=== PATIENT | male | born 1945 | race Caucasian/White ===

== ENCOUNTER 2020-05-13 08:11 | Emergency (ER) | payer MEDICARE, OTHER, SELFPAY ==
--- NOTE | ~2020-05-13 | CT_ITS ---
EXAMINATION: CT brain wo con DATE: 05/13/2020 09:00 INDICATION: Headache. Dizziness. TECHNIQUE: Computed tomography (CT) of the head was performed without intravenous contrast. The mA wa s adjusted according to patient size. Iterative reconstruction technique was employed. The dose-lengt h product was 605.33 mGy-cm. COMPARISON: CT sinuses 07/17/2018 FINDINGS: There is diffuse brain volume loss. There is no intracranial hemorrhage, acute infarction, or abnormal intracranial mass lesion. The ventricles are normal in size. There is mucosal thickening in the paranasal sinuses with thickening and sclerosis of the sinus meredith, consistent with chronic si nusitis. There are small bilateral mastoid effusions. IMPRESSION: 1. Normal aging brain. 2. Chronic sinusitis. Reviewed, dictated and finalized at location [facility].
[2020-05-13 08:15] VITALS: BP 132/89; PULSE 115; RESP 18; TEMP 37.3; O2SAT 98
--- NOTE | 2020-05-13 08:31 | ECG_ITS ---
Measurements Intervals [place] Rate: 107 P: 22 AR: 148 QRS: 12 QRSD: 98 T: 35 QT: 321 QTc: 429 Interpretive Statements SINUS TACHYCARDIA EARLY PRECORDIAL R/S TRANSITION MINIMAL Q WAVES- INFERIOR LEADS BASELINE ARTIFACT- AVF ABNORMAL ECG Electronically Signed On 05-13-2020 8:39:32 CDT by Jatinder Geiger D.O.
[2020-05-13 08:32] LABS: Glucose Point of Care 163 (65-105)
[2020-05-13 08:43] LABS: Basophils Percent Auto 0.3 % (0.2-1.2); Hemoglobin 15.4 g/dL (14.0-18.0); Immature Granulocyte Absolute 0.13 K/mm3 (0.00-0.031); Immature Granulocyte Percent A 1.1 % (0-0.5); Lymphocytes Absolute Auto 0.76 K/mm3 (0.9-3.2); Lymphocytes Percent Auto 6.6 % (18.3-44.2); Mean Corpuscular HGB Conc 33.5 g/dl (32-36); Mean Corpuscular Hemoglobin 29.4 pg (26-34); Mean Platelet Volume 9.1 fl (7.4-10.4); Monocytes Absolute Auto 1.1 K/mm3 (0.1-0.6); Monocytes Percent Auto 9.9 % (2.6-8.5); Neutrophils Absolute Auto 9.4 K/mm3 (1.3-6.7); Neutrophils Percent Auto 82.1 % (45.5-73.1); Platelet Count Result 230 k/mm3 (150-375); Red Blood Count 5.23 M/mm3 (4.6-6.20); Red Cell Distribution Width 13.9 % (11.5-14.5); White Blood Count 11.5 K/mm3 (4.5-10.0)
[2020-05-13 08:52] LABS: Alanine Aminotransferase 33 U/L (4-50); Albumin Level 4.5 g/dL (3.5-5.1); Alkaline Phosphatase 80 U/L (38-126); Aspartate Amino Transferase 36 U/L (17-59); Bilirubin,Total 0.4 mg/dL (0.2-1.3); Blood Urea Nitrogen 17 mg/dL (9-20); Carbon Dioxide 27 mmol/L (22-30); Chloride 96 mmol/L (98-107); Estimated CRCL calculation 49 ml/min; Estimated Glomerular Filt Rate > 60; Glucose 159 mg/dL (75-110); Potassium 3.7 mmol/L (3.4-5.0); Sodium 137 mmol/L (137-145)
--- NOTE | 2020-05-13 08:56 | ED.GENADULT ---
HPI - General Adult General Chief complaint: Headache Stated complaint: Headache Time Seen by Provider: 05/13/20 08:17 History of Present Illness HPI narrative: Patient is a 74-year-old male who presents ER with headache and dizziness. Headache began 3 days ago is been insidious in onset. Frontal and occipital, improves with Tylenol and ibuprofen but only transiently. No thunderclap nature to it. Patient has developed some dizziness that is not rotational but does worsen with head movements. No sinus congestion but he has had tinnitus in his ears for 3 days. Has history of peripheral vertigo and dizziness seems similar to what he is experienced in the past. Reports mild elevation in his temperature but no overt fever. No sinus congestion/sore throat/productive cough. Has history of head neck cancer that required chemotherapy surgical excision. Related Data Home Medications Medication Instructions Recorded Confirmed atorvastatin 05/13/20 bupropion HCl PO 05/13/20 buspirone mg 05/13/20 gabapentin 05/13/20 glipizide mg 05/13/20 05/13/20 hydrochlorothiazide 05/13/20 Allergies Allergy/AdvReac Type Severity Reaction Status Date / Time erythromycin base AdvReac Mild Nausea and Unverified 05/13/20 08:26 Vomiting Review of Systems Review of Systems: All systems reviewed & are unremarkable except as noted in HPI and below Constitutional: Constitutional: Denies chills, Denies fever(s) (elevated temp) and Denies weakness ENT: Reports dizziness, Denies nasal congestion and Denies sore throat Comments: Tinnitus Respiratory: Respiratory: Denies cough, Denies dyspnea and Denies wheezing Neurologic: Denies syncope, Reports headache(s), Denies focal weakness and Denies numbness [facility] Past Medical History Medical History (Updated 05/13/20 @ 10:42 by Canelo Allen MD) Anxiety Depression GERD (gastroesophageal reflux disease) Head and neck cancer Peripheral neuropathy Port-A-Cath in place Surgical History Surgical History (Updated 05/13/20 @ 09:03 by Canelo Allen MD) H/O neck surgery History of tonsillectomy Social History Social History (Updated 05/13/20 @ 09:03 by Canelo Allen MD) Smoking end date: 11/04/06 Gender identity (if verbalized by the patient): Male Exam Narrative: Exam Narrative: GENERAL: Well-appearing, well-nourished, and in no acute distress. HEAD: Normocephalic, atraumatic. EYES: PERRL and EOMI. ENT: Mucous membranes moist. NECK: NO midline or paraspinal tenderness, painless ROM. CHEST: Clear to auscultation. No respiratory distress. HEART: Tachycardic and regular. Normal peripheral pulses. EXTREMITIES: Normal range of motion. No edema. NEURO: CN II-XII intact. Clear speech. Alert and oriented x3. PSYCH: Normal mood and affect. Course Course Emergency Course: Patient informed of results. Feels much better with meclizine. Recommend follow-up with Dr. paul seen for his chronic sinus issues. Vital Signs Vital signs: Vital Signs Temperature 99.2 F 05/13/20 08:15 Pulse Rate 115 H 05/13/20 08:15 Respiratory Rate 18 05/13/20 08:15 Blood Pressure 132/89 05/13/20 08:15 Pulse Oximetry 98 05/13/20 08:15 Temperature 99.2 F 05/13/20 08:15 Pulse Rate 115 H 05/13/20 08:15 Respiratory Rate 18 05/13/20 08:15 Blood Pressure 132/89 05/13/20 08:15 Pulse Oximetry 98 05/13/20 08:15 Medical Decision Making Vital Signs Vital Signs: Vital Signs Temperature 99.2 F 05/13/20 08:15 Pulse Rate 115 H 05/13/20 08:15 Respiratory Rate 18 05/13/20 08:15 Blood Pressure 132/89 05/13/20 08:15 Pulse Oximetry 98 05/13/20 08:15 Temperature 99.2 F 05/13/20 08:15 Pulse Rate 115 H 05/13/20 08:15 Respiratory Rate 18 05/13/20 08:15 Blood Pressure 132/89 05/13/20 08:15 Pulse Oximetry 98 05/13/20 08:15 Lab Data Result diagrams: 05/13/20 08:32 05/13/20 08:32 Labs: Lab Results
[2020-05-13] MEDS: MECLIZINE HCL 25 MG TABLET PO (09:21)
[2020-05-13 10:53] VITALS: BP 118/86; PULSE 103; RESP 18; O2SAT 99
== END 2020-05-13 10:55 | disposition home or self-care (01) ==
PROVIDERS: Emergency Provider Emergency Medicine; PCP Family Medicine Adolescent Medicine
DX: G44.209 Tension-type headache, unspecified, not intractable (principal); J32.9 Chronic sinusitis, unspecified; R42 Dizziness and giddiness; F41.9 Anxiety disorder, unspecified; F32.9 Major depressive disorder, single episode, unspecified; K21.9 Gastro-esophageal reflux disease without esophagitis; G62.9 Polyneuropathy, unspecified
CPT/HCPCS: 36415; 70450; 80053; 82948; 85025; 93005; 99284; A9270

== ENCOUNTER 2020-05-22 22:11 | Emergency (ER) | payer MEDICARE, OTHER, SELFPAY ==
[2020-05-22] VITALS (7 sets, daily range): BP systolic 88–118; BP diastolic 72–88; PULSE 73–100; RESP 15; TEMP 36.4; O2SAT 100
--- NOTE | ~2020-05-22 | XR_ITS ---
EXAMINATION: XR chest 1V portable DATE: 05/22/2020 22:46 INDICATION: Syncope. TECHNIQUE: A single frontal view of the chest was obtained. COMPARISON: Chest 2 views 07/08/2018, chest CT 08/29/2017 FINDINGS: A calcified right lung nodule and calcified right hilar lymph nodes are consistent with old granulomatous disease. No pleural effusion or pneumothorax. The heart size is normal. IMPRESSION: 1. No acute cardiopulmonary disease. Reviewed, dictated and finalized at location [facility].
--- NOTE | 2020-05-22 22:44 | ED.SYNCOPE ---
HPI - Syncope General Chief Complaint: Syncope Stated Complaint: fainting spells Time Seen by Provider: 05/22/20 22:15 History of Present Illness HPI narrative: Patient presents with his for a syncopal episode in the morning and a presyncopal episode this evening. He has a history of throat cancer with chemo and radiation. His port is been removed. He has hypertension and diabetes. In the morning he had a syncopal episode without injury witnessed by his . His loss of consciousness was for a few seconds. This evening he was walking through the room and felt like he might pass out so he sat in the chair. He is not eating well, but he said he has been drinking plenty of water. That his urine is clear. He has not been sick this week. He takes hypertensive and diabetic medicine but they do not seem to know the name or the dose was. The med list in our computer does not coordinate with the bottles in the bag. He gets a lot of his medical care at the [place]. He was here recently for dizziness and had a CT of his brain. It showed chronic sinusitis. He has had surgery for that in the past. MD complaint: loss of consciousness, felt faint and collapsed Onset (ago): hour(s) -: second(s) Description of event: other (None) Prodromal symptoms: lightheaded Witnessed: Yes - by Bystander Context: other (Walking) Injuries sustained associated with event: none Current symptoms: none Treatments prior to arrival: none Related Data Home Medications Medication Instructions Recorded Confirmed atorvastatin 05/13/20 bupropion HCl PO 05/13/20 buspirone mg 05/13/20 gabapentin 05/13/20 glipizide mg 05/13/20 05/13/20 hydrochlorothiazide 05/13/20 cyclobenzaprine mg PO TID PRN 05/22/20 omeprazole PO DAILY 05/22/20 Allergies Allergy/AdvReac Type Severity Reaction Status Date / Time erythromycin base AdvReac Mild Nausea and Verified 05/22/20 22:42 Vomiting Review of Systems Review of Systems: Narrative: CONSTITUTIONAL: Denies fever, chills, or sweats. EYES: Denies visual changes, redness, or discharge. ENT: Denies rhinorrhea, congestion, sore throat, or otalgia. CARDIOVASCULAR: Denies chest pain, palpitations, or edema. RESPIRATORY: Denies cough or dyspnea. GASTROINTESTINAL: Denies abdominal pain, nausea, vomiting, or diarrhea. GENITOURINARY: Denies dysuria or hematuria. SKIN: Denies rash or itching. MUSCULOSKELETAL: Denies back pain, joint pain, or myalgia. NEUROLOGIC: Denies headache, numbness, or weakness. . PMFSH Past Medical History Medical History (Updated 05/22/20 @ 23:59 by Lizabeth Devi MD) Anxiety Depression GERD (gastroesophageal reflux disease) Head and neck cancer Peripheral neuropathy Port-A-Cath in place Syncope and collapse Surgical History Surgical History H/O neck surgery History of tonsillectomy Social History Social History Smoking end date: 11/04/06 Gender identity (if verbalized by the patient): Male Exam Narrative: Exam Narrative: GENERAL: Well-appearing, well-nourished, and in no acute distress. Orthostatic by vital signs. HEAD: Normocephalic, atraumatic. EYES: PERRLA and EOMI. ENT: Nares clear, no rhinorrhea or epistaxis. Mucous membranes moist. NECK: Supple. CHEST: Clear to auscultation. No respiratory distress. HEART: Regular rate and rhythm. No murmur heard. Normal peripheral pulses. ABDOMEN: Soft, nontender, nondistended, normal active bowel sounds. EXTREMITIES: Normal range of motion. No edema. SKIN: Warm, dry, no rash. NEURO: No focal deficits. Alert and oriented x3. PSYCH: Normal mood and affect. Course Reevaluation(s) Reevaluation #1: 20 3:57 PM went in to share the results of the testing with the patient and his . The hemoglobin A1c is 7.7, same as it was at the [facility]. the urine has +3 glucose. The patient says he does not really keep very good track o
[2020-05-22] MEDS: SODIUM CHLORIDE 0.9% IV 1,000 ML 999 ML IV CONT (22:45)
[2020-05-22 22:51] LABS: Basophils Absolute Auto 0.1 K/mm3 (0.0-0.1); Basophils Percent Auto 0.6 % (0.2-1.2); Eosinophils Absolute Auto 0.5 K/mm3 (0-0.3); Eosinophils Percent Auto 3.3 % (0-4.4); Hematocrit 44.8 % (42.0-52.0); Immature Granulocyte Absolute 0.11 K/mm3 (0.00-0.031); Immature Granulocyte Percent A 0.8 % (0-0.5); Lymphocytes Absolute Auto 2.59 K/mm3 (0.9-3.2); Lymphocytes Percent Auto 18.6 % (18.3-44.2); Mean Corpuscular HGB Conc 33.5 g/dl (32-36); Mean Corpuscular Hemoglobin 29.2 pg (26-34); Mean Corpuscular Volume 87.3 fl (80-100); Mean Platelet Volume 8.6 fl (7.4-10.4); Monocytes Absolute Auto 2.1 K/mm3 (0.1-0.6); Monocytes Percent Auto 14.9 % (2.6-8.5); Neutrophils Absolute Auto 8.6 K/mm3 (1.3-6.7); Neutrophils Percent Auto 61.8 % (45.5-73.1); Platelet Count Result 416 k/mm3 (150-375); Red Blood Count 5.13 M/mm3 (4.6-6.20); Red Cell Distribution Width 13.9 % (11.5-14.5); White Blood Count 13.9 K/mm3 (4.5-10.0)
[2020-05-22 23:04] LABS: Alanine Aminotransferase 44 U/L (4-50); Albumin Level 4.4 g/dL (3.5-5.1); Alkaline Phosphatase 85 U/L (38-126); Aspartate Amino Transferase 33 U/L (17-59); Bilirubin,Total 0.3 mg/dL (0.2-1.3); Blood Urea Nitrogen 20 mg/dL (9-20); Calcium 9.4 mg/dL (8.4-10.2); Carbon Dioxide 28 mmol/L (22-30); Chloride 98 mmol/L (98-107); Estimated CRCL calculation 53 ml/min; Estimated Glomerular Filt Rate > 60; Glucose 167 mg/dL (75-110); Hemoglobin A1C 7.7 % (<5.7); Potassium 3.7 mmol/L (3.4-5.0); Sodium 136 mmol/L (137-145)
--- NOTE | 2020-05-22 23:05 | ECG_ITS ---
Measurements Intervals [place] Rate: 91 P: 45 [place]: 175 QRS: 13 QRSD: 98 T: 65 QT: 346 QTc: 427 Interpretive Statements SINUS RHYTHM EARLY PRECORDIAL R/S TRANSITION NONSPECIFIC T-WAVE ABNORMALITY- HIGH LATERAL LEADS BORDERLINE ECG Electronically Signed On 05-23-2020 7:34:39 CDT by Jatinder Geiger D.O.
[2020-05-22 23:16] LABS: NT Pro B Type Natriuretic Pept 19 PG/ML (5-100); Troponin I < 0.012 ng/mL (0.000-0.034)
[2020-05-22 23:46] LABS: Add Urine Microscopic? YES; Appearance Urine Clear (Clear); Bilirubin Urine Negative (Negative); Blood Urine Negative (Negative); Color Urine Straw (Yellow); Glucose Urine UA 3+ mg/dL (Negative); Ketones Urine Negative (Negative); Leukocyte Esterase Ur Negative LEU/UL (Negative); Mucus Urine Rare /lpf; Nitrate Urine Negative (Negative); Protein Urine Negative (Negative); RBC Urine 0-2 /hpf (0-2); Specific Grav Ur 1.008 (1.001-1.035); Squamous Epithelial Cell Urine Rare /hpf (Few); Urobilinogen Urine Negative mg/dL (<2.0); WBC Urine 0-3 /hpf
[2020-05-23 00:07] VITALS: BP 104/78; PULSE 66; RESP 16; TEMP 36.4; O2SAT 98
== END 2020-05-23 00:08 | disposition home or self-care (01) ==
PROVIDERS: Emergency Provider Emergency Medicine; PCP Family Medicine Adolescent Medicine
DX: R55 Syncope and collapse (principal); E86.0 Dehydration; E11.65 Type 2 diabetes mellitus with hyperglycemia; F41.9 Anxiety disorder, unspecified; F32.9 Major depressive disorder, single episode, unspecified; K21.9 Gastro-esophageal reflux disease without esophagitis; E11.42 Type 2 diabetes mellitus with diabetic polyneuropathy; R94.31 Abnormal electrocardiogram [ECG] [EKG]; Z79.84 Long term (current) use of oral hypoglycemic drugs; Z85.818 Personal history of malignant neoplasm of other sites of lip, oral cavity, and pharynx
CPT/HCPCS: 36415; 71045; 80053; 81001; 83036; 83880; 84484; 85025; 93005; 96360; 99284; J7030

== ENCOUNTER 2022-06-04 06:06 | Emergency (ER) | payer MEDICARE, OTHER, SELFPAY ==
[2022-06-04 06:09] VITALS: BP 118/70; PULSE 66; RESP 17; TEMP 37.3; O2SAT 98
[2022-06-04 07:14] LABS: SARS-CoV-2 RNA PCR Negative
--- NOTE | 2022-06-04 07:30 | ED.GENADULT ---
HPI - General Adult General Chief complaint: Unspecified Stated complaint: wants covid test, positive today Time Seen by Provider: 06/04/22 07:06 History of Present Illness HPI narrative: here wiht who tested positive for covid today he has no symptoms just wants a test Related Data Home Medications Medication Instructions Recorded Confirmed atorvastatin 40 mg tablet PO DAILY 05/13/20 bupropion HCl 100 mg tablet PO DAILY 05/13/20 buspirone 10 mg tablet mg PO DAILY 05/13/20 gabapentin 300 mg capsule 600 mg PO TID 05/13/20 glipizide 5 mg tablet mg PO DAILY 05/13/20 05/13/20 hydrochlorothiazide 25 mg tablet PO DAILY 05/13/20 cyclobenzaprine 10 mg tablet mg PO TID PRN Muscle Spasticity 05/22/20 omeprazole 40 mg capsule,delayed PO DAILY 05/22/20 release Allergies Allergy/AdvReac Type Severity Reaction Status Date / Time erythromycin base AdvReac Mild Nausea and Verified 06/04/22 06:14 Vomiting Review of Systems Constitutional: Comments: CONSTITUTIONAL: Denies fever, chills, or sweats. EYES: Denies visual changes, redness, or discharge. ENT: Denies rhinorrhea, congestion, sore throat, or otalgia. CARDIOVASCULAR: Denies chest pain, palpitations, or edema. RESPIRATORY: Denies cough or dyspnea. GASTROINTESTINAL: Denies abdominal pain, nausea, vomiting, or diarrhea. GENITOURINARY: Denies dysuria or hematuria. SKIN: Denies rash or itching. MUSCULOSKELETAL: Denies back pain, joint pain, or myalgia. NEUROLOGIC: Denies headache, numbness, or weakness. PSYCHIATRIC: Denies anxiety or depression. [facility] Past Medical History Medical History (Updated 06/04/22 @ 07:34 by Tita Rivera MD) Anxiety Depression GERD (gastroesophageal reflux disease) Head and neck cancer Peripheral neuropathy Port-A-Cath in place Syncope and collapse Surgical History Surgical History H/O neck surgery History of tonsillectomy Social History Social History Smoking end date: 11/04/06 Gender identity (if verbalized by the patient): Male Exam Const: Other: APPEARANCE: Well appearing, no pain in distress, well-nourished. Head normocephalic atraumtaic. EYES: PERRLA/EOMI, conjunctivae very clear. NOSE: Normal no drainage EARS:TMS clear Harmony Torres, with good light reflex. THROAT: Pharynx clear, no exudate. NECK: Supple. No adenopathy, no masses. RESPIRATORY: Airway patent, repsirations nonlabored. Clear to auscultation bilaterally, no rales, rhonchi, wheezing. CARDIOVASCULAR: Regular rate and rhythm without murmurs rubs or gallops. ABDOMINAL: Soft, nontender, nondistended, no hepatosplenomegally MUSCULOSKELETAl: Moves all extremities. Strenght/ROM intact, No edema, No calf tenderness. NEURO: Alert. Cranial nerves II through XII intact. Good gait. Good coordination SKIN:: Warm, dry. Normal Color PSYCHIATRIC: Normal affect/mood, normal interaction with parents. Course Vital Signs Vital signs: Vital Signs Temperature 37.3 C 06/04/22 06:09 Pulse Rate 66 06/04/22 06:09 Respiratory Rate 17 06/04/22 06:09 Blood Pressure 118/70 06/04/22 06:09 Pulse Oximetry 98 06/04/22 06:09 Oxygen Delivery Room Air 06/04/22 06:09 Temperature 37.3 C 06/04/22 06:09 Pulse Rate 66 06/04/22 06:09 Respiratory Rate 17 06/04/22 06:09 Blood Pressure 118/70 06/04/22 06:09 Pulse Oximetry 98 06/04/22 06:09 Oxygen Delivery Room Air 06/04/22 06:15 Medical Decision Making Vital Signs Vital Signs: Vital Signs Temperature 37.3 C 06/04/22 06:09 Pulse Rate 66 06/04/22 06:09 Respiratory Rate 17 06/04/22 06:09 Blood Pressure 118/70 06/04/22 06:09 Pulse Oximetry 98 06/04/22 06:09 Oxygen Delivery Room Air 06/04/22 06:09 Temperature 37.3 C 06/04/22 06:09 Pulse Rate 66 06/04/22 06:09 Respiratory Rate 17 06/04/22 06:09 Blood Pressure 118/70 06/04/22 06:09 Puls
== END 2022-06-04 07:55 | disposition home or self-care (01) ==
PROVIDERS: Emergency Medicine; Emergency Provider Emergency Medicine; PCP Family Medicine Adolescent Medicine
DX: Z20.822 Contact with and (suspected) exposure to COVID-19 (principal); K21.9 Gastro-esophageal reflux disease without esophagitis; F41.9 Anxiety disorder, unspecified; F32.A Depression, unspecified; G62.9 Polyneuropathy, unspecified; Z79.84 Long term (current) use of oral hypoglycemic drugs
CPT/HCPCS: 99283; C9803; U0003; U0005

== ENCOUNTER 2022-07-06 12:34 | Emergency (ER) | payer MEDICARE, OTHER, SELFPAY ==
--- NOTE | ~2022-07-06 | XR_ITS ---
XR abdomen obstructive series DATE: 07/06/2022 13:29 INDICATION: Constipation TECHNIQUE: Supine and upright AP views COMPARISON: 08/29/2017 CT chest abdomen pelvis 08/28/2017 KUB FINDINGS: The lung bases are clear. Heart size is normal. No intraperitoneal free air is detected. The psoas shadows are intact. No visceromegaly is noted. There is no evidence of bowel obstruction. Occasional small bowel air-fluid levels are noted which ma y represent mild adynamic ileus or enteritis. Prostate calcifications. Dextroscoliosis of the lumbar spine. IMPRESSION: No evidence of bowel obstruction or intraperitoneal free air; possible enteritis or mild adynamic ileus No evidence of any significant amount of fecal material within the colon Prostate calcifications Reviewed, dictated and finalized at [facility]. Reviewed, dictated and finalized at location [facility]. IMPRESSION: No evidence of bowel obstruction or intraperitoneal free air; possi ble enteritis or mild adynamic ileus No evidence of any significant amount of fecal material within the colon Prostate calcifications
[2022-07-06 12:38] VITALS: BP 155/78; PULSE 61; RESP 16; TEMP 36.5; O2SAT 100
--- NOTE | 2022-07-06 12:55 | PC.NURSE ---
Pt reports he used 2 doses of Miralax yesterday and today. States he tried to digitally disimpact himself and pulled out stool the consistency of arthur.
--- NOTE | 2022-07-06 13:43 | ED.ABDPAIN ---
HPI - Abdominal Pain General Chief Complaint: Abdominal Pain <MARGARITO Ashley Last Filed: 07/06/22 18:36> Stated Complaint: constipation <MARGARITO Ashley Last Filed: 07/06/22 18:36> Time Seen by Provider: 07/06/22 13:09 <MARGARITO Ashley Last Filed: 07/06/22 18:36> History of Present Illness HPI narrative: 76-year-old male here for evaluation of constipation. Patient states his last normal bowel movement was about 4 days ago. He is regular and goes every day. Yesterday he took 2 doses of MiraLAX without success, today he took another 2 doses of MiraLAX. He reached into his rectum to disimpact himself and pulled out a quarter size piece of stool, followed by a very small amount of stool that he describes as soft serve . He has a history of fecal impactions and has had enemas in the past. He states that he came in for evaluation because he developed some abdominal discomfort. Also notes urinary retention. <MARGARITO Ashley Last Filed: 07/06/22 18:36> Related Data Home Medications: Home Medications Medication Instructions Recorded Confirmed atorvastatin 40 mg tablet PO DAILY 05/13/20 07/12/22 gabapentin 300 mg capsule 600 mg PO TID 05/13/20 07/12/22 glipizide 5 mg tablet mg PO DAILY 05/13/20 07/12/22 omeprazole 40 mg capsule,delayed PO DAILY 05/22/20 07/12/22 release <MARGARITO Ashley Last Filed: 07/06/22 18:36> Allergies/Adverse Reactions: Allergies Allergy/AdvReac Type Severity Reaction Status Date / Time erythromycin base AdvReac Mild Nausea and Verified 07/12/22 15:04 Vomiting <MARGARITO Ashley Last Filed: 07/06/22 18:36> Review of Systems Review of Systems: Gen: Denies fevers or chills Eyes: Denies eye pain or visual change ENT: Denies congestion Respiratory: Denies shortness of breath or cough CV: Denies chest pain or palpitations GI: Reports constipation. Denies abdominal pain nausea, emesis or diarrhea : denies burning, urgency, frequency or hematuria Musculoskeletal: Denies back pain or muscle pain Neuro: Denies numbness, tingling, weakness or focal weakness Skin: Denies rash Except as documented, all other systems reviewed and negative <Guillermina Sevilla PA-C - Last Filed: 07/06/22 18:36> [facility] Past Medical History Medical History: Medical History Anxiety Depression GERD (gastroesophageal reflux disease) Head and neck cancer Peripheral neuropathy Port-A-Cath in place Syncope and collapse <MARGARITO Ashley Last Filed: 07/06/22 18:36> Surgical History Surgical History: Surgical History H/O neck surgery (~2006) squamous cell cancer of tonsil History of tonsillectomy <MARGARITO Ashley Last Filed: 07/06/22 18:36> Social History Social History: Social History Smoking status: Never smoker Smoking end date: 11/04/06 Gender identity (if verbalized by the patient): Male <MARGARITO Ashley Last Filed: 07/06/22 18:36> Exam Narrative: APPEARANCE: Lying in right lateral recumbent position EYES: EOMI HEENT: Normocephalic, atraumatic, OMM RESPIRATORY: No respiratory distress Clear to auscultation bilaterally with no rhonchi wheezing or rales. CARDIOVASCULAR: Regular rate and rhythm without murmurs rubs or gallops. ABDOMINAL: Soft, nontender, nondistended, no rebound or guarding MUSCULOSKELETAL: Moves all extremities. No clubbing, cyanosis or edema. NEURO: Awake and alert. Following commands, speech normal, no focal deficits SKIN: Warm, dry. No rashes lesions or abrasions PSYCHIATRIC: Normal affect/mood <MARGARITO Ashley Last Filed: 07/06/22 18:36> Course KEY HOLDER/PA Physician Supervision For this patient encounter, I reviewed the
--- NOTE | 2022-07-06 14:30 | PC.NURSE ---
Up to bathroom. Had large brown stool. Pt states his pain is almost gone.
== END 2022-07-06 14:40 | disposition home or self-care (01) ==
PROVIDERS: Emergency Provider Emergency Medicine; PCP Family Medicine Adolescent Medicine
DX: K59.00 Constipation, unspecified (principal); K21.9 Gastro-esophageal reflux disease without esophagitis; G62.9 Polyneuropathy, unspecified
CPT/HCPCS: 74019; 99283

== ENCOUNTER 2022-07-27 10:12 | Outpatient (CLI) | payer MEDICARE, OTHER, SELFPAY ==
--- NOTE | 2022-07-27 11:00 | ECG_ITS ---
Measurements Intervals [place] Rate: 79 P: -4 [place]: 201 QRS: 1 QRSD: 93 T: 17 QT: 384 QTc: 442 Interpretive Statements SINUS RHYTHM EARLY PRECORDIAL R/S TRANSITION CONSIDER INFERIOR INFARCT, AGE INDETERMINATE BASELINE ARTIFACT- I, II, III, AVR, AVL, AVF ABNORMAL ECG COMPARED TO ECG 05/22/2020 22:16:13 NO SIGNIFICANT CHANGES Electronically Signed On 07-27-2022 11:40:35 CDT by Jatinder Geiger D.O.
[2022-07-27 11:11] LABS: Anion Gap 12 mmol/L (8-16); Blood Urea Nitrogen 17 mg/dL (9-20); Calcium 8.9 mg/dL (8.4-10.2); Carbon Dioxide 29 mmol/L (22-30); Chloride 102 mmol/L (98-107); Estimated Glomerular Filt Rate > 60; Glucose 113 mg/dL (65-110); Potassium 4.3 mmol/L (3.4-5.0); Sodium 143 mmol/L (137-145)
== END 2022-07-27 10:13 | disposition home or self-care (01) ==
LOC: ANHSURGERY 10:28
PROVIDERS: Anesthesiology; PCP Family Medicine Adolescent Medicine; Visit Provider Urology
DX: E11.9 Type 2 diabetes mellitus without complications (principal); E78.2 Mixed hyperlipidemia; Z01.818 Encounter for other preprocedural examination; R94.31 Abnormal electrocardiogram [ECG] [EKG]
CPT/HCPCS: 36415; 80048; 93005

== ENCOUNTER 2022-07-31 00:58 | Day surgery (SDC) | payer MEDICARE, OTHER, SELFPAY ==
[2022-07-27 09:26] VITALS: BMI 23.1
--- NOTE | 2022-07-27 09:54 | PC.NURSE ---
Report to the Outpatient Waiting Room, entrance under the green pavilion located off [facility], at time __10:45AM on date __07/31/22 . OR Time: _12:45AM . Time changes happen often and if your time is changed the preop area will call you the afternoon before. - You and your visitor will be asked to self-screen and do not enter if you have any COVID symptoms. - Only one visitor and NO children visitors are allowed at this time. - The patient visitor is requested to leave or wait in car when not with patient due to restrictions. - A mask is required within the hospital. Patients may have clear liquids (water, carbonated beverages, clear teas, apple juice) until 3 hours prior to surgery with a maximum of 20 ounces. - No food from midnight until time of surgery Take the following medications with a SIP of water the morning of surgery: ___GABAPENTIN NEEDED, DIVALPROEX Medications to discontinue per physician ____NONE Date to take last dose Please no make-up, nail lao, hairspray, perfume, deodorant, or body powder the day of surgery. No jewelry (including any body piercings) or valuables the day of surgery, leave them at home. Please take a shower or bath the night before, or the morning of, surgery with an antibacterial soap. Wear comfortable, loose fitting clothing. Children are encouraged to wear pajamas. - Jewelry must be removed prior to entering the operating room. Rings and piercings that are not removed may be cut off. - The hospital will not accept responsibility for valuables. - Please leave all valuables, including medications, at home the day of surgery. If you are going home after surgery, a licensed tour bus driver must drive you home. - NO public transportation without another adult. - We recommend that an adult stay with you for 24 hours following discharge. - We also recommend that you do not drive, make important decision, drink alcoholic beverages, or take any drugs that were not prescribed by your health care provider for at least 24 hours after your discharge time. Follow any additional instructions given to you from your surgeon. If you or anyone in your household have experienced Covid symptoms in the past week, please notify your surgeon or the nurse liaison at the phone number below for possible testing. Telephone instructions given to __PATIENT and asked if any additional questions and then verbalized understanding. Patient advised to call surgeon office or pre surgery nurse liaison [phone] if any additional questions.
[2022-07-31] VITALS (7 sets, daily range): BP systolic 113–143; BP diastolic 73–88; PULSE 61–70; RESP 8–18; TEMP 36.1–36.7; O2SAT 100
--- NOTE | ~2022-07-31 | XR_ITS ---
EXAMINATION: XR urethrocystogram INDICATION: Urethral dilatation and retrograde urethrogram TECHNIQUE: Two intraoperative fluoroscopic images are submitted for review. Total fluoroscopic time w as 10.7 seconds. COMPARISON: 08/30/2017 FINDINGS: Fluoroscopic images demonstrate a urologic instrument a wire projecting over the pelvis. Pl ease refer to procedure note for full details. IMPRESSION: 1. Please refer to procedure note for full details. Reviewed, dictated and finalized at location A.
--- NOTE | 2022-07-31 10:46 | WPDANESEPPF ---
Anes - Initial Pre Proc Eval Procedure: Operation Date: 07/31/22 12:45 Proposed Procedures p Cystoscopy, Retrograde Urethrogram, Dilation of Urethral Stricture - Bello Sheets MD Date/Time: 07/31/22 10:46 Surgeon: Bello Sheets MD Pre Op Diagnosis: Urethral Stricture, BPH Patient Data Age: 77 Gender: M Height: 1.63 m Weight: 61 kg Allergies Allergy/AdvReac Type Severity Reaction Status Date / Time erythromycin base AdvReac Mild Nausea and Verified 07/31/22 10:43 Vomiting Home Medications Medication Instructions Recorded Confirmed Type atorvastatin 40 mg tablet 40 mg PO DAILY 05/13/20 07/27/22 History fluticasone propionate 50 2 spray intranasal DAILY #11.1 mL 05/13/20 07/27/22 Rx mcg/actuation nasal spray,suspension (Flonase Allergy Relief) gabapentin 300 mg capsule 300 mg PO TID 05/13/20 07/27/22 History glipizide 5 mg tablet 5 mg PO DAILY 05/13/20 07/27/22 History omeprazole 40 mg capsule,delayed 40 mg PO DAILY PRN Indigestion 05/22/20 07/27/22 History release cyclobenzaprine 10 mg tablet 10 mg PO TID PRN Muscle Spasticity 07/12/22 07/27/22 Rx #90 tabs diclofenac sodium 75 mg 75 mg PO BID #60 tabs 07/12/22 07/27/22 Rx tablet,delayed release divalproex 500 mg tablet,extended 1,000 mg PO QAM 07/27/22 07/27/22 History release 24 hr ibuprofen 200 mg capsule 400 mg PO Q6H PRN Pain 07/27/22 07/27/22 History tamsulosin 0.4 mg capsule 0.4 mg PO DAILY PRN Urinary 07/27/22 07/27/22 History Retention Patient hx anesthesia problems: none Family hx anesthesia problems: none Results Review: All pre-operative results and documents have been reviewed as part of the pre-operative evaluation. [facility] Past Medical History Medical History (Updated 07/31/22 @ 10:48 by Andrei Lambert MD) Anxiety Depression Gastro-esophageal reflux disease without esophagitis GERD (gastroesophageal reflux disease) Head and neck cancer Mixed hyperlipidemia Peripheral neuropathy Port-A-Cath in place Seizure Syncope and collapse Type 2 diabetes mellitus without complications Surgical History Surgical History H/O neck surgery (~2006) squamous cell cancer of tonsil History of tonsillectomy Social History Social History Smoking status: Never smoker Tobacco type: cigars and smokeless tobacco Smokeless tobacco user: chewing tobacco Smoking end date: 11/04/06 Alcohol intake: current Drinks per week: 2 Substance use: never Living arrangements: with family Additional living arrangements comments: Gender identity (if verbalized by the patient): Male Spiritual care concerns: No Anes - Eval Final PreProcedure Day of Procedure 07/31/22 10:46 Patient weight: normal Heart: regular rate and rhythm Lungs: clear to auscultation and normal air movement Airway: Mallampati scale class II Neurological: alert and oriented Last oral intake: >/= 8 hours ASA classification: III Emergent: no Anesthetic plan: proceed Anesthesia type and monitoring: general LMA Results Review: All pre-operative results and documents have been reviewed as part of the pre-operative evaluation. Informed Consent: The patient's anesthetic plan and its attendant risks and benefits were discussed with the patient/family/POA. Questions were solicited and answers provided to the satisfaction of the patient/family/POA.
[2022-07-31] MEDS: LACTATED RINGERS 1,000 ML 30 ML IV CONT (11:13)
[2022-07-31 11:16] LABS: Glucose Point of Care 104 mg/dl (65-105)
[2022-07-31 11:16] LABS: Glucose Point of Care 73 mg/dl (65-105)
[2022-07-31 12:00] LABS: Valproic Acid 48.5 ug/mL (50-120)
--- NOTE | 2022-07-31 12:01 | WPDHPUPDATE1 ---
History and Physical Update Update Date/Time: 07/31/22 12:01 History and Physical has been reviewed, including an updated exam of the patient. There are NO changes in the patient's condition. Risks, benefits, and alternatives have been discussed and questions answered. Patient agrees to proceed with procedure. Proceed with cysto, retrograde urethrogram, urethral dilation
[2022-07-31] MEDS: ceFAZolin 2 GM/D5W 50 ML 2 GM/50 ML BAG IVPB (12:07)
[2022-07-31] MEDS: LIDOCAINE HCL 2% GEL UROJET 10 ML PKG MUCOUS MEM (12:20)
--- NOTE | 2022-07-31 12:33 | P.OP_ITS ---
Procedure Note - Detailed Date of Procedure 07/31/22 Pre-op Diagnosis Urethral Stricture, BPH Post-op Diagnosis Same Procedure Performed Retrograde urethrogram, dilation withAmplantz dilators, cystoscopy, complex Gonzalez catheter placement Surgeon Bello Sheets MD Anesthesia General Findings Tight bulbar urethral stricture Description of Procedure Patient is taken the operative suite correctly identified. Once anesthesia was obtained was placed in dorsal lithotomy position and prepped and draped usual sterile fashion. A 22 Icelandic scope inserted into the meatus. Patient has a tight urethral stricture. Possibly around 8-10 Icelandic. A retrograde u rethrogram was then performed using a red rubber catheter. In order to get the wire through the stricture used a flexible ureteral scope to get up to the stricture itself and advanced a wire into the bladder under fluoroscopic imaging. We then used Amplantz dilators and sequentially dilated from 14 Icelandic to 24 Icelandic. Cystoscopy was then performed using the 22 Icelandic scope. There were no other tumors or strictures noted. 2% viscous lidocaine was inserted into the urethra. Eighteen Icelandic [place] tip catheter was then passed over the wire into the bladder. The bladder was inflated with 10 cc of sterile water. Patient is taken recovery stable condition. Will plan on removing the Gonzalez catheter on Saturday. Estimated Blood Loss 0 Drains Yes Packing No Pathology None sent Complications No immediate complications Condition Stable Disposition PACU
[2022-07-31 12:52] LABS: Glucose Point of Care 96 mg/dl (65-105)
--- NOTE | 2022-07-31 15:03 | SUR.PHASEII ---
1430 pt is going home with joshi cath in, switched lg drainage bag to leg bag, sent 2L bag home with him to switch out. pt tolerating catheter well
== END 2022-07-31 14:45 | disposition home or self-care (01) ==
PROVIDERS: Anesthesiology; PCP Family Medicine Adolescent Medicine; Visit Provider Urology
PROC: (CPT 52352; principal; 2022-07-31 12:45)
DX: N35.919 Unspecified urethral stricture, male, unspecified site (principal); E11.42 Type 2 diabetes mellitus with diabetic polyneuropathy; E78.2 Mixed hyperlipidemia; K21.9 Gastro-esophageal reflux disease without esophagitis; F41.9 Anxiety disorder, unspecified; F32.A Depression, unspecified; Z79.84 Long term (current) use of oral hypoglycemic drugs; Z87.891 Personal history of nicotine dependence
CPT/HCPCS: 52281; 36415; 51610; 74450; 80048; 80164; 82948; 93005; C1726; C1758; C1769; J0690; J2405; J2704; J3010; J7120; Q9966

== ENCOUNTER 2023-03-13 06:52 | Outpatient (CLI) | payer MEDICARE, OTHER, SELFPAY ==
--- NOTE | ~2023-03-13 | CT_ITS ---
CT of the Abdomen and Pelvis: Indication: Flank pain, microscopic hematuria Technique: 2.5 mm axial scans were obtained through the abdomen and pelvis prior to and following in travenous administration of 130 cc of Omnipaque 350. Dose reduction technique was used on this scan b y utilizing automated exposure control and iterative reconstruction technique. The dose-length produc t (DLP) was 678.87 mGy-cm. COMPARISON: 08/29/2017 Findings: Scans through the lung bases are unremarkable. The pancreas, gallbladder, and adrenal glands are within normal limits. Calcified splenic and hepatic granulomas are noted. Stable nonenhancing bilateral renal cysts are present. Stable probable focal p arenchymal calcification in the left kidney. No evidence of aortic aneurysm. No lymphadenopathy. No bowel obstruction or bowel wall thickening. There is no evidence to suggest acute appendicitis. Images through the pelvis were performed. Probable mild diffuse urinary bladder wall thickening. Pros deutsch gland is enlarged. No ascites. Impression: Mild diffuse urinary bladder wall thickening. Correlate for cystitis. Bilateral renal cysts and stable focal left renal parenchymal calcification. Enlarged prostate gland. Reviewed, dictated and finalized at location M. Impression: Mild diffuse urinary bladder wall thickening. Correlate for cystitis. Bilateral renal cysts and stable focal left renal parenchymal calcification. Enlarged prostate gland.
--- NOTE | ~2023-03-13 | XR_ITS ---
Supine and upright views of the abdomen Clinical history: Microscopic hematuria Findings: Bowel gas pattern is nonspecific. No evidence for obstruction or free air. No definite shanthi l stone seen. Central inferior pelvic calcifications are compatible with prostate gland calcification s. Osseous structures are intact. Impression: No significant abnormality is seen. Reviewed, dictated and finalized at [facility]. Impression: No significant abnormality is seen.
[2023-03-13 07:30] LABS: Estimated Glomerular Filt Rate > 60
== END 2023-03-13 06:53 | disposition home or self-care (01) ==
PROVIDERS: PCP Family Medicine Adolescent Medicine; Visit Provider Urology
DX: R31.29 Other microscopic hematuria (principal); N28.1 Cyst of kidney, acquired; N40.0 Benign prostatic hyperplasia without lower urinary tract symptoms
CPT/HCPCS: 74018; 74178; Q9967

== ENCOUNTER 2024-04-07 05:29 | Inpatient (IN) | payer MEDICARE, OTHER, SELFPAY ==
[2024-04-07] VITALS (25 sets, daily range): BP systolic 94–135; BP diastolic 58–77; PULSE 89–136; RESP 14–32; TEMP 36.4–38.6; O2SAT 93–100; BMI 24.4
--- NOTE | ~2024-04-07 | CT_ITS ---
CT of the Abdomen and Pelvis: Indication: Sepsis Technique: 2.5 mm axial scans were obtained through the abdomen and pelvis following intravenous adm inistration of 100 cc of Omnipaque 350. Dose reduction technique was used on this scan by utilizing a utomated exposure control and iterative reconstruction technique. The dose-length product (DLP) was 3 10.30 mGy-cm. COMPARISON: 03/13/2023 Findings: Scans through the lung bases are unremarkable. The liver, spleen, pancreas, gallbladder, adrenals and kidneys are within normal limits, aside from p robable bilateral renal cysts. There are atherosclerotic calcifications of the aorta. No lymphadenop athy. No bowel obstruction or bowel wall thickening. There is no evidence to suggest acute appendicitis. Images through the pelvis were performed. There is diffuse urinary bladder wall thickening. Prostate gland is significantly enlarged. No ascites. Impression: Urinary bladder wall thickening compatible cystitis. Correlate clinically and with urinalysis. Probable bilateral renal cysts. Evaluation somewhat suboptimal due to mild motion artifact. Reviewed, dictated and finalized at location M. Impression: Urinary bladder wall thickening compatible cystitis. Correlate clinically and w ith urinalysis. Probable bilateral renal cysts. Evaluation somewhat suboptimal due to mild calderon on artifact.
--- NOTE | ~2024-04-07 | XR_ITS ---
Clinical Indication: Fever AP and lateral views of the chest: Comparison: 05/22/2020 Findings: The lungs are clear, without evidence of focal consolidation or pleural effusion. Cardiome diastinal silhouette is within normal limits. Bones and soft tissues are unremarkable. Impression: Clear lungs. Reviewed, dictated and finalized at location . Impression: Clear lungs.
--- NOTE | 2024-04-07 05:36 | ECG_ITS ---
[facility] [address] Test Date: 2024-04-07 Pat Name: Femi Rosario Department: Room: Gender: M Hospitality Host: : [id number] Requested By: Elba Salinas Order Number: [id number] Reading MD: Abraham Villalta M.D. Measurements Intervals [place] Rate: 102 P: 9 AK: 159 QRS: 20 QRSD: 93 T: 37 QT: 320 QTc: 417 Interpretive Statements SINUS TACHYCARDIA ABNORMAL RHYTHM ECG No previous ECG available for comparison Electronically Signed On 04-07-2024 14:19:27 CDT by Abraham Villalta M.D.
[2024-04-07 05:47] LABS: Hematocrit 43.8 % (42.0-52.0); Hemoglobin 14.2 g/dL (14.0-18.0); Mean Corpuscular HGB Conc 32.4 g/dl (32-36); Mean Corpuscular Hemoglobin 30.3 pg (26-34); Mean Corpuscular Volume 93.4 fl (80-100); Mean Platelet Volume 8.4 fl (7.4-10.4); Platelet Count Result 277 k/mm3 (150-375); Red Blood Count 4.69 M/mm3 (4.6-6.20); Red Cell Distribution Width 13.4 % (11.5-14.5); White Blood Count 19.1 K/mm3 (4.5-10.0)
--- NOTE | 2024-04-07 05:50 | ED.GENADULT ---
HPI - General Adult General Chief complaint: Weakness <Elba Deshpande MD - Last Filed: 04/08/24 03:46> Stated complaint: weakness/fever <Elba Deshpande MD - Last Filed: 04/08/24 03:46> Time Seen by Provider: 04/07/24 05:31 <Elba Deshpande MD - Last Filed: 04/08/24 03:46> History of Present Illness HPI narrative: Patient is a 78-year-old male who presents to the emergency department this morning with multiple complaints. Patient states that approximately 2 weeks ago he started to develop fever but that subsided on its own patient has been fine for the past 10 days. Today patient woke up with another fever and rigors, patient also states that he feels achy all over. Patient admits that he has been having urinary tract infection symptoms with dysuria and increased urinary frequency. He denies any history of recurrent urinary tract infections. He denies any shortness of breath or any upper respiratory symptoms. <Elba Deshpande MD - Last Filed: 04/08/24 03:46> Related Data Home medications: Home Medications Medication Instructions Recorded Confirmed ibuprofen 200 mg capsule 400 mg PO Q6H PRN Pain 07/27/22 04/07/24 atorvastatin 40 mg tablet 40 mg PO HS 04/07/24 04/07/24 calcium polycarbophil 625 mg 625 mg PO DAILY 04/07/24 04/07/24 tablet (Fiber-Lax) cyclobenzaprine 5 mg tablet 5 mg PO HS 04/07/24 04/07/24 gabapentin 300 mg capsule 300 mg PO HS 04/07/24 04/07/24 lidocaine 5 % topical patch 1 patch topical DAILY 04/07/24 04/07/24 mirtazapine 7.5 mg tablet 15 mg PO HS 04/07/24 04/07/24 omeprazole 20 mg capsule,delayed 20 mg PO DAILY 04/07/24 04/07/24 release polyethylene glycol 3350 17 17 g PO DAILY 04/07/24 04/07/24 gram/dose oral powder valproic acid (as sodium salt) 250 250 mg PO DAILY 04/07/24 04/07/24 mg/5 mL oral solution valproic acid (as sodium salt) 250 500 mg PO HS 04/07/24 04/07/24 mg/5 mL oral solution <Elba Deshpande MD - Last Filed: 04/08/24 03:46> Allergies/adverse reactions: Allergies Allergy/AdvReac Type Severity Reaction Status Date / Time erythromycin base AdvReac Mild Nausea and Verified 04/07/24 09:38 Vomiting <Elba Deshpande MD - Last Filed: 04/08/24 03:46> Review of Systems Review of Systems: All systems are reviewed and are negative unless stated otherwise in the HPI. <Elba Deshpande MD - Last Filed: 04/08/24 03:46> PMFSH Past Medical History Medical History: Medical History Anxiety Depression Gastro-esophageal reflux disease without esophagitis GERD (gastroesophageal reflux disease) Head and neck cancer Mixed hyperlipidemia Peripheral neuropathy Port-A-Cath in place Seizure Syncope and collapse Type 2 diabetes mellitus without complications <Elba Deshpande MD - Last Filed: 04/08/24 03:46> Surgical History Surgical History: Surgical History H/O neck surgery (~2006) squamous cell cancer of tonsil History of tonsillectomy <Elba Deshpande MD - Last Filed: 04/08/24 03:46> Family History Family History: Family History (Updated 04/07/24 @ 09:30 by Nu Ferguson RN) Father Heart failure Mother Diabetes mellitus <Elba Deshpande MD - Last Filed: 04/08/24 03:46> Social History Social History: Social History Smoking status: Former smoker Tobacco type: cigars Smokeless tobacco user: chewing tobacco Smoking end date: 11/04/06 Additional smoking assessment comments: 2-3 cigars a day Alcohol intake: never Drinks per week: 2 Substance use: never Do You Feel Safe in your Home?: Yes Lack of Transportation: No Lack of Food: Never True Current Housing: I Have Housing Concerned About Future Housing: Decline to Answer Difficulty Paying Gas/Electric Bills: Decline to Answer D
[2024-04-07 05:57] LABS: Lactic Acid Reflex 3.3 mmol/L (0.7-2.0)
[2024-04-07 05:58] LABS: Alanine Aminotransferase 18 U/L (6-50); Albumin Level 4.6 g/dL (3.5-5.1); Alkaline Phosphatase 67 U/L (38-126); Anion Gap 9 mmol/L (4-12); Aspartate Amino Transferase 22 U/L (17-59); Bilirubin,Total 0.6 mg/dL (0.2-1.3); Blood Urea Nitrogen 19 mg/dL (9-20); Calcium 9.2 mg/dL (8.4-10.2); Carbon Dioxide 26 mmol/L (22-30); Chloride 103 mmol/L (98-107); Estimated CRCL calculation 46 ml/min; Estimated Glomerular Filt Rate > 60; Glucose 166 mg/dL (65-110); Potassium 4.7 mmol/L (3.4-5.0); Prothrombin Time 13.9 Seconds (11.1-14.7); Sodium 138 mmol/L (137-145)
[2024-04-07 05:59] LABS: Partial Thromboplastin Time 26.7 Seconds (22.3-36.8)
[2024-04-07 06:02] LABS: Band Neutrophils Percent 3 % (0-6); Monocytes Absolute Manual 0.76 K/mm3 (0.1-0.90); Monocytes Percent Manual 4 % (3-9); Neutrophils Absolute Manual 18.33 K/mm3 (1.3-6.7); Neutrophils Percent Manual 93 % (46-73); Platelet Estimate Adequate (Adequate); Schistocytes None Seen; Total Cells Counted 100
[2024-04-07 06:03] LABS: Anisocytosis 1+; Large Platelets Present
[2024-04-07] MEDS: SODIUM CHLORIDE 0.9% IV 1,000 ML 999 ML IV CONT ×2 (06:03→07:14)
--- NOTE | 2024-04-07 06:07 | PC.NURSE ---
0607: This Rn attempted to give pt his tyelnol tablets PO. Pt states he cant swallow and asked for it in liquid form. Dr. Deshpande notified.
[2024-04-07] MEDS: IBUPROFEN SUSPENSION 200 MG/10 ML UDC 400 MG PO (06:10)
[2024-04-07] MEDS: ONDANSETRON INJ 4 MG/2 ML VIAL IV PUSH (06:20)
[2024-04-07] MEDS: MORPHINE SULFATE (*CRX) 2 MG/ML INJ IV PUSH (06:20)
[2024-04-07 06:23] LABS: Influenza A QL RT-PCR Negative (Negative); Influenza B QL RT-PCR Negative (Negative); RSV RNA, RT-PCR Negative (Negative); SARS-CoV-2 RNA PCR Negative (Negative)
[2024-04-07] MEDS: levoFLOXacin 750 MG/D5W 150 ML 750 MG/150 ML BAG 100 MG IVPB (06:53)
[2024-04-07 07:17] LABS: Appearance Urine Cloudy (Clear); Bacteria Urine 4+ /hpf; Bilirubin Urine Negative (Negative); Blood Urine 1+ (Negative); Color Urine Yellow (Yellow); Glucose Urine UA Trace mg/dL (Negative); Ketones Urine Trace mg/dL (Negative); Leukocyte Esterase Ur 3+ LEU/UL (Negative); Nitrate Urine Positive (Negative); Non Pathogenic Casts 0-2; Protein Urine Negative (Negative); RBC Urine 0-2 /hpf (0-2); Squamous Epithelial Cell Urine None Seen /hpf (Few); Urobilinogen Urine 0.2 mg/dL (<2.0); WBC Urine >100 /hpf (0-3); pH Urine 5.5 (5.0-9.0)
[2024-04-07 07:54] LABS: Specific Grav Ur 1.038 (1.001-1.035)
[2024-04-07 07:55] LABS: Add Urine Microscopic? YES
[2024-04-07 08:45] LABS: Reflex Lactic Acid Yes or No Add Lactic
[2024-04-07] MEDS: SODIUM CHLORIDE 0.9% IV 1,000 ML 125 ML IV CONT ×2 (08:55→17:23)
--- NOTE | 2024-04-07 09:10 | PC.NURSE ---
This patient, Femi Rosario, was admitted to [facility] Surg Room 329-01. Patient/family oriented to hospital policies and general routines including ID bracelet, bed and alarms, visiting hours, pain management, procedures, bathroom and other care routines, personal items, smoking policy, room service/diet, and visiting hours. Information on how to activate the Rapid Response Team has been discussed. Patient/Family are encouraged to report perceived risks to care and to ask questions if they do not understand what they are told or what they should do.
[2024-04-07 09:18] LABS: Lactic Acid 3.4 mmol/L (0.7-2.0)
--- NOTE | 2024-04-07 15:11 | PM.IMHP ---
H&P: HPI History of Present Illness Date/Time: 04/07/24 15:11 Chief Complaint: Weakness fever Narrative: Patient is a 78-year-old male who presents to the emergency department this morning with multiple complaints. Patient states that approximately 2 weeks ago he started to develop fever but that subsided on its own patient has been fine for the past 10 days. Today patient woke up with another fever and rigors, patient also states that he feels achy all over. Patient admits that he has been having urinary tract infection symptoms with dysuria and increased urinary frequency. He denies any history of recurrent urinary tract infections. He denies any shortness of breath or any upper respiratory symptoms. The ED vitals stable however was febrile. Laboratory evaluation showed leukocytosis of 19.1 lactic acidosis 3.3. UA was positive influenza RSV COVID was negative chest x-ray showed clear lungs. CT abdomen pelvis showed urinary bladder wall thickening compatible cystitis correlate clinically and with urinalysis. Probable bilateral renal cyst. He received IV fluid resuscitation in the ER and is admitted for further treatment. Has received IV Levaquin in the ER. Review of Systems Review of Systems: - CONSTITUTIONAL: Denies weight loss, reports fever and chills. - HEENT: Denies changes in vision and hearing - RESPIRATORY: Denies SOB and cough. - CV: Denies palpitations and CP. - GI: Denies abdominal pain, nausea, vomiting and diarrhea. - : Reports dysuria and urinary frequency. - MSK: Denies myalgia and joint pain. - SKIN: Denies rash and pruritus. - NEUROLOGICAL: Denies headache and syncope. - PSYCHIATRIC: Denies recent changes in mood. Denies anxiety and depression. [facility] Past Medical History Medical History Anxiety Depression Gastro-esophageal reflux disease without esophagitis GERD (gastroesophageal reflux disease) Head and neck cancer Mixed hyperlipidemia Peripheral neuropathy Port-A-Cath in place Seizure Syncope and collapse Type 2 diabetes mellitus without complications Surgical History Surgical History H/O neck surgery (~2006) squamous cell cancer of tonsil History of tonsillectomy Family History Family History (Updated 04/07/24 @ 09:30 by Nu Ferguson RN) Father Heart failure Mother Diabetes mellitus Social History Social History Smoking status: Former smoker Tobacco type: cigars Smokeless tobacco user: chewing tobacco Smoking end date: 11/04/06 Additional smoking assessment comments: 2-3 cigars a day Alcohol intake: never Drinks per week: 2 Substance use: never Do You Feel Safe in your Home?: Yes Lack of Transportation: No Lack of Food: Never True Current Housing: I Have Housing Concerned About Future Housing: Decline to Answer Difficulty Paying Gas/Electric Bills: Decline to Answer Difficulty Paying for Meds: Decline to Answer Currently Unemployed: Decline to Answer Education: Associate Degree Difficulty w/ Childcare or Family Care: Decline to Answer Living arrangements: with family Additional living arrangements comments: Occupation/Education: retired Gender identity (if verbalized by the patient): Male Sexual Orientation (if Verbalized by the Patient): Straight or Heterosexual Spiritual care concerns: No Meds Home Medications and Allergies Home Medications Medication Instructions Recorded Confirmed Type fluticasone propionate 50 2 spray intranasal DAILY #11.1 mL 05/13/20 04/07/24 Rx mcg/actuation nasal spray,suspension (Flonase Allergy Relief) ibuprofen 200 mg capsule 400 mg PO Q6H PRN Pain 07/27/22 04/07/24 History atorvastatin 40 mg tablet 40 mg PO HS 04/07/24 04/07/24 History calcium polycarbophil 625 mg 625 mg PO DAILY 06
[2024-04-07 15:47] LABS: Lactic Acid Reflex 2.2 mmol/L (0.7-2.0)
[2024-04-07] MEDS: ACETAMINOPHEN 325 MG TABLET 650 MG PO (18:10)
[2024-04-07] MEDS: ATORVASTATIN 40 MG TABLET PO (20:36)
[2024-04-07] MEDS: MIRTAZAPINE 15 MG TABLET PO (20:36)
[2024-04-07] MEDS: CYCLOBENZAPRINE HCL 5 MG TABLET PO (20:36)
[2024-04-07] MEDS: IBUPROFEN 400 MG TABLET PO (20:36)
[2024-04-07] MEDS: GABAPENTIN 300 MG CAPSULE PO (20:36)
[2024-04-07] MEDS: VALPROIC ACID LIQ 250 MG/5 ML ORAL SOLUTION UDC 500 MG PO (20:37)
[2024-04-08] VITALS (7 sets, daily range): BP systolic 106–147; BP diastolic 61–68; PULSE 74–88; RESP 12–18; TEMP 36.2–38.1; O2SAT 92–100
[2024-04-08] MEDS: SODIUM CHLORIDE 0.9% IV 1,000 ML 125 ML IV CONT ×3 (02:45→20:22)
[2024-04-08 06:08] LABS: Basophils Absolute Auto 0.1 K/mm3 (0.0-0.1); Basophils Percent Auto 0.4 % (0.2-1.2); Eosinophils Percent Auto 0.2 % (0-4.4); Hematocrit 36.9 % (42.0-52.0); Hemoglobin 11.8 g/dL (14.0-18.0); Immature Granulocyte Absolute 0.07 K/mm3 (0.00-0.031); Immature Granulocyte Percent A 0.5 % (0-0.5); Lymphocytes Absolute Auto 0.56 K/mm3 (0.9-3.2); Lymphocytes Percent Auto 4.3 % (18.3-44.2); Mean Corpuscular Hemoglobin 30.4 pg (26-34); Mean Corpuscular Volume 95.1 fl (80-100); Mean Platelet Volume 8.8 fl (7.4-10.4); Monocytes Absolute Auto 1.6 K/mm3 (0.1-0.6); Monocytes Percent Auto 11.9 % (2.6-8.5); Neutrophils Absolute Auto 10.9 K/mm3 (1.3-6.7); Neutrophils Percent Auto 82.7 % (45.5-73.1); Platelet Count Result 191 k/mm3 (150-375); Red Blood Count 3.88 M/mm3 (4.6-6.20); Red Cell Distribution Width 13.8 % (11.5-14.5); White Blood Count 13.2 K/mm3 (4.5-10.0)
[2024-04-08 06:13] LABS: Anion Gap 4 mmol/L (4-12); Blood Urea Nitrogen 17 mg/dL (9-20); Calcium 8.5 mg/dL (8.4-10.2); Carbon Dioxide 28 mmol/L (22-30); Chloride 105 mmol/L (98-107); Estimated CRCL calculation 49 ml/min; Estimated Glomerular Filt Rate > 60; Glucose 120 mg/dL (65-110); Potassium 3.9 mmol/L (3.4-5.0); Sodium 137 mmol/L (137-145)
[2024-04-08] MEDS: polyethylene glycoL 3350 17 GM POWD.PACK PO (08:36)
[2024-04-08] MEDS: PANTOPRAZOLE 40 MG TABLET PO (08:36)
[2024-04-08] MEDS: ACETAMINOPHEN 325 MG TABLET 650 MG PO ×2 (08:36→20:13)
[2024-04-08] MEDS: calcium polycarbophiL 625 MG TABLET PO (08:37)
[2024-04-08] MEDS: LIDOCAINE 5% PATCH 1 PATCH TOPICAL (08:37)
[2024-04-08] MEDS: FLUTICASONE PROPIONATE 0.05% NA SPR 16 GM BTL (*BKC) 2 SPRAY NASAL (08:37)
--- NOTE | 2024-04-08 10:07 | PM.IMPN ---
Progress Note: A&P Assessment and Plan (1) Sepsis: Qualifiers: Sepsis acute organ dysfunction status: without acute organ dysfunction Sepsis type: sepsis due to unspecified organism Qualified Code(s): A41.9 - Sepsis, unspecified organism Code(s): A41.9 - Sepsis, unspecified organism Status: Acute Assessment and Plan: - leukocytosis of 19.1 lactic acidosis 3.3. - UA was positive - influenza RSV COVID was negative chest x-ray showed clear lungs - CT abdomen pelvis showed urinary bladder wall thickening compatible cystitis correlate clinically and with urinalysis. Probable bilateral renal cyst. He received IV fluid resuscitation in the ER and is admitted for further treatment. - started on IV Levaquin in the ER- continue IV Levaquin -Cultures pending blood culture and urine culture (2) Acute UTI: Code(s): N39.0 - Urinary tract infection, site not specified Status: Acute Assessment and Plan: see above (3) Seizure: Code(s): R56.9 - Unspecified convulsions Status: Acute Assessment and Plan: on valp acid- continue (4) Type 2 diabetes mellitus without complications: Code(s): E11.9 - Type 2 diabetes mellitus without complications Status: Acute (5) Mixed hyperlipidemia: Code(s): E78.2 - Mixed hyperlipidemia Status: Acute Assessment and Plan: - continue home statin Plan DVT prophylaxis Lovenox Code status full code Time Spent With Patient Time with patient: 25 - 35 minutes Subjective Date/time seen: 04/08/24 10:07 Interval history: 78-year-old male with H H/O neck surgery (~2006), squamous cell cancer of tonsil, s/p tonsillectomy, anxiety, depression, GERD, HLD, peripheral neuropathy, seizure, t2dm, admitted from ED for uti, fever. NOtes retrieved from h/p: Patient states that approximately 2 weeks ago he started to develop fever but that subsided on its own patient has been fine for the past 10 days. Today patient woke up with another fever and rigors, patient also states that he feels achy all over. Patient admits that he has been having urinary tract infection symptoms with dysuria and increased urinary frequency. He denies any history of recurrent urinary tract infections. He denies any shortness of breath or any upper respiratory symptoms. The ED vitals stable however was febrile. Laboratory evaluation showed leukocytosis of 19.1 lactic acidosis 3.3. UA was positive influenza RSV COVID was negative chest x-ray showed clear lungs. CT abdomen pelvis showed urinary bladder wall thickening compatible cystitis correlate clinically and with urinalysis. Probable bilateral renal cyst. He received IV fluid resuscitation in the ER and is admitted for further treatment. Has received IV Levaquin in the ER 04/08 - pt is seen and examined today. He is doing well- reports no problems- no fever, chills, feeling well. Voiding ok. No n/v/d. Review of Systems Review of Systems: - CONSTITUTIONAL: Denies weight loss, reports fever and chills. - HEENT: Denies changes in vision and hearing - RESPIRATORY: Denies SOB and cough. - CV: Denies palpitations and CP. - GI: Denies abdominal pain, nausea, vomiting and diarrhea. - : Reports dysuria and urinary frequency. - MSK: Denies myalgia and joint pain. - SKIN: Denies rash and pruritus. - NEUROLOGICAL: Denies headache and syncope. - PSYCHIATRIC: Denies recent changes in mood. Denies anxiety and depression. Exam Narrative: General: Alert, awake, febrile, not in acute distress HEENT: PERRL, no rhinorrhea Cardiovascular: Regular rate and rhythm, no murmurs, rubs or gallops, no peripheral edema. Respiratory: Clear to auscultation bilaterally, no tachypnea, no wheezing, no rhonchi, no rubs, no respiratory distress. Abdomen: Soft, nontender, nondistended, no rebound, no guarding, no peritoneal signs. Musculoskeletal: No joint swelling or deformity, normal muscl
[2024-04-08] MEDS: GABAPENTIN 300 MG CAPSULE PO (20:12)
[2024-04-08] MEDS: ATORVASTATIN 40 MG TABLET PO (20:12)
[2024-04-08] MEDS: MIRTAZAPINE 15 MG TABLET PO (20:12)
[2024-04-08] MEDS: CYCLOBENZAPRINE HCL 5 MG TABLET PO (20:12)
[2024-04-08] MEDS: VALPROIC ACID LIQ 250 MG/5 ML ORAL SOLUTION UDC 500 MG PO (20:19)
[2024-04-09] MEDS: SODIUM CHLORIDE 0.9% IV 1,000 ML 125 ML IV CONT ×3 (04:47→20:30)
[2024-04-09 05:29] VITALS: BP 100/55; PULSE 70; RESP 12; TEMP 36.5; O2SAT 97
--- NOTE | 2024-04-09 08:30 | PM.IMPN ---
Progress Note: A&P Assessment and Plan (1) Sepsis: Qualifiers: Sepsis acute organ dysfunction status: without acute organ dysfunction Sepsis type: sepsis due to unspecified organism Qualified Code(s): A41.9 - Sepsis, unspecified organism Code(s): A41.9 - Sepsis, unspecified organism Status: Acute Assessment and Plan: - leukocytosis improving - UA was positive-waiting to sensitivities - influenza RSV COVID was negative chest x-ray showed clear lungs - CT abdomen pelvis showed urinary bladder wall thickening compatible cystitis correlate clinically and with urinalysis. Probable bilateral renal cyst. He received IV fluid resuscitation in the ER and is admitted for further treatment. - started on IV Levaquin in the ER- 04/07/24- continue IV Levaquin (end date- 04/13 is 7 days course) -Cultures pending blood culture and urine culture (2) Acute UTI: Code(s): N39.0 - Urinary tract infection, site not specified Status: Acute Assessment and Plan: see above (3) Seizure: Code(s): R56.9 - Unspecified convulsions Status: Acute Assessment and Plan: on valp acid- continue (4) Type 2 diabetes mellitus without complications: Code(s): E11.9 - Type 2 diabetes mellitus without complications Status: Acute (5) Mixed hyperlipidemia: Code(s): E78.2 - Mixed hyperlipidemia Status: Acute Assessment and Plan: - continue home statin Plan DVT prophylaxis Lovenox Code status full code Time Spent With Patient Time with patient: 25 - 35 minutes Subjective Date/time seen: 04/09/24 08:30 Interval history: 78-year-old male with [facility] H/O neck surgery (~2006), squamous cell cancer of tonsil, s/p tonsillectomy, anxiety, depression, GERD, HLD, peripheral neuropathy, seizure, t2dm, admitted from ED for uti, fever. NOtes retrieved from h/p: Patient states that approximately 2 weeks ago he started to develop fever but that subsided on its own patient has been fine for the past 10 days. Today patient woke up with another fever and rigors, patient also states that he feels achy all over. Patient admits that he has been having urinary tract infection symptoms with dysuria and increased urinary frequency. He denies any history of recurrent urinary tract infections. He denies any shortness of breath or any upper respiratory symptoms. The ED vitals stable however was febrile. Laboratory evaluation showed leukocytosis of 19.1 lactic acidosis 3.3. UA was positive influenza RSV COVID was negative chest x-ray showed clear lungs. CT abdomen pelvis showed urinary bladder wall thickening compatible cystitis correlate clinically and with urinalysis. Probable bilateral renal cyst. He received IV fluid resuscitation in the ER and is admitted for further treatment. Has received IV Levaquin in the ER 04/08 - pt is seen and examined today. He is doing well- reports no problems- no fever, chills, feeling well. Voiding ok. No n/v/d. 04/09- waiting for sensitivities but based on his clinical respond- he is on correct antibiotic- will continue levaquin. If stable overnight- will switch to oral and anticipate discharge home. Review of Systems Review of Systems: - CONSTITUTIONAL: Denies weight loss, reports fever and chills. - HEENT: Denies changes in vision and hearing - RESPIRATORY: Denies SOB and cough. - CV: Denies palpitations and CP. - GI: Denies abdominal pain, nausea, vomiting and diarrhea. - : Reports dysuria and urinary frequency. - MSK: Denies myalgia and joint pain. - SKIN: Denies rash and pruritus. - NEUROLOGICAL: Denies headache and syncope. - PSYCHIATRIC: Denies recent changes in mood. Denies anxiety and depression. Exam Narrative: General: Alert, awake, febrile, not in acute distress HEENT: PERRL, no rhinorrhea Cardiovascular: Regular rate and rhythm, no murmurs, rubs or gallops, no peripheral edema. Respiratory: Clear to auscult
[2024-04-09] MEDS: VALPROIC ACID LIQ 250 MG/5 ML ORAL SOLUTION UDC PO (09:30)
[2024-04-09] MEDS: PANTOPRAZOLE 40 MG TABLET PO (09:30)
[2024-04-09] MEDS: levoFLOXacin 750 MG/D5W 150 ML 750 MG/150 ML BAG 100 MG IVPB (09:30)
[2024-04-09] MEDS: calcium polycarbophiL 625 MG TABLET PO (09:31)
[2024-04-09] MEDS: FLUTICASONE PROPIONATE 0.05% NA SPR 16 GM BTL (*BKC) 2 SPRAY NASAL (09:31)
[2024-04-09] MEDS: LIDOCAINE 5% PATCH 1 PATCH TOPICAL (09:32)
[2024-04-09 14:00] VITALS: BP 99/64; PULSE 84; RESP 16; TEMP 36.8; O2SAT 97
--- NOTE | 2024-04-09 19:10 | PC.NURSE ---
On 04/09/24, the LATHE TENDER,Lynsey Parikh, provided care and completed [facility] documentation on this patient. I have reviewed the LATHE TENDER's documentation and agree with the findings.
[2024-04-09] MEDS: ATORVASTATIN 40 MG TABLET PO (20:29)
[2024-04-09] MEDS: GABAPENTIN 300 MG CAPSULE PO (20:29)
[2024-04-09] MEDS: CYCLOBENZAPRINE HCL 5 MG TABLET PO (20:29)
[2024-04-09] MEDS: VALPROIC ACID LIQ 250 MG/5 ML ORAL SOLUTION UDC 500 MG PO (20:29)
[2024-04-09] MEDS: MIRTAZAPINE 15 MG TABLET PO (20:32)
[2024-04-09 20:49] VITALS: BP 128/89; PULSE 79; RESP 16; TEMP 36.6; O2SAT 99
[2024-04-10 04:50] VITALS: BP 107/75; PULSE 69; RESP 16; TEMP 36.4; O2SAT 100
[2024-04-10] MEDS: SODIUM CHLORIDE 0.9% IV 1,000 ML 125 ML IV CONT ×2 (04:52→12:59)
[2024-04-10] MEDS: LIDOCAINE 5% PATCH 1 PATCH TOPICAL (08:56)
[2024-04-10] MEDS: PANTOPRAZOLE 40 MG TABLET PO (08:56)
[2024-04-10] MEDS: calcium polycarbophiL 625 MG TABLET PO (08:56)
[2024-04-10] MEDS: VALPROIC ACID LIQ 250 MG/5 ML ORAL SOLUTION UDC PO (08:56)
[2024-04-10] MEDS: FLUTICASONE PROPIONATE 0.05% NA SPR 16 GM BTL (*BKC) 2 SPRAY NASAL (09:00)
--- NOTE | 2024-04-10 10:01 | PM.IMPN ---
Progress Note: A&P Assessment and Plan (1) Sepsis: Qualifiers: Sepsis acute organ dysfunction status: without acute organ dysfunction Sepsis type: sepsis due to unspecified organism Qualified Code(s): A41.9 - Sepsis, unspecified organism Code(s): A41.9 - Sepsis, unspecified organism Status: Acute Assessment and Plan: - leukocytosis improving - UA was positive-waiting to sensitivities - influenza RSV COVID was negative chest x-ray showed clear lungs - CT abdomen pelvis showed urinary bladder wall thickening compatible cystitis correlate clinically and with urinalysis. Probable bilateral renal cyst. He received IV fluid resuscitation in the ER and is admitted for further treatment- will stop IV fluids - started on IV Levaquin in the ER- 04/07/24- continue Levaquin -will switch to oral today (end date- 04/13 is 7 days course) (2) Acute UTI: Code(s): N39.0 - Urinary tract infection, site not specified Status: Acute Assessment and Plan: see above (3) Seizure: Code(s): R56.9 - Unspecified convulsions Status: Acute Assessment and Plan: on valp acid- continue (4) Type 2 diabetes mellitus without complications: Code(s): E11.9 - Type 2 diabetes mellitus without complications Status: Acute (5) Mixed hyperlipidemia: Code(s): E78.2 - Mixed hyperlipidemia Status: Acute Assessment and Plan: - continue home statin Plan DVT prophylaxis Lovenox Code status full code Time Spent With Patient Time with patient: 25 - 35 minutes Subjective Date/time seen: 04/10/24 10:01 Interval history: 78-year-old male with [facility] H/O neck surgery (~2006), squamous cell cancer of tonsil, s/p tonsillectomy, anxiety, depression, GERD, HLD, peripheral neuropathy, seizure, t2dm, admitted from ED for uti, fever. NOtes retrieved from h/p: Patient states that approximately 2 weeks ago he started to develop fever but that subsided on its own patient has been fine for the past 10 days. Today patient woke up with another fever and rigors, patient also states that he feels achy all over. Patient admits that he has been having urinary tract infection symptoms with dysuria and increased urinary frequency. He denies any history of recurrent urinary tract infections. He denies any shortness of breath or any upper respiratory symptoms. The ED vitals stable however was febrile. Laboratory evaluation showed leukocytosis of 19.1 lactic acidosis 3.3. UA was positive influenza RSV COVID was negative chest x-ray showed clear lungs. CT abdomen pelvis showed urinary bladder wall thickening compatible cystitis correlate clinically and with urinalysis. Probable bilateral renal cyst. He received IV fluid resuscitation in the ER and is admitted for further treatment. Has received IV Levaquin in the ER 04/08 - pt is seen and examined today. He is doing well- reports no problems- no fever, chills, feeling well. Voiding ok. No n/v/d. 04/09- waiting for sensitivities but based on his clinical respond- he is on correct antibiotic- will continue levaquin. If stable overnight- will switch to oral and anticipate discharge home. 04/10- urine culture is back- pt is on correct antibiotics- continue IV Levaquin -will transition to oral (end date- 04/13 is 7 days course) Clinically improving- WBC better, lactic improved. Will switch levaquin to po, start flomax- as he was on it before -monitor overnight and home tomorrow. Pt will need to f/u with urology- as he used to f/u with urology while ago until he stopped going and ran out of flomax Review of Systems Review of Systems: - CONSTITUTIONAL: Denies weight loss, reports fever and chills. - HEENT: Denies changes in vision and hearing - RESPIRATORY: Denies SOB and cough. - CV: Denies palpitations and CP. - GI: Denies abdominal pain, nausea, vomiting and diarrhea. - : Reports dysuria and urinary frequency. - MSK: Denies myalgia and korey
[2024-04-10 14:00] VITALS: BP 117/71; PULSE 77; RESP 15; TEMP 36.6; O2SAT 99
[2024-04-10] MEDS: TAMSULOSIN HCL 0.4 MG CAPSULE PO (14:46)
[2024-04-10 20:00] VITALS: O2SAT 97
[2024-04-10 20:26] VITALS: BP 122/80; PULSE 84; RESP 16; TEMP 36.4; O2SAT 97
[2024-04-10] MEDS: GABAPENTIN 300 MG CAPSULE PO (21:18)
[2024-04-10] MEDS: ATORVASTATIN 40 MG TABLET PO (21:18)
[2024-04-10] MEDS: CYCLOBENZAPRINE HCL 5 MG TABLET PO (21:18)
[2024-04-10] MEDS: MIRTAZAPINE 15 MG TABLET PO (21:18)
[2024-04-10] MEDS: VALPROIC ACID LIQ 250 MG/5 ML ORAL SOLUTION UDC 500 MG PO (21:21)
[2024-04-11 04:49] VITALS: BP 98/61; PULSE 72; RESP 16; TEMP 36.9; O2SAT 96
[2024-04-11] MEDS: polyethylene glycoL 3350 17 GM POWD.PACK PO (10:27)
[2024-04-11] MEDS: VALPROIC ACID LIQ 250 MG/5 ML ORAL SOLUTION UDC PO (10:28)
[2024-04-11] MEDS: levoFLOXacin 750 MG TABLET PO (10:28)
[2024-04-11] MEDS: PANTOPRAZOLE 40 MG TABLET PO (10:28)
[2024-04-11] MEDS: calcium polycarbophiL 625 MG TABLET PO (10:28)
[2024-04-11] MEDS: TAMSULOSIN HCL 0.4 MG CAPSULE PO (10:28)
[2024-04-11] MEDS: LIDOCAINE 5% PATCH 1 PATCH TOPICAL (10:29)
[2024-04-11] MEDS: FLUTICASONE PROPIONATE 0.05% NA SPR 16 GM BTL (*BKC) 2 SPRAY NASAL (10:33)
--- NOTE | 2024-04-11 13:12 | PM.DS ---
DS: Admitting Diagnosis Discharge Date 04/11 Admitting Diagnosis uti DS: Discharge Diagnosis Discharge Diagnosis (1) Sepsis: Qualifiers: Sepsis acute organ dysfunction status: without acute organ dysfunction Sepsis type: sepsis due to unspecified organism Qualified Code(s): A41.9 - Sepsis, unspecified organism Code(s): A41.9 - Sepsis, unspecified organism Status: Acute Assessment and Plan: - leukocytosis improving - UA was positive-waiting to sensitivities - influenza RSV COVID was negative chest x-ray showed clear lungs - CT abdomen pelvis showed urinary bladder wall thickening compatible cystitis correlate clinically and with urinalysis. Probable bilateral renal cyst. He received IV fluid resuscitation in the ER and is admitted for further treatment- will stop IV fluids - started on IV Levaquin in the ER- 04/07/24- continue Levaquin -will switch to oral today (end date- 04/13 is 7 days course) (2) Acute UTI: Code(s): N39.0 - Urinary tract infection, site not specified Status: Acute Assessment and Plan: see above (3) Seizure: Code(s): R56.9 - Unspecified convulsions Status: Acute Assessment and Plan: on valp acid- continue (4) Type 2 diabetes mellitus without complications: Code(s): E11.9 - Type 2 diabetes mellitus without complications Status: Acute (5) Mixed hyperlipidemia: Code(s): E78.2 - Mixed hyperlipidemia Status: Acute Assessment and Plan: - continue home statin Plan Final dx: sepsis, UTI DVT prophylaxis Lovenox Code status full code DS: Summary Hospital Course Hospital Course: 78-year-old male with [facility] H/O neck surgery (~2006), squamous cell cancer of tonsil, s/p tonsillectomy, anxiety, depression, GERD, HLD, peripheral neuropathy, seizure, t2dm, admitted from ED for uti, fever. NOtes retrieved from h/p: Patient states that approximately 2 weeks ago he started to develop fever but that subsided on its own patient has been fine for the past 10 days. Today patient woke up with another fever and rigors, patient also states that he feels achy all over. Patient admits that he has been having urinary tract infection symptoms with dysuria and increased urinary frequency. He denies any history of recurrent urinary tract infections. He denies any shortness of breath or any upper respiratory symptoms. The ED vitals stable however was febrile. Laboratory evaluation showed leukocytosis of 19.1 lactic acidosis 3.3. UA was positive influenza RSV COVID was negative chest x-ray showed clear lungs. CT abdomen pelvis showed urinary bladder wall thickening compatible cystitis correlate clinically and with urinalysis. Probable bilateral renal cyst. He received IV fluid resuscitation in the ER and is admitted for further treatment. Has received IV Levaquin in the ER 04/08 - pt is seen and examined today. He is doing well- reports no problems- no fever, chills, feeling well. Voiding ok. No n/v/d. 04/09- waiting for sensitivities but based on his clinical respond- he is on correct antibiotic- will continue levaquin. If stable overnight- will switch to oral and anticipate discharge home. Status at Discharge Functional status at discharge: independent ambulation Overall status at discharge: patient is back to baseline Time Spent with Patient Time attestation: Total time spent providing and/or coordinating discharge services: Time spent: Less than 30 minutes Exam Narrative: General: Alert, awake, febrile, not in acute distress HEENT: PERRL, no rhinorrhea Cardiovascular: Regular rate and rhythm, no murmurs, rubs or gallops, no peripheral edema. Respiratory: Clear to auscultation bilaterally, no tachypnea, no wheezing, no rhonchi, no rubs, no respiratory distress. Abdomen: Soft, nontender, nondistended, no rebound, no guarding, no peritoneal signs. Musculoskeletal: No joint swelling or deformity, normal muscle tone. Skin: No rashes
[2024-04-11 14:00] VITALS: BP 105/61; PULSE 98; RESP 14; TEMP 36.7; O2SAT 99
== END 2024-04-11 14:25 | disposition home or self-care (01) | DRG 872 ==
LOC: ANHED 08:16 → ANH3MEDSUR 08:43
PROVIDERS: Emergency Medicine; Internal Medicine; Admitting Provider Hospitalist; Emergency Provider Family Medicine; PCP Family Medicine Adolescent Medicine; Visit Provider Nurse Practitioner
DX: A41.9 Sepsis, unspecified organism (principal); N39.0 Urinary tract infection, site not specified; K21.9 Gastro-esophageal reflux disease without esophagitis; E78.2 Mixed hyperlipidemia; E11.42 Type 2 diabetes mellitus with diabetic polyneuropathy; N28.1 Cyst of kidney, acquired; G40.909 Epilepsy, unspecified, not intractable, without status epilepticus; Z20.822 Contact with and (suspected) exposure to COVID-19; Z85.89 Personal history of malignant neoplasm of other organs and systems
CPT/HCPCS: 36415; 71046; 74177; 80048; 80053; 81001; 83605; 85025; 85610; 85730; 87040; 87077; 87086; 87088; 87186; 87637; 93005; 96361; 96365; 96375; 99285; A9270; J1956; J2270; J2405; J7030; Q9967

== ENCOUNTER 2024-11-23 12:42 | Outpatient (CLI) | payer MEDICARE, OTHER, SELFPAY ==
[2024-11-23 14:00] LABS: Valproic Acid 36.1 ug/mL (50-120)
[2024-11-23 14:06] LABS: Anion Gap 10 mmol/L (4-12); Blood Urea Nitrogen 16 mg/dL (9-20); Carbon Dioxide 27 mmol/L (22-30); Chloride 102 mmol/L (98-107); Estimated Glomerular Filt Rate > 60; Glucose 147 mg/dL (65-110); Potassium 4.2 mmol/L (3.4-5.0); Sodium 139 mmol/L (137-145)
--- OUTSIDE RECORDS SUMMARY | 2024-11-26 13:17 | XMS_ITS ---
Author Name [facility] [place] [facility] [place] Address [address] [place] [address] Care Team Providers Care Service Captain Name Role Phone QUYEN MIJARES Primary Care Provider Unavailabl e Insurance Providers: All historical and current Section Date Range: From patient's date of to the date document was created. This section includes the names of all active insurance providers for the patient. Insurance Provider Type of Coverage Plan Name Start of Policy Coverage End of Policy Coverage Group Number Member ID Insurance Provider's Telephone Number Policy Bundy's Name Patient's Relationship to Policy Bundy [employer] POINT OF SERVICE [facility] Nov 04, 2023 [id number] VIKKI PEREZ SPOUSE [employer] POINT OF SERVICE [facility] Nov 04, 2018 [id number] VIKKI PEREZ SPOUSE [employer] ([id number]) RX PRESCRIPT ION RX PLAN Nov 04, 2017 [id number] [phone] ANAOCTAVIANO DOSHI SPOUSE [employer] ([id number])RX PRESCRIPT ION [facility]BP Nov 04, 2018 [id number] [phone] ANA JACIOCTAVIANO SPOUSE [employer] ([id number])RX PRESCRIPT ION [facility]BP Nov 04, 2018 [id number] [phone] OCTAVIANO PEREZ SPOUSE [employer] ([id number])RX PRESCRIPT ION [facility]BP Nov 04, 2018 [id number] [phone] OCTAVIANO PEREZ SPOUSE [employer] ([id number])RX PRESCRIPT ION [facility]BP Nov 04, 2018 [id number] [phone] OCTAVIANO PEREZ SPOUSE [employer] MCR (WNR) MEDICARE ADVANTAGE MCR (WNR) Nov 04, 2018 [id number] OCTAVIANO PEREZ PATIENT MEDICARE (WNR) MEDICARE (M) PART B May 04, 2009 PART B [id number] [phone] OCTAVIANO PEREZ PATIENT MEDICARE (WNR) MEDICARE (M) PART B May 04, 2009 PART B [id number] OCTAVIANO PEREZ PATIENT MEDICARE (WNR) MEDICARE (M) PART A May 04, 2009 PART A [id number] [phone] OCTAVIANO PEREZ PATIENT MEDICARE (WNR) MEDICARE (M) PART A May 04, 2009 PART A [id number] OCTAVIANO PEREZ PATIENT -FO R-LIFE TRICA RE FOR LIFE WNR Nov 04, 2017 FOR LIFE [id number] [phone] OCTAVIANO PEREZ PATIENT Selected Encounter This section includes the information on record at [place] for the Encounter. Date/Time Encounter Type Encounter Description Reason Provider Source May 14, 2024 01:00 PM OFFICE O/P EST MOD 30 MIN PRIMARY CARE/MEDICINE ICD-10-CM N40.0 Benign prostatic hyperplasia without lower urinry tract symp QUYEN MIJARES Smith Encounter Template Text not used by [place] Assessments - Encounter Diagnoses This section includes the primary and secondary diagnoses documented for the Encounter. Date/Time Primary/Secondary Diagnosis Diagnosis Name Provider Source May 14, 2024 01:23 PM PRIMARY Benign prostatic hyperplasia without lower urinry tract symp QUYEN MIJARES [facility] May 14, 2024 01:23 PM SECONDARY Generalized anxiety disorder QUYEN MIJARES [facility] May 14, 2024 01:23 PM SECONDARY Other constipation QU[facility]EN [facility]JARES [facility] May 14, 2024 01:23 PM SECONDARY Other specified depressive episodes QUYEN MIJARES [facility] Plan of Treatment: Future Appointments (+ 6 months) and Future Tests (+/- 45 days) The Plan of Treatment section includes future care activities for the patient [facility] [place] [facility] This section includes future appointments and future orders which are active, pending or scheduled. Future Appointments This section includes appointments that were scheduled to occur 6 months from the date of the Encounter, up to a maximum of 20 appointments. The data comes from all [place] treatment facilities. Appointment Date/Time Appointment Type Appointme nt Facility Name Jun 03, 2024 09:45 AM AMBULATORY - REHAB MEDICIN E [facility] Jun 03, 2024 10:00 AM AMBULATORY - NONE [facility] Jun 11, 2024 09:30 AM AMBULATORY - MEDICINE [facility] Jul 09, 2024 02:30 PM AMBULATORY - NONE [facility] Jul 15, 2024 12:30 PM AMBULATORY - PSYCHIATRY [facility] Jul 16, 2024 11:00 AM AMBULATORY - SURGERY [facility] Aug 03, 2024 02:15 PM AMBULATORY - NONE [facility] Oct 06, 2024 02:30 PM AMBULATORY - NONE [facility] Oct 15, 2024 08:30 AM AMBULATORY - PSYCHIATRY [facility] Nov 13, 2024 09:00 AM AMBULATORY - SURGERY [facility] Nov 13, 2024 10:00 AM AMBULATORY - MEDICINE [facility] Social History: Smoking Status (Most current) and Tobacco Use (All prior to encounter date) This section includes the most current, and the historical, smoking and tobacco- related health factors from the [place] facility where the Encounter took place. Current Smoking Status This section includes the most current smoking, or tobacco-related health factor, from the [place] facility where the Encounter took place. Date/Time Current Smoking Status Comment Tony loaizay March 10, 2024 03:30 PM VA-TOBACCO FORMER USER [facility] Tobacco Use History This section includes a history of the smoking, or tobacco-related health factors, that were collected on or before the date of the Encounter. The data comes from the [place] facility where the Encounter took place. Date/Time Smoking Status/Tobacco Use Comment F acility March 10, 2024 03:30 PM VA-TOBACCO QUIT 15 YRS OR MORE [facility] Feb 19, 2023 08:00 AM VA-TOBACCO FORMER USER [facility] Feb 19, 2023 08:00 AM VA-TOBACCO QUIT 15 YRS OR MORE [facility] March 05, 2022 03:00 PM VA-TOBACCO FORMER USER [facility] March 05, 2022 03:00 PM VA-TOBACCO QUIT 5 TO < 15 YRS [facility] Feb 06, 2021 11:00 AM VA-TOBACCO FORMER USER [facility] Feb 06, 2021 11:00 AM VA-TOBACCO QUIT 15 YRS OR MORE [facility] Nov 19, 2019 04:05 PM VA-TOBACCO FORMER USER [facility] Nov 19, 2019 04:05 PM VA-TOBACCO QUIT 5 TO < 15 YRS [facility] Oct 30, 2018 02:11 PM VA-TOBACCO FORMER USER [facility] Oct 30, 2018 02:11 PM VA-TOBACCO QUIT 5 TO < 15 YRS [facility] Advance Directives: All historical and current Section Date Range: From patient's date of to the date document was created. This section includes ALL of a patient's completed or amended [place] Advance and Rescinded Directives. The entries below indicate that a directive exists for the patient, but an actual copy is not included with this document. The data comes from all [place] facilities. Date Advance Directives Provider Source Apr 24, 2019 ADVANCE DIRECTIVE [facility] Radiology Reports: +/- 30 days of the encounter Radiology Reports For cases when an order for radiology services may have been completed prior to the date of the Encounter, the report list includes the Radiology Reports that were completed up to 30 days before dateof the Encounter. For cases when an order for radiology services may have been completed after the date of the Encounter, the report list also includes the Radiology Reports that were completed up to30 days after date of the Encounter. The data comes from all [place] treatment facilities. Date/Time Radiology Report Provider Source Jun 03, 2024 09:24 AM ESOPHAGUS (MODIFIE D BARIUM SWALLOW): OCTAVIANO PEREZ [id number] -[phone] M Exm Date: JUN 03, 2024@09:24 Req Phys: MESHA EAOTN Pat Loc: [facility] PACT E7 PCP (Req'g Loc) Img Loc: [facility] SUITE Service: [facility], [address] [place] [address] (Case [id number] COMPLETE) ESOPHAGUS (MODIFIED BARIUM SWALL(RAD Detailed) CPT:30609 Contrast Media : Barium Reason for Study: Dysphagia Clinical History: Report Status: Verified Date Reported: JUN 04, 2024 Date Verified: JUN 04, 2024 Nuclear Physics Professor E-Sig:/ES/KARON JOHNSON MD Report: STUDY: Modified swallow study TECHNIQUE: Fluoroscopy was provided for modified barium swallow performed by speech pathology FLUORO TIME: 3.1 minutes Impression: See speech pathology report for interpretation. Dictated by Arti Corona MD (radiology transcriptionist) IKaron, have reviewed the images and report and concur with these findings. Primary Interpreting Staff: KARON JOHNSON MD, Radiologist (Nuclear Physics Professor) Primary Interpreting Resident: ARTI CORONA MD, vice president of engineering /KARON REYES [facility] Encounter Notes: All associated encounter notes This section contains the clinical notes associated to the Encounter. Date/Time Encounter Note(s) Provider Source May 14, 2024 08:48 AM TELEHEALTH NOTE: LOCAL TITLE: PRIMARY CARE VIDEO CONNECT ST STANDARD TITLE: TELEHEALTH NOTE DATE OF NOTE: MAY 14, 2024@08:48 ENTRY DATE: MAY 14, 2024@08:48:08 AUTHOR: QUYEN MIJARES COSIGNER: URGENCY: STATUS: COMPLETED Modality of Care: Clinical Video Telehealth Visit conducted by Clinical Video Telehealth. Patient/surrogate provided verbal consent for video telehealth. Patient location confirmed. at home Emergency number confirmed. Patient Contact Details: Best contact number for backup communication with patient: Other: [facility] Informed Consent: Group Telehealth Agreement Form with Confidentiality, Risks and Consequences, Privacy, Dignity and Behavior, was reviewed and participants orally consented to those conditions to participate in this [facility] Visit. Please note that this dictation was completed with computer voice recognition software, often unanticipated grammatical, syntax and other interpretive errors are inadvertently transcribed by the computer software. Please disregard these errors. Reason for visit: 2 months followup History of present illness: The has been under care of die engraving supervisor and being followed by mental health and was last seen in the clinic in March and the appointment was completed on phone as there was technical difficulties on veterans end. Reports feeling much better and has been using MiraLAX regularly which is helping with constipation. Went on to report that he was admitted to [facility] in [facility] for 4 days with UTI and sepsis. Went on to report that the heart [place] has changed him to pur??ed diet and oral chopped foods. His son is monitoring his oral intake and weight is improving. Eating 3000 calories daily but not using his thickener. The had a abdominal ultrasound completed and did not show iliac arteries and follow-up CT abdomen in 1 year was recommended by vascular surgery and has been ordered. 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 Completed EGD and colonoscopy in May 2023 and follow-up colonoscopy in 3 years was recommended. Was initially seen by GI due to weight loss Lives with , no outside care, non smoker quit 13 years back smoked only 6 years 5 cigars a day never cigarettes, 1-2 beers once a week and never more Problem list:1) Autonomic neuropathy 2) Anxiety 3) Depression 4) Chronic sinusitis 5) Squamous cell carcinoma 6) Peripheral neuropathy 7) Diabetes Mellitus Type 2 ([facility] [id number]) 8) Chronic constipation 9) HTN - Hypertension ([facility] [id number]) 10) GERD - Gastro-Esophageal Reflux Disease ([facility] [id number]) 11) Disorder of left Eustachian tube 12) Sensorineural hearing loss of bilateral ears 13) Moderate protein-calorie malnutrition (weight for age 60-74 percent of standard) Allergies: ERYTHROMYCIN Review of systems: No fever, chills, unintentional weight loss or gain, no visual changes, Chest pain, cough, SOB, MEDINA,VILLATORO, N/V/ diarrhea or other bowel changes, No abdominal pain, increased flatulence, nocturia, dysuria, hematuria, urgency/hesitancy, skin lesions positive for: Dysphagia Active Medications: Active Outpatient Medications (including Supplies): Active Outpatient Medications Status 1) ACCU-CHEK GUIDE (GLUCOSE) TEST STRIP USE 1 STRIP FOR ACTIVE BLOOD TEST DIRECTED *DIET CONTROLLED, 50 STRIPS PER YEAR* Jun 2) ARTIFICIAL SALIVA ORAL SPRAY USE 3-5 SPRAYS BY MOUTH ACTIVE EVERY TWO HOURS NEEDED FOR DRY MOUTH AND THROAT 3) ATORVASTATIN CALCIUM 40MG TAB TAKE ONE-HALF TABLET BY ACTIVE MOUTH EVERY EVENING FOR HIGH CHOLESTEROL 4) CALCIUM POLYCARBOPHIL 625MG TAB TAKE ONE TABLET BY ACTIVE MOUTH ONCE A DAY 5) CICLOPIROX 8% TOP SOLN APPLY SPARINGLY TO AFFECTED ACTIVE AREA(S) AT BEDTIME (THIN COAT TO THICK NAILS - FILE DOWN AFTER 1 WEEK) (EXTERNAL USE ONLY) CLEANED WITH ALCOHOL ONCE A WEEK 6) CYCLOBENZAPRINE HCL 5MG TAB TAKE ONE TABLET BY MOUTH ACTIVE TWICE DAILY NEEDED FOR MUSCLE SPASM. MAY CAUSE DROWSINESS. DO NOT DRINK ALCOHOL WHILE TAKING THIS MEDICATION. 7) GABAPENTIN 300MG CAP TAKE ONE CAPSULE BY MOUTH AT ACTIVE BEDTIME FOR NERVE PAIN 8) LANCET,SOFTCLIX USE LANCET FOR BLOOD TEST BEFORE ACTIVE BREAKFAST FOR BLOOD SUGAR MONITORING USE DIRECTED. WEEKLY 9) LIDOCAINE 5% PATCH APPLY 1 PATCH TO SKIN SITE ONCE A ACTIVE DAY APPLY PATCH AND PRESS FIRMLY FOR 10-15 SECONDS. KEEP ON FOR 12 HOURS THEN REMOVE PATCH FOR 12 HOURS. 10) MIRTAZAPINE 30MG TAB TAKE ONE TABLET BY MOUTH AT ACTIVE BEDTIME 11) NUTR SUPL GLUCERNA THER NUTR SHAKE JIMBO TAKE 2 ACTIVE CANFULS BY MOUTH ONCE A DAY (SHAKE WELL) 12) OMEPRAZOLE 20MG EC CAP TAKE ONE CAPSULE BY MOUTH ACTIVE EVERY MORNING BEFORE A MEAL FOR GASTROESOPHAGEAL REFLUX DISEASE. TAKE 30 MINUTES PRIOR TO FOOD. 13) POLYETHYLENE GLYCOL 3350 ORAL PWDR MIX AND DRINK 1 ACTIVE CAPFUL BY MOUTH ONCE A DAY (MEASURE WITH CAP AND MIX IN 8 OZ OF WATER) 14) PROPYLENE GLYCOL 0.6% OPH SOLN INSTILL 1 DROP IN BOTH ACTIVE EYES THREE TIMES A DAY NEEDED 15) SIMPLYTHICK GEL ORAL MILDLY THICK 6GM TAKE 1 PACKET ACTIVE OF SIMPLYTHICK ORAL GEL NECTAR 6GM BY MOUTH FOUR TIMES A DAY NEEDED OR DIRECTED TO THICKEN LIQUIDS. USE 1 PACKET PER 4 OZ OF LIQUID. 16) TABLET TREE TRIMMING LINE TECHNICIAN USE TREE TRIMMING LINE TECHNICIAN NEEDED DIRECTED ACTIVE 17) VALPROIC ACID 250MG/5ML ORAL SOLN TAKE 5 ML BY MOUTH ACTIVE EVERY MORNING AND TAKE 10 ML AT BEDTIME FOR MOOD Colonoscopy: Prog Note DT Title Author Last Julien DT 05/10/2023 COLONOSCOPY CONSULT REPORT WILDER VÁZQUEZ Physical exam: Not completed as was unable to connect Impression/plan: UTI/BPH: Reports admitted to [facility] with UTI and sepsis and symptoms have completely resolved. Reports that he was started on Flomax and would like to get the prescription. The read out the medication dose etc. to me and prescription entered Constipation: No more complain of abdominal pain and I have asked the to have the records from [facility] sent to us including the CT scan of abdomen. Constipation much better as long as he takes MiraLAX and have been advised to take it regularly Dysphagia: Has been changed to pur??ed diet and not compliant with thickener. Reports that he was dehydrated when admitted to our nursing hospital. I will request speech pathologist to reevaluate the for dysphagia Reports that his son is monitoring his oral intake and the weight is gradually improving and appetite is good Has been discharged from care of ENT and no concerns with sinuses reported today Diabetes mellitus: On Glucerna, last A1c 6.3 and we will continue to monitor Onychomycosis: Penlac solution and requested refill which was entered Lung nodule: Denies any concerns and impression of CT chest copied below and does not smoke Impression: Interval resolution of the previously noted right lung opacities. Stable 3 x 2 mm right upper lobe incidental pulmonary nodule, statistically benign and requiring no additional imaging surveillance. Right common iliac artery aneurysm: Follow-up CT scan of abdomen has been ordered as recommended by vascular surgery Left-sided low back pain: No concerns reported today and reports that lidocaine patches help Anxiety/depression: He is being followed by psychiatrist Dr. Motley, reports compliance with medications and doing well currently Hip pain: Has seen pain management and did not voice any concerns today History of squamous cell carcinoma/eustachian tube dysfunction/chronic sinusitis: Has been discharged from ENT GERD: On omeprazole 40 mg daily as needed and symptoms under control Vitamin D deficiency: Recommend to continue vitamin D supplement regularly, \ Peripheral neuropathy: Taking gabapentin 300 mg at bedtime only and denies any side effects and did not voice any concerns today Moderate protein-calorie malnutrition: On Glucerna, reports good appetite and weight is improving The will have discharge summary from [facility] sent to us RTC in Nov 2024 as scheduled Medication Reconciliation Opt STL: I have reviewed the patient's medication list (including active outpatient [facility]) and dispensed from another [place] or [facility] facility (remote) as well as inpatient orders (local pending and active), local clinic medications, locally documented non-VA medications, and local prescriptions that have or been discontinued in the past 90 days.) with the patient and/or 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 Handwritten corrections, additions and/or deletions were made to the list, as appropriate. Corrected Outpatient Medication List was provided to the patient/caregiver /willie/ QUYEN MIJARES Staff Physician Signed: 05/14/2024 22:06 QUYEN MIJARES [facility]
--- OUTSIDE RECORDS SUMMARY | 2024-11-26 13:17 | XMS_ITS | Encounter Summary ---
Author Name [facility] [place] [facility] [place] Address [address] [place] [address] Care Team Providers Care International Representative Name Role Phone AMADA MIJARES Primary Care Provider Unavailabl e Insurance [...] POINT OF SERVICE [facility] Nov 04, 2023 [id number] [phone] VIKKI PEREZ SPOUSE AETNA-[facility] POINT OF SERVICE [facility] Nov 04, 2018 [id number] [phone] VIKKI PEREZ SPOUSE CAREMARK ([id number]) RX PRESCRIPT ION RX PLAN Nov 04, 2017 [id number] [phone] ANAOCTAVIANO DOSHI SPOUSE CAREMARK ([id number])RX PRESCRIPT ION [facility] Nov 04, 2018 [id number] [phone] ANAOCTAVIANO DOSHI SPOUSE CAREBALAJI ([id number])RX PRESCRIPT ION [facility] Nov 04, 2018 [id number] [phone] ANAOCTAVIANO DOSHI SPOUSE CAREBALAJI ([id number])RX PRESCRIPT ION [facility] Nov 04, 2018 [id number] [phone] OCTAVIANO PEREZ SPOUSE CAREMARK ([id number])RX PRESCRIPT ION [facility] Nov 04, 2018 [id number] [phone] OCTAVIANO PEREZ SPOUSE HUMANA MCR (WNR) MEDICARE ADVANTAGE MCR (WNR) Nov 04, 2018 [id number] OCTAVIANO PEREZ PATIENT MEDICARE (WNR) MEDICARE (M) PART A May 04, 2009 PART A [id number] OCTAVIANO PEREZ PATIENT MEDICARE (WNR) MEDICARE (M) PART B May 04, 2009 PART B [id number] OCTAVIANO PEREZ PATIENT MEDICARE (WNR) MEDICARE (M) PART B May 04, 2009 PART B [id number] OCTAVIANO PEREZ PATIENT MEDICARE (WNR) MEDICARE (M) PART A May 04, 2009 PART A [id number] [phone] OCTAVIANO PEREZ PATIENT -FO R-LIFE TRICA RE FOR LIFE WNR Nov 04, 2017 FOR LIFE [id number] [phone] OCTAVIANO PEREZ PATIENT Selected Encounter This section includes the information on record at [place] for the Encounter. Date/Time Encounter Type Encounter Description Reason Provider Source May 20, 2024 03:03 PM Outpatient Encounter GENERAL INTERNAL MEDICINE AMADA MIJARES Encounter Template Text not used by [place] Plan of Treatment: Future Appointments (+ 6 months) and Future Tests (+/- 45 days) The Plan of Treatment section includes future care activities for the patient from all [place] treatmentfacilities. This section includes future appointments and future orders which are active, pending or scheduled. Future Appointments This section includes appointments that were scheduled to occur 6 months from the date of the Encounter, up to a maximum of 20 appointments. The data comes from all [place] treatment facilities. Appointment Date/Time Appointment Type Appointme nt Facility Name Jun 03, 2024 09:45 AM AMBULATORY - REHAB MEDICIN E [facility] Jun 03, 2024 10:00 AM AMBULATORY - NONE [facility] Jun 11, 2024 09:30 AM AMBULATORY - MEDICINE [facility] Jul 09, 2024 02:30 PM AMBULATORY - NONE [facility] Jul 15, 2024 12:30 PM AMBULATORY - PSYCHIATRY [facility] Jul 16, 2024 11:00 AM AMBULATORY - SURGERY . [facility] Aug 03, 2024 02:15 PM AMBULATORY - NONE [facility] Oct 06, 2024 02:30 PM AMBULATORY - NONE [facility] Oct 15, 2024 08:30 AM AMBULATORY - PSYCHIATRY [facility] Nov 13, 2024 09:00 AM AMBULATORY - SURGERY [facility] Nov 13, 2024 10:00 AM AMBULATORY - MEDICINE [facility] Advance Directives: All historical and current Section Date Range: From patient's date of to the date document was created. This section includes ALL of a patient's completed or amended [place] Advance and Rescinded Directives. The entries below indicate that a directive exists for the patient, but an actual copy is not included with this document. The data comes from all [place] facilities. Date Advance Directives Provider Source Apr 24, 2019 ADVANCE DIRECTIVE DANY RHODES [facility] Radiology Reports: +/- 30 days of [...] the Encounter. The data comes from all [place] treatment facilities. Date/Time Radiology Report Provider Source Jun 03, 2024 09:24 AM ESOPHAGUS (MODIFIE D BARIUM SWALLOW): ANA,OCTAVIANO GARCIA [id number] -1945 M Ex Date: JUN 03, 2024@09:24 Req Phys: MESHA EATON Pat Loc: -[facility] PACT E7 PCP (Req'g Loc) Img Loc: [facility] SUITE Service: Unknown [facility], [address] [place] [address] (Case [id number] COMPLETE) ESOPHAGUS (MODIFIED BARIUM SWALL(RAD Detailed) CPT:47887 Contrast Media : Barium Reason for Study: Dysphagia Clinical History: Report Status: Verified Date Reported: JUN 04, 2024 Date Verified: JUN 04, 2024 Wire Mesh Gate Assembler E-Sig:/ES/KARON JOHNSON MD Report: STUDY: Modified swallow study TECHNIQUE: Fluoroscopy was provided for modified barium swallow performed by speech pathology FLUORO TIME: 3.1 minutes Impression: See speech pathology report for interpretation. Dictated by Arti Corona MD (logistics vice president) IKaron, have reviewed the images and report and concur with these findings. Primary Interpreting Staff: KARON JOHNSON MD, Radiologist (Wire Mesh Gate Assembler) Primary Interpreting Resident: ARTI CORONA MD, executive vice president and chief operating officer /KARON REYES [facility] Encounter Notes: All associated encounter notes This section contains the clinical notes associated to the Encounter. Date/Time Encounter Note(s) Provider Source Apr 07, 2024 03:03 PM NONVA NOTE: LOCAL TITLE: COMMUNITY CARE-COLIN SELF PRESENTING CARE COORD PLAN STANDARD TITLE: NONVA NOTE DATE OF NOTE: APR 07, 2024@15:03 ENTRY DATE: MAY 20, 2024@15:03:38 AUTHOR: SABRINA QUINN COSIGNER: URGENCY: STATUS: COMPLETED COMMUNITY CARE-COLIN SELF PRESENTING CARE COORD PLAN [address] ADDENDA Emergency Notification Intake Date Presenting to the Facility: Apr Method of Contact: Notified from Smart Panel worklist Notification ID: [id number] [facility] Referral #: [id number] [facility] Name: Hospital: [facility] Address: City: [place] State: [place] Zip Code: Phone : Community Facility Point of Contact: Name: Phone: Chief complaint: HIGH FEVER, SHAKING, TREMBLING AND TO WEAK TO WALK TO CAR Primary Diagnosis: SEPSIS Disposition Admitted Route of Admission: Date of Admission: Apr Admitting Diagnosis: SEPSIS Community Care Provider:Amada Mijares Confirm Level of Care: Alerting PCP team to this note for care coordination. Noted for Continuing Stay Review. /es/ Sabrina Quinn, RN, BSN REGISTERED NURSE Signed: 05/20/2024 15:09 05/20/2024 ADDENDUM STATUS: COMPLETED Records not in [facility], faxed record request to the above hospital. /willie/ Sabrina Quinn RN, BSN REGISTERED NURSE Signed: 05/20/2024 15:15 SABRINA QUINN [facility]
--- OUTSIDE RECORDS SUMMARY | 2024-11-26 13:17 | XMS_ITS ---
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 Name Role Phone QUYEN MIJARES Primary Care [...] POINT OF SERVICE [facility] Nov 04, 2023 [id number] [phone] VIKKI PEREZ SPOUSE AETNA-[facility] POINT OF SERVICE [facility] Nov 04, 2018 [id number] [phone] VIKKI PEREZ SPOUSE CAREBALAJI ([id number]) RX PRESCRIPT ION RX PLAN Nov 04, 2017 [id number] [phone] ANAOCTAVIANO DOSHI SPOUSE CAREBALAJI ([id number])RX PRESCRIPT ION [facility] Nov 04, 2018 [id number] [phone] ANAOCTAVIANO DOSHI SPOUSE CAREBALAJI ([id number])RX PRESCRIPT ION [facility] Nov 04, 2018 [id number] [phone] ANAOCTAVIANO DOSHI SPOUSE CAREBALAJI ([id number])RX PRESCRIPT ION [facility] Nov 04, 2018 [id number] [phone] OCTAVIANO PEREZ SPOUSE CAREMARK ([id number])RX PRESCRIPT ION [facility] Nov 04, 2018 [id number] [phone] OCTAVIANO PEREZ SPOUSE HUMANA MCR (WNR) MEDICARE ADVANTAGE MCR (WNR) Nov 04, 2018 [id number] OCTAVIANO PEREZ PATIENT MEDICARE (WNR) MEDICARE (M) PART A May 04, 2009 PART A [id number] OCTAVIANO PEREZ PATIENT MEDICARE (WNR) MEDICARE (M) PART B May 04, 2009 PART B [id number] OCTAVIANO PEREZ PATIENT MEDICARE (WNR) MEDICARE (M) PART B May 04, 2009 PART B [id number] [phone] OCTAVIANO PEREZ PATIENT MEDICARE (WNR) MEDICARE (M) PART A May 04, 2009 PART A [id number] OCTAVIANO PEREZ PATIENT -FO R-LIFE TRICA RE FOR LIFE WNR Nov 04, 2017 FOR LIFE [id number] [phone] OCTAVIANO PEREZ PATIENT Selected Encounter This section includes the information on record at [place] for the Encounter. Date/Time Encounter Type Encounter Description Reason Provider Source Jul 09, 2024 02:30 PM MED NUTRITION INDIV SUBSEQ PRIMARY CARE/MEDICINE ICD-10-CM R13.12 Dysphagia, oropharyngeal phase [facility] Encounter Template Text not used by [place] Assessments - Encounter Diagnoses This section includes the primary and secondary diagnoses documented for the Encounter. Date/Time Primary/Secondary Diagnosis Diagnosis Name Provider Source Jul 09, 2024 03:15 PM PRIMARY Dysphagia, oropharyngeal phase MANUEL HULL [facility] Jul 09, 2024 03:15 PM SECONDARY Dietary counseling and surveillance [facility] Plan of Treatment: Future Appointments (+ 6 months) and Future Tests (+/- 45 days) The Plan of Treatment section includes future care activities for the patient from all [place] treatmentfacilities. This section includes future appointments and future orders which are active, pending or scheduled. Future Appointments This section includes appointments that were scheduled to occur 6 months from the date of the Encounter, up to a maximum of 20 appointments. The data comes from all [place] treatment [facility]. Appointment Date/Time Appointment Type Appointme nt Facility Name Jul 15, 2024 12:30 PM AMBULATORY - PSYCHIATRY [facility] Jul 16, 2024 11:00 AM AMBULATORY - SURGERY . [facility] Aug 03, 2024 02:15 PM AMBULATORY - NONE [facility] Oct 06, 2024 02:30 PM AMBULATORY - NONE [facility] Oct 15, 2024 08:30 AM AMBULATORY - PSYCHIATRY [facility] Nov 13, 2024 09:00 AM AMBULATORY - SURGERY [facility] Nov 13, 2024 10:00 AM AMBULATORY - MEDICINE [facility] Nov 25, 2024 04:30 PM AMBULATORY - NONE [facility] Dec 04, 2024 01:00 PM AMBULATORY - MEDICINE [facility] Dec 24, 2024 02:00 PM AMBULATORY - PSYCHIATRY [facility] Dec 29, 2024 02:30 PM AMBULATORY - NONE [facility] Vital Signs: All taken on the encounter date This section contains inpatient and outpatient Vital Signs collected on the date of the Encounter. Date/Time Temperature Pulse Blood Pressure Respiratory Rate SP02 Pain Height Weight Body Mass Index Source Jul 09, 2024 03:54 PM 150.8 26 [facility] Social History: Smoking Status (Most current) and Tobacco Use (All prior to encounter date) This section includes the most current, and the historical, smoking and tobacco- related health factors from the [place] facility where the Encounter took place. Current Smoking Status This section includes the most current smoking, or tobacco-related health factor, from the [place] facility where the Encounter took place. Date/Time Current Smoking Status Comment Tony rodarte March 10, 2024 03:30 PM [place]-TOBACCO QUIT 15 YRS OR MORE [facility] Tobacco Use History This section includes a history of the smoking, or tobacco-related health factors, that were collected on or before the date of the Encounter. The data comes from the [place] facility where the Encounter took place. Date/Time Smoking Status/Tobacco Use Comment F acility March 10, 2024 03:30 PM VA-TOBACCO QUIT 15 YRS OR MORE [facility] Feb 19, 2023 08:00 AM VA-TOBACCO FORMER USER [facility] Feb 19, 2023 08:00 AM VA-TOBACCO QUIT 15 YRS OR MORE [facility] March 05, 2022 03:00 PM VA-TOBACCO FORMER USER [facility] March 05, 2022 03:00 PM VA-TOBACCO QUIT 5 TO < 15 YRS [facility] Feb 06, 2021 11:00 AM VA-TOBACCO FORMER USER [facility] Feb 06, 2021 11:00 AM VA-TOBACCO QUIT 15 YRS OR MORE [facility] Nov 19, 2019 04:05 PM VA-TOBACCO FORMER USER [facility] Nov 19, 2019 04:05 PM VA-TOBACCO QUIT 5 TO < 15 YRS [facility] Oct 30, 2018 02:11 PM VA-TOBACCO FORMER USER [facility] Oct 30, 2018 02:11 PM VA-TOBACCO QUIT 5 TO < 15 YRS [facility] Advance Directives: All historical and current Section Date Range: From patient's date of to the date document was created. This section includes ALL of a patient's completed or amended [place] Advance and Rescinded Directives. The entries below indicate that a directive exists for the patient, but an actual copy is not included with this document. The data comes from all [place] facilities. Date Advance Directives Provider Source Apr 24, 2019 ADVANCE DIRECTIVE DANY RHODES [facility] Encounter Notes: All associated encounter notes This section contains the clinical notes associated to the Encounter. Date/Time Encounter Note(s) Provider Source Jul 09, 2024 01:09 PM NUTRITION DIETETICS NOTE: LOCAL TITLE: NUTRITION FOLLOW UP ST STANDARD TITLE: NUTRITION DIETETICS NOTE DATE OF NOTE: JUL 09, 2024@13:09 ENTRY DATE: JUL 09, 2024@13:09:50 AUTHOR: EUN HULL EXP COSIGNER: URGENCY: STATUS: COMPLETED Modality of Care: VVC Visit conducted by Clinical Video Telehealth. Patient provided verbal consent for video telehealth. Patient location confirmed. Emergency number confirmed. Best contact number for backup communication: Primary number listed * also present for appt.* NUTRITION REASSESSMENT Diagnosis: dysphagia Time spent with : 30 minutes BMI: 25.9 Last appointment date: 04/14/24 Patient Medical History: Squamous cell carcinoma Diabetes Mellitus Type 2 Dysphagia Social history: 78 YOM, lives with , getting MOW delivered (2-3 meals/week) FOOD AND NUTRITION RELATED HISTORY Fluid/Beverage intake: decaf coffee with sweet n low, shot espresso daily in AM (no other caffeine), decaf nati felix tea, 2% or whole milk (at least 3-16 oz cups/day, no burning with), Coke zero (caffeinated) or decaf Diet Coke, water (2-3 glasses) --if drinks regular coffee, highly aggravates dry mouth Food intake: eating 2 meals/day, and 2 snacks + ONS. Pureeing/mincing meals in advance, can heat as desired. --uses sugar substitute in place of sugar Diet recall: --wakes at 10-11 am, then drinks decaf coffee B (noon): (MOW) slice turkey with vegetable and potatoes with gravy (mincing) OR pizza (mincing), drinks with milk -- states for awhile Randolph was getting up and making himself eggs or vietnamese toast, but didn't do this for long. doesn't cook/eat cooked breakfast. D (7 pm): sloppy joes + sticky rice (mincing) or meat + sweet potatoes (mincing) Snacks throughout the day, BID: ice cream and/or 6-8 cookies with milk and/or montserratian yogurt Eating out ~1x/week on Sundays, after taoism. Eats what can and then brings it home, processes/minces it and eats more. Medical nutrition supplement intake: Rx'd 2 Glucerna/day --drinking at once now, vs. sips throughout day. Liking chocolate flavor now. --1 refill remaining, last mailed on 05/12/24 --reports drinking 2 some days, at least 1 daily. --has plenty Glucerna at home OUTPATIENT MEDICATIONS ARTIFICIAL SALIVA ORAL SPRAY USE 3-5 SPRAYS BY MOUTH ACTIVE EVERY TWO HOURS NEEDED FOR DRY MOUTH AND THROAT CALCIUM POLYCARBOPHIL 625MG TAB TAKE ONE TABLET BY ACTIVE MOUTH ONCE A DAY MIRTAZAPINE 30MG TAB TAKE ONE TABLET BY MOUTH AT ACTIVE BEDTIME --increased/doubled since last appt. NUTR SUPL GLUCERNA THER NUTR SHAKE JIMBO TAKE 2 ACTIVE CANFULS BY MOUTH ONCE A DAY (SHAKE WELL) OMEPRAZOLE 20MG EC CAP TAKE ONE CAPSULE BY MOUTH ACTIVE EVERY MORNING BEFORE A MEAL FOR GASTROESOPHAGEAL REFLUX DISEASE. TAKE 30 MINUTES PRIOR TO FOOD. POLYETHYLENE GLYCOL 3350 ORAL PWDR MIX AND DRINK 1 ACTIVE CAPFUL BY MOUTH ONCE A DAY (MEASURE WITH CAP AND MIX IN 8 OZ OF WATER) SIMPLYTHICK GEL ORAL MILDLY THICK 6GM TAKE 1 PACKET ACTIVE BY MOUTH ONCE A DAY OR DIRECTED TO THICKEN LIQUIDS. USE 1 PACKET PER 4 OZ OF LIQUID. --hasn't been using for a long time (approved for thin liquids per 06/2023 swallow study). TABLET SPORTS REPORTER USE SPORTS REPORTER NEEDED DIRECTED ACTIVE VALPROIC ACID 250MG/5ML ORAL SOLN TAKE 5 ML BY MOUTH ACTIVE EVERY MORNING AND TAKE 10 ML AT BEDTIME FOR MOOD KNOWLEDGE BELIEFS AND ATTITUDES/BEHAVIOR Continues to mince foods. states never new difference b/t chopped and minced foods (despite prior education by RD). able to better swallow foods much better when minced, with increased PO intake since started mincing. Handouts sent last visit were helpful. Also son has been very helpful in positive change. [facility] son came to visit two months ago, had a talk with and created a chart which they hung up on the wall (gave daily kcal goal of 3000 Calories). [facility] has been very helpful, reminds him to eat. --/Randolph supposed to be tracking intake for son, but [facility] haven't been diligent. has started weighing himself more often, and recording. PHYSICAL ACTIVITY AND FUNCTION *not addressed this visit* Decreased. Randolph no longer working, got laid off by forced staff reduction. ANTHROPOMETRIC MEASUREMENTS Ht: 64 in [162.6 cm] (03/10/2024 14:57) Wt: 135.6 lb [61.51 kg] (04/16/2024 14:22) Home wt: 150.8 lbs. Says b/c keeps hounding him. Weight History/Significant changes: reported wt gain of 15 lbs. since last appt. States trying to get up to 155 lbs. Patient Weight History 1. 135.6 lbs. / 61.5 kg. on APR 16, 2024@14:22:35 2. 138.6 lbs. / 62.9 kg. on JAN 13, 2024@14:19:32 3. 142.3 lbs. / 64.6 kg. on NOV 13, 2023@09:14:48 4. 143.0 lbs. / 64.9 kg. on OCT 16, 2023@15:50:48 5. 140.2 lbs. / 63.6 kg. on JAN 15, 2023@14:21:36 BMI: 25.9 (per reported wt) BIOCHEMICAL DATA/MEDICAL TESTS AND PROCEDURES *NO NEW RESULTS* HGA1C 6.3 H % 11/13/2023 10:02 HGA1C 5.9 % 01/15/2023 15:16 HGA1C 6.1 H % 03/05/2022 15:55 HGA1C 6.5 H % 02/06/2021 11:23 HGA1C 7.7 H % 05/10/2020 13:26 doesn't take BS lowering-medication. States changed lifestyle/went back to work (moving more), regarding decreasing trend. --recent increase likely r/t high carbohydrate diet (per recall) NUTRITION FOCUSED PHYSICAL FINDINGS Per 06/18/23 DOUBLE NEEDLE OPERATOR note (swallow evaluation): IMPRESSION: Patient presented with oropharyngeal dysphagia. He presented with penetration of thin liquids, however no aspiration observed. He is at increased risk of aspiration given swallow deficits. He presented with significant reduction in efficiency with puree textures with significant pharyngeal reside. Patient reported he has previously utilize thickener occasionally and is requesting more be ordered for days he has increased difficulties. We discussed oral care, diet recommendations, and strict use of compensatory swallow strategies. EDUCATION: Patient was provided with results and education regarding compensatory swallow strategies for improved safety and efficiency of swallow function. Patient stated verbal understanding. SWALLOWING/FEEDING COMPENSATORY STRATEGIES: Small bites/sips Slow rate of intake Sit upright for PO intake Double swallows Alternate foods/liquids Consistent oral hygiene care DIET RECOMMENDATIONS: Food: IDDSI Level 4: Puree Liquid: IDDSI Level 0: Thin Per 10/14/23 ENT note: He still has some trouble keeping his weight up due to his xerostomia as well as feeling that certain foods burn his throat. states mouth and throat always dry, with burning. Had an inflamed esophagus with increased burning, which has improved but still present. --says burning won't go away, has to get used to. Uses saliva spray to help separate tongue or food in mouth, as sometimes gets stuck. 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 Followed by ENT (despite burning in mouth, Randolph eating oranges-smashing and drinking juice with water to wash down. Claims this doesn't hurt his mouth although acidic). --Randolph drinks a lot of fluid daily r/t needs to assist swallowing, with and without food. Fluid makes him full --Reports with coughing when consuming cold foods/beverages. --No difficulty swallowing currently. denies N/V or bowel issues since last colonoscopy. Per NFPE, Randolph with improved fat and muscle stores. Muscle wasting resolved! Appears may have some mild fat loss remaining in buccal/orbital areas. *MALNUTRITION RESOLVED* Reports pants are tighter around waist, used to sag and don't any more, look better per . --ABD area without signs of fat/muscle loss as well. --states he used to have an issue with dry skin on his face. Since pushing more Calories has had less dry skin and rashes around his nose. NUTRITION PRESCRIPTION Recommended increased energy and protein diet --Modified texture: minced/puree Estimated energy needs: 2600-2012 Calories/day (30-35 kcal/kg) Estimated protein needs: 68 g/day (1 g/kg) NUTRITION DIAGNOSIS *Resolved* Unintended weight loss related to inadequate energy and protein intake (physiologic-metabolic etiology) as evidenced by unintentional weight loss of 7% in less than 4 months, moderate fat and muscle loss, poor appetite/PO intake associated with reported UTI with sepsis. NUTRITION INTERVENTIONS FOOD AND NUTRIENT DELIVERY --continued to eat 2 meals and 2 snacks daily. One snack needs to include protein (i.e. montserratian yogurt). --encouraged eat yogurt with in AM for breakfast. Can blend in fruit to increase variety/nutrients. Can also do this with frozen fruit to make a smoothie (which has been planning to try). Medical Nutrition Supplement Therapy: decreasing ONS order to 1 Glucerna/day --with 1 refill remaining. Per current supply at home and decrease to 1/day, this should last Randolph until next appt. --reviewed foods first approach, with goal to D/C ONS NUTRITION EDUCATION/COUNSELING --Provided supportive listening --praise provided on wt gain and increased PO intake, continue! --continue minced/pureed diet --continue to aim for 6344-1560 Calories/day --Answered diet-related questions Education material: verbal Barriers to learning: none Comprehension: good NUTRITION MONITORING AND EVALUATION --Food and Beverage Intake-- Number of meals estimated in 24 hours: at least 3 small *Goal not achieved* (ONGOING-update to at least 2) Number of snacks estimated in 24 hours: at least 1 *Goal achieved* (ONGOING-update to at least 2) Nutritionally complete liquid supplement estimated oral intake in 24 hours: 2 Glucerna *Goal not achieved* (ONGOING-update to 1) *Goal achieved* (ONGOING-update to 157 lbs.) --Body composition/growth/weight history-- Measured weight: at or above 145 lb at follow-up Return to clinic: 3 months (10/06 at 1430, vvc) /willie/ Eun Hull MS, RD, LD Clinical Dietitian Signed: 07/09/2024 16:24 EUN HULL [facility]
--- OUTSIDE RECORDS SUMMARY | 2024-11-26 13:17 | XMS_ITS ---
Author Name [facility] [place] [facility] [place] [facility] [facility] [place] Address [address] [place] [address] Care Team Providers Care Dental Claims Processor Name Role Phone QUYEN MIJARES Primary Care [...] POINT OF SERVICE [facility] Nov 04, 2023 [id number] [phone] [id number] [phone] VIKKI ROSARIO SPOUSE AETNA-[facility] POINT OF SERVICE [facility] Nov 04, 2018 [id number] [phone] [id number] [phone] VIKKI ROSARIO SPOUSE [facility] ([id number]) RX PRESCRIPT ION RX PLAN Nov 04, 2017 [id number] [phone] ANAFEMI DOSHI SPOUSE CAREBALAJI ([id number])RX PRESCRIPT ION [facility] Nov 04, 2018 [id number] [phone] ANAFEMI DOSHI SPOUSE CAREBALAJI ([id number])RX PRESCRIPT ION [facility] Nov 04, 2018 [id number] [phone] ANAFEMI DOSHI SPOUSE CAREBALAJI ([id number])RX PRESCRIPT ION [facility] Nov 04, 2018 [id number] [phone] FEMI ROSARIO SPOUSE [facility] ([id number])RX PRESCRIPT ION [facility] Nov 04, 2018 [id number] [phone] FEMI ROSARIO SPOUSE [employer] MCR (WNR) MEDICARE ADVANTAGE [facility] (WNR) Nov 04, 2018 [id number] FEMI ROSARIO PATIENT MEDICARE (WNR) MEDICARE (M) PART A May 04, 2009 PART A [id number] [phone] FEMI ROSARIO PATIENT MEDICARE (WNR) MEDICARE (M) PART B May 04, 2009 PART B [id number] [phone] FEMI ROSARIO PATIENT MEDICARE (WNR) MEDICARE (M) PART B May 04, 2009 PART B [id number] FEMI ROSARIO PATIENT MEDICARE (WNR) MEDICARE (M) PART A May 04, 2009 PART A [id number] FEMI ROSARIO PATIENT -FO R-LIFE [facility] RE FOR LIFE WNR Nov 04, 2017 FOR LIFE [id number] [phone] FEMI ROSARIO PATIENT Selected Encounter This section includes the information on record at [place] for the Encounter. Date/Time Encounter Type Encounter Description Reason Provider Source Jun 03, 2024 09:45 AM MOTION FLUOROSCOPY/SWA MAREKW SPEECH-LANGUAGE PATHOLOGY ICD-10-CM R13.12 Dysphagia, oropharyngeal phase JORDYN BADILLO [facility] Encounter Template Text not used by [place] Assessments - Encounter Diagnoses This section includes the primary and secondary diagnoses documented for the Encounter. Date/Time Primary/Secondary Diagnosis Diagnosis Name Provider Source Jun 03, 2024 12:10 PM PRIMARY Dysphagia, oropharyngeal phase AILYN BADILLO [facility] Plan of Treatment: Future Appointments (+ 6 months) and Future Tests (+/- 45 days) The Plan of Treatment section includes future care activities for the patient from all [facility] treatment[facility]. This section includes future appointments and future orders which are active, pending or scheduled. Future Appointments This section includes appointments that were scheduled to occur 6 months from the date of the Encounter, up to a maximum of 20 appointments. The data comes from all [facility]. Appointment Date/Time Appointment Type Appointme nt Facility Name Jun 11, 2024 09:30 AM AMBULATORY - MEDICINE [facility] Jul 09, 2024 02:30 PM AMBULATORY - NONE . [facility] Jul 15, 2024 12:30 PM AMBULATORY - PSYCHIATRY [facility] Jul 16, 2024 11:00 AM AMBULATORY - SURGERY [facility] Aug 03, 2024 02:15 PM AMBULATORY - NONE [facility] Oct 06, 2024 02:30 PM AMBULATORY - NONE [facility] Oct 15, 2024 08:30 AM AMBULATORY - PSYCHIATRY [facility] Nov 13, 2024 09:00 AM AMBULATORY - SURGERY [facility] Nov 13, 2024 10:00 AM AMBULATORY - MEDICINE [facility] Nov 25, 2024 04:30 PM AMBULATORY - NONE [facility] Dec 04, 2024 01:00 PM AMBULATORY - MEDICINE [facility] Advance Directives: All historical and current Section Date Range: From patient's date of to the date document was created. This section includes ALL of a patient's completed or amended [place] Advance and Rescinded Directives. The entries below indicate that a directive exists for the patient, but an actual copy is not included with this document. The data comes from all [facility]. Date Advance Directives Provider Source Apr 24, 2019 ADVANCE DIRECTIVE DANY RHODES [facility] Radiology Reports: +/- 30 days of [...] the Encounter. The data comes from all [facility]. Date/Time Radiology Report Provider Source Jun 03, 2024 09:24 AM ESOPHAGUS (MODIFIE D BARIUM SWALLOW): FEMI ROSARIO RAY [id number] -1945 M Exm Date: JUN 03, 2024@09:24 Req Phys: UMAMESHA Pat Loc: -[facility] PACT E7 PCP (Req'g Loc) Img Loc: -MAIN RADIOLOGY SUITE Service: Unknown [facility] [address] [place] [address] (Case [id number] COMPLETE) ESOPHAGUS (MODIFIED BARIUM SWALL(RAD Detailed) CPT:67032 Contrast Media : Barium Reason for Study: Dysphagia Clinical History: Report Status: Verified Date Reported: JUN 04, 2024 Date Verified: JUN 04, 2024 Hoisting Machine Operator E-Sig:/ES/KARON JOHNSON MD Report: STUDY: Modified swallow study TECHNIQUE: Fluoroscopy was provided for modified barium swallow performed by speech pathology FLUORO TIME: 3.1 minutes Impression: See speech pathology report for interpretation. Dictated by Arti Corona MD (rn radiology) IKaron, have reviewed the images and report and concur with these findings. Primary Interpreting Staff: KARON JOHNSON MD, Radiologist (Hoisting Machine Operator) Primary Interpreting Resident: ARTI CORONA MD, vice president and portfolio manager /KARON REYES [facility] Encounter Notes: All associated encounter notes This section contains the clinical notes associated to the Encounter. Date/Time Encounter Note(s) Provider Source Jun 03, 2024 11:49 AM SPEECH PATHOLOGY C ONSULT: LOCAL TITLE: SPEECH PATH MOD BARIUM SWALLOW CONSULT ST STANDARD TITLE: SPEECH PATHOLOGY CONSULT DATE OF NOTE: JUN 03, 2024@11:49 ENTRY DATE: JUN 03, 2024@11:49:50 AUTHOR: AILYN BADILLO EXP COSIGNER: QUYEN MIJARES URGENCY: STATUS: COMPLETED SPEECH PATHOLOGY MODIFIED BARIUM SWALLOW RESULTS NAME: Femi Rosario [id number] DATE: 06/03/24 PURPOSE OF VISIT: swallowing evaluation RELEVANT HISTORY: Dx: -SCCa of the oropharynx?, unknown primary -chronic sinusitis -L ETD Tx: neck dissection, chemo and XRT at [facility] (2006) - s/p FESS 05/2019 - s/p revision FESS 10/[address] [place] [address] recently recommended puree foods and thickened liquids for him. PATIENT STATED GOAL: none stated TEST CONDITIONS: Patient was viewed laterally in a sitting position and standing in an AP position. He was tested with thin liquids, mildly thick liquids, and applesauce Trial presentation: Laterial view: 5ml thin (hold) 5ml thin 10ml thin (hold) 10ml thin Consecutive sip thin from cup Puree Puree Mildly thick Puree Mildly thick AP View: Puree Thick liquid ORAL SWALLOW: Lip closure was complete. Bolus hold/tongue control was not cohesive with more than 50% posterior escape. Bolus transport/lingual motion was slow and discoordinated. Bolus preparation and mastication was not assessed since solids were not trialed due to anticipated pharyngeal difficulty. SWALLOW REFLEX: present and delayed to pyriform level PHARYNGEAL SWALLOW: Laryngeal elevation, epiglottic excursion, and anterior hyoid excursion were all reduced. Pharyngeal stripping wave was diminished. Laryngeal vestibule closure was incomplete. Base of tongue retraction was significantly reduced. He presented with consistent penetration of thin liquids into the laryngeal vestibule with thin liquids, but did not aspirate with thin liquids until a puree swallow which forced liquid into the airway. Aspiration was silent. He did not aspirate with thickened liquids or food consistencies. He experienced mild-moderate amounts of diffuse residue with liquids and diffuse residue with puree, but with puree it was primarily a signifiant amount of residue in the valleculae. Solids were not trialed secondary to anticipated difficult clearing a solid food item. IMPRESSION: Severe oropharyngeal dysphagia with aspiration observed with thin liquids and significantly reduced efficiency in pharyngeal swallow resulting in significant pharyngeal residue, dysphagia likely chronic PLAN: No further intervention at this time, patient has previously prescribed dysphagia exercises and will resume those on his own. GOALS: n/a BARRIER TO ACHIEVEMENT OF GOALS: n/a RECOMMENDATIONS: 1. IDDSI Level 4: Puree food 2. Mildly thick liquids 3. Consistent oral hygiene care 3x daily 4. Small bites/sips, slow rate of intake, sit upright for meals Patient educated to results of swallow study and demonstrated understanding. /willie/ AILYN BADILLO Speech-Language Pathologist Signed: 06/03/2024 12:10 /willie/ QUYEN MIJARES Staff Physician Cosigned: 06/03/2024 13:03 AILYN BADILLO [facility]
--- OUTSIDE RECORDS SUMMARY | 2024-11-26 13:17 | XMS_ITS | Continuity of Care Document ---
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 It does not include entries that were removed or entered in error. Problem Status Onset Date Problem Type Date of Resolution Comments Source visit for: issue repeat prescription Inactive Condition DoD Anxiety Active Condition [facility] Autonomic neuropathy Active Condition [facility] Chronic constipation Active Condition [facility] Chronic sinusitis Active Condition [facility] Depression Active Condition [facility] Diabetes Mellitus Type 2 ([facility] [id number]) Active Condition [facility] Disorder of left Eustachian tube Active Condition [facility] GERD - Gastro-Esophageal Reflux Disease ([facility] [id number]) Active Condition [facility] HTN - Hypertension ([facility] [id number]) Active Condition [facility] Moderate protein-calorie malnutrition (weight for age 60-74 percent of standard) Active Condition [facility] Peripheral neuropathy Active Condition [facility] Sensorineural hearing loss of bilateral ears Active Condition [facility] Squamous cell carcinoma Active Condition Dec 10, 2019 Entered By: QUYEN MIJARES Comment: was treated by Dr. Paulo Shaikh and has been discharged as there was no recurrence after several years of surveillance [facility] Diagnosis: ICD-10-CM H90.3 Sensorineural hearing loss, bilateral Active Diagnosis [facility] Diagnosis: ICD-10-CM R41.82 Altered mental status, unspecified Active Diagnosis [facility] Diagnosis: ICD-10-CM E11.9 Type 2 diabetes mellitus without complications Active Diagnosis [facility] Diagnosis: ICD-10-CM F39 Unspecified mood [affective] disorder Active Diagnosis [facility] Diagnosis: ICD-10-CM R13.10 Dysphagia, unspecified Active Diagnosis [facility] Diagnosis: ICD-10-CM Z23 Encounter for immunization Active Diagnosis [facility] Diagnosis: ICD-10-CM H04.123 Dry eye syndrome of bilateral lacrimal glands Active Diagnosis [facility] Diagnosis: ICD-10-CM R13.12 Dysphagia, oropharyngeal phase Active Diagnosis [facility] Diagnosis: ICD-10-CM N40.0 Benign prostatic hyperplasia without lower urinry tract symp Active Diagnosis [facility] Diagnosis: ICD-10-CM R63.4 Abnormal weight loss Active Diagnosis [facility] Diagnosis: ICD-10-CM K59.00 Constipation, unspecified Active Diagnosis [facility] Diagnosis: ICD-10-CM R93.89 Abnormal findings on dx imaging of oth body structures Active Diagnosis [facility] Diagnosis: ICD-10-CM Z85.818 Prsnl hx of malig neoplm of site of lip, oral cav, & pharynx Active Diagnosis [facility] Diagnosis: ICD-10-CM R54 Age-related physical debility Active Diagnosis [facility] Diagnosis: ICD-10-CM R50.9 Fever, unspecified Active Diagnosis [facility] Diagnosis: ICD-10-CM H25.12 Age-related nuclear cataract, left eye Active Diagnosis [facility] Diagnosis: ICD-10-CM H69.92 Unspecified Eustachian tube disorder, left ear Active Diagnosis [facility] Diagnosis: ICD-10-CM 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 Medication Details Route Status Patient Instructions Prescription Expires Prescription Number Last Dispense Date Ordering Provider Order Date Order Qty Source AMOXICILLIN (AMOXICILLI N), 875MG, TABLET, ORAL, [facility], 100 ea. BOTTLE Active [id number] 2023 20 Pharmac y Data Transac tion Service Facilit y atorvastati n (U/D) 40 MG ORAL TAB TAKE ONE-HALF TABLET BY MOUTH EVERY EVENING FOR HIGH CHOLESTE ROL Active 03/11/2025 [id number] QAQUYEN SAMPSON B 2023 45 [facility] atorvastati n (U/D) 40 MG ORAL TAB TAKE ONE-HALF TABLET BY MOUTH EVERY EVENING FOR HIGH CHOLESTE ROL Discont inued 11/28/2024 [id number] QAYQUYEN SAMPSON B 2023 45 [facility] atorvastati n (U/D) 40 MG ORAL TAB TAKE ONE-HALF TABLET BY MOUTH EVERY EVENING FOR HIGH CHOLESTE ROL Active 11/28/2024 [id number] QAYQUYEN SAMPSON B 2023 45 [facility] ATORVASTATI N CA 40MG TAB TAKE ONE-HALF TABLET BY MOUTH EVERY EVENING FOR HIGH CHOLESTE ROL ORAL ACTIVE 08/17/2025 [id number] 4 DYLLAN,LYNN EELA 2023 45 [facility] ATORVASTATI N CA 40MG TAB TAKE ONE-HALF TABLET BY MOUTH EVERY EVENING FOR HIGH CHOLESTE ROL ORAL DISCONT INUED 03/11/2025 [id number] 4 DYLLAN,LYNN EELA 2023 45 [facility] ATORVASTATI N CA 40MG TAB TAKE ONE-HALF TABLET BY MOUTH EVERY EVENING FOR HIGH CHOLESTE ROL ORAL DISCONT INUED 11/28/2024 [id number] 4 LYNN [facility]JARES EELA 2023 45 [facility] Cal[facility] Polycarboph il (FBR) Tablet 625mg Oral TAKE ONE TABLET BY MOUTH ONCE A DAY Active 03/11/2025 [id number] 4 QUYEN CONWAY 2023 90 [facility] CALCIUM POLYCARBOPH IL 625MG TAB TAKE ONE TABLET BY MOUTH ONCE A DAY ORAL ACTIVE 03/11/2025 [id number] 4 DYLLANLYNN EELAURA 2023 90 [facility] CARBOXYMETH YLCELLULOSE NA 1% GEL,OPH INSTILL 1 DROP INTO BOTH EYES FOUR TIMES A DAY NEEDED FOR DRY EYE(S) OPHTHA LMIC ACTIVE 07/17/2025 [id number] 5 KATERINA LAND E 2023 45 [facility] CICLOPIROX 8 % TOP SOLN [6.6 ML] APPLY SPARINGL Y TO AFFECTED AREA(S) AT BEDTIME (THIN COAT TO THICK NAILS - FILE DOWN AFTER 1 WEEK) (EXTERNA L USE ONLY) CLEANED WITH ALCOHOL ONCE A WEEK 11/13/2024 [id number] QUYEN CONWAY 2023 0 [facility] CICLOPIROX 8% SOLN,TOP APPLY SPARINGL Y TO AFFECTED AREA(S) AT BEDTIME (THIN COAT TO THICK NAILS - FILE DOWN AFTER 1 WEEK) (EXTERNA L USE ONLY) CLEANED WITH ALCOHOL ONCE A WEEK TOPICA L 11/13/2024 [id number] 4 LYNN MIJARES EELA 2023 6.6 [facility] Compounded Prilosec Capsule Conventiona l 20 mg Oral TAKE ONE CAPSULE BY MOUTH EVERY MORNING BEFORE A MEAL FOR GASTROES OPHAGEAL REFLUX DISEASE. TAKE 30 MINUTES PRIOR TO FOOD. 11/13/2024 [id number] 4 QUYEN CONWAY 2023 90 [facility] cyclobenzap rine (U/D) 5 MG ORAL TAB TAKE ONE TABLET BY MOUTH TWICE DAILY NEEDED FOR MUSCLE SPASM. MAY CAUSE DROWSINE SS. DO NOT DRINK ALCOHOL WHILE TAKING THIS MEDICATI ON. Active 03/11/2025 [id number] 4 QAYUMQUYEN 2023 60 [facility] cyclobenzap rine (U/D) 5 MG ORAL TAB TAKE ONE TABLET BY MOUTH TWICE DAILY NEEDED FOR MUSCLE SPASM. MAY CAUSE DROWSINE SS. DO NOT DRINK ALCOHOL WHILE TAKING THIS MEDICATI ON. Discont inued 11/18/2024 [id number] 4 QAYUMYOAVQUYEN B 2023 60 [facility] cyclobenzap rine (U/D) 5 MG ORAL TAB TAKE ONE TABLET BY MOUTH TWICE DAILY NEEDED FOR MUSCLE SPASM. MAY CAUSE DROWSINE SS. DO NOT DRINK ALCOHOL WHILE TAKING THIS MEDICATI ON. 11/18/2024 [id number] 4 QAYYOAVQUYEN B 2023 60 [facility] cyclobenzap rine (U/D) 5 MG ORAL TAB TAKE ONE TABLET BY MOUTH TWICE DAILY NEEDED FOR MUSCLE SPASM. MAY CAUSE DROWSINE SS. DO NOT DRINK ALCOHOL WHILE TAKING THIS MEDICATI ON. Discont inued 08/09/2024 [id number] 4 [email or web address]YOAVQUYEN B 2023 60 [facility] CYCLOBENZAP RINE HCL 5MG TAB TAKE ONE TABLET BY MOUTH TWICE DAILY NEEDED FOR MUSCLE SPASM. MAY CAUSE DROWSINE SS. DO NOT DRINK ALCOHOL WHILE TAKING THIS MEDICATI ON. ORAL PROVIDE R HOLD 03/11/2025 [id number] 4 DYLLAN,LYNN EELA 2023 60 [facility] CYCLOBENZAP RINE HCL 5MG TAB TAKE ONE TABLET BY MOUTH TWICE DAILY NEEDED FOR MUSCLE SPASM. MAY CAUSE DROWSINE SS. DO NOT DRINK ALCOHOL WHILE TAKING THIS MEDICATI ON. ORAL DISCONT INUED 11/18/2024 [id number] 4 DYLLAN,AN EELA 2023 60 [facility] CYCLOBENZAP RINE HCL 5MG TAB TAKE ONE TABLET BY MOUTH TWICE DAILY NEEDED FOR MUSCLE SPASM. MAY CAUSE DROWSINE SS. DO NOT DRINK ALCOHOL WHILE TAKING THIS MEDICATI ON. ORAL DISCONT INUED 08/09/2024 [id number] 4 LYNN MIJARES EELA 2022 60 [facility] DEPAKENE (BRAND) 250 MG/5 ML ORAL SOLN TAKE 5 ML BY MOUTH EVERY MORNING AND TAKE 10 ML AT BEDTIME FOR MOOD Active 04/17/2025 [id number] 4 GURUSIDDA SHANDA SHERON N 2023 480 [facility] DEPAKENE (BRAND) 250 MG/5 ML ORAL SOLN TAKE 5 ML BY MOUTH EVERY MORNING AND TAKE 10 ML AT BEDTIME FOR MOOD Discont inued 12/26/2024 [id number] 4 GURUSIDDA SHANDA, SHERON N 2023 480 [facility] DEPAKENE (BRAND) 250 MG/5 ML ORAL SOLN TAKE 5 ML BY MOUTH EVERY MORNING AND TAKE 10 ML AT BEDTIME FOR MOOD Active 12/26/2024 [id number] 4 GURUSIDDA SHANDA, SHERON N 2023 480 [facility] DEPAKENE (BRAND) 250 MG/5 ML ORAL SOLN TAKE 5 ML BY MOUTH EVERY MORNING AND TAKE 10 ML AT BEDTIME FOR MOOD Discont inued 08/13/2024 [id number] 4 SIDIMAA SHANDA SHERON N 2023 480 [facility] ENSURE PLUS LIQUID CHOCOLATE TAKE 1 CANFUL BY MOUTH ONCE A DAY ORAL DISCONT INUED 10/17/2024 [id number] 3 LYNN MIJARES EELA 2022 24 [facility] FLONASE-OTC (BRAND) 50 MCG BOBBY SPSN [9.9] INSTILL 2 SPRAYS IN EACH NOSTRIL ONCE A DAY FOR ALLERGIE S (MUST BE USED DIRECTED FOR MINIMUM OF 21 DAYS TO PROVIDE ADEQUATE BENEFITS ) 04/04/2024 [id number] 4 SONAM IRVIN H 2023 1 [facility] FLUTICASONE PROPIONATE 50MCG/SPRAY SOLN,NASAL, 16GM INSTILL 2 SPRAYS IN EACH NOSTRIL ONCE A DAY FOR ALLERGIE S (MUST BE USED DIRECTED FOR MINIMUM OF 21 DAYS TO PROVIDE ADEQUATE BENEFITS ) NASAL ACTIVE 06/12/2025 [id number] 4 LYNN MIJARES EELA 2023 3 [facility] FLUTICASONE PROPIONATE 50MCG/SPRAY SOLN,NASAL, 16GM INSTILL 2 SPRAYS IN EACH NOSTRIL ONCE A DAY FOR ALLERGIE S (MUST BE USED DIRECTED FOR MINIMUM OF 21 DAYS TO PROVIDE ADEQUATE BENEFITS ) NASAL DISCONT INUED 04/04/2024 [id number] 4 Venessa IRVIN H 2022 1 [facility] GABAPENTIN (U/D) 300 MG ORAL CAP TAKE ONE CAPSULE BY MOUTH AT BEDTIME FOR NERVE PAIN Active 03/11/2025 [id number] UQYEN CONWAY 2023 90 [facility] GABAPENTIN 300MG CAP TAKE ONE CAPSULE BY MOUTH AT BEDTIME FOR NERVE PAIN ORAL ACTIVE 03/11/2025 [id number] 4 LYNN MIJARES EELA 2023 90 [facility] GLUCERNA SHAKE LIQUID VANILLA TAKE 1 CANFUL BY MOUTH ONCE A DAY FOR NUTRITIO N/DIETAR Y SUPPLEME NTATION ([place]) ORAL ACTIVE 10/09/2025 [id number] MI GORMAN N 2023 24 [facility] GLUCERNA THERAPEUTIC NUTRITION SHAKE LIQUID CHOCOLATE TAKE 2 CANFULS BY MOUTH ONCE A DAY ([place]LL) ORAL DISCONT INUED BY PROVIDE R 04/17/2025 [id number] IM GORMAN 2023 72 [facility] GLUCERNA THERAPEUTIC NUTRITION SHAKE LIQUID CHOCOLATE TAKE 1 CANFUL BY MOUTH DIRECTED FOR NUTRITIO N/DIETAR Y SUPPLEME NTATION ([place]) ORAL DISCONT INUED BY PROVIDE R 12/24/2024 [id number] 4 DYLLAN,AN EELA 2023 24 [facility] GLUCERNA THERAPEUTIC NUTRITION SHAKE LIQUID CHOCOLATE TAKE 1 CANFUL BY MOUTH DIRECTED FOR NUTRITIO N/DIETAR Y SUPPLEME NTATION ([place]) ORAL DISCONT INUED BY PROVIDE R 11/09/2024 [id number] 4 DYLLAN,AN EELA 2023 24 [facility] LATANOPROST 0.005% SOLN,OPH INSTILL 1 DROP IN LEFT EYE EVERY EVENING KEEP REFRIGER ATED UNTIL READY TO USE, THEN STORE AT ROOM TEMPERAT URE FOR MAXIMUM OF 42 DAYS. OPHTHA KRISS ACTIVE 11/14/2025 [id number] 5 CIARRA GARDNER 2024 10 [facility] LEVOFLOXACI N (LEVOFLOXAC IN), 750 MG, TABLET, ORAL, [facility], 20 ea. BOTTLE Active [id number] 2023 1 Pharmac y Data Transac tion Service Facilit y Lidocaine (Lidoderm Eq.) Transdermal System 5% Topical APPLY 1 PATCH TO SKIN SITE ONCE A DAY APPLY PATCH AND PRESS FIRMLY FOR 10-15 SECONDS. KEEP ON FOR 12 HOURS THEN REMOVE PATCH FOR 12 HOURS. 07/18/2024 [id number] 4 QUYEN CONWAY 2023 30 [facility] Lidocaine (Lidoderm Eq.) Transdermal System 5% Topical APPLY 1 PATCH TO SKIN SITE ONCE A DAY APPLY PATCH AND PRESS FIRMLY FOR 10-15 SECONDS. KEEP ON FOR 12 HOURS THEN REMOVE PATCH FOR 12 HOURS. 07/18/2024 [id number] 4 QUYEN CONWAY 2023 30 [facility] LIDOCAINE 5% PATCH APPLY 1 PATCH TO SKIN SITE ONCE A DAY APPLY PATCH AND PRESS FIRMLY FOR 10-15 SECONDS. KEEP ON FOR 12 HOURS THEN REMOVE PATCH FOR 12 HOURS. TRANSD ERMAL 07/18/2024 [id number] 4 LYNN MIJARES EELA 2022 30 [facility] Mirtazapine (Remeron Soltab) Tablet 30mg Oral TAKE ONE TABLET BY MOUTH AT BEDTIME Active 04/17/2025 [id number] 4 CHEYENNE LAND SHERON N 2023 90 [facility] MIRTAZAPINE 30MG TAB TAKE ONE TABLET BY MOUTH AT BEDTIME ORAL SUSPEND ED 10/16/2025 [id number] 5 CHEYENNE LANDPRATI BHA N 2024 90 [facility] MIRTAZAPINE 30MG TAB TAKE ONE TABLET BY MOUTH AT BEDTIME ORAL DISCONT INUED 07/16/2025 [id number] 4 SICARI LANDPRATI BHA N 2023 90 [facility] MIRTAZAPINE 30MG TAB TAKE ONE TABLET BY MOUTH AT BEDTIME ORAL DISCONT INUED 04/17/2025 [id number] SICARI LANDPRATI BHA N 2023 90 [facility] MIRTAZAPINE 7.5 MG ORAL TAB TAKE TWO TABLETS BY MOUTH AT BEDTIME FOR DEPRESSI ON Discont inued 12/26/2024 [id number] CHEYENNE LAND SHERON N 2023 60 [facility] MIRTAZAPINE 7.5 MG ORAL TAB TAKE TWO TABLETS BY MOUTH AT BEDTIME FOR DEPRESSI ON Active 12/26/2024 [id number] 4 SICARI LAND SHERON N 2023 60 [place] [facility] MIRTAZAPINE 7.5 MG ORAL TAB TAKE TWO TABLETS BY MOUTH AT BEDTIME FOR DEPRESSI ON Discont inued 08/13/2024 [id number] IRVINGA SHANDA SHERON N 2023 60 [facility] MIRTAZAPINE 7.5MG TAB TAKE TWO TABLETS BY MOUTH AT BEDTIME FOR DEPRESSI ON ORAL DISCONT INUED (EDIT) 12/26/2024 [id number] 4 SIDIMAA SHANDA,PRATI BHA N 2023 60 [facility] MIRTAZAPINE 7.5MG TAB TAKE TWO TABLETS BY MOUTH AT BEDTIME FOR DEPRESSI ON ORAL DISCONT INUED 08/13/2024 [id number] 4 IRVINGA SHANDA,PRATI BHA N 2022 60 [facility] OMEPRAZOLE 20MG CAP,EC TAKE ONE CAPSULE BY MOUTH EVERY MORNING BEFORE A MEAL FOR GASTROES OPHAGEAL REFLUX DISEASE. TAKE 30 MINUTES PRIOR TO FOOD. ORAL 11/13/2024 [id number] 4 DYLLAN,AN EELA 2023 90 [facility] POLYETHYLEN E GLYCOL 3350 PWDR,ORAL MIX AND DRINK 1 CAPFUL BY MOUTH ONCE A DAY (MEASURE WITH CAP AND MIX IN 8 OZ OF WATER) ORAL ACTIVE 03/11/2025 [id number] 4 DYLLAN,AN EELA 2023 510 [facility] Propylene Glycol (Systane Balance Eq.) Solution 0.6% Optical INSTILL 1 DROP IN BOTH EYES THREE TIMES A DAY NEEDED 10/22/2024 [id number] ADENIKE SHERWOOD 2022 20 [facility] PROPYLENE GLYCOL 0.6% SOLN,OPH INSTILL 1 DROP IN BOTH EYES THREE TIMES A DAY NEEDED OPHTHA LMIC DISCONT INUED BY PROVIDE R 10/22/2024 [id number] 3 ELVIS KINGSTON J 2022 20 [facility] SALIVA,RICHARD FICIAL SPRAY,ORAL USE 3-5 SPRAYS BY MOUTH EVERY TWO HOURS NEEDED FOR DRY MOUTH AND THROAT ORAL ACTIVE 06/12/2025 [id number] 4 DYLLAN,AN EELA 2023 236 [facility] SALIVA,RICHARD FICIAL SPRAY,ORAL USE 3-5 SPRAYS BY MOUTH EVERY TWO HOURS NEEDED FOR DRY MOUTH AND THROAT ORAL DISCONT INUED 05/20/2024 [id number] AILYN PALENCIA 2022 236 [facility] SIMPLYTHICK GEL,ORAL,[place] LDLY THICK,6GM TAKE 1 PACKET BY MOUTH ONCE A DAY OR DIRECTED TO THICKEN LIQUIDS. USE 1 PACKET PER 4 OZ OF LIQUID. ORAL ACTIVE 06/04/2025 [id number] 4 DYLLAN,AN EELA 2023 600 [facility] SINUS RINSE NEILMED PKT USE 1 PACKET NOSTRIL( S) TWICE A DAY FOR NASAL CONGESTI ON NASAL 01/07/2024 [id number] 4 DYLLAN,AN EELA 2023 100 [facility] SINUS RINSE NEILMED REGULAR KIT USE 1 KIT NOSTRIL( S) ONCE A DAY FOR NASAL CONGESTI ON NASAL 02/16/2024 [id number] 4 DYLLAN,AN EELA 2023 1 [facility] SO-PEG 3350-BOWEL 2,TWO PART PREP--PO SO MIX AND DRINK 1 CAPFUL BY MOUTH ONCE A DAY (MEASURE WITH CAP AND MIX IN 8 OZ OF WATER) Active 03/11/2025 [id number] QUYEN CONWAY 2023 510 [facility] SULFAMETHOX AZOLE 800MG/TRIME THOPRIM 160MG TAB TAKE ONE TABLET BY MOUTH EVERY 12 HOURS ORAL ACTIVE DYLLAN,AN EELA 2024 [facility] TAMSULOSIN HCL (TAMSULOSIN HCL), 0.4 MG, CAP ER 24H, ORAL, [employer] PHARMA L, 100 ea. BOTTLE Active [id number] 2023 90 Pharmac y Data Transac tion Service Facilit y TAMSULOSIN HCL 0.4MG CAP TAKE ONE CAPSULE BY MOUTH EVERY EVENING APPROXIM ATELY 30 MINUTES AFTER THE SAME MEAL EACH DAY ORAL ACTIVE 05/15/2025 [id number] 4 LYNN MIJARES EELA 2023 90 [facility] VALPROIC ACID 250MG/5ML SOLN,ORAL TAKE 5 ML BY MOUTH EVERY MORNING AND TAKE 10 ML AT BEDTIME FOR MOOD ORAL ACTIVE 10/16/2025 [id number] 4 ENRIQUE MARQUEZ BHA N 2023 480 [facility] VALPROIC ACID 250MG/5ML SOLN,ORAL TAKE 5 ML BY MOUTH EVERY MORNING AND TAKE 10 ML AT BEDTIME FOR MOOD ORAL DISCONT INUED 07/16/2025 [id number] 4 SICARI LANDPRATI BHA N 2023 480 [facility] VALPROIC ACID 250MG/5ML SOLN,ORAL TAKE 5 ML BY MOUTH EVERY MORNING AND TAKE 10 ML AT BEDTIME FOR MOOD ORAL DISCONT INUED 04/17/2025 [id number] 4 GURUSICARI LANDPRATI BHA N 2023 480 [facility] VALPROIC ACID 250MG/5ML SOLN,ORAL TAKE 5 ML BY MOUTH EVERY MORNING AND TAKE 10 ML AT BEDTIME FOR MOOD ORAL DISCONT INUED 12/26/2024 [id number] 4 SICARI LANDPRATI BHA N 2023 480 [facility] VALPROIC ACID 250MG/5ML SOLN,ORAL TAKE 5 ML BY MOUTH EVERY MORNING AND TAKE 10 ML AT BEDTIME FOR MOOD ORAL DISCONT INUED 08/13/2024 [id number] 4 ENRIQUE MARQUEZ N 2022 480 [facility] Allergies, Adverse Reactions, Alerts Combined list of allergies from Department of Defense and Veterans [facility] facilities. It does not include entries that were removed or entered in error. Substance Category Reaction Severity Reaction type Status Date Reported Comments Source ERYTHROMYCIN Drug allergy (disorder) Nausea and Vomiting, Diarrhea active 9 [facility] ERYTHROMYCIN Drug allergy (disorder) Diarrhea, Nausea and Vomiting active 9 [facility] erythromycin Propensity to adverse reactions to drug Nausea and Vomiting, Diarrhea Active 9 [facility] ERYTHROMYCIN Propensity to adverse reactions to drug (finding) Diarrhea, Nausea and vomiting active 9 [facility] Immunizations Combined list of available immunizations from the Department of Defense and Veterans [facility] facilities. 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 [employer] Status Comments Source INFLUENZA, HIGH-DOSE, TRIVALENT, PF 2023 Анна SMITH ONICA L RIGHT DELTO ID [id number] 135 complet [facility] COVID-19 (PFIZER), MRNA, LNP-S, PF, MATTHEW-SUCROSE, 30 MCG/0.3 ML (AGES 12+ YEARS) 2023 Анна SMITH ONICA L LEFT DELTO ID [id number] 309 complet ed [facility] RSV, BIVALENT, PROTEIN SUBUNIT RSVPREF, DILUENT RECONSTITUTED , 0.5 ML, PF 2023 FELIPE LEUNG LEFT DELTO ID [id number] 305 complet ed [facility] COVID-19 (MODERNA), MRNA, LNP-S, PF, 50 MCG/0.5 ML (AGES 12+ YEARS) 2022 SEAN MEYERS RIGHT DELTO ID [id number] 312 complet [facility] INFLUENZA, HIGH-DOSE, QUADRIVALENT 2022 ANANTH PEREA LEFT DELTO ID [id number] 197 complet ed [facility] INFLUENZA VACCINE, QUADRIVALENT, ADJUVANTED 2022 ELIZABETH CASTRO Filippo LEFT DELTO ID [id number] 205 complet ed [facility] COVID-19 (MODERNA), MRNA, LNP-S, BIVALENT BOOSTER, PF, 50 MCG/0.5 ML OR 25MCG/0.25 ML DOSE 2021 229 complet ed [facility] COVID-19 (PFIZER), MRNA, LNP-S, PF, 30 MCG/0.3 ML DOSE, MATTHEW-SUCROSE (AGES 12+ YEARS) 4 2021 217 complet ed PFR; [id number]; 2 [facility] COVID-19 (PFIZER), MRNA, LNP-S, PF, 30 MCG/0.3 ML DOSE 3 2020 208 complet ed PFR; [id number]; 2 [facility] INFLUENZA VACCINE, QUADRIVALENT, ADJUVANTED 2020 205 complet ed [facility] INFLUENZA VACCINE, QUADRIVALENT, ADJUVANTED 2020 205 complet ed [facility] COVID-19 (MODERNA), MRNA, LNP-S, PF, 100 MCG/0.5 ML DOSE 2 2020 207 complet ed MOD; [id number]; 1 [facility] COVID-19 (MODERNA), MRNA, LNP-S, PF, 100 MCG/0.5 ML DOSE 1 2020 207 complet ed MOD; [id number]; 1 [facility] INFLUENZA, HIGH-DOSE, QUADRIVALENT 2019 197 complet ed [facility] INFLUENZA, INJECTABLE, QUADRIVALENT, PRESERVATIVE FREE 2019 150 complet ed [facility] PNEUMOCOCCAL POLYSACCHARID E PPV23 2019 33 complet ed [facility] ZOSTER RECOMBINANT 2 2018 187 complet ed [facility] ZOSTER RECOMBINANT 1 2018 187 complet ed [facility] PNEUMOCOCCAL CONJUGATE PCV 13 2018 133 complet ed [facility] TDAP 2018 115 complet ed Left Deltoid [facility] influenza, injectable, quadrivalent- pf 2017 zzRig ht Arm [id number] 150 [employer] ne complet ed influenza , injectabl e, quadrival ent-pf 09/02/18 Given Ambulat ory Pharmac y Influenza, injectable, quadrivalent, preservative free 1 2017 Unknown, Provider [id number] 150 [employer] (SKB) complet ed Influenza , injectabl e, quadrival ent, preservat barry free DoD INFLUENZA, UNSPECIFIED FORMULATION 2017 88 complet ed [facility] hepatitis A adult vaccine 1998 [id number] [employer] complet ed hepatitis A adult vaccine 03/16/99 Given Ambulat ory Pharmac y hepatitis A vaccine, adult dosage 2 1998 [id number] 52 Merck (MSD) complet ed hepatitis A vaccine, adult dosage DoD typhoid, parenteral, AKD 1997 53 complet ed typhoid, parentera l, AKD 10/13/98 Given Ambulat ory Pharmac y typhoid vaccine, parenteral, acetone-kille d, dried ([place] ) 4 1997 53 () complet ed typhoid vaccine, parentera l, acetone-k illed, dried ([place] ) DoD hepatitis A adult vaccine 1997 [id number] 52 [employer] complet ed hepatitis A adult vaccine 08/06/98 Given Ambulat ory Pharmac y influenza virus vaccine, whole virus [id number] 16 PFIZER complet ed influenza virus vaccine, whole virus 08/06/98 Given Ambulat ory Pharmac y influenza virus vaccine, whole virus 0 [id number] 16 Morales (Inactive) ([place]) complet ed influenza virus vaccine, whole virus DoD hepatitis A vaccine, adult dosage 1 1997 [id number] 52 Merck (MSD) complet ed hepatitis A vaccine, adult dosage DoD influenza virus vaccine, whole virus [id number] 16 PFIZER complet ed influenza virus vaccine, whole virus 09/22/97 Given Ambulat ory Pharmac y influenza virus vaccine, whole virus 0 [id number] 16 [place] (Inactive) ([place]) complet ed influenza virus vaccine, whole virus DoD yellow fever vaccine [id number] PFIZER complet ed yellow fever vaccine 02/16/96 Given [facility] Pharmac y yellow fever vaccine 0 [id number] [place] ([place] complet ed yellow fever vaccine DoD measles/mumps /rubella virus vaccine 1994 03 complet ed measles/m umps/rube lla virus vaccine 10/12/95 Given Ambulat ory Pharmac y measles, mumps and rubella virus vaccine 0 1994 03 () complet ed measles, mumps and rubella virus vaccine DoD tetanus-dipht h toxoids (Td) adult/adol 1992 09 complet ed tetanus-d iphth toxoids (Td) adult/ado l 05/31/93 Given Ambulat ory Pharmac y tetanus and diphtheria toxoids, adsorbed, preservative free, for adult use (2 Lf of tetanus toxoid and 2 Lf of diphtheria toxoid) 0 1992 09 () complet ed tetanus and diphtheri a toxoids, adsorbed, preservat barry free, for adult use (2 Lf of tetanus toxoid and 2 Lf of diphtheri a toxoid) [facility] poliovirus vaccine, live, oral 1969 02 complet ed polioviru s vaccine, live, oral 03/04/70 Given Ambulat ory Pharmac y trivalent poliovirus vaccine, live, oral 0 1969 02 () complet ed trivalent polioviru s vaccine, live, oral [facility] Results Combined list of recent chemistry, hematology and other laboratory results from Department of [employer] and [employer], ranging from 15 months to all on record, depending upon the facility. Order Name Results Value Reference Range Date Interpretation Specimen Comments Source URINALYSI S W/ CX REFLEX (STL-PB) COLOR OF URINE Yellow 11/13 Specimen Type: URINE No comment entered. Ordering Provider: YOAV MIJARES Report Released Date/Time: Nov 13, 2024 10:48 AM Reporting Lab: [facility] [place] [address] Performing Lab: [facility] DIVISION URINALYSI S W/ CX REFLEX (STL-PB) BILIRUBIN.T OTAL [PRESENCE] IN URINE BY TEST STRIP Negativ emg/dL 11/13 Specimen Type: URINE No comment entered. Ordering Provider: YOAV MIJARES Report Released Date/Time: Nov 13, 2024 10:48 AM Reporting Lab: [facility] [place] [address] Performing Lab: [facility] DIVISION URINALYSI S W/ CX REFLEX (STL-PB) PH OF URINE BY TEST STRIP 6.5 5.0 - 8.0 11/13 Specimen Type: URINE No comment entered. Ordering Provider: YOAV MIJARES Report Released Date/Time: Nov 13, 2024 10:48 AM Reporting Lab: [facility] [place] [address] Performing Lab: [facility] DIVISION URINALYSI S W/ CX REFLEX (STL-PB) LEUKOCYTES [#/AREA] IN URINE SEDIMENT BY MICROSCOPY HIGH POWER FIELD >182/[H PF] 0 - 5 11/13 H Specimen Type: URINE No comment entered. Ordering Provider: YOAV MIJARES Report Released Date/Time: Nov 13, 2024 10:48 AM Reporting Lab: [facility] [place] [address] Performing Lab: [facility] [place] [id number] DIVISION URINALYSI S W/ CX REFLEX (STL-PB) ERYTHROCYTE S [#/VOLUME] IN URINE SEDIMENT BY MICROSCOPY HIGH POWER FIELD 26 /[HPF] 0 - 5 11/13 H Specimen Type: URINE No comment entered. Ordering Provider: YOAV MIJARES Report Released Date/Time: Nov 13, 2024 10:48 AM Reporting Lab: [facility] [place] [address] Performing Lab: [facility] DIVISION URINALYSI S W/ CX REFLEX (STL-PB) APPEARANCE OF URINE Ex.Turb id 11/13 Specimen Type: URINE No comment entered. Ordering Provider: YOAV MIJARES Report Released Date/Time: Nov 13, 2024 10:48 AM Reporting Lab: [facility] [place] [address] Performing Lab: [facility] DIVISION URINALYSI S W/ CX REFLEX (STL-PB) NITRITE [PRESENCE] IN URINE BY TEST STRIP Negativ emg/dL 11/13 Specimen Type: URINE No comment entered. Ordering Provider: YOAV MIJARES Report Released Date/Time: Nov 13, 2024 10:48 AM Reporting Lab: [facility] [place] [address] Performing Lab: [facility] DIVISION URINALYSI S W/ CX REFLEX (STL-PB) LEUKOCYTE CLUMPS [#/VOLUME] IN URINE BY AUTOMATED COUNT FEW/[HP F] 11/13 Specimen Type: URINE No comment entered. Ordering Provider: YOAV MIJARES Report Released Date/Time: Nov 13, 2024 10:48 AM Reporting Lab: [facility] [place] [address] Performing Lab: [facility] DIVISION URINALYSI S W/ CX REFLEX (STL-PB) BACTERIA [PRESENCE] IN URINE SEDIMENT BY LIGHT MICROSCOPY RARE/[H PF] 11/13 Specimen Type: URINE No comment entered. Ordering Provider: YOAV MIJARES Report Released Date/Time: Nov 13, 2024 10:48 AM Reporting Lab: [facility] [place] [address] Performing Lab: [facility] DIVISION URINALYSI S W/ CX REFLEX (STL-PB) GLUCOSE [MASS/VOLUM E] IN URINE BY TEST STRIP Normalm g/dL 11/13 Specimen Type: URINE No comment entered. Ordering Provider: YOAV MIJARES Report Released Date/Time: Nov 13, 2024 10:48 AM Reporting Lab: [facility] [place] [address] Performing Lab: [facility] DIVISION URINALYSI S W/ CX REFLEX (STL-PB) PROTEIN [MASS/VOLUM E] IN URINE BY TEST STRIP 30 mg/dL 11/13 H Specimen Type: URINE No comment entered. Ordering Provider: YOAV MIJARES Report Released Date/Time: Nov 13, 2024 10:48 AM Reporting Lab: [facility] [place] [address] Performing Lab: [facility] DIVISION URINALYSI S W/ CX REFLEX (STL-PB) URN.UROBILI NOGEN Normalm g/dL 11/13 Specimen Type: URINE No comment entered. Ordering Provider: YOAV MIJARES Report Released Date/Time: Nov 13, 2024 10:48 AM Reporting Lab: [facility] [place] [address] Performing Lab: [facility] DIVISION URINALYSI S W/ CX REFLEX (STL-PB) HEMOGLOBIN [MASS/VOLUM E] IN URINE BY TEST STRIP 1+mg/dL 11/13 H Specimen Type: URINE No comment entered. Ordering Provider: YOAV MIJARES Report Released Date/Time: Nov 13, 2024 10:48 AM Reporting Lab: [facility] [place] [address] Performing Lab: [facility] DIVISION URINALYSI S W/ CX REFLEX (STL-PB) KETONES [MASS/VOLUM E] IN URINE BY TEST STRIP Negativ emg/dL 11/13 Specimen Type: URINE No comment entered. Ordering Provider: YOAV MIJARES Report Released Date/Time: Nov 13, 2024 10:48 AM Reporting Lab: [facility] [place] [address] Performing Lab: [facility] DIVISION URINALYSI S W/ CX REFLEX (STL-PB) URN.LEUK.ES T. 500 mg/dL 11/13 H Specimen Type: URINE No comment entered. Ordering Provider: YOAV MIJARES Report Released Date/Time: Nov 13, 2024 10:48 AM Reporting Lab: [facility] [place] [address] Performing Lab: [facility] [facility] DIVISION URINALYSI S W/ CX REFLEX (STL-PB) SPECIFIC GRAVITY OF URINE 1.018 11/13 Specimen Type: URINE No comment entered. Ordering Provider: YOAV MIJARES Report Released Date/Time: Nov 13, 2024 10:48 AM Reporting Lab: [facility] [place] [address] Performing Lab: [facility] DIVISION HGA1C HEMOGLOBIN A1C/HEMOGLO BIN.TOTAL IN BLOOD 7.1 4.0 - 6.0 11/13 H Specimen Type: BLOOD No comment entered. Ordering Provider: YOAV MIJARES Report Released Date/Time: Nov 13, 2024 10:48 AM Reporting Lab: [facility] [place] [address] Performing Lab: [facility] DIVISION TSH (MA-PB) THYROTROPIN [UNITS/VOLU ME] IN SERUM OR PLASMA 1.716 u[IU]/m L 0.470 - 5.000 11/13 Specimen Type: SERUM No comment entered. Ordering Provider: YOAV MIJARES Report Released Date/Time: Nov 13, 2024 10:48 AM Reporting Lab: [facility] [place] [address] Performing Lab: [facility] DIVISION VITAMIN D, 25-HYDROX Y 25-HYDROXYV ITAMIN D3 [MASS/VOLUM E] IN SERUM OR PLASMA 43.9 ng/mL 30 - 96 11/13 Specimen Type: SERUM No comment entered. Ordering Provider: YOAV MIJARES Report Released Date/Time: Nov 13, 2024 10:48 AM Reporting Lab: [facility] [place] [address] Performing Lab: [facility] [id number] DIVISION B12 COBALAMIN (VITAMIN B12) [MASS/VOLUM E] IN SERUM OR PLASMA 771 pg/mL 213 - 816 11/13 Specimen Type: SERUM No comment entered. Ordering Provider: YOAV MIJARES Report Released Date/Time: Nov 13, 2024 10:48 AM Reporting Lab: [facility] [place] [address] Performing Lab: [facility] LIPID PANEL (STL) CHOLESTEROL [MASS/VOLUM E] IN SERUM OR PLASMA 137 mg/dL 0 - 200 11/13 Specimen Type: PLASMA Comment: No hemolysis noted. Ordering Provider: YOAV MIJARES Report Released Date/Time: Nov 13, 2024 10:48 AM Reporting Lab: [facility] [place] [address] Performing Lab: [facility] LIPID PANEL (STL) TRIGLYCERID E [MASS/VOLUM E] IN SERUM OR PLASMA 114 mg/dL 0 - 150 11/13 Specimen Type: PLASMA Comment: No hemolysis noted. Ordering Provider: YOAV MIJARES Report Released Date/Time: Nov 13, 2024 10:48 AM Reporting Lab: [facility] [place] [address] Performing Lab: [facility] LIPID PANEL (STL) CHOLESTEROL IN LDL [MASS/VOLUM E] IN SERUM OR PLASMA BY CALCULATION 85 mg/dL 11/13 Specimen Type: PLASMA Comment: No hemolysis noted. Ordering Provider: YOAV MIJARES Report Released Date/Time: Nov 13, 2024 10:48 AM Reporting Lab: [facility] [place] [address] Performing Lab: [facility] DIVISION LIPID PANEL (STL) CHOLESTEROL IN HDL [MASS/VOLUM E] IN SERUM OR PLASMA 29 mg/dL 40 11/13 L Specimen Type: PLASMA Comment: No hemolysis noted. Ordering Provider: YOAV MIJARES Report Released Date/Time: Nov 13, 2024 10:48 AM Reporting Lab: [facility] [place] [address] Performing Lab: [facility] DIVISION COMPREHEN SIVE METABOLIC PANEL CREATININE [MASS/VOLUM E] IN SERUM OR PLASMA 1.04 mg/dL 0.70 - 1.30 11/13 Specimen Type: PLASMA Comment: No hemolysis noted. Ordering Provider: YOAV MIJARES Report Released Date/Time: Nov 13, 2024 10:48 AM Reporting Lab: [facility] [place] [address] Performing Lab: [facility] DIVISION COMPREHEN SIVE METABOLIC PANEL UREA NITROGEN [MASS/VOLUM E] IN SERUM OR PLASMA 16.8 mg/dL 9.0 - 25.0 11/13 Specimen Type: PLASMA Comment: No hemolysis noted. Ordering Provider: YOAV MIJARES Report Released Date/Time: Nov 13, 2024 10:48 AM Reporting Lab: [facility] [place] [address] Performing Lab: [facility] DIVISION COMPREHEN SIVE METABOLIC PANEL GLUCOSE [MASS/VOLUM E] IN SERUM OR PLASMA 141 mg/dL 72 - 99 11/13 H Specimen Type: PLASMA Comment: No hemolysis noted. Ordering Provider: YOAV MIJARES Report Released Date/Time: Nov 13, 2024 10:48 AM Reporting Lab: [facility] [place] [address] Performing Lab: [facility] DIVISION COMPREHEN SIVE METABOLIC PANEL SODIUM [MOLES/VOLU ME] IN SERUM OR PLASMA 140 meq/L 136 - 145 11/13 Specimen Type: PLASMA Comment: No hemolysis noted. Ordering Provider: YOAV MIJARES Report Released Date/Time: Nov 13, 2024 10:48 AM Reporting Lab: [facility] [place] [address] Performing Lab: [facility] DIVISION COMPREHEN SIVE METABOLIC PANEL POTASSIUM [MOLES/VOLU ME] IN SERUM OR PLASMA 4.3 meq/L 3.5 - 5.0 11/13 Specimen Type: PLASMA Comment: No hemolysis noted. Ordering Provider: YOAV MIJARES Report Released Date/Time: Nov 13, 2024 10:48 AM Reporting Lab: [facility] [place] [address] Performing Lab: [facility] DIVISION COMPREHEN SIVE METABOLIC PANEL CHLORIDE [MOLES/VOLU ME] IN SERUM OR PLASMA 104 meq/L 98 - 107 11/13 Specimen Type: PLASMA Comment: No hemolysis noted. Ordering Provider: YOAV MIJARES Report Released Date/Time: Nov 13, 2024 10:48 AM Reporting Lab: [facility] [place] [address] Performing Lab: [facility] DIVISION COMPREHEN SIVE METABOLIC PANEL CARBON DIOXIDE, TOTAL [MOLES/VOLU ME] IN SERUM OR PLASMA 28 meq/L 22 - 31 11/13 Specimen Type: PLASMA Comment: No hemolysis noted. Ordering Provider: YOAV MIJARES Report Released Date/Time: Nov 13, 2024 10:48 AM Reporting Lab: [facility] [place] [address] Performing Lab: [facility] DIVISION COMPREHEN SIVE METABOLIC PANEL CALCIUM [MASS/VOLUM E] IN SERUM OR PLASMA 9.7 mg/dL 8.4 - 10.4 11/13 Specimen Type: PLASMA Comment: No hemolysis noted. Ordering Provider: YOAV MIJARES Report Released Date/Time: Nov 13, 2024 10:48 AM Reporting Lab: [facility] [place] [address] Performing Lab: [facility] DIVISION COMPREHEN SIVE METABOLIC PANEL PROTEIN [MASS/VOLUM E] IN SERUM OR PLASMA 7.2 g/dL 6.0 - 8.6 11/13 Specimen Type: PLASMA Comment: No hemolysis noted. Ordering Provider: YOAV MIJARES Report Released Date/Time: Nov 13, 2024 10:48 AM Reporting Lab: [facility] [place] [address] Performing Lab: [facility] DIVISION COMPREHEN SIVE METABOLIC PANEL ALBUMIN [MASS/VOLUM E] IN SERUM OR PLASMA 4.2 g/dL 3.4 - 5.0 11/13 Specimen Type: PLASMA Comment: No hemolysis noted. Ordering Provider: YOAV MIJARES Report Released Date/Time: Nov 13, 2024 10:48 AM Reporting Lab: [facility] [place] [address] Performing Lab: [facility] DIVISION COMPREHEN SIVE METABOLIC PANEL BILIRUBIN.T OTAL [MASS/VOLUM E] IN SERUM OR PLASMA 0.5 mg/dL 0.2 - 1.2 11/13 Specimen Type: PLASMA Comment: No hemolysis noted. Ordering Provider: YOAV MIJARES Report Released Date/Time: Nov 13, 2024 10:48 AM Reporting Lab: [facility] [place] [address] Performing Lab: [facility] DIVISION COMPREHEN SIVE METABOLIC PANEL ALKALINE PHOSPHATASE [ENZYMATIC ACTIVITY/VO LUME] IN SERUM OR PLASMA 58 U/L 40 - 150 11/13 Specimen Type: PLASMA Comment: No hemolysis noted. Ordering Provider: YOAV MIJARES Report Released Date/Time: Nov 13, 2024 10:48 AM Reporting Lab: [facility] [place] [address] Performing Lab: [facility] DIVISION COMPREHEN SIVE METABOLIC PANEL ASPARTATE AMINOTRANSF ERASE [ENZYMATIC ACTIVITY/VO LUME] IN SERUM OR PLASMA 16 U/L 5 - 34 11/13 Specimen Type: PLASMA Comment: No hemolysis noted. Ordering Provider: YOAV MIJARES Report Released Date/Time: Nov 13, 2024 10:48 AM Reporting Lab: [facility] [place] [address] Performing Lab: [facility] DIVISION COMPREHEN SIVE METABOLIC PANEL ALANINE AMINOTRANSF ERASE [ENZYMATIC ACTIVITY/VO LUME] IN SERUM OR PLASMA 16 U/L 8 - 40 11/13 Specimen Type: PLASMA Comment: No hemolysis noted. Ordering Provider: YOAV MIJARES Report Released Date/Time: Nov 13, 2024 10:48 AM Reporting Lab: [facility] [place] [address] Performing Lab: [facility] DIVISION COMPREHEN SIVE METABOLIC PANEL GLOMERULAR FILTRATION RATE/1.73 SQ M.PREDICTED [VOLUME RATE/AREA] IN SERUM, PLASMA OR BLOOD BY CREATININE- BASED FORMULA (CKD-EPI 2020) 73.50 60 11/13 Specimen Type: PLASMA Comment: No hemolysis noted. Ordering Provider: YOAV MIJARES Report Released Date/Time: Nov 13, 2024 10:48 AM Reporting Lab: [facility] [place] [address] Performing Lab: [facility] DIVISION CBC LEUKOCYTES [#/VOLUME] IN BLOOD BY AUTOMATED COUNT 9.5 10*3/uL 3.6 - 11.2 11/13 Specimen Type: BLOOD No comment entered. Ordering Provider: YOAV MIJARES Report Released Date/Time: Nov 13, 2024 10:48 AM Reporting Lab: [facility] [place] [address] Performing Lab: [facility] DIVISION CBC ERYTHROCYTE S [#/VOLUME] IN BLOOD BY AUTOMATED COUNT 4.53 10*6/uL 4.10 - 5.70 11/13 Specimen Type: BLOOD No comment entered. Ordering Provider: YOAV MIJARES Report Released Date/Time: Nov 13, 2024 10:48 AM Reporting Lab: [facility] [place] [address] Performing Lab: [facility] DIVISION CBC HEMOGLOBIN [MASS/VOLUM E] IN BLOOD 13.7 g/dL 13.1 - 16.8 11/13 Specimen Type: BLOOD No comment entered. Ordering Provider: YOAV MIJARES Report Released Date/Time: Nov 13, 2024 10:48 AM Reporting Lab: [facility] [place] [address] Performing Lab: [facility] CBC HEMATOCRIT [VOLUME FRACTION] OF BLOOD 41.5 38.2 - 48.4 11/13 Specimen Type: BLOOD No comment entered. Ordering Provider: YOAV MIJARES Report Released Date/Time: Nov 13, 2024 10:48 AM Reporting Lab: [facility] [place] [address] Performing Lab: [facility] CBC MCV [ENTITIC VOLUME] BY AUTOMATED COUNT 91.6 fL 80.0 - 100.0 11/13 Specimen Type: BLOOD No comment entered. Ordering Provider: YOAV MIJARES Report Released Date/Time: Nov 13, 2024 10:48 AM Reporting Lab: [facility] [place] [address] Performing Lab: [facility] CBC MCH [ENTITIC MASS] BY AUTOMATED COUNT 30.2 pg 27.0 - 34.0 11/13 Specimen Type: BLOOD No comment entered. Ordering Provider: YOAV MIJARES Report Released Date/Time: Nov 13, 2024 10:48 AM Reporting Lab: [facility] [place] [address] Performing Lab: [facility] CBC MCHC [MASS/VOLUM E] BY AUTOMATED COUNT 33.0 g/dL 33.0 - 36.0 11/13 Specimen Type: BLOOD No comment entered. Ordering Provider: YOAV MIJARES Report Released Date/Time: Nov 13, 2024 10:48 AM Reporting Lab: [facility] [place] [address] Performing Lab: [facility] CBC PLATELETS [#/VOLUME] IN BLOOD BY AUTOMATED COUNT 243 10*3/uL 150 - 400 11/13 Specimen Type: BLOOD No comment entered. Ordering Provider: YOAV MIJARES Report Released Date/Time: Nov 13, 2024 10:48 AM Reporting Lab: [facility] [place] [address] Performing Lab: [facility] CBC PLATELET MEAN VOLUME [ENTITIC VOLUME] IN BLOOD BY AUTOMATED COUNT 8.6 fL 7.5 - 11.2 11/13 Specimen Type: BLOOD No comment entered. Ordering Provider: YOAV MIJARES Report Released Date/Time: Nov 13, 2024 10:48 AM Reporting Lab: [facility] [place] [address] Performing Lab: [facility] CBC ERYTHROCYTE DISTRIBUTIO N WIDTH [RATIO] BY AUTOMATED COUNT 13.1 11.8 - 15.1 11/13 Specimen Type: BLOOD No comment entered. Ordering Provider: YOAV MIJARES Report Released Date/Time: Nov 13, 2024 10:48 AM Reporting Lab: [facility] [place] [address] Performing Lab: [facility] DIVISION CBC LYMPHOCYTES /100 LEUKOCYTES IN BLOOD BY AUTOMATED COUNT 16 11/13 Specimen Type: BLOOD No comment entered. Ordering Provider: YOAV MIJARES Report Released Date/Time: Nov 13, 2024 10:48 AM Reporting Lab: [facility] [place] [address] Performing Lab: [facility] DIVISION CBC MONOCYTES/1 00 LEUKOCYTES IN BLOOD BY AUTOMATED COUNT 11 11/13 Specimen Type: BLOOD No comment entered. Ordering Provider: YOAV MIJARES Report Released Date/Time: Nov 13, 2024 10:48 AM Reporting Lab: [facility] [place] [address] Performing Lab: [facility] DIVISION CBC NEUTROPHILS /100 LEUKOCYTES IN BLOOD BY AUTOMATED COUNT 69 11/13 Specimen Type: BLOOD No comment entered. Ordering Provider: YOAV MIJARES Report Released Date/Time: Nov 13, 2024 10:48 AM Reporting Lab: [facility] [place] [address] Performing Lab: [facility] DIVISION CBC EOSINOPHILS /100 LEUKOCYTES IN BLOOD BY AUTOMATED COUNT 4 11/13 Specimen Type: BLOOD No comment entered. Ordering Provider: YOAV MIJARES Report Released Date/Time: Nov 13, 2024 10:48 AM Reporting Lab: [facility] [place] [address] Performing Lab: [facility] [place] BASOPHILS/1 00 LEUKOCYTES IN BLOOD BY AUTOMATED COUNT 1 11/13 Specimen Type: BLOOD No comment entered. Ordering Provider: YOAV MIJARES Report Released Date/Time: Nov 13, 2024 10:48 AM Reporting Lab: [facility] [place] [address] Performing Lab: [facility] [place] LYMPHOCYTES [#/VOLUME] IN BLOOD BY AUTOMATED COUNT 1.49 10*3/uL 0.77 - 4.50 11/13 Specimen Type: BLOOD No comment entered. Ordering Provider: YOAV MIJARES Report Released Date/Time: Nov 13, 2024 10:48 AM Reporting Lab: [facility] [place] [address] Performing Lab: [facility] [place] [place] MONOCYTES [#/VOLUME] IN BLOOD BY AUTOMATED COUNT 0.99 10*3/uL 0.19 - 0.80 11/13 H Specimen Type: BLOOD No comment entered. Ordering Provider: YOAV MIJARES Report Released Date/Time: Nov 13, 2024 10:48 AM Reporting Lab: [facility] [place] [address] Performing Lab: [facility] [place] [place] NEUTROPHILS [#/VOLUME] IN BLOOD BY AUTOMATED COUNT 6.48 10*3/uL 2.10 - 8.00 11/13 Specimen Type: BLOOD No comment entered. Ordering Provider: YOAV MIJARES Report Released Date/Time: Nov 13, 2024 10:48 AM Reporting Lab: [facility] [place] [address] Performing Lab: [facility] DIV[facility] CBC EOSINOPHILS [#/VOLUME] IN BLOOD BY AUTOMATED COUNT 0.39 10*3/uL 0.00 - 0.60 11/13 Specimen Type: BLOOD No comment entered. Ordering Provider: YOAV MIJARES Report Released Date/Time: Nov 13, 2024 10:48 AM Reporting Lab: [facility] [place] [address] Performing Lab: [facility] [place] CBC BASOPHILS [#/VOLUME] IN BLOOD BY AUTOMATED COUNT 0.06 10*3/uL 0.00 - 0.20 11/13 Specimen Type: BLOOD No comment entered. Ordering Provider: YOAV MIJARES Report Released Date/Time: Nov 13, 2024 10:48 AM Reporting Lab: [facility] [place] [address] Performing Lab: [facility] DIVISION TSH (MA-PB-ST L) THYROTROPIN [UNITS/VOLU ME] IN SERUM OR PLASMA 1.484 u[IU]/m L 0.470 - 5.000 11/13 Specimen Type: SERUM No comment entered. Ordering Provider: YOAV MIJARES Report Released Date/Time: Nov 13, 2023 09:41 AM Reporting Lab: [facility] [place] [address] Performing Lab: [facility] DIVISION HEPATIC FUNTION PANEL (STL) PROTEIN [MASS/VOLUM E] IN SERUM OR PLASMA 7.7 g/dL 6.0 - 8.6 11/13 Specimen Type: PLASMA Comment: No hemolysis noted. Ordering Provider: YOAV MIJARES Report Released Date/Time: Nov 13, 2023 09:41 AM Reporting Lab: [facility] [place] [address] Performing Lab: [facility] HEPATIC FUNTION PANEL (STL) ALBUMIN [MASS/VOLUM E] IN SERUM OR PLASMA 4.3 g/dL 3.4 - 5.0 11/13 Specimen Type: PLASMA Comment: No hemolysis noted. Ordering Provider: YOAV MIJARES Report Released Date/Time: Nov 13, 2023 09:41 AM Reporting Lab: [facility] [place] [address] Performing Lab: [facility] HEPATIC FUNTION PANEL (STL) BILIRUBIN.T OTAL [MASS/VOLUM E] IN SERUM OR PLASMA 0.4 mg/dL 0.2 - 1.2 11/13 Specimen Type: PLASMA Comment: No hemolysis noted. Ordering Provider: YOAV MIJARES Report Released Date/Time: Nov 13, 2023 09:41 AM Reporting Lab: [facility] [place] [address] Performing Lab: [facility] [address] HEPATIC FUNTION PANEL (STL) ALKALINE PHOSPHATASE [ENZYMATIC ACTIVITY/VO LUME] IN SERUM OR PLASMA 50 U/L 40 - 150 11/13 Specimen Type: PLASMA Comment: No hemolysis noted. Ordering Provider: YOAV MIJARES Report Released Date/Time: Nov 13, 2023 09:41 AM Reporting Lab: [facility] [place] [address] Performing Lab: [facility] [address] HEPATIC FUNTION PANEL (STL) ASPARTATE AMINOTRANSF ERASE [ENZYMATIC ACTIVITY/VO LUME] IN SERUM OR PLASMA 16 U/L 5 - 34 11/13 Specimen Type: PLASMA Comment: No hemolysis noted. Ordering Provider: YOAV MIJARES Report Released Date/Time: Nov 13, 2023 09:41 AM Reporting Lab: [facility] [place] [address] Performing Lab: [facility] HEPATIC FUNTION PANEL (STL) ALANINE AMINOTRANSF ERASE [ENZYMATIC ACTIVITY/VO LUME] IN SERUM OR PLASMA 13 U/L 8 - 40 11/13 Specimen Type: PLASMA Comment: No hemolysis noted. Ordering Provider: YOAV MIJARES Report Released Date/Time: Nov 13, 2023 09:41 AM Reporting Lab: [facility] [place] [address] Performing Lab: [facility] HEPATIC FUNTION PANEL (STL) BILIRUBIN.C ONJUGATED [MASS/VOLUM E] IN SERUM OR PLASMA 0.1 mg/dL 0.0 - 0.5 11/13 Specimen Type: PLASMA Comment: No hemolysis noted. Ordering Provider: YOAV MIJARES Report Released Date/Time: Nov 13, 2023 09:41 AM Reporting Lab: [facility] [place] [address] Performing Lab: [facility] #[address] Vital Signs Combined list of inpatient and outpatient Vital Signs from Department of Defense and Veterans Affairs, ranging from 12 months to all on record, depending upon the facility. Vital Sign Value Date Comments Source No data available for this section Ambulatory Pharm acy SYSTOLIC BLOOD PRESSURE 122 11/13/19 25 10:24:06 [facility] DIASTOLIC BLOOD PRESSURE 80 025 10:24:06 [facility] PULSE OXIMETRY 99 11/13/2024 10:24:06 [facility] WEIGHT 152 11/13/2024 10:24:06 [facility] BMI 26kg/m2 11/13/2024 10:24:06 [facility] PAIN 0 11/13/2024 10:24:06 [facility] HEIGHT 64 11/13/2024 10:24:06 [facility] TEMPERATURE 97 11/13/2024 10:24:06 [facility] PULSE 79 11/13/2024 10:24:06 [facility] RESPIRATION 14 11/13/2024 10:24:06 [facility] SYSTOLIC BLOOD PRESSURE 107 10/15/20 24 08:32:36 [facility] DIASTOLIC BLOOD PRESSURE 75 024 08:32:36 [facility] PULSE OXIMETRY 98 10/15/2024 08:32:36 [facility] PAIN 0 10/15/2024 08:32:36 [facility] TEMPERATURE 97.3 10/15/2024 08:32:36 [facility] PULSE 78 10/15/2024 08:32:36 [facility] RESPIRATION 20 10/15/2024 08:32:36 [facility] SYSTOLIC BLOOD PRESSURE 144 07/16/20 24 09:51:07 [facility] DIASTOLIC BLOOD PRESSURE 80 024 09:51:07 [facility] SYSTOLIC BLOOD PRESSURE 150 07/15/20 24 12:22:07 [facility] DIASTOLIC BLOOD PRESSURE 96 024 12:22:07 [facility] PAIN 1 07/15/2024 12:22:07 [facility] TEMPERATURE 96.7 07/15/2024 12:22:07 [facility] PULSE 98 07/15/2024 12:22:07 [facility] RESPIRATION 18 07/15/2024 12:22:07 [facility] WEIGHT 150.8 07/09/2024 15:54:02 [facility] BMI 26kg/m2 07/09/2024 15:54:02 [facility] Encounters Combined list of: 1) Encounters from Department of Veterans Affairs facilities going back up to thelast 18 months. 2) Encounters from the Department of Defense facilities going back up to 280 months. Location Location Details Encounter Type Encounter Number Reason For Visit Attending Provider ADM Date DC Date Status Disposition Source KRAIG Duarte([facility] Team 1) OUTPATIENT [id number] new pt request medicat ion PEDRITO PARRA Barber 04/07 Released w/o Limitations [place] Felicia ([facility] Team 1) [facility] OFFICE O/P EST MOD 30-39 MIN [id number] Diagnos is: ICD-10- CM F39 Unspeci fied mood [affect barry] disorde r
GURUSIDDRAY ZAMBRANO N 05/28 [facility] En[facility] [id number] PRAMOD RENNER M 05/28 [facility] Outpatient Encounter [id number] SUDHA ARCINIEGA M 05/29 [facility] Outpatient Encounter [id number] 05/31 [facility] Outpatient Encounter [id number] 06/07 [facility] Encounter [id number] CHEL PALOMARES 06/10 [facility] HC PRO PHONE CALL 5-10 MIN [id number] Diagnos is: ICD-10- CM E11.9 Type 2 diabete s mellitu s without complic ations< br/> Henrry CASTLE M 06/10 [facility] MOTION FLUOROSCOP Y/SWALLOW [id number] Diagnos is: ICD-10- CM R13.12 Dysphag ia, orophar yngeal phase<b r/> CECILIA EATON N 06/18 [facility] OFFICE O/P EST MOD 30-39 MIN [id number] Diagnos is: ICD-10- CM 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
ZAK AMARO UL A 07/15 [facility] OFFICE O/P EST MOD 30-39 MIN [id number] Diagnos is: ICD-10- CM R63.4 Abnorma l weight loss
YOAV MIJARES FOREIGN 07/18 [facility] Outpatient Encounter [id number] 07/25 [facility] Outpatient Encounter [id number] EDNA EDWARDS RI A 08/09 [facility] IMMUNIZATI ON ADMIN [id number] Diagnos is: ICD-10- CM Z23 Encount er for immuniz ation<b r/> MATHEUS PEREA 08/13 [facility] OFFICE O/P EST LOW 20-29 MIN [id number] Diagnos is: ICD-10- CM F39 Unspeci fied mood [affect barry] disorde r
TWANRUSIDDRAY ZAMBRANO A N 08/13 [facility] En[facility] [id number] 08/15 [facility] N [facility] Outpatient Encounter [id number] 09/22 [facility] Outpatient Encounter [id number] ANDRY ESCOTO 10/14 [facility] N [facility] Outpatient Encounter [id number] 10/14 [facility] OFF[facility] O/P EST MOD 30-39 MIN [id number] [id number] Diagnos is: ICD-10- CM H69.92 Unspeci fied Eustach maribell tube disorde r, left ear<br/ > ZAK AMARO A 10/14 [facility] [place] [id number] Diagnos is: ICD-10- CM R13.12 Dysphag ia, orophar yngeal phase<b r/> Stu GORMAN N 10/16 [facility] Outpatient Encounter [id number] ROSY,ERICKA MADI A 10/21 [facility] N [facility] Outpatient Encounter [id number] 10/21 [facility] N [facility] Outpatient Encounter [id number] ADARSH TRAVIS 10/21 [facility] N [facility] Outpatient Encounter [id number] 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[employer] 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 10/21 [facility] Outpatient Encounter [id number] Henrry CASTLE 10/21 [facility] ADMN SARSCOV2 VACC 1 DOSE [id number] Diagnos is: ICD-10- CM Z23 Encount er for immuniz ation<b r/> KY MEYERS 10/21 [facility] Outpatient Encounter [id number] 10/21 [facility] EYE EXAM&TX ESTAB PT 1/>VST [id number] Diagnos is: ICD-10- CM H25.12 Age-rel ated nuclear catarac t, left eye<br/ > KSENIA KINGSTON 10/22 [facility] Outpatient Encounter [id number] 10/31 [facility] QNHP OL DIG ASSMT&MGMT 5-10 [id number] Diagnos is: ICD-10- CM H90.3 Sensori neural hearing loss, bilater al
REE RAE 10/31 [facility] Outpatient Encounter [id number] 11/05 [facility] HC PRO PHONE CALL 11-20 MIN [id number] [id number] Diagnos is: ICD-10- CM R50.9 Fever, unspeci fied
Henrry CASTLE 11/06 [facility] Outpatient Encounter [id number] [id number] 11/08 [facility] Outpatient Encounter [id number] [id number] TAWNY NAVA 11/12 [facility] OFFICE O/P EST MOD 30 MIN [id number] Diagnos is: ICD-10- CM E11.9 Type 2 diabete s mellitu s without complic ations< br/> YOAV MIJARES 11/13 [facility] Outpatient Encounter [id number] [id number] ROSALBA CARTY J 11/15 [facility] Outpatient Encounter [id number] 11/28 [facility] Outpatient Encounter [id number] 11/28 [facility] Outpatient Encounter [id number] [id number] Henrry CASTLE 11/29 [facility] Outpatient Encounter [id number] 12/01 [facility] Outpatient Encounter [id number] 12/02 [facility] HC PRO PHONE CALL 5-10 MIN [id number] Diagnos is: ICD-10- CM R54 Age-rel ated physica l debilit y
Henrry CASTLE M 12/02 [facility] MED NUTRITION INDIV SUBSEQ [id number] Diagnos is: ICD-10- CM R13.12 Dysphag ia, orophar yngeal phase<b r/> Stu GORMAN N 12/24 [facility] OFFICE O/P EST MOD 30 MIN [id number] Diagnos is: ICD-10- CM F39 Unspeci fied mood [affect barry] disorde r
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
ZOLZAK REGALADO UL A 01/12 [facility] HEARING AID REPAIR/MOD IFYING [id number] Diagnos is: ICD-10- CM H90.3 Sensori neural hearing loss, bilater al
FEI WOODARD 01/13 [facility] TYMPANOMET RY & REFLEX THRESH [id number] Diagnos is: ICD-10- CM H90.3 Sensori neural hearing loss, bilater al
FEI WOODARD 01/13 [facility] Outpatient Encounter [id number] 01/16 [facility] Outpatient Encounter [id number] YOAV MIJARES FOREIGN 02/03 [facility] Outpatient Encounter [id number] [id number] Diagnos is: ICD-10- CM R93.89 Abnorma l finding s on dx imaging of oth body structu res<br/ > Barrett DAVILA 02/10 [facility] Outpatient Encounter [id number] [id number] YOAV MIJARES FOREIGN 03/03 [facility] OFFICE O/P EST MOD 30 MIN [id number] Diagnos is: ICD-10- CM K59.00 Constip ation, unspeci fied
YOAV MIJARES FOREIGN 03/10 [facility] Outpatient Encounter [id number] [id number] FELIPE LEUNG 04/02 [facility] Outpatient Encounter [id number] [id number] 04/07 [facility] Outpatient Encounter [id number] [id number] 04/08 [facility] Outpatient Encounter [id number] 04/09 [facility] MED NUTRITION INDIV SUBSEQ [id number] Diagnos is: ICD-10- CM R63.4 Abnorma l weight loss
Stu GORMAN N 04/14 [facility] OFFICE O/P EST LOW 20 MIN [id number] [id number] Diagnos is: ICD-10- CM F39 Unspeci fied mood [affect barry] disorde r
GURUSIDDAI RADHARAY A N 04/16 [facility] Outpatient Encounter [id number] FELIPE LEUNG 05/06 [facility] OFFICE O/P EST MOD 30 MIN [id number] Diagnos is: ICD-10- CM N40.0 Benign prostat ic hyperpl henry without lower urinry tract symp
YOAV MIJARES FOREIGN 05/14 [facility] Outpatient Encounter [id number] YOAV MIJARES FOREIGN 05/20 [facility] Outpatient Encounter [id number] 06/01 [facility] Outpatient Encounter [id number] Henrry CASTLE 06/02 [facility] MOTION FLUOROSCOP Y/SWALLOW [id number] [id number] Diagnos is: ICD-10- CM R13.12 Dysphag ia, orophar yngeal phase<b r/> Sergio BADILLO 06/03 [facility] OFFICE O/P EST LOW 20 MIN [id number] [id number] Diagnos is: ICD-10- CM N40.0 Benign prostat ic hyperpl henry without lower urinry tract symp
YOAV MIJARES FOREIGN 06/11 [facility] Outpatient Encounter [id number] 07/07 [facility] Outpatient Encounter [id number] [id number] 07/08 [facility] MED NUTRITION INDIV SUBSEQ [id number] Diagnos is: ICD-10- CM R13.12 Dysphag ia, orophar yngeal phase<b r/> Stu GORMAN N 07/09 [facility] OFFICE O/P EST LOW 20 MIN [id number] Diagnos is: ICD-10- CM F39 Unspeci fied mood [affect barry] disorde r
GURUSIDDAI YA,PRATIBH A N 07/15 [facility] OFFICE O/P EST LOW 20 MIN [id number] [id number] Diagnos is: ICD-10- CM H04.123 Dry eye syndrom e of bilater al lacrima l glands< br/> Filippo LAND E 07/16 [facility] Outpatient Encounter [id number] 07/20 [facility] IMMUNIZATI ON ADMIN [id number]. [id number] Diagnos is: ICD-10- CM Z23 Encount er for immuniz ation<b r/> NABILGORDO BLEVINS L 08/03 [facility] MED NUTRITION INDIV SUBSEQ [id number] Diagnos is: ICD-10- CM R13.10 Dysphag ia, unspeci fied
Stu GORMAN N 10/06 [facility] OFFICE O/P EST LOW 20 MIN [id number] Diagnos is: ICD-10- CM F39 Unspeci fied mood [affect barry] disorde r
GURUSIDDAI YA,PRATIBH A N 10/15 [facility] OFFICE O/P EST LOW 20 MIN [id number] Diagnos is: ICD-10- CM E11.9 Type 2 diabete s mellitu s without complic ations< br/> Jarocho GARDNER ADARSH 11/13 [facility] OFFICE O/P EST MOD 30 MIN [id number] [id number] Diagnos is: ICD-10- CM R41.82 Altered mental status, unspeci fied
YOAV MIJARES 11/13 [facility] HEARING AID SUP/ACCESS /DEV [id number] Diagnos is: ICD-10- CM H90.3 Sensori neural hearing loss, bilater al
Henrry TORRES 11/13 [facility] Procedures Combined list of: 1) Procedures from Department of Veterans Affairs facilities going back up to thelast 18 months, not all [place] non-surgical procedures are included; 2) All procedures from the Department of [facility] facilities. Procedure Procedure Type Code Date Perfomer Comments [facility] OPHTHALMOLOGICAL SERVICES: MEDICAL EXAMINATION AND EVALUATION WITH INITIATION OF DIAGNOSTIC AND TREATMENT PROGRAM; INTERMEDIATE, NEW PATIENT 04/23/2006 [facility] OPHTHALMOLOGICAL SERVICES: MEDICAL EXAMINATION AND EVALUATION WITH INITIATION OF DIAGNOSTIC AND TREATMENT PROGRAM; COMPREHENSIVE, NEW PATIENT, 1 OR MORE VISITS 12/29/2004 [facility] No data available for this section Ambulatory Pharmacy Social History Combined list of available smoking, tobacco, and other social history from Department of [facility] and [facility] facilities. Social History Type Response Date Comment [facility] Tobacco smoking status NHIS VA-TOBACCO QUIT 15 YRS OR MORE 03/10/2024 [facility] History of tobacco use VA-TOBACCO FORMER USER 03/10/2024 [facility] History of tobacco use VA-TOBACCO FORMER USER 02/19/2023 [facility] History of tobacco use VA-TOBACCO FORMER USER 03/05/2022 [facility] History of tobacco use VA-TOBACCO FORMER USER 02/06/2021 [facility] History of tobacco use VA-TOBACCO QUIT 5 TO < 15 YRS 11/19/2019 [facility] History of tobacco use VA-TOBACCO FORMER USER 10/30/2018 [facility] This section is an empty social history section. DoD Assessment and Plan Combined list of future care activities from Department of Defense and Veterans [facility] facilities (e.g., assessment and plan notes, appointments, orders, and referrals). Additional future care activities may be listed in the Plan of Care section. Result Assessment and Plan Date Source Assessment and Plan No data available for this section 11/26/2024 Ambulatory Pharmacy Plan of Care List of future care activities from [facility] facilities. Additional future care activities may be listed in the Assessment and Plan section. Date/Time Care Activity Care Activity Detail Facili ty 12/04/2024 AMBULATORY - MEDICINE AMBULATORY - MEDICI NE [facility] 12/24/2024 AMBULATORY - PSYCHIATRY AMBULATORY - PSYC HIATRY [facility] 12/29/2024 AMBULATORY - NONE AMBULATORY - NONE . L [facility]UDOM [facility] 02/12/2025 AMBULATORY - SURGERY AMBULATORY - SURGERY [facility] Advance Directives List of completed, amended, or rescinded Advance Directives on record at Department of Veterans Affairs facilities. An actual copy of the Directive is not included. Date Advance Directive Provider Source 04/24/2019 ADVANCE DIRECTIVE DANY RHODES [facility] Functional Status Combined list of recent functional and cognitive assessments recorded at Department of Defense and Veterans Affairs (VA).VA Functional [place] Measurement (FIM) Scale: 1 = Total Assistance (Subject = 0% +), 2 = Maximal Assistance (Subject = 25% +), 3 = Moderate Assistance (Subject = 50% +), 4 = Minimal Assistance (Subject = 75% +), 5 = Supervision, 6 = Modified [place] (Device), 7 = Complete [place] (Timely, Safely). Assessment Date/Time Source Assessment Type Assessment Skill Assessment Score Assessment Details No data available for this section
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
--- OUTSIDE RECORDS SUMMARY | 2024-11-26 13:17 | XMS_ITS | Encounter Summary ---
Author Name [facility] [facility] [place] Address [address] [place] [address] Care Team Providers Care General Farm Manager Name Role Phone QUYEN MIJARES Primary Care [...] POINT OF SERVICE [facility] Nov 04, 2023 [id number] VIKKI PEREZ SPOUSE [facility] POINT OF SERVICE [facility] Nov 04, 2018 [id number] [phone] VIKKI PEREZ SPOUSE CAREBALAJI ([id number]) RX PRESCRIPT ION RX PLAN Nov 04, 2017 [id number] [phone] ANAOCTAVIANO DOSHI SPOUSE CAREBALAJI ([id number])RX PRESCRIPT ION [facility] Nov 04, 2018 [id number] [phone] ANA JACIOCTAVIANO SPOUSE CAREBALAJI ([id number])RX PRESCRIPT ION [facility] Nov 04, 2018 [id number] [phone] OCTAVIANO PEREZ SPOUSE CAREBALAJI ([id number])RX PRESCRIPT ION [facility] Nov 04, 2018 [id number] [phone] OCTAVIANO PEREZ SPOUSE [place] ([id number])RX PRESCRIPT ION [facility] Nov 04, 2018 [id number] [phone] OCTAVIANO PEREZ SPOUSE [employer] MCR (WNR) MEDICARE ADVANTAGE MCR (WNR) Nov 04, 2018 [id number] OCTAVIANO PEREZ PATIENT MEDICARE (WNR) MEDICARE (M) PART A May 04, 2009 PART A [id number] [phone] OCTAVIANO PEREZ PATIENT MEDICARE (WNR) MEDICARE (M) PART B May 04, 2009 PART B [id number] OCTAVIANO PEREZ PATIENT MEDICARE (WNR) MEDICARE (M) PART B May 04, 2009 PART B [id number] [phone] OCTAVIANO PEREZ PATIENT MEDICARE (WNR) MEDICARE (M) PART A May 04, 2009 PART A [id number] OCTAVIANO PEREZ PATIENT -FO R-LIFE TRICA RE FOR LIFE WNR Nov 04, 2017 FOR LIFE [id number] [phone] OCTAVIANO PEREZ PATIENT Selected Encounter This section includes the information on record at [place] for the Encounter. Date/Time Encounter Type Encounter Description Reason Provider Source Jun 11, 2024 09:30 AM OFFICE O/P EST LOW 20 MIN PRIMARY CARE/MEDICINE ICD-10-CM N40.0 Benign prostatic hyperplasia without lower urinry tract symp QUYEN MIJARES [place] Encounter Template Text not used by [place] Assessments - Encounter Diagnoses This section includes the primary and secondary diagnoses documented for the Encounter. Date/Time Primary/Secondary Diagnosis Diagnosis Name Provider Source Jun 11, 2024 09:49 AM PRIMARY Benign prostatic hyperplasia without lower urinry tract symp QUYEN MIJARES [facility] Jun 11, 2024 09:49 AM SECONDARY Dysphagia, unspecified QUYEN MIJARES [facility] Jun 11, 2024 09:49 AM SECONDARY Moderate protein-calorie malnutrition D[facility]LLANQUYEN [facility] Plan of Treatment: Future Appointments (+ 6 months) and Future Tests (+/- 45 days) The Plan of Treatment section includes future care activities for the patient [facility] [place] [facility] This section includes future appointments and future orders which are active, pending or scheduled. Future Appointments This section includes appointments that were scheduled to occur 6 months from the date of the Encounter, up to a maximum of 20 appointments. The data comes from all [place] treatment facilities. Appointment Date/Time Appointment Type Appointme nt Facility Name Jul 09, 2024 02:30 PM AMBULATORY - NONE . [facility] Jul 15, 2024 12:30 PM AMBULATORY - PSYCHIATRY [facility] Jul 16, 2024 11:00 AM AMBULATORY - SURGERY . [facility] Aug 03, 2024 02:15 PM AMBULATORY - NONE [facility] Oct 06, 2024 02:30 PM AMBULATORY - NONE [facility] Oct 15, 2024 08:30 AM AMBULATORY - PSYCHIATRY [facility] Nov 13, 2024 09:00 AM AMBULATORY - SURGERY [facility] Nov 13, 2024 10:00 AM AMBULATORY - MEDICINE [facility] Nov 25, 2024 04:30 PM AMBULATORY - NONE [facility] Dec 04, 2024 01:00 PM AMBULATORY - MEDICINE [facility] Social History: Smoking Status (Most current) and Tobacco Use (All prior to encounter date) This section includes the most current, and the historical, smoking and tobacco- related health factors from the [place] facility where the Encounter took place. Current Smoking Status This section includes the most current smoking, or tobacco-related health factor, from the [place] facility where the Encounter took place. Date/Time Current Smoking Status Comment Facil ity March 10, 2024 03:30 PM VA-TOBACCO QUIT 15 YRS OR MORE [facility] Tobacco Use History This section includes a history of the smoking, or tobacco-related health factors, that were collected on or before the date of the Encounter. The data comes from the [place] facility where the Encounter took place. Date/Time Smoking Status/Tobacco Use Comment [facility] March 10, 2024 03:30 PM VA-TOBACCO QUIT 15 YRS OR MORE [facility] Feb 19, 2023 08:00 AM VA-TOBACCO FORMER USER [facility] Feb 19, 2023 08:00 AM VA-TOBACCO QUIT 15 YRS OR MORE [facility] March 05, 2022 03:00 PM VA-TOBACCO FORMER USER [facility] March 05, 2022 03:00 PM VA-TOBACCO QUIT 5 TO < 15 YRS [facility] Feb 06, 2021 11:00 AM VA-TOBACCO FORMER USER [facility] Feb 06, 2021 11:00 AM VA-TOBACCO QUIT 15 YRS OR MORE [facility] Nov 19, 2019 04:05 PM VA-TOBACCO FORMER USER [facility] Nov 19, 2019 04:05 PM VA-TOBACCO QUIT 5 TO < 15 YRS [facility] Oct 30, 2018 02:11 PM VA-TOBACCO FORMER USER [facility] Oct 30, 2018 02:11 PM VA-TOBACCO QUIT 5 TO < 15 YRS [facility] Advance Directives: All historical and current Section Date Range: From patient's date of to the date document was created. This section includes ALL of a patient's completed or amended [place] Advance and Rescinded Directives. The entries below indicate that a directive exists for the patient, but an actual copy is not included with this document. The data comes from all [facility]. Date Advance Directives Provider Source Apr 24, 2019 ADVANCE DIRECTIVE DANY RHODES [facility] Radiology Reports: +/- 30 days of the [...] the Encounter. The data comes from all [place] treatment facilities. Date/Time Radiology Report Provider Source Jun 03, 2024 09:24 AM ESOPHAGUS (MODIFIE D BARIUM SWALLOW): OCTAVIANO PEREZ [id number] -[id number] M Exm Date: JUN 03, 2024@09:24 Req Phys: UMAMESHA Pat Loc: [facility] PACT E7 PCP (Req'g Loc) Img Loc: -MAIN RADIOLOGY SUITE Service: Unknown [facility], [address] [place] [address] (Case [id number] COMPLETE) ESOPHAGUS (MODIFIED BARIUM SWALL(RAD Detailed) CPT:62923 Contrast Media : Barium Reason for Study: Dysphagia Clinical History: Report Status: Verified Date Reported: JUN 04, 2024 Date Verified: JUN 04, 2024 Golf Course Manager E-Sig:/ES/KARON JOHNSON MD Report: STUDY: Modified swallow study TECHNIQUE: Fluoroscopy was provided for modified barium swallow performed by speech pathology FLUORO TIME: 3.1 minutes Impression: See speech pathology report for interpretation. Dictated by Arti Corona MD (resident services supervisor) IKaron, have reviewed the images and report and concur with these findings. Primary Interpreting Staff: KARON JOHNSON MD, Radiologist (Golf Course Manager) Primary Interpreting Resident: ARTI CORONA MD, residential solar consultant /KARON REYES [facility] Encounter Notes: All associated encounter notes This section contains the clinical notes associated to the Encounter. Date/Time Encounter Note(s) Provider Source Jun 11, 2024 06:23 AM TELEHEALTH NOTE: LOCAL TITLE: PRIMARY CARE VIDEO CONNECT [facility] STANDARD TITLE: TELEHEALTH NOTE DATE OF NOTE: JUN 11, 2024@06:23 ENTRY DATE: JUN 11, 2024@06:23:25 AUTHOR: QUYEN MIJARES EXP COSIGNER: URGENCY: STATUS: COMPLETED PRIMARY CARE VIDEO CONNECT [facility] Has ADDENDA Modality of Care: Clinical Video Telehealth Visit conducted by Clinical Video Telehealth. Patient/surrogate provided verbal consent for video telehealth. Patient location confirmed. At home Emergency number confirmed. Patient Contact Details: Best contact number for backup communication with patient: [facility] Informed Consent: Group Telehealth Agreement Form with [...] Please disregard these errors. Reason for visit: Referral to urology History of present illness: The was unable to connect on video and appointment completed with audio only. He was present and the was present in the background as well. He has requested referral to urology and reports that he has been seeing urologist outside [place] and has had urethral dilation done. Denies any issues currently and reports that tamsulosin is helping. He has been under care of Dr. Sheets urologist and requested referral to urology at [facility]. According to previous records, he has history of urethral stricture and BPH and has workup completed including cystoscopy, CT urogram and renal ultrasound. CT scan of abdomen and pelvis showed prostatomegaly, multiple bilateral kidney cysts, complex left cyst benign as well as 3 mm nonobstructing kidney stone at the lower pole of left kidney. Has history of urethral dilations. The recently had evaluation by speech therapist and the evaluation showed severe oropharyngeal dysphagia with aspiration noted with thin liquids and significantly reduced efficiency in pharyngeal swallow resulting in significant pharyngeal residue. Recommendation for pureed diet and mildly thick liquids and aspiration precautions The reported that his son brought a machine to pur??e the food and he has been using it and really enjoying his food and the weight is upto 147 pounds at denies any aspiration symptoms or choking episodes at this time and reports that he is compliant with thickened liquids Problem list:1) Autonomic neuropathy 2) Anxiety 3) Depression 4) Chronic sinusitis 5) Squamous cell carcinoma 6) Peripheral neuropathy 7) Diabetes Mellitus Type 2 ([facility] [id number]) 8) Chronic constipation 9) HTN - Hypertension ([facility] [id number]) 10) GERD - Gastro-Esophageal Reflux Disease ([facility] [id number]) 11) Disorder of left Eustachian tube 12) [...] dysuria, hematuria, urgency/hesitancy, skin lesions positive for: None Active Medications: Active Outpatient Medications (including Supplies): Active Outpatient Medications Status 1) ATORVASTATIN CALCIUM 40MG TAB TAKE ONE-HALF TABLET BY ACTIVE MOUTH EVERY EVENING FOR HIGH CHOLESTEROL 2) CALCIUM POLYCARBOPHIL 625MG TAB TAKE ONE TABLET BY ACTIVE MOUTH ONCE A DAY 3) CICLOPIROX 8% TOP SOLN APPLY SPARINGLY TO AFFECTED ACTIVE AREA(S) AT BEDTIME (THIN COAT TO THICK NAILS - FILE DOWN AFTER 1 WEEK) (EXTERNAL USE ONLY) CLEANED WITH ALCOHOL ONCE A WEEK 4) CYCLOBENZAPRINE HCL 5MG TAB TAKE ONE TABLET BY MOUTH ACTIVE TWICE DAILY NEEDED FOR MUSCLE SPASM. MAY CAUSE DROWSINESS. DO NOT DRINK ALCOHOL WHILE TAKING THIS MEDICATION. 5) GABAPENTIN 300MG CAP TAKE ONE CAPSULE BY MOUTH AT ACTIVE BEDTIME FOR NERVE PAIN 6) LIDOCAINE 5% PATCH APPLY 1 PATCH TO SKIN SITE ONCE A ACTIVE DAY APPLY PATCH AND PRESS FIRMLY FOR 10-15 SECONDS. KEEP ON FOR 12 HOURS THEN REMOVE PATCH FOR 12 HOURS. 7) MIRTAZAPINE 30MG TAB TAKE ONE TABLET BY MOUTH AT ACTIVE BEDTIME 8) NUTR SUPL GLUCERNA THER NUTR SHAKE JIMBO TAKE 2 ACTIVE CANFULS BY MOUTH ONCE A DAY (SHAKE WELL) 9) OMEPRAZOLE 20MG EC CAP TAKE ONE CAPSULE BY MOUTH ACTIVE EVERY MORNING BEFORE A MEAL FOR GASTROESOPHAGEAL REFLUX DISEASE. TAKE 30 MINUTES PRIOR TO FOOD. 10) POLYETHYLENE GLYCOL 3350 ORAL PWDR MIX AND DRINK 1 ACTIVE CAPFUL BY MOUTH ONCE A DAY (MEASURE WITH CAP AND MIX IN 8 OZ OF WATER) 11) PROPYLENE GLYCOL 0.6% OPH SOLN INSTILL 1 DROP IN BOTH ACTIVE EYES THREE TIMES A DAY NEEDED 12) SIMPLYTHICK GEL ORAL MILDLY THICK 6GM TAKE 1 PACKET ACTIVE BY MOUTH ONCE A DAY OR DIRECTED TO THICKEN LIQUIDS. USE 1 PACKET PER 4 OZ OF LIQUID. 13) TABLET PLANT TENDER USE PLANT TENDER NEEDED DIRECTED ACTIVE 14) TAMSULOSIN HCL 0.4MG CAP TAKE ONE CAPSULE BY MOUTH ACTIVE EVERY EVENING APPROXIMATELY 30 MINUTES AFTER THE SAME MEAL EACH DAY 15) VALPROIC ACID 250MG/5ML ORAL SOLN TAKE 5 ML BY MOUTH ACTIVE EVERY MORNING AND TAKE 10 ML AT BEDTIME FOR MOOD Colonoscopy: Prog Note DT Title Author Last Julien DT 05/10/2023 COLONOSCOPY CONSULT REPORT JOHNATHAN HAMPTONCONRADWILDER Filippo Physical exam: Sitting comfortably in no acute distress Impression/plan: BPH/history of urethral dilation: No urinary symptoms at this time and reports that tamsulosin is helping with the urinary symptoms. Advised the to continue the medication and contact us if symptoms are not under control and we will consider referral to urology at that time. He verbalized understanding. Constipation: No more complain of constipation and has been on MiraLAX regularly and reports that pur??ed diet helps as well and has no GI issues at this time. Dysphagia: Has been compliant with pur??e diet and thickened liquids and reports that weight is improving. He was encouraged in his efforts and compliance with recommendations from speech therapist was encouraged. Moderate protein-calorie malnutrition: On Glucerna, reports good appetite and weight is improving RTC in November as already scheduled Medication Reconciliation Opt [facility]: I have reviewed the patient's medication list (including active outpatient prescriptions [facility] (local) and dispensed from another [facility] or [facility] facility (remote) as well as inpatient orders (local pending and active), local clinic medications, locally documented non-VA medications, and local prescriptions that have or been discontinued in the past 90 days.) with the patient and/or his/her care-ditcher. Handwritten corrections, additions and/or deletions were made to the list, as appropriate. Corrected Outpatient Medication List was provided to the patient/caregiver /willie/ QUYEN MIJARES Staff Physician Signed: 06/11/2024 21:26 07/08/2024 ADDENDUM STATUS: COMPLETED Medical records available from [facility] in the was admitted with a diagnosis of UTI and discharged on April 11, 2024 and according to the discharge summary CT scan of abdomen/pelvis showed urinary bladder wall thickening compatible with cystitis and probable bilateral renal cyst. He needed IV fluid resuscitation in the ER and was started on IV Levaquin. He completed 7-day course and was discharged with a diagnosis of acute UTI and he was started on tamsulosin which has already been prescribed. Discharge medication list included Flonase, ibuprofen as needed, atorvastatin 40 mg daily, valproic acid solution 500 mg at bedtime and to 50 mg in the morning, lidocaine patches, Fiber-Lax, gabapentin 300 mg at bedtime, omeprazole 20 mg Daily, cyclobenzaprine 5 mg at bedtime, mirtazapine 15 mg at bedtime Other hospital notes available as well and I will send documented varicose to be scanned /willie/ QUYEN MIJARES Staff Physician Signed: 07/08/2024 15:49 QUYEN MIJARES [facility]
--- OUTSIDE RECORDS SUMMARY | 2024-11-26 13:18 | XMS_ITS ---
[place] MED NUTRITION INDIV SUBSEQ [facility] Encounter Summary Created on: November 26, 2024 OCTAVIANO PEREZ : 1945 Sex: Male Author Name [facility] [place] [facility] [place] Address [address] [place] [address] Care Team Providers Care Regional Coordinator Name Role Phone QUYEN MIJARES Primary Care [...] POINT OF SERVICE [facility] Nov 04, 2023 [id number] [phone] VIKKI PEREZ SPOUSE [facility]ETNA-[facility] POINT OF SERVICE [facility] Nov 04, 2018 [id number] [phone] VIKKI PEREZ SPOUSE CAREBALAJI ([id number]) RX PRESCRIPT ION RX PLAN Nov 04, 2017 [id number] [phone] ANAOCTAVIANO DOSHI SPOUSE CAREBALAJI ([id number])RX PRESCRIPT ION [facility] Nov 04, 2018 [phone] ANAOCTAVIANO DOSHI SPOUSE CAREBALAJI ([id number])RX PRESCRIPT ION [facility] Nov 04, 2018 [id number] [phone] ANAOCTAVIANO DOSHI SPOUSE CAREBALAJI ([id number])RX PRESCRIPT ION [facility] Nov 04, 2018 [id number] [phone] OCTAVIANO PEREZ SPOUSE [employer] ([id number])RX PRESCRIPT ION [facility] Nov 04, 2018 [id number] [phone] OCTAVIANO PEREZ SPOUSE [employer] MCR (WNR) MEDICARE ADVANTAGE MCR (WNR) Nov 04, 2018 [id number] OCTAVIANO PEREZ PATIENT MEDICARE (WNR) MEDICARE (M) PART A May 04, 2009 PART A [id number] OCTAVIANO PEREZ PATIENT MEDICARE (WNR) MEDICARE (M) PART B May 04, 2009 PART B [id number] [phone] OCTAVIANO PEREZ PATIENT MEDICARE (WNR) MEDICARE (M) PART B May 04, 2009 PART B [id number] [phone] OCTAVIANO PEREZ PATIENT MEDICARE (WNR) MEDICARE (M) PART A May 04, 2009 PART A [id number] OCTAVIANO PEREZ PATIENT -FO R-LIFE [facility] RE FOR LIFE WNR Nov 04, 2017 FOR LIFE [id number] [phone] OCTAVIANO PEREZ PATIENT Selected Encounter This section includes the information on record at [place] for the Encounter. Date/Time Encounter Type Encounter Description Reason Provider Source Oct 06, 2024 02:30 PM MED NUTRITION INDIV SUBSEQ PRIMARY CARE/MEDICINE ICD-10-CM R13.10 Dysphagia, unspecified LITTEKEN,MANUEL ANY N [facility] Encounter Template Text not used by [place] Assessments - Encounter Diagnoses This section includes the primary and secondary diagnoses documented for the Encounter. Date/Time Primary/Secondary Diagnosis Diagnosis Name Provider Source Oct 06, 2024 03:11 PM PRIMARY Dysphagia, unspecified LITTEKEN,MANUEL ANY N [facility] Oct 06, 2024 03:11 PM SECONDARY Dietary counseling and surveillance LITTEKEN,MANUEL ANY N [facility] Plan of Treatment: Future Appointments (+ 6 months) and Future Tests (+/- 45 days) The Plan of Treatment section includes future care activities for the patient from all [place] treatmentfacilities. This section includes future appointments and future orders which are active, pending or scheduled. Future Appointments This section includes appointments that were scheduled to occur 6 months from the date of the Encounter, up to a maximum of 20 appointments. The data comes from all [place] treatment [facility]. Appointment Date/Time Appointment Type Appointme nt Facility Name Oct 15, 2024 08:30 AM AMBULATORY - PSYCHIATRY [facility] Nov 13, 2024 09:00 AM AMBULATORY - SURGERY [facility] Nov 13, 2024 10:00 AM AMBULATORY - MEDICINE [facility] Nov 25, 2024 04:30 PM AMBULATORY - NONE [facility] Dec 04, 2024 01:00 PM AMBULATORY - MEDICINE [facility] Dec 24, 2024 02:00 PM AMBULATORY - PSYCHIATRY [facility] Dec 29, 2024 02:30 PM AMBULATORY - NONE [facility] Feb 12, 2025 11:00 AM AMBULATORY - SURGERY [facility] Social History: Smoking Status (Most current) and Tobacco Use (All prior to encounter date) This section includes the most current, and the historical, smoking and tobacco- related health factors from the [place] facility where the Encounter took place. Current Smoking Status This section includes the most current smoking, or tobacco-related health factor, from the [place] facility where the Encounter took place. Date/Time Current Smoking Status Comment Facil ity March 10, 2024 03:30 PM VA-TOBACCO QUIT 15 YRS OR MORE [facility] Tobacco Use History This section includes a history of the smoking, or tobacco-related health factors, that were collected on or before the date of the Encounter. The data comes from the [place] facility where the Encounter took place. Date/Time Smoking Status/Tobacco Use Comment F acility March 10, 2024 03:30 PM VA-TOBACCO QUIT 15 YRS OR MORE [facility] Feb 19, 2023 08:00 AM VA-TOBACCO FORMER USER [facility] Feb 19, 2023 08:00 AM VA-TOBACCO QUIT 15 YRS OR MORE [facility] March 05, 2022 03:00 PM VA-TOBACCO FORMER USER [facility] March 05, 2022 03:00 PM VA-TOBACCO QUIT 5 TO < 15 YRS [facility] Feb 06, 2021 11:00 AM VA-TOBACCO FORMER USER [facility] Feb 06, 2021 11:00 AM VA-TOBACCO QUIT 15 YRS OR MORE [facility] Nov 19, 2019 04:05 PM VA-TOBACCO FORMER USER [facility] Nov 19, 2019 04:05 PM VA-TOBACCO QUIT 5 TO < 15 YRS [facility] Oct 30, 2018 02:11 PM VA-TOBACCO FORMER USER [facility] Oct 30, 2018 02:11 PM VA-TOBACCO QUIT 5 TO < 15 YRS [facility] Advance Directives: All historical and current Section Date Range: From patient's date of to the date document was created. This section includes ALL of a patient's completed or amended [place] Advance and Rescinded Directives. The entries below indicate that a directive exists for the patient, but an actual copy is not included with this document. The data comes from all [place] facilities. Date Advance Directives Provider Source Apr 24, 2019 ADVANCE DIRECTIVE DANY RHODES [facility] Encounter Notes: All associated encounter notes This section contains the clinical notes associated to the Encounter. Date/Time Encounter Note(s) Provider Source Oct 06, 2024 12:35 PM NUTRITION DIETETICS NOTE: LOCAL TITLE: NUTRITION FOLLOW UP [facility] STANDARD TITLE: NUTRITION DIETETICS NOTE DATE OF NOTE: OCT 06, 2024@12:35 ENTRY DATE: OCT 06, 2024@12:36:01 AUTHOR: EUN HULL COSIGNER: URGENCY: STATUS: COMPLETED Modality of Care: VVC Visit conducted by Clinical Video Telehealth. Patient provided verbal consent for video telehealth. Patient location confirmed. Emergency number confirmed. Best contact number for backup communication: Primary number listed * also present for appt.* NUTRITION REASSESSMENT Diagnosis: dysphagia Time spent with [place]: 28 minutes Last appointment date: 07/09/24 Patient Medical History: Squamous cell carcinoma Diabetes Mellitus Type 2 Dysphagia Social history: 79 YOM, lives with , getting MOW delivered (2-3 meals/week) FOOD AND NUTRITION RELATED HISTORY Fluid/Beverage intake: decaf coffee with sweet n low, shot espresso daily in AM (no other caffeine), decaf nati felix tea, whole milk (at least 3-16 oz cups/day, no burning with), Coke zero (caffeinated) or decaf Diet Coke, water (2-3 glasses) --if drinks regular coffee, highly aggravates dry mouth Food intake: eating 2 meals/day and 2 snacks. Pureeing/mincing meals in advance, can heat as desired. --uses sugar substitute in place of sugar Diet recall: --wakes at 10-11 am, then drinks decaf coffee -- doesn't cook/eat cooked breakfast. B (noon): (MOW) slice turkey with vegetable and potatoes with gravy (mincing) OR 6 inch sandwich, drinks with milk Snack: 6-8 Oreo-like cookies (dunks in coffee and easily chews) --right after eats feels really bright, but then crashes after 2 hours D (7 pm): sloppy joes + sticky rice (mincing) or meat + sweet potatoes (mincing) Snack: ice cream or honey vanilla uruguayan yogurt Eating out ~1x/week on Sundays, after [employer]. Eats what can and then brings it home, processes/minces it and eats more. Medical nutrition supplement intake: Rx'd 1 Glucerna/day (decreased last appt.) --same 1 refill remaining, last mailed on 05/12/24. Reports drinking 1/day which supply does not support. states maybe drinking 1/week, not 1/day. Remains with 3 cases of ONS still at home. --daughter gave recipe to make glucerna smoothie with fruit and cheesecake pudding, which has done a couple times. OUTPATIENT MEDICATIONS ARTIFICIAL SALIVA ORAL SPRAY USE 3-5 SPRAYS BY MOUTH ACTIVE EVERY TWO HOURS NEEDED FOR DRY MOUTH AND THROAT CALCIUM POLYCARBOPHIL 625MG TAB TAKE ONE TABLET BY ACTIVE MOUTH ONCE A DAY MIRTAZAPINE 30MG TAB TAKE ONE TABLET BY MOUTH AT ACTIVE BEDTIME NUTR SUPL GLUCERNA THER NUTR SHAKE JIMBO [...] for thin liquids per 06/2023 swallow study). VALPROIC ACID 250MG/5ML ORAL SOLN TAKE 5 ML BY MOUTH ACTIVE EVERY MORNING AND TAKE 10 ML AT BEDTIME FOR MOOD KNOWLEDGE BELIEFS AND ATTITUDES/BEHAVIOR Continues to mince foods, able to better swallow foods when minced. says [place] sleeps late and is always so tired. doesn't feel motivation decreased, just got more distracted . States also having issues finding how to get food blended properly to eat it well (this was not an issue last time, with increased PO intake mincing). States bought a dry primer powder blender to use, can only fit 6 sub. Found old dry primer powder blender in closet last night and got out, can fit 12 sub AND a cinnamon raisin bagel with milk. May be eating smaller portions using smaller dry primer powder blender. Appetite is not there every day though, so intake less some days r/t this. --states next time going to try using vegetable oil instead of milk. Rec. adding can glucerna for additional liquid if needed, and if helps increase intake of). --can only eat 5-6 oz. at a time and full. On days focused on consuming more foods, can wait 1-2 hours and eat more. States this is something he has to work at doing all the time though. RD identified to gain wt yes, however once gained will not need to eat as much to maintain his wt. with goal to increase home wt to 150 lbs. PHYSICAL ACTIVITY AND FUNCTION [place] no longer working, got laid off by forced staff reduction. Reports moving around most days, which is his activity. None designated. Reports change in insurance coming up in 2024, and able to re-start silver sneakers (covered). Feels this may help motivate him/get a routine going. Encouraged. Identified with increased PA, will need to further increase intake (add 3rd snack daily). ANTHROPOMETRIC MEASUREMENTS Ht: 64 in [162.6 cm] (03/10/2024 14:57) Wt: 150.8 lb [68.40 kg] (07/09/2024 15:54) *stated Home wt: 147.8 lbs. Weight History/Significant changes: reports wt stable per home scale Patient Weight History - Last Four 1. 150.8 lbs. / 68.4 kg. on JUL 09, 2024@15:54:02 2. 135.6 lbs. / 61.5 kg. on APR 16, 2024@14:22:35 3. 138.6 lbs. / 62.9 kg. on JAN 13, 2024@14:19:32 4. 142.3 lbs. / 64.6 kg. on NOV 13, 2023@09:14:48 5. 140.2 lbs. / 63.6 kg. on JAN 15, 2023@14:21:36 BMI: 25.9 BIOCHEMICAL DATA/MEDICAL TESTS AND PROCEDURES *NO NEW RESULTS* HGA1C 6.3 H % 11/13/2023 10:02 HGA1C 5.9 % 01/15/2023 15:16 HGA1C 6.1 H % 03/05/2022 15:55 HGA1C 6.5 H % 02/06/2021 11:23 HGA1C 7.7 H % 05/10/2020 13:26 [place] doesn't take BS lowering-medication. States changed lifestyle/went back to work (moving more), regarding decreasing trend. --recent increase likely r/t high carbohydrate diet (per recall) NUTRITION FOCUSED PHYSICAL FINDINGS Per 06/18/23 STATE EDITOR note (swallow evaluation): IMPRESSION: Patient presented with [...] feeling that certain foods burn his throat. [place] states mouth and throat always dry, with burning. Had an inflamed esophagus with increased burning, which has improved but still present. --says burning won't go away, has to get used to. Uses saliva spray to help separate tongue or food in mouth, as sometimes gets stuck. 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 Followed by ENT (despite burning in mouth, [place] eating oranges-smashing and drinking juice with water to wash down. Claims this doesn't hurt his mouth although acidic). --[place] drinks a lot of fluid daily r/t needs to assist swallowing, with and without food. Fluid makes him full --Reports with coughing when consuming cold foods/beverages. --No difficulty swallowing currently. [place] denies N/V or bowel issues since last colonoscopy. Per [facility]PE, appears may have some mild fat loss remaining in buccal/orbital areas, no muscle wasting. --dentures not in place today, negatively impacting buccal fat appearance (mild- moderate). Reports with insurance change, will be able to get his dentures worked on in 2024 (current plate does not fit well). NUTRITION PRESCRIPTION Recommended increased energy and protein diet --Modified texture: minced/puree Estimated energy needs: [id number] Calories/day (30-35 kcal/kg) Estimated protein needs: 68 g/day (1 g/kg) NUTRITION DIAGNOSIS *New* Altered GI function related to alteration in GI function (physiologic-metabolic etiology) as evidenced by oropharyngeal dysphagia. NUTRITION INTERVENTIONS FOOD AND NUTRIENT DELIVERY --continue to eat 2 meals and 2 snacks daily. One snack needs to include protein (i.e. uruguayan yogurt), ideally two. Medical Nutrition Supplement Therapy: updating ONS order to 1 vanilla Glucerna/day --this flavor will allow easier addition to blends. If wanting chocolate, add chocolate syrup (also adds more kcals). --encouraged ONS with snack (or extra meal), vs. meal. NUTRITION EDUCATION/COUNSELING --Provided supportive listening --continue minced/pureed diet --encouraged [place] watch volume of cookies consuming surrounding BS mgt. Rec. trying less volume oreos, mixed with plain uruguayan yogurt and Glucerna for a nutrient-packed milkshake. Similar ideas discussed, which [place] open to. --Answered diet-related questions Education material: verbal Barriers to learning: none Comprehension: good NUTRITION MONITORING AND EVALUATION --Food and Beverage Intake-- Number of meals estimated in 24 hours: at least 2 small *Goal achieved* Number of snacks estimated in 24 hours: at least 2 *Goal achieved* (ONGOING, to include protein source at least 1) Nutritionally complete liquid supplement estimated oral intake in 24 hours: 1 Glucerna *Goal not achieved* (ONGOING) *Goal not achieved* (ONGOING-update to 150 lbs. per home scale) --Body composition/growth/weight history-- Measured weight: at or above 157 lbs. at follow-up Return to clinic: 3 months (12/29 at 1430, [facility]) Dietitian contact information provided for any follow-up questions or needs. /willie/ Eun Hull MS, RD, LD Clinical Dietitian Signed: 10/09/2024 15:36 EUN HULL [facility]
--- OUTSIDE RECORDS SUMMARY | 2024-11-26 13:18 | XMS_ITS ---
[place] [facility] En[facility] Summary Created on: November 26, 2024 OCTAVIANO PEREZ : 1945 Sex: Male Author Name [facility] [facility] [place] Address [address] [place] [address] Care Team Providers Care Medical Library Assistant Name Role Phone QUYEN MIJARES Primary Care [...] POINT OF SERVICE [facility] Nov 04, 2023 [id number] VIKKI PEREZ SPOUSE AETNA-[facility]BP POINT OF SERVICE [facility] Nov 04, 2018 [id number] [phone] VIKKI PEREZ SPOUSE CAREBALAJI ([id number]) RX PRESCRIPT ION RX PLAN Nov 04, 2017 [id number] [phone] ANAOCTAVIANO DOSHI SPOUSE CAREBALAJI ([id number])RX PRESCRIPT ION MHBP Nov 04, 2018 [phone] ANAOCTAVIANO DOSHI SPOUSE CAREBALAJI ([id number])RX PRESCRIPT ION MHBP Nov 04, 2018 [id number] [phone] ANA ,OCTAVIANO SPOUSE CAREBALAJI ([id number])RX PRESCRIPT ION [facility]BP Nov 04, 2018 [id number] [phone] OCTAVIANO PEREZ SPOUSE [place] ([id number])RX PRESCRIPT ION [facility] Nov 04, 2018 [id number] [phone] OCTAVIANO PEREZ SPOUSE [employer] MCR (WNR) MEDICARE ADVANTAGE [facility] (WNR) Nov 04, 2018 [id number] OCTAVIANO PEREZ PATIENT MEDICARE (WNR) MEDICARE (M) PART B May 04, 2009 PART B [id number] [phone] OCTAVIANO PEREZ PATIENT MEDICARE (WNR) MEDICARE (M) PART B May 04, 2009 PART B [id number] OCTAVIANO PEREZ PATIENT MEDICARE (WNR) MEDICARE (M) PART A May 04, 2009 PART A [id number] OCTAVIANO PEREZ PATIENT MEDICARE (WNR) MEDICARE (M) PART A May 04, 2009 PART A [id number] [phone] OCTAVIANO PEREZ PATIENT -FO R-LIFE [facility] FOR LIFE WNR Nov 04, 2017 FOR LIFE [id number] [phone] OCTAVIANO PEREZ PATIENT Selected Encounter This section includes the information on record at [place] for the Encounter. Date/Time Encounter Type Encounter Description Reason Provider Source Apr 14, 2024 03:00 PM MED NUTRITION INDIV SUBSEQ PRIMARY CARE/MEDICINE ICD-10-CM R63.4 Abnormal weight loss MANUEL HULL ANY N [facility] Encounter Template Text not used by [place] Assessments - Encounter Diagnoses This section includes the primary and secondary diagnoses documented for the Encounter. Date/Time Primary/Secondary Diagnosis Diagnosis Name Provider Source Apr 14, 2024 03:48 PM PRIMARY Abnormal weight loss MANUEL HULL ANY [facility] Apr 14, 2024 03:48 PM SECONDARY Dietary counseling and surveillance SOSA HULLT ANY [facility] Apr 14, 2024 03:48 PM SECONDARY Dysphagia, oropharyngeal phase SHERIFMANUEL ANY [facility] Apr 14, 2024 03:48 PM SECONDARY Moderate protein-calorie malnutrition LITTEKEN,MANUEL ANY N [facility] Plan of Treatment: Future Appointments (+ 6 months) and Future Tests (+/- 45 days) The Plan of Treatment section includes future care activities for the patient from all [facility] This section includes future appointments and future orders which are active, pending or scheduled. Future Appointments This section includes appointments that were scheduled to occur 6 months from the date of the Encounter, up to a maximum of 20 appointments. The data comes from all [place] treatment [facility]. Appointment Date/Time Appointment Type Appointme nt Facility Name Apr 16, 2024 01:30 PM AMBULATORY - PSYCHIATRY [facility] May 14, 2024 01:00 PM AMBULATORY - MEDICINE [facility] Jun 03, 2024 09:45 AM AMBULATORY - REHAB MEDICIN E [facility] Jun 03, 2024 10:00 AM AMBULATORY - NONE [facility] Jun 11, 2024 09:30 AM AMBULATORY - MEDICINE [facility] Jul 09, 2024 02:30 PM AMBULATORY - NONE [facility] Jul 15, 2024 12:30 PM AMBULATORY - PSYCHIATRY [facility] Jul 16, 2024 11:00 AM AMBULATORY - SURGERY . L [facility] Aug 03, 2024 02:15 PM AMBULATORY - NONE [facility] Oct 06, 2024 02:30 PM AMBULATORY - NONE [facility] Social History: Smoking Status (Most current) and [...] ity March 10, 2024 03:30 PM VA-TOBACCO FORMER USER [facility] Tobacco Use History This section includes a history of the smoking, or tobacco-related health factors, that were collected on or before the date of the Encounter. The data comes from the [place] facility where the Encounter took place. Date/Time Smoking Status/Tobacco Use Comment F acility March 10, 2024 03:30 PM VA-TOBACCO QUIT 15 YRS OR MORE [facility] Feb 19, 2023 08:00 AM VA-TOBACCO FORMER USER [facility] Feb 19, 2023 08:00 AM VA-TOBACCO QUIT 15 YRS OR MORE [facility] March 05, 2022 03:00 PM VA-TOBACCO FORMER USER [facility] March 05, 2022 03:00 PM VA-TOBACCO QUIT 5 TO < 15 YRS [facility] Feb 06, 2021 11:00 AM VA-TOBACCO FORMER USER [facility] Feb 06, 2021 11:00 AM VA-TOBACCO QUIT 15 YRS OR MORE [facility] Nov 19, 2019 04:05 PM VA-TOBACCO FORMER USER [facility] Nov 19, 2019 04:05 PM VA-TOBACCO QUIT 5 TO < 15 YRS [facility] Oct 30, 2018 02:11 PM VA-TOBACCO FORMER USER [facility] Oct 30, 2018 02:11 PM VA-TOBACCO QUIT 5 TO < 15 YRS [facility] Advance Directives: All historical and current [...] Apr 24, 2019 ADVANCE DIRECTIVE DANY RHODES [facility] Encounter Notes: All associated encounter notes This section contains the clinical notes associated to the Encounter. Date/Time Encounter Note(s) Provider Source Apr 16, 2024 03:41 PM ADDENDUM: LOCAL TITLE: Addendum STANDARD TITLE: ADDENDUM DATE OF NOTE: APR 16, 2024@15:41:53 ENTRY DATE: APR 16, 2024@15:41:54 AUTHOR: EUN HULL COSIGNER: URGENCY: STATUS: COMPLETED COORDINATION OF NUTRITION CARE During hospitalization staff was crushing pills and adding to applesauce and pudding which was much easier for [place] to swallow. He is requesting a pill supplemental nurse if available through the [place]. 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 /willie/ Eun Hull, MS, RD, LD Clinical Dietitian Signed: 04/16/2024 15:42 Receipt Acknowledged By: 04/16/2024 15:46 /willie/ AKIN QUINTANA COTTAGE MASTER REGISTERED NURSE for WENCESLAO CASTLE --- Original Document --- 04/14/24 NUTRITION FOLLOW UP STL: Modality of Care: VVC Visit conducted by Clinical Video Telehealth. Patient provided verbal consent for video telehealth. Patient location confirmed. Emergency number confirmed. Best contact number for backup communication: Primary number listed * also present for appt. NUTRITION REASSESSMENT Diagnosis: dysphagia, unintended wt loss Time spent with : 43 minutes BMI: 23.3 Last appointment date: 12/24/23 Patient Medical History: Squamous cell carcinoma Diabetes Mellitus Type 2 Dysphagia Social history: 78 YOM, lives with FOOD AND NUTRITION RELATED HISTORY Diet experience: uses sugar substitute in place of sugar Fluid/Beverage intake: decaf coffee with sweet n low, shot espresso daily in AM (no other caffeine), decaf nati felix tea, 2% or whole milk (at least 3-16 oz cups/day, no burning with), Coke zero (caffeinated) or decaf Diet Coke --if drinks regular coffee, highly aggravates dry mouth Food intake: eating 2 meals/day (decreased since last appt.), usually 1 snack + ONS. --eats slow --ordering Meals on Wheels starting today, plans to get 2 meals/week. States is picky on foods she serves (takes a couple bites and something usually wrong: too hot or too hard), so going to try this to see if he'll eat more. states his mouth is very sensitive (feels on fire/burning all the time) Diet recall: B (noon): 1-2 hot dogs chopped up on slice of bread (taking small bites so can swallow) OR (MOW) slice turkey with vegetable and potatoes ( minced his turkey and mixed with mashed potatoes, ate the whole meal) --usually fixes this meal himself D (7 pm): sloppy joes + sticky rice (processor) -- cooks Snacks (throughout the day): ice cream once most days, and sips on Glucerna Medical nutrition supplement intake: 1 Glucerna/day --1 refill remaining --reports drinking 1/day however supply filled does not support this. states ran out before calling to refill, and didn't get before hospitalized (but received Ensure BID with meals during stay, and came to like them), so went few days without. OUTPATIENT MEDICATIONS ARTIFICIAL SALIVA ORAL SPRAY USE 3-5 SPRAYS BY MOUTH ACTIVE EVERY TWO HOURS NEEDED FOR DRY MOUTH AND THROAT MIRTAZAPINE 7.5MG TAB TAKE TWO TABLETS BY MOUTH AT ACTIVE BEDTIME FOR DEPRESSION NUTR SUPL GLUCERNA THER NUTR SHAKE JIMBO TAKE 1 CANFUL ACTIVE BY MOUTH DIRECTED FOR NUTRITION/DIETARY SUPPLEMENTATION (SHAKE WELL) OMEPRAZOLE 20MG EC CAP TAKE [...] TAKE 10 ML AT BEDTIME FOR MOOD *During hospitalization staff was crushing pills and adding to applesauce and pudding to swallow, which was much easier for . requesting a pill supplemental nurse. KNOWLEDGE BELIEFS AND ATTITUDES/BEHAVIOR with prior re-gain of wt through purposeful eating/making himself eat although not hungry. --states mouth and throat always dry, with burning. Had an inflamed esophagus with increased burning, which has improved but still present. When burning increased, eating made worse, so said 'why bother'. Stopped eating, resulting in unintended wt loss. --says burning won't go away, has to get used to. Uses saliva spray to help separate tongue or food in mouth, as sometimes gets stuck. 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 Followed by ENT (despite burning in mouth, eating oranges-smashing and drinking juice with water to wash down. Claims this doesn't hurt his mouth although acidic). [place] drinks a lot of fluid daily r/t needs to assist swallowing, with and without food. --fluid makes him full reports during hospitalization they had on a minced diet, so been mincing his meats/foods at home since D/C (04/11). [place] able to better swallow foods much better when minced. --Identified swallow study performed last year in June where pureed diet was recommended r/t dysphagia, which discussed and recommended follow back in October (although continued to follow a chopped/ soft diet). states unaware of this recommendation by RD (was not at appt.). prefers VVC so present for appts. and also in the know. -states didn't know how long a pureed diet would be needed. Identified unless another swallow study shows change (not performed during recent stay per ), pureed diet will be recommended chronically. states now that knows should be following pureed diet and better understands, will consume more often. Reports feeling much better at present, but still pretty tired. States seeing things much differently than 2 weeks ago (and prior). PHYSICAL ACTIVITY AND FUNCTION Decreased. [place] no longer working, got laid off by forced staff reduction. ANTHROPOMETRIC MEASUREMENTS Ht: 64 in [162.6 cm] (03/10/2024 14:57) Wt: 162 lb [73.48 kg] (03/10/2024 14:57) Home wt: 135.6 lbs. 143-146 lbs. Weight History/Significant changes: Reported 7.4-10.4 lb. (or 7%) wt loss since last appt. nearly 4 months ago. Wt loss likely occurred in a shorter time frame. --reports wt loss r/t hospitalization (admitted 04/07 x4 days) for UTI (which became septic). Wilson poor, lethargic, with low-grade fever two weeks prior to admission. Associated poor PO intake during this time. Patient Weight History - Last Four 1. 162.0 lbs. / 73.5 kg. on MARCH 10, 2024@14:57:02 *ERRANEOUS* (likely 142 lbs) 2. 138.6 lbs. / 62.9 kg. on JAN 13, 2024@14:19:32 3. 142.3 lbs. / 64.6 kg. on NOV 13, 2023@09:14:48 4. 143.0 lbs. / 64.9 kg. on OCT 16, 2023@15:50:48 5. 140.2 lbs. / 63.6 kg. on JAN 15, 2023@14:21:36 BMI: 23.3 (per home wt) BIOCHEMICAL DATA/MEDICAL TESTS AND PROCEDURES HGA1C 6.3 H % 11/13/2023 10:02 HGA1C 5.9 % 01/15/2023 15:16 HGA1C 6.1 H % 03/05/2022 15:55 HGA1C 6.5 H % 02/06/2021 11:23 HGA1C 7.7 H % 05/10/2020 13:26 [place] doesn't take BS lowering-medication. States changed lifestyle/went back to work (moving more), regarding decreasing trend. --recent increase likely r/t high carbohydrate diet (per recall) NUTRITION FOCUSED PHYSICAL FINDINGS Per 06/18/23 OVERSIZE LOAD PILOT ESCORT note (swallow evaluation): IMPRESSION: Patient presented with [...] feeling that certain foods burn his throat. Reports with coughing when consuming cold foods/beverages. No difficulty swallowing currently. denies N/V or bowel issues since last colonoscopy. Per NFPE, with advanced muscle and fat loss --now with moderate buccal and orbital fat loss, moderate temporalis muscle wasting. Also with mild to moderate muscle wasting at clavicle. MALNUTRITION (New) Based on the ASPEN/AND malnutrition diagnosis guide (with = or > 2 indicators present), the following clinical characteristics support a diagnosis of: Moderate protein-calorie malnutrition in the context of: Acute illness or injury as evidenced by: Mild to Moderate loss of muscle mass Moderate loss of subcutaneous fat NUTRITION PRESCRIPTION Recommended increased energy and protein diet Estimated energy needs: [id number] Calories/day (30-35 kcal/kg) Estimated protein needs: 62-74 g/day (1-1.2 g/kg) NUTRITION DIAGNOSIS *Active* (updated) Unintended weight loss related to inadequate energy and protein intake (physiologic-metabolic etiology) as evidenced by unintentional weight loss of 7% in less than 4 months, moderate fat and muscle loss, poor appetite/PO intake associated with reported UTI with sepsis. NUTRITION INTERVENTIONS FOOD AND NUTRIENT DELIVERY --identified need to eat at least 3 times daily to include a protein and carbohydrate at minimum, however balanced meal recommended. Provided example of ground beef with gravy and mashed potatoes. Can puree beef and gravy together and eat separate to potatoes, or puree all together. Recommend adding green beans or other soft vegetable as well. --Also encouraged a nutrient-dense evening snack daily. Medical Nutrition Supplement Therapy: increasing ONS order to Glucerna BID in presence of malnutrition. --identified need to drink after meals and not with. --encouraged [place] refill when with 1-week supply left, not wait until run out. NUTRITION EDUCATION/COUNSELING --Provided empathetic listening --Reminded of need to eat more, despite poor appetite at times, to aid needed wt/muscle gain. --Identified Dx of Malnutrition in presence of additional wt loss associated with recent illness. --Reviewed Pureed Diet, and ways to increase Caloric intake via pureed meals. --Answered diet-related questions. Education material: Pureed Diet handout and Boosting Calories in Pureed Diet handout Barriers to learning: none Comprehension: good COORDINATION OF NUTRITION CARE During hospitalization staff was crushing pills and adding to applesauce and pudding which was much easier for [place] to swallow. He is requesting a pill supplemental nurse if available through the [place]. 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 --if not available recommended [place] use pestle and mortar to crush pills NUTRITION MONITORING AND EVALUATION --Food and Beverage Intake-- Number of meals estimated in 24 hours: at least 6 small *Goal not achieved* (ONGOING-update to at least 3) Number of snacks estimated in 24 hours: at least 1 *New goal* Nutritionally complete liquid supplement estimated oral intake in 24 hours: 1 Glucerna *Goal not achieved* (ONGOING-update to 2) *Some digression away from goal* (ONGOING) --Body composition/growth/weight history-- Measured weight: at or above 145 lb at follow-up Return to clinic: 3 months (07/09 at 1500, c) /jose Hull MS, RD, TAISHA Clinical Dietitian Signed: 04/16/2024 15:40 04/16/2024 ADDENDUM STATUS: COMPLETED Alert to PCP: RD diagnosed vet with malnutrition. If you agree, please consider adding to note/problem list until resolution noted. Thank you! MALNUTRITION Based on the ASPEN/AND malnutrition diagnosis guide (with = or > 2 indicators present), the following clinical characteristics support a diagnosis of: Moderate protein-calorie malnutrition in the context of: Acute illness or injury as evidenced by: Mild to Moderate loss of muscle mass Moderate loss of subcutaneous fat /jose Hull MS, RD, TAISHA Clinical Dietitian Signed: 04/16/2024 15:41 Receipt Acknowledged By: * AWAITING SIGNATURE * QUYEN MIJARES BRITTANY N [facility] Apr 16, 2024 03:40 PM ADDENDUM: LOCAL TITLE: Addendum STANDARD TITLE: ADDENDUM DATE OF NOTE: APR 16, 2024@15:40:19 ENTRY DATE: APR 16, 2024@15:40:20 AUTHOR: EUN HULL EXP COSIGNER: URGENCY: STATUS: COMPLETED Alert to PCP: RD diagnosed vet with malnutrition. If you agree, please consider adding to note/problem list until resolution noted. Thank you! MALNUTRITION Based on the ASPEN/AND malnutrition diagnosis guide (with = or > 2 indicators present), the following clinical characteristics support a diagnosis of: Moderate protein-calorie malnutrition in the context of: Acute illness or injury as evidenced by: Mild to Moderate loss of muscle mass Moderate loss of subcutaneous fat /es/ Eun Hull, MS, RD, LD Clinical Dietitian Signed: 04/16/2024 15:41 Receipt Acknowledged By: 04/16/2024 16:03 /willie/ QUYEN MIJARES Staff Physician --- Original Document --- 04/14/24 NUTRITION FOLLOW UP STL: Modality of Care: VVC Visit conducted by Clinical Video Telehealth. Patient provided verbal consent for video telehealth. Patient location confirmed. Emergency number confirmed. Best contact number for backup communication: Primary number listed * also present for appt. NUTRITION REASSESSMENT Diagnosis: dysphagia, unintended wt loss Time spent with [place]: 43 minutes BMI: 23.3 Last appointment date: 12/24/23 Patient Medical History: Squamous cell carcinoma Diabetes Mellitus Type 2 Dysphagia Social history: 78 YOM, lives with FOOD AND NUTRITION RELATED HISTORY Diet experience: uses sugar substitute in place of sugar Fluid/Beverage intake: decaf coffee with sweet n low, shot espresso daily in AM (no other caffeine), decaf nati felix tea, 2% or whole milk (at least 3-16 oz cups/day, no burning with), Coke zero (caffeinated) or decaf Diet Coke --if drinks regular coffee, highly aggravates dry mouth Food intake: eating 2 meals/day (decreased since last appt.), usually 1 snack + ONS. --eats slow --ordering Meals on Wheels starting today, plans to get 2 meals/week. States Artem is picky on foods she serves (takes a couple bites and something usually wrong: too hot or too hard), so going to try this to see if he'll eat more. [place] states his mouth is very sensitive (feels on fire/burning all the time) Diet recall: B (noon): 1-2 hot dogs chopped up on slice of bread (taking small bites so can swallow) OR (MOW) slice turkey with vegetable and potatoes ( minced his turkey and mixed with mashed potatoes, ate the whole meal) --usually fixes this meal himself D (7 pm): sloppy joes + sticky rice (processor) -- cooks Snacks (throughout the day): ice cream once most days, and sips on Glucerna Medical nutrition supplement intake: 1 Glucerna/day --1 refill remaining --reports drinking 1/day however supply filled does not support this. [place] states ran out before calling to refill, and didn't get before hospitalized (but received Ensure BID with meals during stay, and came to like them), so went few days without. OUTPATIENT MEDICATIONS ARTIFICIAL SALIVA ORAL SPRAY USE 3-5 SPRAYS BY MOUTH ACTIVE EVERY TWO HOURS NEEDED FOR DRY MOUTH AND THROAT MIRTAZAPINE 7.5MG TAB TAKE TWO TABLETS BY MOUTH AT ACTIVE BEDTIME FOR DEPRESSION NUTR SUPL GLUCERNA THER NUTR SHAKE JIMBO TAKE 1 CANFUL ACTIVE BY MOUTH DIRECTED FOR NUTRITION/DIETARY SUPPLEMENTATION (SHAKE WELL) OMEPRAZOLE 20MG EC CAP TAKE [...] TAKE 10 ML AT BEDTIME FOR MOOD *During hospitalization staff was crushing pills and adding to applesauce and pudding to swallow, which was much easier for [place]. requesting a pill supplemental nurse. KNOWLEDGE BELIEFS AND ATTITUDES/BEHAVIOR with prior re-gain of wt through purposeful eating/making himself eat although not hungry. --states mouth and throat always dry, with burning. Had an inflamed esophagus with increased burning, which has improved but still present. When burning increased, eating made worse, so said 'why bother'. Stopped eating, resulting in unintended wt loss. --says burning won't go away, has to get used to. Uses saliva spray to help separate tongue or food in mouth, as sometimes gets stuck. 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 Followed by ENT (despite burning in mouth, eating oranges-smashing and drinking juice with water to wash down. Claims this doesn't hurt his mouth although acidic). drinks a lot of fluid daily r/t needs to assist swallowing, with and without food. --fluid makes him full reports during hospitalization they had on a minced diet, so been mincing his meats/foods at home since D/C (04/11). able to better swallow foods much better when minced. --Identified swallow study performed last year in June where pureed diet was recommended r/t dysphagia, which discussed and recommended follow back in October (although [place] continued to follow a chopped/ soft diet). states unaware of this recommendation by RD (was not at appt.). prefers [facility] so present for appts. and also in the know. -states didn't know how long a pureed diet would be needed. Identified unless another swallow study shows change (not performed during recent stay per [place]), pureed diet will be recommended chronically. states now that knows should be following pureed diet and better understands, will consume more often. Reports feeling much better at present, but still pretty tired. States seeing things much differently than 2 weeks ago (and prior). PHYSICAL ACTIVITY AND FUNCTION Decreased. no longer working, got laid off by forced staff reduction. ANTHROPOMETRIC MEASUREMENTS Ht: 64 in [162.6 cm] (03/10/2024 14:57) Wt: 162 lb [73.48 kg] (03/10/2024 14:57) Home wt: 135.6 lbs. 143-146 lbs. Weight History/Significant changes: Reported 7.4-10.4 lb. (or 7%) wt loss since last appt. nearly 4 months ago. Wt loss likely occurred in a shorter time frame. --reports wt loss r/t hospitalization (admitted 04/07 x4 days) for UTI (which became septic). [place] poor, lethargic, with low-grade fever two weeks prior to admission. Associated poor PO intake during this time. Patient Weight History - Last Four 1. 162.0 lbs. / 73.5 kg. on MARCH 10, 2024@14:57:02 *ERRANEOUS* (likely 142 lbs) 2. 138.6 lbs. / 62.9 kg. on JAN 13, 2024@14:19:32 3. 142.3 lbs. / 64.6 kg. on NOV 13, 2023@09:14:48 4. 143.0 lbs. / 64.9 kg. on OCT 16, 2023@15:50:48 5. 140.2 lbs. / 63.6 kg. on JAN 15, 2023@14:21:36 BMI: 23.3 (per home wt) BIOCHEMICAL DATA/MEDICAL TESTS AND PROCEDURES HGA1C 6.3 H % 11/13/2023 10:02 HGA1C 5.9 % 01/15/2023 15:16 HGA1C 6.1 H % 03/05/2022 15:55 HGA1C 6.5 H % 02/06/2021 11:23 HGA1C 7.7 H % 05/10/2020 13:26 [place] doesn't take BS lowering-medication. States changed lifestyle/went back to work (moving more), regarding decreasing trend. --recent increase likely r/t high carbohydrate diet (per recall) NUTRITION FOCUSED PHYSICAL FINDINGS Per 06/18/23 OVERSIZE LOAD PILOT ESCORT note (swallow evaluation): IMPRESSION: Patient presented with [...] feeling that certain foods burn his throat. Reports with coughing when consuming cold foods/beverages. No difficulty swallowing currently. denies N/V or bowel issues since last colonoscopy. Per NFPE, [place] with advanced muscle and fat loss --now with moderate buccal and orbital fat loss, moderate temporalis muscle wasting. Also with mild to moderate muscle wasting at clavicle. MALNUTRITION (New) Based on the ASPEN/AND malnutrition diagnosis guide (with = or > 2 indicators present), the following clinical characteristics support a diagnosis of: Moderate protein-calorie malnutrition in the context of: Acute illness or injury as evidenced by: Mild to Moderate loss of muscle mass Moderate loss of subcutaneous fat NUTRITION PRESCRIPTION Recommended increased energy and protein diet Estimated energy needs: 4020-8995 Calories/day (30-35 kcal/kg) Estimated protein needs: 62-74 g/day (1-1.2 g/kg) NUTRITION DIAGNOSIS *Active* (updated) Unintended weight loss related to inadequate energy and protein intake (physiologic-metabolic etiology) as evidenced by unintentional weight loss of 7% in less than 4 months, moderate fat and muscle loss, poor appetite/PO intake associated with reported UTI with sepsis. NUTRITION INTERVENTIONS FOOD AND NUTRIENT DELIVERY --identified need to eat at least 3 times daily to include a protein and carbohydrate at minimum, however balanced meal recommended. Provided example of ground beef with gravy and mashed potatoes. Can puree beef and gravy together and eat separate to potatoes, or puree all together. Recommend adding green beans or other soft vegetable as well. --Also encouraged a nutrient-dense evening snack daily. Medical Nutrition Supplement Therapy: increasing ONS order to Glucerna BID in presence of malnutrition. --identified need to drink after meals and not with. --encouraged [place] refill when with 1-week supply left, not wait until run out. NUTRITION EDUCATION/COUNSELING --Provided empathetic listening --Reminded of need to eat more, despite poor appetite at times, to aid needed wt/muscle gain. --Identified Dx of Malnutrition in presence of additional wt loss associated with recent illness. --Reviewed Pureed Diet, and ways to increase Caloric intake via pureed meals. --Answered diet-related questions. Education material: Pureed Diet handout and Boosting Calories in Pureed Diet handout Barriers to learning: none Comprehension: good COORDINATION OF NUTRITION CARE During hospitalization staff was crushing pills and adding to applesauce and pudding which was much easier for [place] to swallow. 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 --if not available recommended [place] use pestle and mortar to crush pills NUTRITION MONITORING AND EVALUATION --Food and Beverage Intake-- Number of meals estimated in 24 hours: at least 6 small *Goal not achieved* (ONGOING-update to at least 3) Number of snacks estimated in 24 hours: at least 1 *New goal* Nutritionally complete liquid supplement estimated oral intake in 24 hours: 1 Glucerna *Goal not achieved* (ONGOING-update to 2) *Some digression away from goal* (ONGOING) --Body composition/growth/weight history-- Measured weight: at or above 145 lb at follow-up Return to clinic: 3 months (07/09 at 1500, [facility]) /jose Hull MS, RD, LD Clinical Dietitian Signed: 04/16/2024 15:40 04/16/2024 ADDENDUM STATUS: COMPLETED COORDINATION OF NUTRITION CARE During hospitalization staff was crushing pills and adding to applesauce and pudding which was much easier for [place] to swallow. 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 /jose Hull MS, RD, LD Clinical Dietitian Signed: 04/16/2024 15:42 Receipt Acknowledged By: 04/16/2024 15:46 /es/ AKIN QUINTANA COTTAGE MASTER REGISTERED NURSE for WENCESLAO CASTLE EUN HULL [facility] Apr 14, 2024 08:47 AM NUTRITION DIETETICS NOTE: LOCAL TITLE: NUTRITION FOLLOW UP STL STANDARD TITLE: NUTRITION DIETETICS NOTE DATE OF NOTE: APR 14, 2024@08:47 ENTRY DATE: APR 14, 2024@08:47:47 AUTHOR: EUN HULL EXP COSIGNER: URGENCY: STATUS: COMPLETED NUTRITION FOLLOW UP STL Has ADDENDA Modality of Care: VVC Visit conducted by Clinical Video Telehealth. Patient provided verbal consent for video telehealth. Patient location confirmed. Emergency number confirmed. Best contact number for backup communication: Primary number listed * also present for appt. NUTRITION REASSESSMENT Diagnosis: dysphagia, unintended wt loss Time spent with [place]: 43 minutes BMI: 23.3 Last appointment date: 12/24/23 Patient Medical History: Squamous cell carcinoma Diabetes Mellitus Type 2 Dysphagia Social history: 78 YOM, lives with FOOD AND NUTRITION RELATED HISTORY Diet experience: uses sugar substitute in place of sugar Fluid/Beverage intake: decaf coffee with sweet n low, shot espresso daily in AM (no other caffeine), decaf nati felix tea, 2% or whole milk (at least 3-16 oz cups/day, no burning with), Coke zero (caffeinated) or decaf Diet Coke --if drinks regular coffee, highly aggravates dry mouth Food intake: eating 2 meals/day (decreased since last appt.), usually 1 snack + ONS. --eats slow --ordering Meals on Wheels starting today, plans to get 2 meals/week. States [place] is picky on foods she serves (takes a couple bites and something usually wrong: too hot or too hard), so going to try this to see if he'll eat more. [place] states his mouth is very sensitive (feels on fire/burning all the time) Diet recall: B (noon): 1-2 hot dogs chopped up on slice of bread (taking small bites so can swallow) OR (MOW) slice turkey with vegetable and potatoes ( minced his turkey and mixed with mashed potatoes, ate the whole meal) --usually fixes this meal himself D (7 pm): sloppy joes + sticky rice (processor) -- cooks Snacks (throughout the day): ice cream once most days, and sips on Glucerna Medical nutrition supplement intake: 1 Glucerna/day --1 refill remaining --reports drinking 1/day however supply filled does not support this. [place] states ran out before calling to refill, and didn't get before hospitalized (but received Ensure BID with meals during stay, and came to like them), so went few days without. OUTPATIENT MEDICATIONS ARTIFICIAL SALIVA ORAL SPRAY USE 3-5 SPRAYS BY MOUTH ACTIVE EVERY TWO HOURS NEEDED FOR DRY MOUTH AND THROAT MIRTAZAPINE 7.5MG TAB TAKE TWO TABLETS BY MOUTH AT ACTIVE BEDTIME FOR DEPRESSION NUTR SUPL GLUCERNA THER NUTR SHAKE JIMBO TAKE 1 CANFUL ACTIVE BY MOUTH DIRECTED FOR NUTRITION/DIETARY SUPPLEMENTATION (SHAKE WELL) OMEPRAZOLE 20MG EC CAP TAKE [...] TAKE 10 ML AT BEDTIME FOR MOOD *During hospitalization staff was crushing pills and adding to applesauce and pudding to swallow, which was much easier for [place]. [place] requesting a pill supplemental nurse. KNOWLEDGE BELIEFS AND ATTITUDES/BEHAVIOR with prior re-gain of wt through purposeful eating/making himself eat although not hungry. --states mouth and throat always dry, with burning. Had an inflamed esophagus with increased burning, which has improved but still present. When burning increased, eating made worse, so said 'why bother'. Stopped eating, resulting in unintended wt loss. --says burning won't go away, has to get used to. Uses saliva spray to help separate tongue or food in mouth, as sometimes gets stuck. 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 Followed by ENT (despite burning in mouth, [place] eating oranges-smashing and drinking juice with water to wash down. Claims this doesn't hurt his mouth although acidic). drinks a lot of fluid daily r/t needs to assist swallowing, with and without food. --fluid makes him full reports during hospitalization they had [place] on a minced diet, so been mincing his meats/foods at home since D/C (04/11). [place] able to better swallow foods much better when minced. --Identified swallow study performed last year in June where pureed diet was recommended r/t dysphagia, which discussed and recommended [place] follow back in October (although [place] continued to follow a chopped/ soft diet). states unaware of this recommendation by RD (was not at appt.). prefers [facility] so present for appts. and also in the know. -states didn't know how long a pureed diet would be needed. Identified unless another swallow study shows change (not performed during recent stay per [place]), pureed diet will be recommended chronically. [place] states now that knows should be following pureed diet and better understands, will consume more often. Reports feeling much better at present, but still pretty tired. States seeing things much differently than 2 weeks ago (and prior). PHYSICAL ACTIVITY AND FUNCTION Decreased. [place] no longer working, got laid off by forced staff reduction. ANTHROPOMETRIC MEASUREMENTS Ht: 64 in [162.6 cm] (03/10/2024 14:57) Wt: 162 lb [73.48 kg] (03/10/2024 14:57) Home wt: 135.6 lbs. 143-146 lbs. Weight History/Significant changes: Reported 7.4-10.4 lb. (or 7%) wt loss since last appt. nearly 4 months ago. Wt loss likely occurred in a shorter time frame. --reports wt loss r/t hospitalization (admitted 04/07 x4 days) for UTI (which became septic). [place] poor, lethargic, with low-grade fever two weeks prior to admission. Associated poor PO intake during this time. Patient Weight History - Last Four 1. 162.0 lbs. / 73.5 kg. on MARCH 10, 2024@14:57:02 *ERRANEOUS* (likely 142 lbs) 2. 138.6 lbs. / 62.9 kg. on JAN 13, 2024@14:19:32 3. 142.3 lbs. / 64.6 kg. on NOV 13, 2023@09:14:48 4. 143.0 lbs. / 64.9 kg. on OCT 16, 2023@15:50:48 5. 140.2 lbs. / 63.6 kg. on JAN 15, 2023@14:21:36 BMI: 23.3 (per home wt) BIOCHEMICAL DATA/MEDICAL TESTS AND PROCEDURES HGA1C 6.3 H % 11/13/2023 10:02 HGA1C 5.9 % 01/15/2023 15:16 HGA1C 6.1 H % 03/05/2022 15:55 HGA1C 6.5 H % 02/06/2021 11:23 HGA1C 7.7 H % 05/10/2020 13:26 [place] doesn't take BS lowering-medication. States changed lifestyle/went back to work (moving more), regarding decreasing trend. --recent increase likely r/t high carbohydrate diet (per recall) NUTRITION FOCUSED PHYSICAL FINDINGS Per 06/18/23 OVERSIZE LOAD PILOT ESCORT note (swallow evaluation): IMPRESSION: Patient presented with [...] feeling that certain foods burn his throat. Reports with coughing when consuming cold foods/beverages. No difficulty swallowing currently. [place] denies N/V or bowel issues since last colonoscopy. Per [facility], [place] with advanced muscle and fat loss --now with moderate buccal and orbital fat loss, moderate temporalis muscle wasting. Also with mild to moderate muscle wasting at clavicle. MALNUTRITION (New) Based on the ASPEN/AND malnutrition diagnosis guide (with = or > 2 indicators present), the following clinical characteristics support a diagnosis of: Moderate protein-calorie malnutrition in the context of: Acute illness or injury as evidenced by: Mild to Moderate loss of muscle mass Moderate loss of subcutaneous fat NUTRITION PRESCRIPTION Recommended increased energy and protein diet Estimated energy needs: 6967-9243 Calories/day (30-35 kcal/kg) Estimated protein needs: 62-74 g/day (1-1.2 g/kg) NUTRITION DIAGNOSIS *Active* (updated) Unintended weight loss related to inadequate energy and protein intake (physiologic-metabolic etiology) as evidenced by unintentional weight loss of 7% in less than 4 months, moderate fat and muscle loss, poor appetite/PO intake associated with reported UTI with sepsis. NUTRITION INTERVENTIONS FOOD AND NUTRIENT DELIVERY --identified need to eat at least 3 times daily to include a protein and carbohydrate at minimum, however balanced meal recommended. Provided example of ground beef with gravy and mashed potatoes. Can puree beef and gravy together and eat separate to potatoes, or puree all together. Recommend adding green beans or other soft vegetable as well. --Also encouraged a nutrient-dense evening snack daily. Medical Nutrition Supplement Therapy: increasing ONS order to Glucerna BID in presence of malnutrition. --identified need to drink after meals and not with. --encouraged refill when with 1-week supply left, not wait until run out. NUTRITION EDUCATION/COUNSELING --Provided empathetic listening --Reminded of need to eat more, despite poor appetite at times, to aid needed wt/muscle gain. --Identified Dx of Malnutrition in presence of additional wt loss associated with recent illness. --Reviewed Pureed Diet, and ways to increase Caloric intake via pureed meals. --Answered diet-related questions. Education material: Pureed Diet handout and Boosting Calories in Pureed Diet handout Barriers to learning: none Comprehension: good COORDINATION OF NUTRITION CARE During hospitalization staff was crushing pills and adding to applesauce and pudding which was much easier for [place] to swallow. 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 --if not available recommended [place] use pestle and mortar to crush pills NUTRITION MONITORING AND EVALUATION --Food and Beverage Intake-- Number of meals estimated in 24 hours: at least 6 small *Goal not achieved* (ONGOING-update to at least 3) Number of snacks estimated in 24 hours: at least 1 *New goal* Nutritionally complete liquid supplement estimated oral intake in 24 hours: 1 Glucerna *Goal not achieved* (ONGOING-update to 2) *Some digression away from goal* (ONGOING) --Body composition/growth/weight history-- Measured weight: at or above 145 lb at follow-up Return to clinic: 3 months (07/09 at 1500, [facility]) /jose Hull MS, RD, LD Clinical Dietitian Signed: 04/16/2024 15:40 04/16/2024 ADDENDUM STATUS: COMPLETED Alert to PCP: RD diagnosed vet with malnutrition. If you agree, please consider adding to note/problem list until resolution noted. Thank you! MALNUTRITION Based on the ASPEN/AND malnutrition diagnosis guide (with = or > 2 indicators present), the following clinical characteristics support a diagnosis of: Moderate protein-calorie malnutrition in the context of: Acute illness or injury as evidenced by: Mild to Moderate loss of muscle mass Moderate loss of subcutaneous fat /jose Hull MS, RD, LD Clinical Dietitian Signed: 04/16/2024 15:41 Receipt Acknowledged By: * AWAITING SIGNATURE * QUYEN MIJARES 04/16/2024 ADDENDUM STATUS: COMPLETED COORDINATION OF NUTRITION CARE During hospitalization staff was crushing pills and adding to applesauce and pudding which was much easier for to swallow. 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 /jose Hull MS, RD, LD Clinical Dietitian Signed: 04/16/2024 15:42 Receipt Acknowledged By: * AWAITING SIGNATURE * WENCESLAO CASTLE [facility]ITTANY [facility]
--- OUTSIDE RECORDS SUMMARY | 2024-11-26 13:18 | XMS_ITS | Encounter Summary ---
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 Name Role Phone QUYEN MIJARES Primary Care [...] POINT OF SERVICE [facility] Nov 04, 2023 [id number] VIKKI PEREZ SPOUSE [facility] POINT OF SERVICE [facility] Nov 04, 2018 [id number] VIKKI PEREZ SPOUSE CAREBALAJI ([id number]) RX PRESCRIPT ION RX PLAN Nov 04, 2017 [id number] [phone] OCTAVIANO PEREZ SPOUSE [place] ([id number])RX PRESCRIPT ION [facility] Nov 04, 2018 [phone] OCTAVIANO PEREZ SPOUSE [place] ([id number])RX PRESCRIPT ION [facility] Nov 04, 2018 [id number] [phone] ANAOCTAVIANO DOSHI SPOUSE CAREBALAJI ([id number])RX PRESCRIPT ION [facility] Nov 04, 2018 [id number] [phone] OCTAVIANO PEREZ SPOUSE [place] ([id number])RX PRESCRIPT ION [facility] Nov 04, 2018 [id number] [phone] OCTAVIANO PEREZ SPOUSE [employer] MCR (WNR) MEDICARE ADVANTAGE MCR (WNR) Nov 04, 2018 [id number] OCTAVIANO PEREZ PATIENT MEDICARE (WNR) MEDICARE (M) PART A May 04, 2009 PART A [id number] [phone] OCTAVIANO PEREZ PATIENT MEDICARE (WNR) MEDICARE (M) PART B May 04, 2009 PART B [id number] OCTAVIANO PEREZ PATIENT MEDICARE (WNR) MEDICARE (M) PART B May 04, 2009 PART B [id number] OCTAVIANO PEREZ PATIENT MEDICARE (WNR) MEDICARE (M) PART A May 04, 2009 PART A [id number] OCTAVIANO PEREZ PATIENT -FO R-LIFE TRICA RE FOR LIFE WNR Nov 04, 2017 FOR LIFE [id number] [phone] OCTAVIANO PEREZ PATIENT Selected Encounter This section includes the information on record at [place] for the Encounter. Date/Time Encounter Type Encounter Description Reason Pro vider Source IHE Encounter Template Text not used by [place] Advance Directives: All historical and current Section Date Range: From patient's date of to the date document was created. This section includes ALL of a patient's completed or amended [place] Advance and Rescinded Directives. The entries below indicate that a directive exists for the patient, but an actual copy is not included with this document. The data comes from all [place] facilities. Date Advance Directives Provider Source Apr 24, 2019 ADVANCE DIRECTIVE [facility]
--- OUTSIDE RECORDS SUMMARY | 2024-11-26 13:18 | XMS_ITS ---
Author Name [facility] [place] Address [address] [place] [address] Care Team Providers Care Motor Expert Name Role Phone QUYEN MIJARES Primary Care [...] POINT OF SERVICE MHBP Nov 04, 2023 [id number] VIKKI PEREZ SPOUSE AETNA-MHBP POINT OF SERVICE [facility] Nov 04, 2018 [id number] [phone] VIKKI PEREZ SPOUSE CAREBALAJI ([id number]) RX PRESCRIPT ION RX PLAN Nov 04, 2017 [id number] [phone] ANAOCTAVIANO DOSHI SPOUSE CAREBALAJI ([id number])RX PRESCRIPT ION MHBP Nov 04, 2018 [id number] [phone] ANA JACIOCTAVIANO SPOUSE CAREBALAJI ([id number])RX PRESCRIPT ION MHBP Nov 04, 2018 [id number] [phone] OCTAVIANO PEREZ SPOUSE CAREBALAJI ([id number])RX PRESCRIPT ION MHBP Nov 04, 2018 [id number] [phone] OCTAVIANO PEREZ SPOUSE CAREMARK ([id number])RX PRESCRIPT ION MHBP Nov 04, 2018 [id number] [phone] OCTAVIANO PEREZ SPOUSE HUMANA MCR (WNR) MEDICARE ADVANTAGE [facility] (WNR) Nov 04, 2018 [id number] OCTAVIANO PEREZ PATIENT MEDICARE (WNR) MEDICARE () PART A May 04, 2009 PART A [id number] [phone] OCTAVINAO PEREZ PATIENT MEDICARE (WNR) MEDICARE (M) PART B May 04, 2009 PART B [id number] [phone] OCTAVIANO PEREZ PATIENT MEDICARE (WNR) MEDICARE (M) PART A May 04, 2009 PART A [id number] OCTAVIANO PEREZ PATIENT MEDICARE (WNR) MEDICARE () PART B May 04, 2009 PART B [id number] OCTAVIANO PEREZ PATIENT -FO R-LIFE TRICA RE FOR LIFE WNR Nov 04, 2017 FOR LIFE [id number] [phone] OCTAVIANO PEREZ PATIENT Selected Encounter This section includes the information on record at [place] for the Encounter. Date/Time Encounter Type Encounter Description Reason Provider Source Jul 16, 2024 11:00 AM OFFICE O/P EST LOW 20 MIN OPTOMETRY ICD-10-CM H04.123 Dry eye syndrome of bilateral lacrimal glands [facility]ANYA [facility] ON [facility] Encounter Template Text not used by [place] Assessments - Encounter Diagnoses This section includes the primary and secondary diagnoses documented for the Encounter. Date/Time Primary/Secondary Diagnosis Diagnosis Name Provider Source Jul 16, 2024 01:51 PM PRIMARY Dry eye syndrome of bilateral lacrimal glands [facility]ANYA [facility] ON [facility] Jul 16, 2024 01:51 PM SECONDARY Age-related nuclear cataract, bilateral [facility]ANYA [facility] ON [facility] Jul 16, 2024 01:51 PM SECONDARY Unspecified disorder of refraction [facility]A[place]ANYA [facility] ON [facility] Plan of Treatment: Future Appointments (+ 6 months) and Future Tests (+/- 45 days) The Plan of Treatment section includes future care activities for the patient from all [place] [facility]. This section includes future appointments and future orders which are active, pending or scheduled. Future Appointments This section includes appointments that were scheduled to occur 6 months from the date of the Encounter, up to a maximum of 20 appointments. The data comes from all [facility] facilities. Appointment Date/Time Appointment Type Appointme nt Facility Name Aug 03, 2024 02:15 PM AMBULATORY - NONE [facility] Oct 06, 2024 02:30 PM AMBULATORY - NONE [facility] Oct 15, 2024 08:30 AM AMBULATORY - PSYCHIATRY [facility] Nov 13, 2024 09:00 AM AMBULATORY - SURGERY . [facility] Nov 13, 2024 10:00 AM AMBULATORY - MEDICINE [facility] Nov 25, 2024 04:30 PM AMBULATORY - NONE [facility] Dec 04, 2024 01:00 PM AMBULATORY - MEDICINE [facility] Dec 24, 2024 02:00 PM AMBULATORY - PSYCHIATRY [facility] Dec 29, 2024 02:30 PM AMBULATORY - NONE [facility] Vital Signs: All taken on the encounter date This section contains inpatient and outpatient Vital Signs collected on the date of the Encounter. Date/Time Temperature Pulse Blood Pressure Respiratory Rate SP02 Pain Height Weight Body Mass Index Source Jul 16, 2024 09:52 AM 146/81 [facility] Jul 16, 2024 09:51 AM 144/80 [facility] Social History: Smoking Status (Most current) and Tobacco Use (All prior to encounter date) This section includes the most current, and the historical, smoking and tobacco- related health factors from the [place] facility where the Encounter took place. Current Smoking Status This section includes the most current smoking, or tobacco-related health factor, from the [place] facility where the Encounter took place. Date/Time Current Smoking Status Comment Facil ity March 10, 2024 03:30 PM VA-TOBACCO QUIT 15 YRS OR MORE [facility] Tobacco Use History This section includes a history of the smoking, or tobacco-related health factors, that were collected on or before the date of the Encounter. The data comes from the [place] facility where the Encounter took place. Date/Time Smoking Status/Tobacco Use Comment F acility March 10, 2024 03:30 PM VA-TOBACCO QUIT 15 YRS OR MORE [facility] Feb 19, 2023 08:00 AM VA-TOBACCO FORMER USER [facility] Feb 19, 2023 08:00 AM VA-TOBACCO QUIT 15 YRS OR MORE [facility] March 05, 2022 03:00 PM VA-TOBACCO FORMER USER [facility] March 05, 2022 03:00 PM VA-TOBACCO QUIT 5 TO < 15 YRS [facility] Feb 06, 2021 11:00 AM VA-TOBACCO FORMER USER [facility] Feb 06, 2021 11:00 AM VA-TOBACCO QUIT 15 YRS OR MORE [facility] Nov 19, 2019 04:05 PM VA-TOBACCO FORMER USER [facility] Nov 19, 2019 04:05 PM VA-TOBACCO QUIT 5 TO < 15 YRS [facility] Oct 30, 2018 02:11 PM VA-TOBACCO FORMER USER [facility] Oct 30, 2018 02:11 PM VA-TOBACCO QUIT 5 TO < 15 YRS [facility] Advance Directives: All historical and current Section Date Range: From patient's date of to the date document was created. This section includes ALL of a patient's completed or amended [place] Advance and Rescinded Directives. The entries below indicate that a directive exists for the patient, but an actual copy is not included with this document. The data comes from all [place] facilities. Date Advance Directives Provider Source Apr 24, 2019 ADVANCE DIRECTIVE DANY RHODES [facility] Encounter Notes: All associated encounter notes This section contains the clinical notes associated to the Encounter. Date/Time Encounter Note(s) Provider Source Jul 16, 2024 10:58 AM OPTOMETRY NOTE: LOCAL TITLE: OPTOMETRY NOTE STANDARD TITLE: OPTOMETRY NOTE DATE OF NOTE: JUL 16, 2024@10:58 ENTRY DATE: JUL 16, 2024@10:58:49 AUTHOR: KATERINA LAND COSIGNER: URGENCY: STATUS: COMPLETED Last seen 10/2023 CC: 1. 1 month ago was in hospital had sepsis after went home noticed vision in the left eye was bothersome was gritty, wiping eye a lot had sinus surgery on left side at [facility] couple years ago feels like vision in left eye is not as good alisia with glasses off Ocular meds: none Ocular ROS: (+)Diabetes without retinopathy OU (+)Cataracts OU (+)Dry Eye OU Family OcHX: (-) blindness (-) glaucoma (-) AMD (-) RD Cardiovascular ROS: no change from problem & medication lists CPRS Problem list, medications and allergies reviewed: [facility] Serology for Diabetes GLUCOSE 97 mg/dL 11/13/2023 10:02 HGA1C 6.3 H % 11/13/2023 10:02 Cardiovascular BP: 146/81 (07/16/2024 09:52) Pulse: 98 (07/15/2024 12:22) Neuro: Orientation: Normal Psych: Mood/Affect: Normal Depression/suicide ideation: NO VISUAL ACUITY With correction Distance Visual Acuity O.D. 20/20 O.S. 20/25 Pupils PERRL OU (-)APD Confrontation: FTFC OU Extra-Ocular Muscles Full OU Externals/adnexa: Unremarkable OU Refraction: 07/16/24 O.D. plano -0.75 x040 20/20 O.S. +0.50 -2.00 x060 20/20- Add: + 2.50 SLIT LAMP EXAMINATION Lids/Lashes/Lacrimal No blepharitis OU, mild telangiectasia and scalloped lids OU Incomplete blink OU Tears poor quality OU Conjunctiva/Sclera White/quiet OU Cornea (+)staining OU Ant Chamber Deep and quiet OU Iris Normal, (-)NVI OU Lens NS cataract Gr 1-2 OU, 1+ ACC OD (nondilated view) Intraocular Pressures (Goldmann) 1 gtt fluress Date: O.D. O.S. Time Meds 07/16/24 17 17 11:20 none difficult, squeezing RETINAL EVALUATION Nondilated Optic Nerve OD: 0.3 CDR Flat, pink, distinct (-)NVD OS: 0.4 CDR Flat, pink, distinct (-)NVD Assessment/Plan 07/16/2024 1. Diabetes without hx of retinopathy OU - not assessed today - last HgA1c was 6.3 - advise tight bg control - monitor with DFE 2. Cataracts OU - likely mildly affecting the vision - ed. pt on findings - monitor 3. Dry Eye OU - poor tear quality, staining OU - ed. pt on findings - recommend increased used of lubricating gel - placed order in CPRS for window - monitor 4. Refractive Error/presbyopia OU - increase in BVA with refraction - change in refraction today - discussed image differences/different rx between eyes with patient - advised pt on effects of cataracts, dry eye on vision - order new glasses Ed. pt on all findings RTC 11/2024 for CEE, sooner with changes /es/ KATERINA LAND, LILIA Staff Physician, Optometry Signed: 07/16/2024 13:51 KATERINA LAND [facility]
--- OUTSIDE RECORDS SUMMARY | 2024-11-26 13:18 | XMS_ITS | Encounter Summary ---
Author Name [facility] [place] [facility] [place] Address [address] [place] [address] Care Team Providers Care Playground Director Name Role Phone QUYEN MIJARES Primary Care [...] POINT OF SERVICE [facility] Nov 04, 2023 [id number] VIKKI PEREZ SPOUSE AETNA-MHBP POINT OF SERVICE [facility] Nov 04, 2018 [id number] [phone] VIKKI PEREZ SPOUSE CAREBALAJI ([id number]) RX PRESCRIPT ION RX PLAN Nov 04, 2017 [id number] [phone] ANAOCTAVIANO DOSHI SPOUSE CAREBALAJI ([id number])RX PRESCRIPT ION MHBP Nov 04, 2018 [id number] [phone] ANAOCTAVIANO DOSHI SPOUSE CAR[place]ARK ([id number])RX PRESCRIPT ION MHBP Nov 04, 2018 [id number] [phone] ANAOCTAVIANO DOSHI SPOUSE CAREBALAJI ([id number])RX PRESCRIPT ION MH[facility] Nov 04, 2018 [id number] [phone] OCTAVIANO PEREZ SPOUSE CAR[place]ARK ([id number])RX PRESCRIPT ION [facility] Nov 04, 2018 [id number] [phone] OCTAVIANO PEREZ SPOUSE HUMANA MCR (WNR) MEDICARE ADVANTAGE [facility] (WNR) Nov 04, 2018 [id number] OCTAVIANO PEREZ PATIENT MEDICARE (WNR) MEDICARE (M) PART A May 04, 2009 PART A [id number] [phone] OCTAVIANO PEREZ PATIENT MEDICARE (WNR) MEDICARE (M) PART B May 04, 2009 PART B [id number] OCTAVIANO PEREZ PATIENT MEDICARE (WNR) MEDICARE (M) PART B May 04, 2009 PART B [id number] OCTAVIANO PEREZ PATIENT MEDICARE (WNR) MEDICARE (M) PART A May 04, 2009 PART A [id number] OCTAVIANO PEREZ PATIENT -FO R-LIFE TRICA RE FOR LIFE WNR Nov 04, 2017 FOR LIFE [id number] [phone] OCTAVIANO PEREZ PATIENT Selected Encounter This section includes the information on record at [place] for the Encounter. Date/Time Encounter Type Encounter Description Reason Provider Source Jan 14, 2024 07:45 AM HEARING AID REPAIR/MODIFYIN G AUDIOLOGY ICD-10-CM H90.3 Sensorineural hearing loss, bilateral IBRAHIMA WOODARD Smith Encounter Template Text not used by [place] Assessments - Encounter Diagnoses This section includes the primary and secondary diagnoses documented for the Encounter. Date/Time Primary/Secondary Diagnosis Diagnosis Name Provider Source Jan 14, 2024 08:45 AM PRIMARY Sensorineural hearing loss, bilateral RADHA WOODARD [facility] Plan of Treatment: Future Appointments [...] 20 appointments. The data comes from all [place] treatment facilities. Appointment Date/Time Appointment Type Appointme nt Facility Name Feb 06, 2024 08:00 AM AMBULATORY - MEDICINE [facility] March 10, 2024 03:30 PM AMBULATORY - MEDICINE [facility] Apr 14, 2024 03:00 PM AMBULATORY - NONE [facility] Apr 16, 2024 01:30 PM AMBULATORY - PSYCHIATRY [facility] May 14, 2024 01:00 PM AMBULATORY - MEDICINE [facility] Jun 03, 2024 09:45 AM AMBULATORY - REHAB MEDICIN E [facility] Jun 03, 2024 10:00 AM AMBULATORY - NONE [facility] Jun 11, 2024 09:30 AM AMBULATORY - MEDICINE [facility] Jul 09, 2024 02:30 PM AMBULATORY - NONE [facility] Jul 15, 2024 12:30 PM AMBULATORY - PSYCHIATRY [facility] Jul 16, 2024 11:00 AM AMBULATORY - SURGERY . [facility] Social History: Smoking Status (Most current) and Tobacco Use (All prior to encounter date) This section includes the most current, and the historical, smoking and tobacco- related health factors from the [place] facility where the Encounter took place. Current Smoking Status This section includes the most current smoking, or tobacco-related health factor, from the [place] facility where the Encounter took place. Date/Time Current Smoking Status Comment Tony ity Feb 19, 2023 08:00 AM VA-TOBACCO FORMER USER [facility] Tobacco Use History This section includes a history of the smoking, or tobacco-related health factors, that were collected on or before the date of the Encounter. The data comes from the [place] facility where the Encounter took place. Date/Time Smoking Status/Tobacco Use Comment F acility Feb 19, 2023 08:00 AM [place]-TOBACCO QUIT 15 YRS OR MORE [facility] March 05, 2022 03:00 PM VA-TOBACCO FORMER USER [facility] March 05, 2022 03:00 PM VA-TOBACCO QUIT 5 TO < 15 YRS [facility] Feb 06, 2021 11:00 AM VA-TOBACCO FORMER USER [facility] Feb 06, 2021 11:00 AM VA-TOBACCO QUIT 15 YRS OR MORE [facility] Nov 19, 2019 04:05 PM VA-TOBACCO FORMER USER [facility] Nov 19, 2019 04:05 PM VA-TOBACCO QUIT 5 TO < 15 YRS [facility] Oct 30, 2018 02:11 PM VA-TOBACCO FORMER USER [facility] Oct 30, 2018 02:11 PM VA-TOBACCO QUIT 5 TO < 15 YRS [facility] Advance Directives: All historical and current Section Date Range: From patient's date of to the date document was created. This section includes ALL of a patient's completed or amended [place] Advance and Rescinded Directives. The entries below indicate that a directive exists for the patient, but an actual copy is not included with this document. The data comes from all [facility]. Date Advance Directives Provider Source Apr 24, 2019 ADVANCE DIRECTIVE DANY RHODES [facility] Radiology Reports: +/- 30 days of [...] the Encounter. The data comes from all [place] treatment facilities. Date/Time Radiology Report Provider Source Feb 06, 2024 07:22 AM US ABDOMEN AORTA ( AAA), LIMITED: OCTAVIANO PEREZ [id number] -1945 M [facility] Date: FEB 06, 2024@07:22 Req Phys: QUYEN MIJARES Loc: [facility] E7 PCP (Req'g Loc) Img Loc: [facility]UL[facility] Service: Unknown (Case [id number] COMPLETE) US ABDOMEN AORTA (AAA), LIMITED (US Detailed) CPT:03114 Reason for Study: Follow-up iliac artery aneurysm Clinical History: Report Status: Verified Date Reported: FEB 06, 2024 Date Verified: FEB 06, 2024 Engine Tester E-Sig:/ES/Drake Dutton MD Report: Case [id number] US ABDOMEN AORTA (AAA), LIMITED Ultrasound of the abdominal aorta. Comparison: 01/30/2023 abdominal/pelvic CT Findings: Multiple longitudinal and transverse grayscale sonographic images of the abdominal aorta were obtained. Proximal abdominal aorta measures 2.8 x 2.7 cm. The mid abdominal aorta measures 2.4 x 2.3 cm. The distal abdominal aorta measures 2.1 x 2.1 cm. Proximal common iliac arteries measure 1.3 x 1.3 cm on the right and 1.3 x 1.4 cm on the left. It should be noted that only the proximal aspect of the common iliac arteries is well evaluated sonographically, the more distal aspect deeper within the pelvis, difficult to definitively characterize. Impression: No abdominal aortic aneurysm. Visualized portions of both common iliac arteries appear within normal limits; but the distal common iliac arteries, deeper within the pelvis, are difficult to visualize. Primary Interpreting Staff: Drake Dutton MD, Radiologist (Engine Tester) /DRAKE JAY [facility] Encounter Notes: All associated encounter notes This section contains the clinical notes associated to the Encounter. Date/Time Encounter Note(s) Provider Source Jan 14, 2024 08:36 AM AUDIOLOGY VENEER CUTTER NOTE: LOCAL TITLE: HEARING AIDS STL STANDARD TITLE: AUDIOLOGY VENEER CUTTER NOTE DATE OF NOTE: JAN 14, 2024@08:36 ENTRY DATE: JAN 14, 2024@08:36:31 AUTHOR: JOSE WOODARD COSIGNER: URGENCY: STATUS: COMPLETED SUBJECT: aUDIO HEARING AIDS STL Has ADDENDA HAC Page reported to clinic today for updated audio; HAC following audio. Otoscopy: clear, AU. 10/07/20 SONOVA PHONAK AUDEO M90-R CARMENZA R [id number] [facility] (CD) 10/07/20 SONOVA PHONAK AUDEO M90-R CARMENZA L [id number] [facility] (CD) [2M receivers, acrylic canal slim tip molds] Page's hearing aids were cleaned and checked; wax guards replaced & microphone ports brushed; listening check revealed WNL device function. Devices connected to LINDA and data logging revealed approximately 12.1+ hours of daily use. Devices kept disconnecting from LINDA, advised that devices should be sent in for repair; is in good agreement with this plan. Programming adjustments made: o Coupling verified in fitting software. o Reprogrammed to most recent audiometric data using NAL-NL2 targets. o Frequency lowering disabled. Page is satisfied with sound quality and level of devices; no additional adjustments made. Right slim tip mold broken; replacement ordered. Page took his repairer cylinder heads and charging cable with him. RECOMMENDATIONS: 1. When hearing aids return from repair and new right slim tip mold arrive, couple right slim tip mold and mail to (label made): [address] [place] [phone] [place] [phone] /willie/ FEI FITZGERALD Staff Rim Fire Priming Operator, NADEEN, CCC-A Signed: 01/14/2024 08:46 01/17/2024 ADDENDUM STATUS: COMPLETED 01/14/24 [id number] SERV REQ - EARMOLD CJR COMPLETE PHONAK AUDEO M90-R R Certified new right slim tip mold, holding in this provider's bin until LT & RT devices return from repair. /willie/ FEI FITZGERALD Staff Rim Fire Priming OperatorNADEEN, CCC-A Signed: 01/17/2024 16:10 01/27/2024 ADDENDUM STATUS: COMPLETED Received repaired right & left hearing aids; coupled right to held slim tip mold; Hearing aids mailed to Page. 01/14/24 [id number] SERV REQ - REP CJR CLOSED [id number] PHONAK AUDEO M90-R R 01/14/24 [id number] SERV REQ - REP CJR CLOSED [id number] PHONAK AUDEO M90-R R /es/ FEI FITZGERALD Staff Rim Fire Priming OperatorNADEEN, CCC-A Signed: 01/27/2024 14:00 01/28/2024 ADDENDUM STATUS: COMPLETED [id number] /es/ FEI FITZGERALD Staff Rim Fire Priming Operator, NADEEN, CCC-A Signed: 01/28/2024 13:12 FEI WOODARD [facility]
--- OUTSIDE RECORDS SUMMARY | 2024-11-26 13:18 | XMS_ITS ---
Author Name [facility] [place] [facility] [place] Address [address] [place] [address] Care Team Providers Care Liner Inserter Name Role Phone QUYEN MIJARES Primary Care [...] POINT OF SERVICE [facility] Nov 04, 2023 [id number] [phone] VIKKI PEREZ SPOUSE AETNA-[facility] POINT OF SERVICE [facility] Nov 04, 2018 [id number] [phone] VIKKI PEREZ SPOUSE CAREBALAJI ([id number]) RX PRESCRIPT ION RX PLAN Nov 04, 2017 [id number] [phone] ANAOCTAVIANO DOSHI SPOUSE CAREBALAJI ([id number])RX PRESCRIPT ION [facility] Nov 04, 2018 [id number] [phone] ANA JACIOCTAVIANO SPOUSE CAREBALAJI ([id number])RX PRESCRIPT ION [facility] Nov 04, 2018 [id number] [phone] OCTAVIANO PEREZ SPOUSE CAREBALAJI ([id number])RX PRESCRIPT ION [facility] Nov 04, 2018 [id number] [phone] OCTAVIANO PEREZ SPOUSE [facility] ([id number])RX PRESCRIPT ION [facility] Nov 04, 2018 [id number] [phone] OCTAVIANO PEREZ SPOUSE [employer] MCR (WNR) MEDICARE ADVANTAGE [facility] (WNR) Nov 04, 2018 [id number] OCTAVIANO PEREZ PATIENT MEDICARE (WNR) MEDICARE (M) PART A May 04, 2009 PART A [id number] [phone] OCTAVIANO PEREZ PATIENT MEDICARE (WNR) MEDICARE (M) PART B May 04, 2009 PART B [id number] [phone] OCTAVIANO PEREZ PATIENT MEDICARE (WNR) MEDICARE (M) PART B May 04, 2009 PART B [id number] OCTAVIANO PEREZ PATIENT MEDICARE (WNR) MEDICARE (M) PART A May 04, 2009 PART A [id number] [phone] OCTAVIANO PEERZ PATIENT -FO R-LIFE TR[facility] RE FOR LIFE WNR Nov 04, 2017 FOR LIFE [id number] [phone] OCTAVIANO PEREZ PATIENT Selected Encounter This section includes the information on record at [place] for the Encounter. Date/Time Encounter Type Encounter Description Reason Provider Source Nov 13, 2024 09:00 AM OFFICE O/P EST LOW 20 MIN OPTOMETRY ICD-10-CM E11.9 Type 2 diabetes mellitus without complications ERASMO GARDNER [facility] Encounter Template Text not used by [place] Assessments - Encounter Diagnoses This section includes the primary and secondary diagnoses documented for the Encounter. Date/Time Primary/Secondary Diagnosis Diagnosis Name Provider Source Nov 13, 2024 01:23 PM PRIMARY Type 2 diabetes mellitus without complications TAMMY GARDNER [facility] Nov 13, 2024 01:23 PM SECONDARY Age-related nuclear cataract, bilateral TAMMY GARDNER [facility] Nov 13, 2024 01:23 PM SECONDARY Dry eye syndrome of bilateral lacrimal glands TAMMY GARDNER [facility] Nov 13, 2024 01:23 PM SECONDARY Ocular hypertension, left eye TAMMY GARDNER [facility] Nov 13, 2024 01:23 PM SECONDARY Presbyopia TAMMY GARDNER [facility] Nov 13, 2024 01:23 PM SECONDARY [facility]inal hemorrhage, [facility] Nov 13, 2024 01:23 PM SECONDARY Unspecified astigmatism, bilateral TAMMY GARDNER [facility] Plan of Treatment: Future Appointments (+ 6 months) and Future Tests (+/- 45 days) The Plan of Treatment section includes future care activities for the patient from all [place] treatmentfacilities. This section includes future appointments and future orders which are active, pending or scheduled. Future Appointments This section includes appointments that were scheduled to occur 6 months from the date of the Encounter, up to a maximum of 20 appointments. The data comes from all [place] treatment facilities. Appointment Date/Time Appointment Type Appointme nt Facility Name Nov 25, 2024 04:30 PM AMBULATORY - NONE [facility] Dec 04, 2024 01:00 PM AMBULATORY - MEDICINE [facility] Dec 24, 2024 02:00 PM AMBULATORY - PSYCHIATRY [facility] Dec 29, 2024 02:30 PM AMBULATORY - NONE [facility] Feb 12, 2025 11:00 AM AMBULATORY - SURGERY [facility] Lab Results: +/- 30 days of the encounter This section includes the Chemistry and Hematology Lab Results on record with [place] for the patient. Radiology Reports and Pathology Reports are provided separately, in subsequent sections. Lab Results This section contains the Chemistry/Hematology Results that were resulted 30 days before or 30 daysafter the date of the Encounter. Date/Time Source Result Type Result - Unit Interpretation Reference Range Comment Nov 13, 2024 11:16 AM [facility] URINALYSIS W/ CX REFLEX (STL-PB) Specimen Type: URINE No comment entered. Ordering Provider: SAWYER MIJARES Report Released Date/Time: Nov 13, 2024 10:48 AM Reporting Lab: [facility] [place] [address] Performing Lab: [facility] [place] [address] URINE COLOR Yellow Yellow U.BILIRUBIN Negative mg/dL Negative U.PH 6.5 5.0-8.0 URINE WBC/HPF >182 /[HPF] H 0-5 URINE RBC/HPF 26 /[HPF] H 0-5 APPEARANCE Ex.Turbid Clear U.NITRITE Negative mg/dL Negative WBC Clumps FEW /[HPF] Negative -Ra re BACTERIA RARE /[HPF] Negative URN.GLUCOSE Normal mg/dL Negative URN.PROTEIN 30 mg/dL H URN.UROBILINOGEN Normal mg/dL Normal URN.BLOOD 1+ mg/dL H Negative-T r serenity URN.KETONES Negative mg/dL Negative-Tr serenity URN.LEUK.EST. 500 mg/dL H Negati ve-Tr serenity URN.SPECIFIC GRAVITY 1.018 Nov 13, 2024 11:11 AM [facility] HGA1C Specimen Type: BLOOD No comment entered. Ordering Provider: SAWYER MIJARES Report Released Date/Time: Nov 13, 2024 10:48 AM Reporting Lab: [facility] [place] [address] Performing Lab: [facility] [place] [address] HGA1C 7.1 H 4.0-6.0 Nov 13, 2024 11:11 AM [facility] TSH (MA-PB) Specimen Type: SERUM No comment entered. Ordering Provider: SAWYER MIJARES Report Released Date/Time: Nov 13, 2024 10:48 AM Reporting Lab: [facility] [place] [address] Performing Lab: [facility] [place] [address] TSH 1.716 u[IU]/mL 0.470-5.000 Nov 13, 2024 11:11 AM [facility] VITAMIN D, 25-HYDROXY Specimen Type: SERUM No comment entered. Ordering Provider: SAWYER MIJARES Report Released Date/Time: Nov 13, 2024 10:48 AM Reporting Lab: [facility] [place] [address] Performing Lab: [facility] [place] [address] VITAMIN D, 25-HYDROXY 43.9 ng/mL 30-96 Nov 13, 2024 11:11 AM [facility] LIPID PANEL (STL) Specimen Type: PLASMA Comment: No hemolysis noted. Ordering Provider: SAWYER MIJARES Report Released Date/Time: Nov 13, 2024 10:48 AM Reporting Lab: [facility] [place] [address] Performing Lab: [facility] [place] [address] CHOLESTEROL 137 mg/dL 0-200 TRIGLYCERIDE 114 mg/dL 0-150 CALCULATED LDL 85 mg/dL See Interp HDL(New) 29 mg/dL L > 40 Nov 13, 2024 11:11 AM [facility] B12 Specimen Type: SERUM No comment entered. Ordering Provider: SAWYER MIJARES Report Released Date/Time: Nov 13, 2024 10:48 AM Reporting Lab: [facility] [place] [address] Performing Lab: [facility] [place] [address] B12 771 pg/mL 213-816 Nov 13, 2024 11:11 AM [facility] COMPREHENSIVE METABOLIC PANEL Specimen Type: PLASMA Comment: No hemolysis noted. Ordering Provider: SAWYER MIJARES Report Released Date/Time: Nov 13, 2024 10:48 AM Reporting Lab: [facility] [place] [address] Performing Lab: [facility] [place] [address] CREATININE 1.04 mg/dL 0.70-1.30 UREA NITROGEN 16.8 mg/dL 9.0-25.0 GLUCOSE 141 mg/dL H 72-99 SODIUM 140 meq/L 136-145 POTASSIUM 4.3 meq/L 3.5-5.0 CHLORIDE 104 meq/L 98-107 CARBON DIOXIDE 28 meq/L 22-31 CALCIUM 9.7 mg/dL 8.4-10.4 PROTEIN 7.2 g/dL 6.0-8.6 ALBUMIN 4.2 g/dL 3.4-5.0 TOTAL BILIRUBIN 0.5 mg/dL 0.2-1.2 ALKALINE PHOSPHATASE 58 U/L 40-150 AST/SGOT 16 U/L 5-34 ALT/SGPT 16 U/L 8-40 EGFR (CKD-EPI 2020) 73.50 >60 Nov 13, 2024 11:11 AM [facility] CBC Specimen Type: BLOOD No comment entered. Ordering Provider: SAWYER MIJARES Report Released Date/Time: Nov 13, 2024 10:48 AM Reporting Lab: [facility] [id number] Performing Lab: [facility] [id number] WBC 9.5 10*3/uL 3.6-11.2 RBC 4.53 10*6/uL 4.10-5.70 HGB 13.7 g/dL 13.1-16.8 HCT 41.5 38.2-48.4 MCV 91.6 fL 80.0-100.0 MCH 30.2 pg 27.0-34.0 MCHC 33.0 g/dL 33.0-36.0 PLT 243 10*3/uL 150-400 MPV 8.6 fL 7.5-11.2 RDW 13.1 11.8-15.1 LYMPHOCYTES, AUTO % 16 MONOCYTES, AUTO % 11 NEUTROPHILS, AUTO % 69 EOSINOPHILS, AUTO % 4 BASOPHILS, AUTO % 1 LYMPHOCYTES, ABSOLUTE 1.49 10*3/uL 0.77-4.50 MONOCYTES, ABSOLUTE 0.99 10*3/uL H 0.19-0.80 NEUTROPHILS, ABSOLUTE 6.48 10*3/uL 2.10-8.00 EOSINOPHILS, ABSOLUTE 0.39 10*3/uL 0.00-0.60 BASOPHILS, ABSOLUTE 0.06 10*3/uL 0.00-0.20 Vital Signs: All taken on the encounter date This section contains inpatient and outpatient Vital Signs collected on the date of the Encounter. Date/Time Temperature Pulse Blood Pressure Respiratory Rate SP02 Pain Height Weight Body Mass Index Source Nov 13, 2024 10:24 AM 97 79 122/80 14 99 0 64 152 26 [facility] Social History: Smoking Status (Most current) and Tobacco Use (All prior to encounter date) This section includes the most current, and the historical, smoking and tobacco- related health factors from the AL facility where the Encounter took place. Current Smoking Status This section includes the most current smoking, or tobacco-related health factor, from the AL facility where the Encounter took place. Date/Time Current Smoking Status Comment Facil ity March 10, 2024 03:30 PM VA-TOBACCO QUIT 15 YRS OR MORE [facility] Tobacco Use History This section includes a history of the smoking, or tobacco-related health factors, that were collected on or before the date of the Encounter. The data comes from the [place] facility where the Encounter took place. Date/Time Smoking Status/Tobacco Use Comment F acility March 10, 2024 03:30 PM VA-TOBACCO QUIT 15 YRS OR MORE [facility] Feb 19, 2023 08:00 AM VA-TOBACCO FORMER USER [facility] Feb 19, 2023 08:00 AM VA-TOBACCO QUIT 15 YRS OR MORE [facility] March 05, 2022 03:00 PM VA-TOBACCO FORMER USER [facility] March 05, 2022 03:00 PM VA-TOBACCO QUIT 5 TO < 15 YRS [facility] Feb 06, 2021 11:00 AM VA-TOBACCO FORMER USER [facility] Feb 06, 2021 11:00 AM VA-TOBACCO QUIT 15 YRS OR MORE [facility] Nov 19, 2019 04:05 PM VA-TOBACCO FORMER USER [facility] Nov 19, 2019 04:05 PM VA-TOBACCO QUIT 5 TO < 15 YRS [facility] Oct 30, 2018 02:11 PM VA-TOBACCO FORMER USER [facility] Oct 30, 2018 02:11 PM AL-TOBACCO QUIT 5 TO < 15 YRS [facility] Advance Directives: All historical and current Section Date Range: From patient's date of to the date document was created. This section includes ALL of a patient's completed or amended [place] Advance and Rescinded Directives. The entries below indicate that a directive exists for the patient, but an actual copy is not included with this document. The data comes from all [facility]. Date Advance Directives Provider Source Apr 24, 2019 ADVANCE DIRECTIVE DANY RHODES [facility] Radiology Reports: +/- 30 days [...] the Encounter. The data comes from all [place] treatment facilities. Date/Time Radiology Report Provider Source Nov 25, 2024 03:[address] HEAD W/O CONT: OCTAVIANO PEREZ JOSE [id number] -1945 M Ex Date: NOV 25, 2024@15:52 Req Phys: QUYEN MIJARES Loc: [facility] E7 PCP (Req'g Loc) Img Loc: [facility] Service: [address] [address] (Case 210 COMPLETE) CT HEAD W/O CONT (CT Detailed) CPT:42898 Reason for Study: Episodes of mental status change Clinical History: Responsible Attending: Carlos Attending Contact Number: [phone] Resident Contact Number: Allergies listed in CPRS chart: ERYTHROMYCIN Creatinine: CREATININE 0.99 mg/dL 11/13/2023 10:02 /eGFR: STL EGFR (within one year). *No Lab Data Found* Wt: 152 lb [68.95 kg] (11/13/2024 10:24) History of: Renal failure, chronic or acute renal disease: NO Report Status: Verified Date Reported: NOV 25, 2024 Date Verified: NOV 25, 2024 Airframe Technical Officer E-Sig:/ES/MERNA BEYER Report: CT HEAD W/O CONT [id number] DATE: 11/25/2024 8:32 PM HISTORY: Episodes of mental status change COMPARISON: 08/08/2021. TECHNIQUE: Helical multidetector axial slices through the brain without intravenous contrast according to center protocol. From the original axial data, sagittal and coronal reconstructions were performed. FINDINGS: No intracranial hemorrhage, mass, acute regional cortical infarction nor obstructive hydrocephalus are observed. There is stable prominent cerebral parenchymal volume loss, particularly within the frontal lobe regions. Only mild focal lucencies within the right frontal periventricular white matter exists. Stable focal calcification at the right paramedian anterosuperior ankita. Normal felix-white matter differentiation. The craniovertebral junction is normal. A diminutive pituitary gland is present. The bony calvarium is intact, again demonstrating lobulated erosions of the inner table within the skull base, predominantly at the posterior fossa and most compatible with arachnoid granulations. 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 The visualized paranasal sinuses and mastoid regions are clear, with previous bilateral partial ethmoidectomies and medial antral window placements again noted. The orbits are unremarkable. Impression: Unchanged examination. No visible acute intracranial pathology. Primary Interpreting Staff: MERNA BEYER, Diagnostic Radiologist (Renee) /MERNA BOSWELL [facility] Pathology Reports: +/- 30 days of the encounter Pathology Reports For cases when an order for pathology services may have been completed prior to the date of the Encounter, the report list includes the Pathology Reports that were completed up to 30 days before dateof the Encounter. For cases when an order for pathology services may have been completed after the date of the Encounter, the report list also includes the Pathology Reports that were completed up to30 days after date of the Encounter. The data comes from all [place] treatment facilities. Date/Time Pathology Report Provider Source Nov 13, 2024 11:16 AM LR MICROBIOLOGY RE PORT: Accession [UID]: [id number] [[id number]] Received: Nov 13, 2024@11:59 Collection sample: URINE,CLEAN CATCH Collection date: Nov 13, 2024 11:16 Site/Specimen: URINE Provider: QUYEN MIJARES Test(s) ordered: C&S URINE..................... completed: Nov 15, 2024 10:03 * BACTERIOLOGY FINAL REPORT => Nov 15, 2024 10:27 TECH CODE: [id number] CULTURE RESULTS: STREP. VIRIDANS - Quantity: >100,000 CFU/ML Comment: Clinically insignificant growth based on current clinical standards. There will be no work up. Bacteriology Remark(s): 11/15/24 [facility] CULTURE COMPLETE. =--=--=--=--=--=--=--=--=--=-- =--=--=--=--=--=--=--=--=--=-- =--=--=--=--=--=-- Performing Laboratory: Bacteriology Report Performed By: [id number]# [id number] [address] [place] [id number] [facility] Encounter Notes: All associated encounter notes This section contains the clinical notes associated to the Encounter. Date/Time Encounter Note(s) Provider Source Nov 13, 2024 01:23 PM OPTOMETRY CONSULT: [facility] TITLE: OPTOMETRY CONSULT [facility] STANDARD TITLE: OPTOMETRY CONSULT DATE OF NOTE: NOV 13, 2024@13:23 ENTRY DATE: NOV 13, 2024@13:23:37 AUTHOR: CIARRA GARDNER EXP COSIGNER: URGENCY: STATUS: COMPLETED Anterior Chamber Analysis 11/13/24 OD: N/T angles open, Gr 4+; flat iris approach; deep anterior chamber OS: N/T angles open, Gr 4+; flat iris approach; deep anterior chamber /willie/ CIARRA GARDNER O.D. Staff Bar Staff, Optometry Signed: 11/13/2024 13:32 CIARRA GARDNER [facility] Nov 13, 2024 09:14 AM OPTOMETRY NOTE: LOCAL TITLE: OPTOMETRY NOTE STANDARD TITLE: OPTOMETRY NOTE DATE OF NOTE: NOV 13, 2024@09:14 ENTRY DATE: NOV 12, 2024@12:49:08 AUTHOR: CIARRA GARDNER EXP COSIGNER: URGENCY: STATUS: COMPLETED Last seen 07/16/24 Reason for visit: Ocular Health CC: 1. OS dry eye - itches, some days okay, some days are terrible - blurry vision OS - OD with glasses 2. Diabetes Type 2 - Patient is on - Last blood sugar: 166 - Last HbA1C: 6.3 H % Patient has no other ocular complaints or vision changes Ocular meds: ATs PRN OU Ocular ROS: (-) Surgery (-) Trauma (+) Diabetes without hx of retinopathy OU (+) Cataracts OU (+) Dry Eye OU (+) Refractive Error/presbyopia OU Family OcHX: (-) blindness (-) glaucoma (-) AMD (-) RD Cardiovascular ROS: no change from problem & medication lists CPRS Problem list, medications and allergies reviewed: [facility] Serology for Diabetes GLUCOSE 97 mg/dL 11/13/2023 10:02 HGA1C 6.3 H % 11/13/2023 10:02 Cardiovascular BP: 107/75 (10/15/2024 08:32) Pulse: 78 (10/15/2024 08:32) Neuro: Orientation: Normal Psych: Mood/Affect: Normal Depression/suicide ideation: NO VISUAL ACUITY With correction Distance Visual Acuity OD 20/20 OS 20/30 Pupils PERRL OU (-)APD Confrontation: FTFC OU Extra-Ocular Muscles Full OU, (-) diplopia, (-) pain Externals/adnexa: Unremarkable OU Refraction: 07/16/24 O.D. plano -0.75 x040 20/20 O.S. +0.50 -2.00 x060 20/20- Add: + 2.50 11/13/24 OD -0.25 - 0.50 x 035 20/20 OS +0.25 - 2.25 x 064 20/25 Add: + 2.50 SLIT LAMP EXAMINATION Lids/Lashes/Lacrimal No blepharitis OU, mild telangiectasia and scalloped lids OU Conjunctiva/Sclera White/quiet OU Cornea Clear OU Ant Chamber Deep and quiet OU; no cells or flare Iris Normal, (-)NVI OU Lens Gr 1-2 NS cataract OU Intraocular Pressures (Goldmann) 1 gtt fluress Date: O.D. O.S. Time Meds 07/16/24 17 17 11:20 none difficult, squeezing 11/13/24 20 30 0941 none 11/13/24 20 30 1000 post-dilation, lids held RETINAL EVALUATION 1 phenyleph 2.5%, 1 trop 1% OU Pt educated on temporary effects of dilation drops such as light sensitivityand blurry vision. DFE Dilated retinal exam Optic Nerve OD: 0.3 CDR Flat, pink, distinct (-)NVD OS: 0.4 CDR Flat, pink, distinct (-)NVD Vessels: 2/3 OU; no tortuosity noted Posterior Pole: OD: (-) Hemorrhages (-) exudates (-) cotton wool spots OS: (-) Hemorrhages (-) exudates (-) cotton wool spots Macula: OD: Flat, clear (-)CSME OS: Flat, clear (-)CSME Periphery: OD: Flat and attached; no holes, tears, detachments 360 OS: Flat and attached; no holes, tears, detachments 360 2 blot hemes temp Vitreous: No PVD OU Assessment/Plan 11/13/24 1. Diabetes without retinopathy - Last HgA1C 6.3% - No CSME noted on clinical examination - Educated patient on today's findings and the affect Diabetes can have on vision. Recommended pt keep HbA1C below 7.0% - Monitor yearly 2. Ocular Hypertension OS - CDRs: 0.30 OD, 0.40 OS - IOPs today: 20/30 - Attempted gonio today, however pt has severe blepharospasm - Anterior Chamber Analysis: OU: N/T angles open, Gr 4+; flat iris approach; deep anterior chamber - (-) family hx - Started patient on Latanoprost qhs OS ONLY Discussed drop regimen and side effects with patient. Recommended pt instill drop in medial canthus and blink drop in, d/t difficulties w/ drop instillation today. Ordered drop to be picked up at pharmacy window - Educated patient on today's findings and the importance of monitoring closely as well as coming to follow-ups as indicated - Monitor in 3 months with IOP check 3. Retinal hemorrhages OS - Noted temporal periphery on clinical examination - When questioned, pt stated he has had some straining in the past few weeks - Educated patient on today's findings, emphasizing pt RTC should he note any vision changes - Monitor in 6 months with repeat DFE 4. Cataracts OU - not visually significant - Surgery not recommended at this time - Monitor yearly for progression 5. Dry Eyes OU - patient symptomatic - Continue ATs QID/PRN OU Refilled drops to be picked up at pharmacy window - Monitor yearly 6. Refractive error/Presbyopia - increase in bva w/refraction - Ordered new glasses for patient today - Monitor yearly Ed. Pt on all findings and given the opportunity to have questions answered RTC in 3 months for IOP check, 6 months for DFE; sooner PRN /es/ CIARRA GARDNER O.D. Staff Bar Staff, Optometry Signed: 11/13/2024 13:39 CIARRA GARDNER [facility]
--- OUTSIDE RECORDS SUMMARY | 2024-11-26 13:18 | XMS_ITS ---
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 Crusher Name Role Phone QUYEN MIJARES Primary Care [...] POINT OF SERVICE [facility] Nov 04, 2023 [id number] [phone] [id number] [phone] VIKKI PEREZ SPOUSE AETNA-[facility] POINT OF SERVICE [facility] Nov 04, 2018 [id number] [phone] VIKKI PEREZ SPOUSE CAREBALAJI ([id number]) RX PRESCRIPT ION RX PLAN Nov 04, 2017 [id number] [phone] ANAOCTAVIANO DOSHI SPOUSE CAREBALAJI ([id number])RX PRESCRIPT ION [facility] Nov 04, 2018 [id number] [phone] ANAOCTAVIANO DSOHI SPOUSE CAREBALAJI ([id number])RX PRESCRIPT ION [facility] Nov 04, 2018 [id number] [phone] ANAOCTAVIANO DOSHI SPOUSE CAREBALAJI ([id number])RX PRESCRIPT ION [facility] Nov 04, 2018 [id number] [phone] OCTAVIANO PEREZ SPOUSE [facility] ([id number])RX PRESCRIPT ION [facility] Nov 04, 2018 [id number] [phone] OCTAVIANO PEREZ SPOUSE [employer] MCR (WNR) MEDICARE ADVANTAGE [facility] (WNR) Nov 04, 2018 [id number] OCTAVIANO PEREZ PATIENT MEDICARE (WNR) MEDICARE (M) PART A May 04, 2009 PART A [id number] OCTAVIANO PEREZ PATIENT MEDICARE (WNR) MEDICARE (M) PART B May 04, 2009 PART B [id number] OCTAVIANO PEREZ PATIENT MEDICARE (WNR) MEDICARE (M) PART B May 04, 2009 PART B [id number] [phone] OCTAVIANO PEREZ PATIENT MEDICARE (WNR) MEDICARE (M) PART A May 04, 2009 PART A [id number] OCTAVIANO PEREZ PATIENT -FO R-LIFE TR[facility] RE FOR LIFE WNR Nov 04, 2017 FOR LIFE [id number] [phone] OCTAVIANO PEREZ PATIENT Selected Encounter This section includes the information on record at [place] for the Encounter. Date/Time Encounter Type Encounter Description Reason Provider Source Jan 14, 2024 07:45 AM TYMPANOMETRY & REFLEX THRESH AUDIOLOGY ICD-10-CM H90.3 Sensorineural hearing loss, bilateral IBRAHIMA WOODARD Smith Encounter Template Text not used by [place] Assessments - Encounter Diagnoses This section includes the primary and secondary diagnoses documented for the Encounter. Date/Time Primary/Secondary Diagnosis Diagnosis Name Provider Source Jan 14, 2024 08:29 AM PRIMARY Sensorineural hearing loss, bilateral RADHA WOODARD [facility] Plan of Treatment: Future Appointments (+ [...] 20 appointments. The data comes from all [place] treatment facilities. Appointment Date/Time Appointment Type Appointme nt Facility Name Feb 06, 2024 08:00 AM AMBULATORY - MEDICINE [facility] March 10, 2024 03:30 PM AMBULATORY - MEDICINE [facility] Apr 14, 2024 03:00 PM AMBULATORY - NONE [facility] Apr 16, 2024 01:30 PM AMBULATORY - PSYCHIATRY [facility] May 14, 2024 01:00 PM AMBULATORY - MEDICINE [facility] Jun 03, 2024 09:45 AM AMBULATORY - REHAB MEDICIN [facility] Jun 03, 2024 10:00 AM AMBULATORY - NONE [facility] Jun 11, 2024 09:30 AM AMBULATORY - MEDICINE [facility] Jul 09, 2024 02:30 PM AMBULATORY - NONE [facility] Jul 15, 2024 12:30 PM AMBULATORY - PSYCHIATRY [facility] Jul 16, 2024 11:00 AM AMBULATORY - SURGERY . [facility] Social History: Smoking Status (Most current) and Tobacco Use (All prior to encounter date) This section includes the most current, and the historical, smoking and tobacco- related health factors from the [place] facility where the Encounter took place. Current Smoking Status This section includes the most current smoking, or tobacco-related health factor, from the [place] facility where the Encounter took place. Date/Time Current Smoking Status Comment Tony ity Feb 19, 2023 08:00 AM VA-TOBACCO FORMER USER [facility] Tobacco Use History This section includes a history of the smoking, or tobacco-related health factors, that were collected on or before the date of the Encounter. The data comes from the [place] facility where the Encounter took place. Date/Time Smoking Status/Tobacco Use Comment F acaminah Feb 19, 2023 08:00 AM [place]-TOBACCO QUIT 15 YRS OR MORE [facility] March 05, 2022 03:00 PM VA-TOBACCO FORMER USER [facility] March 05, 2022 03:00 PM VA-TOBACCO QUIT 5 TO < 15 YRS [facility] Feb 06, 2021 11:00 AM VA-TOBACCO FORMER USER [facility] Feb 06, 2021 11:00 AM VA-TOBACCO QUIT 15 YRS OR MORE [facility] Nov 19, 2019 04:05 PM VA-TOBACCO FORMER USER [facility] Nov 19, 2019 04:05 PM VA-TOBACCO QUIT 5 TO < 15 YRS [facility] Oct 30, 2018 02:11 PM VA-TOBACCO FORMER USER [facility] Oct 30, 2018 02:11 PM VA-TOBACCO QUIT 5 TO < 15 YRS [facility] Advance Directives: All historical and current Section Date Range: From patient's date of to the date document was created. This section includes ALL of a patient's completed or amended [place] Advance and Rescinded Directives. The entries below indicate that a directive exists for the patient, but an actual copy is not included with this document. The data comes from all [facility]. Date Advance Directives Provider Source Apr 24, 2019 ADVANCE DIRECTIVE DANY RHODES [facility] Radiology Reports: +/- 30 days of the [...] the Encounter. The data comes from all [place] treatment facilities. Date/Time Radiology Report Provider Source Feb 06, 2024 07:22 AM US ABDOMEN AORTA ( AAA), LIMITED: OCTAVIANO PEREZ [id number] -1945 M [facility] Date: FEB 06, 2024@07:22 Req Phys: QUYEN MIJARES Loc: [facility]7 PCP (Req'g Loc) Img Loc: [facility] Service: Unknown (Case [id number] COMPLETE) US ABDOMEN AORTA (AAA), LIMITED (US Detailed) CPT:39947 Reason for Study: Follow-up iliac artery aneurysm Clinical History: Report Status: Verified Date Reported: FEB 06, 2024 Date Verified: FEB 06, 2024 Women'S Activities Adviser E-Sig:/ES/Drake Dutton MD Report: [id number] US ABDOMEN AORTA (AAA), LIMITED Ultrasound of [...] Primary Interpreting Staff: Drake Dutton MD, Radiologist (Women'S Activities Adviser) /DRAKE JAY [facility] Encounter Notes: All associated encounter notes This section contains the clinical notes associated to the Encounter. Date/Time Encounter Note(s) Provider Source Jan 14, 2024 07:37 AM AUDIOLOGY [facility] TITLE: AUDIO [facility] STANDARD TITLE: AUDIOLOGY E & M NOTE DATE OF NOTE: JAN 14, 2024@07:37 ENTRY DATE: JAN 14, 2024@07:38:47 AUTHOR: JOSE WOODARD COSIGNER: URGENCY: STATUS: COMPLETED SUBJECT: Hearing Audiogram: Purpose of appointment: audio [x] initiated visit Case history: Otoscopic evaluation: normal AU. 's main complaint is bilateral hearing loss. Sterling reports that his hearing has decreased since last test. Sterling scheduled today for audio/HAE due to lost hearing aids, however reported to appointment with his hearing aids. reports significant, long-standing fullness in his left ear that he reports is worse somedays compared to others. Sterling reports that he feels like it makes his hearing worse in the left ear. reports a history of sinus surgery which he thinks is related. reports intermittent, long-standing tinnitus that is more noticeable in the left ear, that he described as non-bothersome in nature. Sterling reports a history of left PE tube; denied any other history of ear surgery or TM perforations. reports approximately one month ago, he had a left ear infection & sinus infection. [facility] [place], where he was given antibiotics which cleared it up. stated that he is prone to problems with his left ear. Sterling denied any ear pain, pressure, and dizziness/vertigo. has 2020 SpineThera M90-R CARMENZA devices (10/07/20). reported devices lost 10/31/2023. -Right slim tip mold broken. - has an Android device. Last evaluation on 08/31/2020. RESULTS: RIGHT EAR Audiometry (air and/or bone conduction): Hearing thresholds WNL from 0.25kHz through 0.75kHz, sloping to severe 6kHz & 8kHz; most significant change at 1kHz & 2kHz. Changes since last test: Significant deterioration of 15 dB HL at 2kHz. Significant deterioration of 30 dB HL at 1kHz. SRT: 55 dB HL with 25 dB HL of contralateral masking noise. WRS: Poor. 68% at 95 dB HL with 65 dB HL of contralateral masking noise. 64% at 100 dB HL with 70 dB HL of contralateral masking noise. [88% at last eval.] Tympanogram: type A Acoustic Reflexes: Ipsilateral: Present at 0.5kHz, 1kHz, & 2kHz; Absent at 4kHz. Contralateral: Absent at 0.5kHz, 1kHz, 2kHz, & 4kHz. LEFT EAR Audiometry (air and/or bone conduction): Hearing thresholds WNL from 0.25kHz through 0.75kHz, sloping to severe at 6kHz & 8kHz; stable since last test. SRT: 35 dB HL with 5 dB HL of contralateral masking noise. WRS: Good. 80% at 75 dB HL with 45 dB HL of contralateral masking noise. [88% at last eval.] Tympanogram: type A Acoustic Reflexes: attempted; positive deflections only. BINAURAL (BOTH EARS) WRS: Excellent. 92% at 95 dB HL in the right ear and 70 dB HL in the left ear. is a candidate for hearing aids. Counseled regarding degree of loss. Discussed full-time commitment and realistic expectations of hearing aids. HAC to follow. Recommendations: 1. HAC to follow. /willie/ FEI FITZGERALD Staff Mesh CutterNADEEN, CCC-A Signed: 01/14/2024 08:36 FEI WOODARD [facility]
--- OUTSIDE RECORDS SUMMARY | 2024-11-26 13:18 | XMS_ITS | Encounter Summary ---
Author Name [facility] [place] [facility] [place] Address [address] [place] [address] Care Team Providers Care Soils Engineer Name Role Phone QUYEN MIJARES Primary Care [...] POINT OF SERVICE [facility] Nov 04, 2023 [id number] VIKKI PEREZ SPOUSE AETNA-[facility]BP POINT OF SERVICE [facility] Nov 04, 2018 [id number] VIKKI PEREZ SPOUSE CAREBALAJI ([id number]) RX PRESCRIPT ION RX PLAN Nov 04, 2017 [id number] [phone] ANAOCTAVIANO DOSHI SPOUSE CAREBALAJI ([id number])RX PRESCRIPT ION [facility]BP Nov 04, 2018 [id number] ANA JACIOCTAVIANO SPOUSE CAREBALAJI ([id number])RX PRESCRIPT ION [facility] Nov 04, 2018 [id number] [phone] OCTAVIANO PEREZ SPOUSE CAREBALAJI ([id number])RX PRESCRIPT ION [facility]BP Nov 04, 2018 [id number] [phone] OCTAVIANO PEREZ SPOUSE CAREMARK ([id number])RX PRESCRIPT ION [facility] Nov 04, 2018 [id number] [phone] OCTAVIANO PEREZ SPOUSE HUMANA MCR (WNR) MEDICARE ADVANTAGE MCR (WNR) Nov 04, 2018 [id number] OCTAVIANO PEREZ PATIENT MEDICARE (WNR) MEDICARE (M) PART A May 04, 2009 PART A [id number] [phone] OCTAVIANO PEREZ PATIENT MEDICARE (WNR) MEDICARE (M) PART B May 04, 2009 PART B [id number] OCTAVIANO PEREZ PATIENT MEDICARE (WNR) MEDICARE (M) PART B May 04, 2009 PART B [id number] [phone] OCTAVIANO PEREZ PATIENT MEDICARE (WNR) MEDICARE (M) PART A May 04, 2009 PART A [id number] [phone] OCTAVIANO PEREZ PATIENT -FO R-LIFE TRICA RE FOR LIFE WNR Nov 04, 2017 FOR LIFE [id number] [phone] OCTAVIANO PEREZ PATIENT Selected Encounter This section includes the information on record at [place] for the Encounter. Date/Time Encounter Type Encounter Description Reason Provider Source Nov 13, 2024 10:00 AM OFFICE O/P EST MOD 30 MIN PRIMARY CARE/MEDICINE ICD-10-CM R41.82 Altered mental status, unspecified QUYEN MIJARES [place] Encounter Template Text not used by [place] Assessments - Encounter Diagnoses This section includes the primary and secondary diagnoses documented for the Encounter. Date/Time Primary/Secondary Diagnosis Diagnosis Name Provider Source Nov 13, 2024 10:55 AM PRIMARY Altered mental status, unspecified QUYEN MIJARES [facility] Nov 13, 2024 10:55 AM SECONDARY Essential (primary) hypertension QUYEN MIJARES [facility] Nov 13, 2024 10:55 AM SECONDARY Gastro-esophageal reflux disease without esophagitis QUYEN MIJARES [facility] Nov 13, 2024 10:55 AM SECONDARY Malignant neoplasm of oropharynx, unspecified CARLOSQUYEN [facility] Nov 13, 2024 10:55 AM SECONDARY Moderate protein-calorie malnutrition CARLOSQUYEN [facility] Nov 13, 2024 10:55 AM SECONDARY Other constipation QUYEN MIJARES [facility] Nov 13, 2024 10:55 AM SECONDARY Type 2 diabetes mellitus without complications QUYEN MIJARES [facility] Plan of Treatment: Future Appointments (+ 6 months) and Future Tests (+/- 45 days) The Plan of Treatment section includes future care activities for the patient from all [place] [facility]. This section includes future appointments and future [...] 25, 2024 04:30 PM AMBULATORY - NONE [facility] Dec 04, 2024 01:00 PM AMBULATORY - MEDICINE [facility] Dec 24, 2024 02:00 PM AMBULATORY - PSYCHIATRY [facility] Dec 29, 2024 02:30 PM AMBULATORY - NONE [facility] Feb 12, 2025 11:00 AM AMBULATORY - SURGERY [facility] Lab Results: +/- 30 days of the [...] Range Comment Nov 13, 2024 11:16 AM [facility] URINALYSIS W/ CX REFLEX (STL-PB) Specimen Type: URINE No comment entered. Ordering Provider: SAWYER MIJARES Report Released Date/Time: Nov 13, 2024 10:48 AM Reporting Lab: [facility] [address] [place] [address] Performing Lab: [facility] [address] [place] [address] URINE COLOR Yellow Yellow U.BILIRUBIN Negative mg/dL [...] GRAVITY 1.018 Nov 13, 2024 11:11 AM [facility] HGA1C Specimen Type: BLOOD No comment entered. Ordering Provider: SAWYER MIJARES Report Released Date/Time: Nov 13, 2024 10:48 AM Reporting Lab: [facility] [place] [address] Performing Lab: [facility] [address] [place] [address] HGA1C 7.1 H 4.0-6.0 Nov 13, 2024 11:11 AM [facility] TSH (MA-PB) Specimen Type: SERUM No comment entered. Ordering Provider: SAWYER MIJARES Report Released Date/Time: Nov 13, 2024 10:48 AM Reporting Lab: [facility] [address] [place] [address] Performing Lab: [facility] [address] [place] [address] TSH 1.716 u[IU]/mL 0.470-5.000 Nov 13, 2024 11:11 AM [facility] VITAMIN D, 25-HYDROXY Specimen Type: SERUM No comment entered. Ordering Provider: SAWYER MIJARES Report Released Date/Time: Nov 13, 2024 10:48 AM Reporting Lab: [facility] [address] [place] [address] Performing Lab: [facility] [address] [facility] [id number] VITAMIN D, 25-HYDROXY 43.9 ng/mL 30-96 Nov 13, 2024 11:11 AM [facility] B12 Specimen Type: SERUM No comment entered. Ordering Provider: SAWYER MIJARES Report Released Date/Time: Nov 13, 2024 10:48 AM Reporting Lab: [facility] [address] [place] [address] Performing Lab: [facility] [address] [place] [address] B12 771 pg/mL 213-816 Nov 13, 2024 11:11 AM [facility] LIPID PANEL (STL) Specimen Type: PLASMA Comment: No hemolysis noted. Ordering Provider: SAWYER MIJARES Report Released Date/Time: Nov 13, 2024 10:48 AM Reporting Lab: [facility] [place] [address] Performing Lab: [facility] [address] [place] [address] CHOLESTEROL 137 mg/dL 0-200 TRIGLYCERIDE 114 mg/dL 0-150 CALCULATED LDL 85 mg/dL See Interp HDL(New) 29 mg/dL L > 40 Nov 13, 2024 11:11 AM [facility] COMPREHENSIVE METABOLIC PANEL Specimen Type: PLASMA Comment: No hemolysis noted. Ordering Provider: SAWYER MIJARES Report Released Date/Time: Nov 13, 2024 10:48 AM Reporting Lab: [facility] [address] [place] [address] Performing Lab: [facility] [facility] [id number] CREATININE 1.04 mg/dL 0.70-1.30 UREA NITROGEN 16.8 [...] 73.50 >60 Nov 13, 2024 11:11 AM [facility] CBC Specimen Type: BLOOD No comment entered. Ordering Provider: SAWYER MIJARES Report Released Date/Time: Nov 13, 2024 10:48 AM Reporting Lab: [facility] [facility] [id number] Performing Lab: [facility] [facility] [id number] WBC 9.5 10*3/uL 3.6-11.2 RBC 4.53 10*6/uL [...] 122/80 14 99 0 64 152 26 [facility] Social History: Smoking Status (Most [...] PM VA-TOBACCO QUIT 15 YRS OR MORE [facility] Tobacco Use History This section includes a history of the smoking, or tobacco-related health factors, that were collected on or before the date of the Encounter. The data comes from the [place] facility where the Encounter took place. Date/Time Smoking Status/Tobacco Use Comment F acility March 10, 2024 03:30 PM VA-TOBACCO QUIT 15 YRS OR MORE [facility] Feb 19, 2023 08:00 AM VA-TOBACCO FORMER USER [facility] Feb 19, 2023 08:00 AM VA-TOBACCO QUIT 15 YRS OR MORE [facility] March 05, 2022 03:00 PM VA-TOBACCO FORMER USER [facility] March 05, 2022 03:00 PM VA-TOBACCO QUIT 5 TO < 15 YRS [facility] Feb 06, 2021 11:00 AM VA-TOBACCO FORMER USER [facility] Feb 06, 2021 11:00 AM VA-TOBACCO QUIT 15 YRS OR MORE [facility] Nov 19, 2019 04:05 PM VA-TOBACCO FORMER USER [facility] Nov 19, 2019 04:05 PM VA-TOBACCO QUIT 5 TO < 15 YRS [facility] Oct 30, 2018 02:11 PM VA-TOBACCO FORMER USER [facility] Oct 30, 2018 02:11 PM VA-TOBACCO QUIT 5 TO < 15 YRS [facility] Advance Directives: All historical and current Section Date Range: From patient's date of to the date document was created. This section includes ALL of a patient's completed or amended [place] Advance and Rescinded Directives. The entries below indicate that a directive exists for the patient, but an actual copy is not included with this document. The data comes from all [place] facilities. Date Advance Directives Provider Source Apr 24, 2019 ADVANCE DIRECTIVE DANY RHODES [facility] Radiology Reports: +/- 30 days [...] PM CT HEAD W/O CONT: OCTAVIANO PEREZ [id number] -[id number] M Exm Date: NOV 25, 2024@15:52 Req Phys: QUYEN MIJARES Loc: [facility] E7 PCP (Req'g Loc) Img Loc: [facility] Service: [facility], [place], operated by [facility], [address] [address] (Case [id number] COMPLETE) CT HEAD W/O CONT (CT Detailed) CPT:61059 Reason for Study: Episodes of mental status change Clinical History: Responsible Attending: Carlos Attending Contact Number: [phone] Resident Contact Number: Allergies listed in CPRS chart: ERYTHROMYCIN Creatinine: CREATININE 0.99 mg/dL 11/13/2023 10:02 /eGFR: STL EGFR (within one year). *No Lab Data Found* Wt: 152 lb [68.95 kg] (11/13/2024 10:24) History of: Renal failure, chronic or acute renal disease: NO Report Status: Verified Date Reported: NOV 25, 2024 Date Verified: NOV 25, 2024 [employer] Machine Helper E-Sig:/ES/MERNA BEYER Report: CT HEAD W/O CONT [id number] DATE: 11/25/2024 8:32 PM HISTORY: Episodes of [...] Primary Interpreting Staff: MERNA BEYER, Diagnostic Radiologist ([employer]oring Machine Helper) /MERNA BOSWELL [facility] Pathology Reports: +/- 30 days of [...] RE PORT: Accession [UID]: [id number] [[id number]] Received: Nov 13, 2024@11:59 Collection sample: URINE,CLEAN CATCH Collection date: Nov 13, 2024 11:16 Site/Specimen: URINE Provider: QUYEN MIJARES Test(s) ordered: C&S URINE..................... completed: Nov 15, 2024 10:03 * BACTERIOLOGY FINAL REPORT => Nov 15, 2024 10:27 TECH CODE: [id number] CULTURE RESULTS: STREP. VIRIDANS - Quantity: >100,000 CFU/ML Comment: Clinically insignificant growth based on current clinical standards. There will be no work up. Bacteriology Remark(s): 11/15/24 SKYLA CULTURE COMPLETE. =--=--=--=--=--=--=--=--=--=-- =--=--=--=--=--=--=--=--=--=-- =--=--=--=--=--=-- Performing Laboratory: Bacteriology Report Performed By: [address]# [id number] [address] [place] [id number] [facility] Encounter Notes: All associated encounter notes This section contains the clinical notes associated to the Encounter. Date/Time Encounter Note(s) Provider Source Nov 15, 2024 08:04 PM PHYSICIAN LETTERS: LOCAL TITLE: TEST RESULT GENERAL LETTER ST STANDARD TITLE: PHYSICIAN LETTERS DATE OF NOTE: NOV 15, 2024@20:04 ENTRY DATE: NOV 15, 2024@20:04:47 AUTHOR: QUYEN MIJARES EXP COSIGNER: URGENCY: STATUS: COMPLETED [address] [address] Nov OCTAVIANO PEREZ [address] [place] [address] [address] [place], [place] [address] Dear OCTAVIANO PEREZ I would like to update you on your recent test results Diabetes is under fair control and worse as compared to previous check. We will discuss it further during follow-up appointment Urine is positive for UTI, please finish your antibiotic as prescribed and follow-up with urologist as scheduled. HGA1C 7.1 H % 11/13/2024 11:11 ------- WBC 9.5 10*3/uL 11/13/2024 11:11 RBC 4.53 10*6/uL 11/13/2024 11:11 HGB 13.7 g/dL 11/13/2024 11:11 HCT 41.5 % 11/13/2024 11:11 MCV 91.6 fL 11/13/2024 11:11 MCH 30.2 pg 11/13/2024 11:11 MCHC 33.0 g/dL 11/13/2024 11:11 RDW 13.1 % 11/13/2024 11:11 PLT 243 10*3/uL 11/13/2024 11:11 MPV 8.6 fL 11/13/2024 11:11 NEUTROPHILS, AUTO % 69 % 11/13/2024 11:11 LYMPHOCYTES, AUTO % 16 % 11/13/2024 11:11 MONOCYTES, AUTO % 11 % 11/13/2024 11:11 EOSINOPHILS, AUTO % 4 % 11/13/2024 11:11 BASOPHILS, AUTO % 1 % 11/13/2024 11:11 NEUTROPHILS, ABSOLUTE 6.48 10*3/uL 11/13/2024 11:11 LYMPHOCYTES, ABSOLUTE 1.49 10*3/uL 11/13/2024 11:11 MONOCYTES, ABSOLUTE 0.99 H 10*3/uL 11/13/2024 11:11 EOSINOPHILS, ABSOLUTE 0.39 10*3/uL 11/13/2024 11:11 BASOPHILS, ABSOLUTE 0.06 10*3/uL 11/13/2024 11:11 ------ BMP PC STL Collection DT Specimen Test Name Result Units Ref Range 11/13/2024 11: PLASMA CREATININE 1.04 mg/dL 0.70 - 1.30 11/13/2024 11:11 PLASMA UREA NITROGEN 16.8 mg/dL 9.0 - 25.0 11/13/2024 11:11 PLASMA GLUCOSE 141 H mg/dL 72 - 99 11/13/2024 11:11 PLASMA SODIUM 140 mEq/L 136 - 145 11/13/2024 11:11 PLASMA POTASSIUM 4.3 mEq/L 3.5 - 5.0 11/13/2024 11:11 PLASMA CHLORIDE 104 mEq/L 98 - 107 11/13/2024 11:11 PLASMA CARBON DIOXIDE 28 mEq/L 22 - 31 11/13/2024 11:11 PLASMA CALCIUM 9.7 mg/dL 8.4 - 10.4 Comment: No hemolysis noted. ------- AKP: 58 (11/13/24 11:11) ALB: 4.2 (11/13/24 11:11) GOT/AST: 16 (11/13/24 11:11) GPT/ALT: 16 (11/13/24 11:11) T.Prot: 7.2 (11/13/24 11:11) TBIL: 0.5 (11/13/24 11:11) ------ TRIGLYCERIDE 114 mg/dL 11/13/2024 11:11 CHOLESTEROL 137 mg/dL 11/13/2024 11:11 HDL(New) 29 L mg/dL 11/13/2024 11:11 CALCULATED LDL 85 mg/dL 11/13/2024 11:11 ------ TSH 30D Collection DT Specimen Test Name Result Units Ref Range 11/13/2024 11:11 SERUM TSH 1.716 uIU/mL 0.470 - 5.000 ------- VITAMIN D, 25-HYDROXY 43.9 ng/mL 11/13/2024 11:11 ------- Collection time: Nov 13, 2024@11:16 Test Name Result Units Range --------- ------ ----- ----- URINE COLOR Yellow Ref: Yellow APPEARANCE Ex.Turbid Ref: Clear U.PH 6.5 5.0 - 8.0 U.BILIRUBIN Negative mg/dL Ref: Negative U.NITRITE Negative mg/dL Ref: Negative URINE RBC/HPF 26 H /HPF 0 - 5 URINE WBC/HPF >182 H /HPF 0 - 5 WBC Clumps FEW /HPF Ref: Negative-Rare BACTERIA RARE /HPF Ref: Negative URN.GLUCOSE Normal mg/dL Ref: Negative URN.PROTEIN 30 H mg/dL Negative - 20 URN.UROBILINOGEN Normal mg/dL Ref: Normal URN.BLOOD 1+ H mg/dL Ref: Negative-Trace URN.KETONES Negative mg/dL Ref: Negative-Trace URN.LEUK.EST. 500 H mg/dL Ref: Negative-Trace URN.SPECIFIC GRAVITY 1.018 1.005 - 1.029 ------- Test(s) ordered: C&S URINE..................... completed: Nov 15, 2024 10:03 * BACTERIOLOGY FINAL REPORT => Nov 15, 2024 10:27 TECH CODE: [id number] CULTURE RESULTS: STREP. VIRIDANS - Quantity: >100,000 CFU/ML Comment: Clinically insignificant growth based on current clinical standards. There will be no work up. ------ Sincerely, QUYEN MIJARES Staff Physician OCTAVIANO PEREZ [facility] Nov 13, 2024 12:08 PM ADMINISTRATIVE NOTE: LOCAL TITLE: ADMINISTRATIVE STL STANDARD TITLE: ADMINISTRATIVE NOTE DATE OF NOTE: NOV 13, 2024@12:08 ENTRY DATE: NOV 13, 2024@12:08:16 AUTHOR: QUYEN MIJARES EXP COSIGNER: URGENCY: STATUS: COMPLETED ADMINISTRATIVE STL Has ADDENDA does have significant UTI contributing to mental status change. I called him to discuss and have left him a message to call us back in primary care. I need to discuss with him. /willie/ QUYEN MIJARES Staff Physician Signed: 11/13/2024 12:09 11/13/2024 ADDENDUM STATUS: COMPLETED I called the again and spoke with the and that he does have urinary tract infection most likely contributing to his mental status change and episodes over the last few days. He would like me to call in antibiotic to local [facility] pharmacy in which was called into the pharmacist at [phone]. Bactrim DS twice a day for 7 days. The and both understand that if the culture is not sensitive the antibiotic will need to be changed next week. /willie/ QUYEN MIJARES Staff Physician Signed: 11/13/2024 13:27 QUYEN MIJARES [facility] Nov 13, 2024 10:24 AM NURSING NOTE: LOCAL TITLE: V15 PACT FACE TO FACE NOTE STL STANDARD TITLE: NURSING NOTE DATE OF NOTE: NOV 13, 2024@10:24 ENTRY DATE: NOV 13, 2024@10:24:45 AUTHOR: FELIPE LEUNG COSIGNER: URGENCY: STATUS: COMPLETED Provider Visit: Patient Identifiers : Full Name Date of Reason for visit: Established Follow-Up Mode of Arrival: Ambulatory Allergy Review: ERYTHROMYCIN Allergy list reviewed and remains current. Recent Vital Signs: Temperature: 97 F [36.1 C] (11/13/2024 10:24) Pulse: 79 (11/13/2024:) Respiration: 14 (11/13/2024:) B/P: 122/80 (11/13/2024 10:24) Pain: 0 (11/13/2024 10:24) Wt: 152 lb [68.95 kg] (11/13/2024 10:) Ht: 64 in [162.6 cm] (11/13/2024 10:) BMI: 26.1 POX: 99% (11/13/2024 10:) Would you like to discuss any personal problem, family problem, alcohol use, drug use, or a mental or emotional illness? No Contact provided Primary Care phone number and encouraged to call if any questions or concerns. Review that after hours nurse line [phone] and emergency room are available 27/05 for patient use. Contact verbalized good understanding. Homelessness/Food Insecurity Screen - DI,L,N,P,PH,PS,S,U: In the past 2 months, have you been living in stable housing that you own, rent, or stay in as part of a household? Yes - Living in stable housing. Are you worried or concerned that in the next 2 months you may NOT have stable housing that you own, rent, or stay in as part of a household? No - Not worried about housing near future The reports the following: Within the past 12 months, you worried whether your food would run out before you got money to buy more. Never true Within the past 12 months, the food you bought just didn't last and you didn't have money to get more. Never true Frail/Elderly Screen: ADL Screen - Arndt Index of [place] in Activities of Daily Living Bathing: (3 Points) Receives no assistance (gets in and out of tub by self, if tub is usual means of bathing) Dressing: (3 Points) Gets clothes and gets completely dressed without assistance. Toileting: (3 Points) Goes to toilet room , cleans self, and arranges clothes without assistance (may use object for support such as cane, walker, or wheelchair, and may manage own night bedpan or commode, emptying same next morning) Transferring: (3 Points) Moves in and out of bed and in and out of chair without assistance (may be using object for support, such as cane or walker) Continence: (3 Points) Controls urination and bowel movement completely by self Feeding: (3 Points) Feeds self without assistance Total Score: 18 Points 18 = High (patient independent) 6 = Low (patient very dependent) IADL Screen - Anna Instrumental Activities of Daily Living Scale Ability to use telephone: (1 point) Operates Telephone on own initiative; looks up and dials numbers. Shopping: (1 point) Takes care of all shopping needs independently. Food preparation: (0 points) Heats and serves prepared meals, or prepares meals but does not maintain adequate diet. Housekeeping: (1 point) Performs light daily tasks, but cannot maintain acceptable level of cleanliness. Laundry: (1 point) Does personal laundry completely. Mode of transportation: (1 point) Travels independently on public transportation or drives own car. Responsibility for own medications: (1 point) Is responsible for taking medications in correct dosages at correct times. Ability to handle finances: (1 point) Manages financial matters independently (budgets, writes checks, pays rent and bills, goes to bank); collects and keeps track of income. Total score: 7 points 8 = High function, independent 0 = Low function, dependent Falls Screen: No falls within the past 12 months. Incontinence Screen No incontinence. [facility] MAP: PERSONAL HEALTH PLAN INVENTORY & MAP [place]'s Response: being able to feel comfortable /willie/ FELIPE LEUNG Licensed Practical Nurse Signed: 11/13/2024 10:28 FELIPE LEUNG [facility] Nov 13, 2024 05:22 AM PRIMARY CARE NOTE: LOCAL TITLE: PRIMARY CARE PROVIDER ESTABLISHED VISIT STL STANDARD TITLE: PRIMARY CARE NOTE DATE OF NOTE: NOV 13, 2024@05:22 ENTRY DATE: NOV 13, 2024@05:22:29 AUTHOR: QUYEN MIJARES EXP COSIGNER: URGENCY: STATUS: COMPLETED Please note that this dictation was completed with computer voice recognition software, often unanticipated grammatical, syntax and other interpretive errors are inadvertently transcribed by the computer software. Please disregard these errors. Reason for visit: Routine appointment History of present illness: The has been under care of mental health with regular follow-ups. Last video appointment in June and he has had regular follow-ups with speech pathologist as well. Came in with his who had concerns regarding medication compliance and having episodes of confusion over last couple of weeks. The himself reiterated that he has had periods of memory lapses lasting for up to 1 to 2 hours and then it gets better. This started recently and on further questioning reports symptoms of UTI. Believes he is eating and drinking well. Denies loss of consciousness, seizures, headache, injury and went on to report that he is scheduled for another procedure for his urination later this month. Urine is cloudy and painful but denies any hematuria. He has been under care of Dr. Sheets urologist and has history of urethral stricture and BPH and [facility] Recently seen by the eye doctor earlier today and reports that he is going to be started on eyedrops for glaucoma in the left eye The reports compliance with pur??ed diet and thickened liquids and he recently had new dentures placed and reports some discomfort eating due to that. Continues to drink his Glucerna regularly as well Last ENT exam in January 2024 and he was instructed to follow-up as needed. He has history of SCCA of oropharynx status post [...] Peripheral neuropathy 7) Diabetes Mellitus Type 2 ([facility] [id number]) 8) Chronic constipation 9) HTN - Hypertension ([facility] [id number]) 10) GERD - Gastro-Esophageal Reflux Disease ([facility] [id number]) 11) Disorder of left Eustachian tube 12) [...] dysuria, hematuria, urgency/hesitancy, skin lesions positive for: See HPI Active Medications: Active Outpatient Medications (including Supplies): Active Outpatient Medications Status 1) ARTIFICIAL SALIVA ORAL SPRAY USE 3-5 SPRAYS BY MOUTH EVERY ACTIVE TWO HOURS NEEDED Indication: FOR DRY MOUTH AND THROAT 2) ATORVASTATIN CALCIUM 40MG TAB TAKE ONE-HALF TABLET BY MOUTH ACTIVE EVERY EVENING Indication: FOR HIGH CHOLESTEROL 3) CALCIUM POLYCARBOPHIL 625MG TAB TAKE ONE TABLET BY MOUTH ACTIVE ONCE A DAY Indication: FOR FIBER SUPPLEMENTATION 4) CARBOXYMETHYLCELLULOSE NA 1% OPH GEL INSTILL 1 DROP INTO ACTIVE BOTH EYES FOUR TIMES A DAY NEEDED Indication: FOR DRY EYE(S) 5) CICLOPIROX 8% TOP SOLN APPLY SPARINGLY TO AFFECTED AREA(S) ACTIVE AT BEDTIME (THIN COAT TO THICK NAILS - FILE DOWN AFTER 1 WEEK) (EXTERNAL USE ONLY) CLEANED WITH ALCOHOL ONCE A WEEK Indication: FOR ONYCHOMYCOSIS 6) CYCLOBENZAPRINE HCL 5MG TAB TAKE ONE TABLET BY MOUTH TWICE ACTIVE DAILY NEEDED . MAY CAUSE DROWSINESS. DO NOT DRINK ALCOHOL WHILE TAKING THIS MEDICATION. Indication: FOR MUSCLE SPASM 7) FLUTICASONE PROP 50MCG 120D NASAL INHL INSTILL 2 SPRAYS IN ACTIVE EACH NOSTRIL ONCE A DAY FOR ALLERGIES (MUST BE USED DIRECTED FOR MINIMUM OF 21 DAYS TO PROVIDE ADEQUATE BENEFITS) 8) GABAPENTIN 300MG CAP TAKE ONE CAPSULE BY MOUTH AT BEDTIME ACTIVE Indication: FOR NERVE PAIN 9) MIRTAZAPINE 30MG TAB TAKE ONE TABLET BY MOUTH AT BEDTIME ACTIVE (S) Indication: FOR DEPRESSION 10) NUTR SUPL GLUCERNA SHAKE LIQ VANILLA TAKE 1 CANFUL BY MOUTH ACTIVE ONCE A DAY (SHAKE WELL) Indication: FOR NUTRITION/DIETARY SUPPLEMENTATION 11) OMEPRAZOLE 20MG EC CAP TAKE ONE CAPSULE BY MOUTH EVERY ACTIVE MORNING BEFORE A MEAL . TAKE 30 MINUTES PRIOR TO FOOD. Indication: FOR GASTROESOPHAGEAL REFLUX DISEASE 12) POLYETHYLENE GLYCOL 3350 ORAL PWDR MIX AND DRINK 1 CAPFUL BY ACTIVE MOUTH ONCE A DAY (MEASURE WITH CAP AND MIX IN 8 OZ OF WATER) Indication: FOR CONSTIPATION 13) SIMPLYTHICK GEL ORAL MILDLY THICK 6GM TAKE 1 PACKET BY MOUTH ACTIVE ONCE A DAY OR DIRECTED TO THICKEN LIQUIDS. USE 1 PACKET PER 4 OZ OF LIQUID. Indication: FOR NUTRITION/DIETARY SUPPLEMENTATION 14) TAMSULOSIN HCL 0.4MG CAP TAKE ONE CAPSULE BY MOUTH EVERY ACTIVE EVENING APPROXIMATELY 30 MINUTES AFTER THE SAME MEAL EACH DAY Indication: FOR BENIGN PROSTATIC HYPERPLASIA 15) VALPROIC ACID 250MG/5ML ORAL SOLN TAKE 5 ML BY MOUTH EVERY ACTIVE MORNING AND TAKE 10 ML AT BEDTIME Indication: FOR MOOD Colonoscopy: Prog Note DT Title Author Last Julien DT 05/10/2023 COLONOSCOPY CONSULT REPORT WILDER VÁZQUEZ Physical Exam: Date Vital Measurement Qualifiers 11/13/2024 10:24 Temp F (C) 97 (36.1) Pulse 79 Respir 14 BP 122/80 Ht in (cm) 64 (162.56) Wt lbs (kg)[BMI] 152 (68.95)[26] Pain 0 POx (L/Min)(%) 99 General: Sitting comfortbly,no acute distress, ambulatory without assistance HEENT: NC/AT, PERRL, dry mouth noted which and are attributing to new dentures Neck: Supple, no lymphadenopathy appreciated Cardiovascular: S1 S2, RRR, no murmur heard Resp: Effort normal, clear to auscultation GI: Abdomen is soft, nontender, Bowel sounds present Musculoskeletal: WNL, no acute swelling Neuro: Grossly nonfocal, face is symmetric, extraocular muscles intact, ambulatory without assistance and no weakness noted Skin: warm and moist Extremities: No edema Psych: Alert and oriented, normal mood and affect Impression/plan: Mental status change: Has been having episodes of confusion but no loss of consciousness. Discussed with and most likely metabolic due to UTI or dehydration. I will still proceed with CT scan of head and labs ordered today. ER precautions discussed in detail. Discussed with and in detail and the is agreeing to take over medication management and the is agreeable. I also advised him to hold cyclobenzaprine at this time Dysphagia: Has been eating pur??ed diet, thickened liquids, drinking Glucerna and the believes he is drinking enough fluids BPH/history of urethral dilation: Complaining of dysuria and UTI symptoms and is under care of outside urologist and reports that he is scheduled for a procedure later this month. Urinalysis with culture ordered Constipation: The is concerned that he is not taking MiraLAX daily and gets constipated at times. He has been advised to use MiraLAX daily Moderate protein-calorie malnutrition: On Glucerna, reports good appetite and weight is improving Has been discharged from care of ENT and no concerns reported at this time with history of SCCA Diabetes mellitus: On no medication, he is using Glucerna for diet supplement and we will continue to monitor A1c Lung nodule: Denies any concerns and impression of CT chest copied below and does not smoke Impression: Interval resolution of the previously noted right lung opacities. Stable 3 x 2 mm right upper lobe incidental pulmonary nodule, statistically benign and requiring no additional imaging surveillance. Right common iliac artery aneurysm: Follow-up CT scan of abdomen has been ordered as recommended by vascular surgery Anxiety/depression: He is being followed by psychiatrist Dr. Motley, reports compliance with medications and doing well currently Hip pain: Has seen pain management and did not voice any concerns today GERD: On omeprazole 40 mg daily as needed and symptoms under control Vitamin D deficiency: Recommend to continue vitamin D supplement regularly, \ Peripheral neuropathy: Taking gabapentin 300 mg at bedtime only and denies any side effects and did not voice any concerns today. I will continue same dose at this time Labs and CT head ordered RTC in 2 weeks for reevaluation Medication Reconciliation Opt STL: I have reviewed the patient's medication list (including active outpatient prescriptions dispensed from this [place] (local) and dispensed from another [place] or [facility] facility (remote) as well as inpatient orders (local pending and active), local clinic medications, locally documented non-VA medications, and local prescriptions that have or been discontinued in the past 90 days.) with the patient and/or his/her care-systems librarian. Handwritten corrections, additions and/or deletions were made to the list, as appropriate. Corrected Outpatient Medication List was provided to the patient/caregiver /willie/ QUYEN MIJARES Staff Physician Signed: 11/15/2024 08:30 QUYEN MIJARES [facility]
--- OUTSIDE RECORDS SUMMARY | 2024-11-26 13:18 | XMS_ITS | Encounter Summary ---
Author Name [facility] [place] [facility] [place] [facility] [place] Address [address] [place] [address] Care Team Providers Care Xray Tech Name Role Phone QUYEN MIJARES Primary Care [...] POINT OF SERVICE MHBP Nov 04, 2023 [id number] [phone] VIKKI PEREZ SPOUSE AETNA-MHBP POINT OF SERVICE [facility]BP Nov 04, 2018 [id number] [phone] VIKKI PEREZ SPOUSE CAREBALAJI ([id number]) RX PRESCRIPT ION RX PLAN Nov 04, 2017 [id number] [phone] OCTAVIANO PEREZ SPOUSE CAREMARK ([id number])RX PRESCRIPT ION MHBP Nov 04, 2018 [id number] [phone] OCTAVIANO PEREZ SPOUSE CAREMARK ([id number])RX PRESCRIPT ION MHBP Nov 04, 2018 [id number] [phone] ANAOCTAVIANO DOSHI SPOUSE CAREBALAJI ([id number])RX PRESCRIPT ION MHBP Nov 04, 2018 [id number] [phone] OCTAVIANO PEREZ SPOUSE CONSTANCEMARK ([id number])RX PRESCRIPT ION MHBP Nov 04, 2018 [id number] [phone] OCTAVIANO PEREZ SPOUSE HUMANA MCR (WNR) MEDICARE ADVANTAGE MCR (WNR) Nov 04, 2018 [id number] OCTAVIANO PEREZ PATIENT MEDICARE (WNR) MEDICARE (M) PART A May 04, 2009 PART A [id number] [phone] OCTAVIANO PEREZ PATIENT MEDICARE (WNR) MEDICARE (M) PART B May 04, 2009 PART B [id number] [phone] OCTAVIANO PEREZ PATIENT MEDICARE (WNR) MEDICARE (M) PART B May 04, 2009 PART B [id number] [phone] OCTAVIANO PEREZ PATIENT MEDICARE (WNR) MEDICARE (M) PART A May 04, 2009 PART A [id number] OCTAVIANO PEREZ PATIENT -FO R-LIFE TRICA RE FOR LIFE WNR Nov 04, 2017 FOR LIFE [id number] [phone] OCTAVIANO PEREZ PATIENT Selected Encounter This section includes the information on record at [place] for the Encounter. Date/Time Encounter Type Encounter Description Reason Pro vider Source IHE Encounter Template Text not used by [place] Advance Directives: All historical and current Section Date Range: From patient's date of to the date document was created. This section includes ALL of a patient's completed or amended [place] Advance and Rescinded Directives. The entries below indicate that a directive exists for the patient, but an actual copy is not included with this document. The data comes from all [place] facilities. Date Advance Directives Provider Source Apr 24, 2019 ADVANCE DIRECTIVE DANY RHODES [facility]
--- OUTSIDE RECORDS SUMMARY | 2024-11-26 13:18 | XMS_ITS | Encounter Summary ---
Author Name [facility] [place] [facility] [place] [facility] [place] Address [address] [place] [address] Care Team Providers Care Audio Visual Project Manager Name Role Phone QUYEN MIJARES Primary [...] POINT OF SERVICE MHBP Nov 04, 2023 [id number] [phone] VIKKI PEREZ SPOUSE AETNA-MHBP POINT OF SERVICE MHBP Nov 04, 2018 [id number] [phone] VIKKI PEREZ SPOUSE CAREBALAJI ([id number]) RX PRESCRIPT ION RX PLAN Nov 04, 2017 [id number] [phone] ANAOCTAVIANO DOSHI SPOUSE CAREBALAJI ([id number])RX PRESCRIPT ION MHBP Nov 04, 2018 [phone] ANA JACIOCTAVIANO SPOUSE CAREBALAJI ([id number])RX PRESCRIPT ION MHBP Nov 04, 2018 [id number] [phone] OCTAVIANO PEREZ SPOUSE CAREBALAJI ([id number])RX PRESCRIPT ION MHBP Nov 04, 2018 [id number] [phone] OCTAVIANO PEREZ SPOUSE CAREMARK ([id number])RX PRESCRIPT ION MHBP Nov 04, 2018 [id number] [phone] OCTAVIANO PEREZ SPOUSE HUMANA MCR (WNR) MEDICARE ADVANTAGE MCR (WNR) Nov 04, 2018 [id number] OCTAVIANO PEREZ PATIENT MEDICARE (WNR) MEDICARE (M) PART B May 04, 2009 PART B [id number] [phone] OCTAVIANO PEREZ PATIENT MEDICARE (WNR) MEDICARE (M) PART B May 04, 2009 PART B [id number] OCTAVIANO PEREZ PATIENT MEDICARE (WNR) MEDICARE (M) PART A May 04, 2009 PART A [id number] OCTAVIANO PEREZ PATIENT MEDICARE (WNR) MEDICARE (M) PART A May 04, 2009 PART A [id number] OCTAVIANO PEREZ PATIENT -FO R-LIFE TRICA RE FOR LIFE WNR Nov 04, 2017 FOR LIFE [id number] [phone] OCTAVIANO PEREZ PATIENT Selected Encounter This section includes the information on record at [place] for the Encounter. Date/Time Encounter Type Encounter Description Reason Provider Source Oct 15, 2024 08:30 AM OFFICE O/P EST LOW 20 MIN PSYCHOGERIATRIC - INDIVIDUAL ICD-10-CM F39 Unspecified mood [affective] disorder SHERON AMANDA Smith Encounter Template Text not used by [place] Assessments - Encounter Diagnoses This section includes the primary and secondary diagnoses documented for the Encounter. Date/Time Primary/Secondary Diagnosis Diagnosis Name Provider Source Oct 15, 2024 08:54 AM PRIMARY Unspecified mood [affective] disorder Barber AMANDA [facility] Plan of Treatment: Future Appointments (+ 6 months) and Future Tests (+/- 45 days) The Plan of Treatment section includes future care activities for the patient from all [place] treatmentfacilities. This section includes future appointments and future orders which are active, pending or scheduled. Future Appointments This section includes appointments that were scheduled to occur 6 months from the date of the Encounter, up to a maximum of 20 appointments. The data comes from all [place] treatment facilities. Appointment Date/Time Appointment Type Appointme nt Facility Name Nov 13, 2024 09:00 AM AMBULATORY - SURGERY [facility] Nov 13, 2024 10:00 AM AMBULATORY - MEDICINE [facility] Nov 25, 2024 04:30 PM AMBULATORY - NONE [facility] Dec 04, 2024 01:00 PM AMBULATORY - MEDICINE [facility] Dec 24, 2024 02:00 PM AMBULATORY - PSYCHIATRY [facility] Dec 29, 2024 02:30 PM AMBULATORY - NONE [facility] Feb 12, 2025 11:00 AM AMBULATORY - SURGERY [facility] Lab Results: +/- 30 days of the encounter This section includes the Chemistry and Hematology Lab Results on record with [place] for the patient. Radiology Reports and Pathology Reports are provided separately, in subsequent sections. Lab Results This section contains the Chemistry/Hematology Results that were resulted 30 days before or 30 daysafter the date of the Encounter. Date/Time Source Result Type Result - Unit Interpretation Reference Range Comment Nov 13, 2024 11:16 AM [facility] URINALYSIS W/ CX REFLEX (STL-PB) Specimen Type: URINE No comment entered. Ordering Provider: SAWYER MIJARES Report Released Date/Time: Nov 13, 2024 10:48 AM Reporting Lab: [facility] [facility] [id number] Performing Lab: [facility] [address] URINE COLOR Yellow Yellow U.BILIRUBIN Negative mg/dL [...] GRAVITY 1.018 Nov 13, 2024 11:11 AM [facility] HGA1C Specimen Type: BLOOD No comment entered. Ordering Provider: SAWYER MIJARES Report Released Date/Time: Nov 13, 2024 10:48 AM Reporting Lab: [facility] [place] [address] Performing Lab: [facility] [address] [place] [address] HGA1C 7.1 H 4.0-6.0 Nov 13, 2024 11:11 AM [facility] TSH (MA-PB) Specimen Type: SERUM No comment entered. Ordering Provider: SAWYER MIJARES Report Released Date/Time: Nov 13, 2024 10:48 AM Reporting Lab: [facility] [place] [address] Performing Lab: [facility] [address] [place] [address] TSH 1.716 u[IU]/mL 0.470-5.000 Nov 13, 2024 11:11 AM [facility] VITAMIN D, 25-HYDROXY Specimen Type: SERUM No comment entered. Ordering Provider: SAWYER MIJARES Report Released Date/Time: Nov 13, 2024 10:48 AM Reporting Lab: [facility] [address] [place] [address] Performing Lab: [facility] [address] [place] [address] VITAMIN D, 25-HYDROXY 43.9 ng/mL 30-96 Nov 13, 2024 11:11 AM [facility] LIPID PANEL (STL) Specimen Type: PLASMA Comment: No hemolysis noted. Ordering Provider: SAWYER MIJARES Report Released Date/Time: Nov 13, 2024 10:48 AM Reporting Lab: [facility] [address] [place] [address] Performing Lab: [facility] [address] [facility] [id number] CHOLESTEROL 137 mg/dL 0-200 TRIGLYCERIDE 114 mg/dL 0-150 CALCULATED LDL 85 mg/dL See Interp HDL(New) 29 mg/dL L > 40 Nov 13, 2024 11:11 AM [facility] B12 Specimen Type: SERUM No comment entered. Ordering Provider: SAWYER MIJARES Report Released Date/Time: Nov 13, 2024 10:48 AM Reporting Lab: [facility] [place] [address] Performing Lab: [facility] [place] [address] B12 771 pg/mL 213-816 Nov 13, 2024 11:11 AM [facility] COMPREHENSIVE METABOLIC PANEL Specimen Type: PLASMA Comment: No hemolysis noted. Ordering Provider: SAWYER MIJARES Report Released Date/Time: Nov 13, 2024 10:48 AM Reporting Lab: [facility] [place] [address] Performing Lab: [facility] [place] [address] CREATININE 1.04 mg/dL 0.70-1.30 UREA NITROGEN 16.8 [...] 73.50 >60 Nov 13, 2024 11:11 AM [facility] CBC Specimen Type: BLOOD No comment entered. Ordering Provider: SAWYER MIJARES Report Released Date/Time: Nov 13, 2024 10:48 AM Reporting Lab: [facility] [address] Performing Lab: [facility] [facility] [address] WBC 9.5 10*3/uL 3.6-11.2 RBC 4.53 10*6/uL [...] Pain Height Weight Body Mass Index Source Oct 15, 2024 08:32 AM 97.3 78 107/75 20 98 0 [facility] [...] Date/Time Current Smoking Status Comment Tony ity March 10, 2024 03:30 PM VA-TOBACCO FORMER USER [facility] Tobacco Use History This section includes a history of the smoking, or tobacco-related health factors, that were collected on or before the date of the Encounter. The data comes from the [place] facility where the Encounter took place. Date/Time Smoking Status/Tobacco Use Comment Darcy acaminah March 10, 2024 03:30 PM VA-TOBACCO QUIT 15 YRS OR MORE [facility] Feb 19, 2023 08:00 AM VA-TOBACCO FORMER USER [facility] Feb 19, 2023 08:00 AM VA-TOBACCO QUIT 15 YRS OR MORE [facility] March 05, 2022 03:00 PM VA-TOBACCO FORMER USER [facility] March 05, 2022 03:00 PM VA-TOBACCO QUIT 5 TO < 15 YRS [facility] Feb 06, 2021 11:00 AM VA-TOBACCO FORMER USER [facility] Feb 06, 2021 11:00 AM VA-TOBACCO QUIT 15 YRS OR MORE [facility] Nov 19, 2019 04:05 PM VA-TOBACCO FORMER USER [facility] Nov 19, 2019 04:05 PM VA-TOBACCO QUIT 5 TO < 15 YRS [facility] Oct 30, 2018 02:11 PM VA-TOBACCO FORMER USER [facility] Oct 30, 2018 02:11 PM VA-TOBACCO QUIT 5 TO < 15 YRS [facility] Advance Directives: All historical and current Section Date Range: From patient's date of to the date document was created. This section includes ALL of a patient's completed or amended [place] Advance and Rescinded Directives. The entries below indicate that a directive exists for the patient, but an actual copy is not included with this document. The data comes from all [place] facilities. Date Advance Directives Provider Source Apr 24, 2019 ADVANCE DIRECTIVE DANY RHODES [facility] Pathology Reports: +/- 30 days of [...] comes from all [place] treatment facilities. Date/Time Pathology Report Provider Source Nov 13, 2024 11:16 AM LR MICROBIOLOGY RE PORT: Accession [UID]: [id number] [[id number]] Received: Nov 13, 2024@11:59 Collection sample: URINE,CLEAN CATCH Collection date: Nov 13, 2024 11:16 Site/Specimen: URINE Provider: QUYEN MIJARES Test(s) ordered: C&S URINE..................... completed: Nov 15, 2024 10:03 * BACTERIOLOGY FINAL REPORT => Nov 15, 2024 10:27 TECH CODE: [id number] CULTURE RESULTS: STREP. VIRIDANS - Quantity: >100,000 CFU/ML Comment: Clinically insignificant growth based on current clinical standards. There will be no work up. Bacteriology Remark(s): 11/15/24 [facility] CULTURE COMPLETE. =--=--=--=--=--=--=--=--=--=-- =--=--=--=--=--=--=--=--=--=-- =--=--=--=--=--=-- Performing Laboratory: Bacteriology Report [facility]formed By: [facility] CLIA# [id number] [address] [facility] [address] [place] [address] [facility] Encounter Notes: All associated encounter notes This section contains the clinical notes associated to the Encounter. Date/Time Encounter Note(s) Provider Source Oct 15, 2024 08:40 AM MENTAL HEALTH NOTE: LOCAL TITLE: [facility] CC NEEDS ASSESSMENT AND INTERVENTION PLAN STANDARD TITLE: MENTAL HEALTH NOTE DATE OF NOTE: OCT 15, 2024@08:40 ENTRY DATE: OCT 15, 2024@08:40:08 AUTHOR: TIEN CASTRO COSIGNER: URGENCY: STATUS: COMPLETED Follow-up [facility] Care Coordination Intervention Plan Assessment and review of interventions in progress: SIGNIFICANT CHANGES TO CARE COORDINATION NEEDS: Current assessed care coordination needs: Follow-up as clinically indicated: vitals and reminders Time spent: 10 minutes Depression Screening - V: Perform PHQ-2 A PHQ-2 screen was performed. The score was 0 which is a negative screen for depression. Over the past two weeks, how often have you been bothered by the following problems? 1. Little interest or pleasure in doing things Not at all 2. Feeling down, depressed, or hopeless Not at all * Learning Assessment: - * This patient's learning ABILITIES, BARRIERS to learning, CULTURAL and EPISCOPAL beliefs, and learning PREFERENCES were assessed. Following are findings of note: Patient reads well. Patient has the following hearing/auditory barrier(s) to consider when teaching: Hard of hearing. Adjustments made to address the identified barrier include: Patient has hearing aids available. Patient has the following speech barrier to consider when teaching: No speech barrier identified. LANGUAGE Patient reports that Slovak is preferred language for healthcare. Patient has the following language barrier to consider when teaching: No language barrier has been identified. Patient has the following vision barrier(s) to consider when teaching: Requires glasses/contacts for reading Patient has the following dexterity/mobility barrier(s) to consider when teaching: No dexterity/mobility barrier has been identified. Patient has the following cognitive/memory barrier(s) to consider when teaching: No cognitive/memory barrier has been identified. Patient has the following emotional/psychological barrier(s) to consider when teaching: No emotional/psychosocial barrier has been identified. Patient has the following social support deficit(s) to consider when teaching: No social support issues have been identified. Patient reports learning preference is to refer to handouts. Patient/Caregiver appeared ready for instruction (good eye contact, appropriate questions, active participation, etc.) Person(s) who received education: Patient Education Topic/Teaching Needs: Medication not compliant with meds Follow-up Instructions continue to keep appts Methods used included: Oral: discussion Teaching outcomes: Good level of understanding * /es/ TIEN CASTRO RN Registered Nurse Signed: 10/15/2024 08:50 TIEN CASTRO [facility] Oct 15, 2024 08:36 AM PSYCHIATRY OUTPATIENT NOTE: LOCAL TITLE: MENTAL HEALTH AGING RESOURCES TEAM [facility] STANDARD TITLE: PSYCHIATRY OUTPATIENT NOTE DATE OF NOTE: OCT 15, 2024@08:36 ENTRY DATE: OCT 15, 2024@08:36:30 AUTHOR: ARELI AMANDA COSIGNER: URGENCY: STATUS: COMPLETED [facility] - MEDICATION MANAGEMENT Name..................OCTAVIANO PEREZ Age...................76 Sex...................MALE SSN...................[id number] Today's Date..........OCT 15, 2024 Service Connection....Service Connected: No ALLERGIES: [...] Peripheral neuropathy 7) Diabetes Mellitus Type 2 ([facility] [id number]) 8) Chronic constipation 9) HTN - Hypertension ([facility] [id number]) 10) GERD - Gastro-Esophageal Reflux Disease ([facility] [id number]) VITAL SIGNS: Pulse.................85 (03/29/2021 08:06) Temperature...........98.5 F [...] THIS VISIT: mood disorder unspecified ANY COMPLAINTS/PROBLEMS.......No seen with for f/u and he reports that he had a bad headache on the left side sinus 2days ago and was confused that day. but felt better after a lot of mcdermott mucus came out. Feeling better since yesterday with no pain or confusion. reports that he was just sick on saturday and was fine before and after that. He is sleeping intermittently but not just at night . gets enough sleep for the day. He is eating food after blending it and is seeing nutrition for this, Reports his mood is good with no depression, anxiety or confusion. Denies any pain. He is dry and is drinking water intermittently. oriented x3. recall 02/06. Aware that [place] is the President. compliant with depakote and mirtazapine. Reports that the meds are helping and does not want any increse. . denies feeling worthless or having suicidal thoughts. he is alert and oriented x3. ANY MEDICATION SIDE EFFECT....No APPETITE......................Go od SLEEP.........................Go od MENTAL STATUS: MOOD/AFFECT.................Norm al mood- okay Affect-congruent DELUSIONS/HALLUCINATIONS....Abse nt denies SUICIDAL/AGGRESSIVE.........Abse nt denies ALERT & ORIENTED X3 WITH GOOD CONCENTRATION........Yes oriented x3 COMMENTS: None MEDICATION CHANGE.............No SUPPORTIVE PSYCHOTHERAPY......Yes GAF:No previous GAF entered. Current Gaf: na TREATMENT PLAN: COMMENTS: mood disorder- To continue mirtazapine 30mg po hs and continue depakote 500mg po hs support and empathic listening provided. Advised to call pcp or go toER if he has headache again will f/u in 2-3months call earlier if any problems before that. INSTRUCTIONS GIVEN TO PATIENT/FAMILY: Report medication side effects promptly No alcohol/illicit drug use with medication Needs to be cautious with driving/use of machinery Avoid night-time driving Follow up with Primary Care Provider If symptoms get worse, call clinic or Emergency Room as appropriate seen for total of 30min with 18min of supportive therapy /willie/ SHERON AMANDA MD Staff Physician, Psychiatry Signed: 10/15/2024 09:13 ZECHARIAH AMANDA [facility]
--- OUTSIDE RECORDS SUMMARY | 2024-11-26 13:18 | XMS_ITS ---
IN MED NUTRITION INDIV SUBSEQ [facility] Encounter Summary Created on: November 26, 2024 OCTAVIANO PEREZ : 1945 Sex: Male Author Name [facility] [place] [facility] [place] [facility] [place] Address [address] [place] [address] Care Team Providers Care Drainage Design Coordinator Name Role Phone QUYEN MIJARES Primary [...] POINT OF SERVICE [facility] Nov 04, 2023 [id number] VIKKI PEREZ SPOUSE [facility] POINT OF SERVICE [facility] Nov 04, 2018 [id number] VIKKI PEREZ SPOUSE CAREBALAJI ([id number]) RX PRESCRIPT ION RX PLAN Nov 04, 2017 [id number] [phone] ANAOCTAVIANO DOSHI SPOUSE CAREBALAJI ([id number])RX PRESCRIPT ION [facility] Nov 04, 2018 [id number] [phone] ANAOCTAVIANO DOSHI SPOUSE CAREBALAJI ([id number])RX PRESCRIPT ION [facility] Nov 04, 2018 [id number] [phone] ANAOCTAVIANO DOSHI SPOUSE CAREBALAJI ([id number])RX PRESCRIPT ION [facility] Nov 04, 2018 [id number] [phone] OCTAVIANO PEREZ SPOUSE [place] ([id number])RX PRESCRIPT ION [facility] Nov 04, 2018 [id number] [phone] OCTAVIANO PEREZ SPOUSE [employer] MCR (WNR) MEDICARE ADVANTAGE MCR (WNR) Nov 04, 2018 [id number] OCTAVIANO PEREZ PATIENT MEDICARE (WNR) MEDICARE (M) PART B May 04, 2009 PART B [id number] OCTAVIANO PEREZ PATIENT MEDICARE (WNR) MEDICARE (M) PART B May 04, 2009 PART B [id number] [phone] OCTAVIANO PEREZ PATIENT MEDICARE (WNR) MEDICARE (M) PART A May 04, 2009 PART A [id number] [phone] OCTAVIANO PEREZ PATIENT MEDICARE (WNR) MEDICARE (M) PART A May 04, 2009 PART A [id number] OCTAVIANO PEREZ PATIENT -FO R-LIFE [facility] RE FOR LIFE WNR Nov 04, 2017 FOR LIFE [id number] [phone] OCTAVIANO PEREZ PATIENT Selected Encounter This section includes the information on record at [place] for the Encounter. Date/Time Encounter Type Encounter Description Reason Provider Source Dec 24, 2023 03:00 PM MED NUTRITION INDIV SUBSEQ PRIMARY CARE/MEDICINE ICD-10-CM R13.12 Dysphagia, oropharyngeal phase [facility] Encounter Template Text not used by [place] Assessments - Encounter Diagnoses This section includes the primary and secondary diagnoses documented for the Encounter. Date/Time Primary/Secondary Diagnosis Diagnosis Name Provider Source Dec 24, 2023 03:40 PM PRIMARY Dysphagia, oropharyngeal phase [facility] Dec 24, 2023 03:40 PM SECONDARY Dietary counseling and surveillance MANUEL HULL [facility] Plan of Treatment: Future Appointments (+ 6 months) and Future Tests (+/- 45 days) The Plan of Treatment section includes future care activities for the [facility] [place] [facility] This section includes future appointments and future orders which are active, pending or scheduled. Future Appointments This section includes appointments that were scheduled to occur 6 months from the date of the Encounter, up to a maximum of 20 appointments. The data comes from all [facility]. Appointment Date/Time Appointment Type Appointme nt Facility Name Dec 26, 2023 08:00 AM AMBULATORY - PSYCHIATRY [facility] Jan 13, 2024 02:30 PM AMBULATORY - SURGERY . [facility] Jan 14, 2024 07:45 AM AMBULATORY - SURGERY [facility] Feb 06, 2024 08:00 AM AMBULATORY - MEDICINE [facility] March 10, 2024 03:30 PM AMBULATORY - MEDICINE [facility] Apr 14, 2024 03:00 PM AMBULATORY - NONE [facility] Apr 16, 2024 01:30 PM AMBULATORY - PSYCHIATRY [facility] May 14, 2024 01:00 PM AMBULATORY - MEDICINE [facility] Jun 03, 2024 09:45 AM AMBULATORY - REHAB MEDICIN E [facility] Jun 03, 2024 10:00 AM AMBULATORY - NONE [facility] Jun 11, 2024 09:30 AM AMBULATORY - MEDICINE [facility] Active, Pending, and Scheduled Orders This section includes a listing of several types of active, pending, and scheduled orders, including clinic medications orders, diagnostic test orders, procedure orders and consult orders; where the start date of the order is 45 days before the date of the Encounter or 45 days after the date of theEncounter. The data comes from all [facility]. Test Date/Time Test Type Test Details Facility Name Nov 13, 2023 12:00 AM Laboratory - Chemi stry Order MICRAL/CREAT PROFILE (STL) URINE YELLOW SP [facility] Social History: Smoking Status (Most current) and Tobacco Use (All prior to encounter date) This section includes the most current, and the historical, smoking and tobacco- related health factors from the [place] facility where the Encounter took place. Current Smoking Status This section includes the most current smoking, or tobacco-related health factor, from the [place] facility where the Encounter took place. Date/Time Current Smoking Status Comment Tony ity Feb 19, 2023 08:00 AM VA-TOBACCO FORMER USER [facility] Tobacco Use History This section includes a history of the smoking, or tobacco-related health factors, that were collected on or before the date of the Encounter. The data comes from the [place] facility where the Encounter took place. Date/Time Smoking Status/Tobacco Use Comment F acility Feb 19, 2023 08:00 AM VA-TOBACCO QUIT 15 YRS OR MORE [facility] March 05, 2022 03:00 PM VA-TOBACCO FORMER USER [facility] March 05, 2022 03:00 PM VA-TOBACCO QUIT 5 TO < 15 YRS [facility] Feb 06, 2021 11:00 AM VA-TOBACCO FORMER USER [facility] Feb 06, 2021 11:00 AM VA-TOBACCO QUIT 15 YRS OR MORE [facility] Nov 19, 2019 04:05 PM VA-TOBACCO FORMER USER [facility] Nov 19, 2019 04:05 PM VA-TOBACCO QUIT 5 TO < 15 YRS [facility] Oct 30, 2018 02:11 PM VA-TOBACCO FORMER USER [facility] Oct 30, 2018 02:11 PM VA-TOBACCO QUIT 5 TO < 15 YRS [facility] Advance Directives: All historical and current Section Date Range: From patient's date of to the date document was created. This section includes ALL of a patient's completed or amended [place] Advance and Rescinded Directives. The entries below indicate that a directive exists for the patient, but an actual copy is not included with this document. The data comes from all [facility]. Date Advance Directives Provider Source Apr 24, [address] [facility] Encounter Notes: All associated encounter notes This section contains the clinical notes associated to the Encounter. Date/Time Encounter Note(s) Provider Source Dec 24, 2023 12:23 PM NUTRITION DIETETICS NOTE: LOCAL TITLE: NUTRITION FOLLOW UP ST STANDARD TITLE: NUTRITION DIETETICS NOTE DATE OF NOTE: DEC 24, 2023@12:23 ENTRY DATE: DEC 24, 2023@12:23:49 AUTHOR: EUN HULL EXP COSIGNER: URGENCY: STATUS: COMPLETED Modality of Care: C Visit conducted by Clinical Video Telehealth. Patient provided verbal consent for video telehealth. Patient location confirmed. Emergency number confirmed. Best contact number for backup communication: Primary number listed NUTRITION REASSESSMENT Diagnosis: dysphagia, unintended wt loss Time spent with : 28 minutes BMI: 24.6 Last appointment date: 10/16/23 Patient Medical History: Squamous cell carcinoma Diabetes [...] highly aggravates dry mouth Food intake: eating only small meals/snacks daily, eats slow, has been pushing self to eat --when has hunger, snacks off and on all day long. When not, eats 2-3x per day. B: oatmeal (3 pkts sugar substitute) or cheesy grits, whole milk Snack: no longer eating Snack/lunch: no longer eating 1-2 days/week. --3-4 days/week eats 1-2 chicken prashant sandwiches from [employer] --when not working, 2 days/week, eats chicken salad. D: baked potato with gravy and chicken mixed in Snacks (2-3 after dinner, about 1 hour apart): -baked potato with sour cream -baked potato with sour cream Medical nutrition supplement intake: 1 Glucerna/day --1 refill remaining (however received 1 shipment ensure plus as well, prior to change) --reports drinking 1/day most days OUTPATIENT MEDICATIONS ARTIFICIAL SALIVA ORAL SPRAY USE 3-5 SPRAYS BY MOUTH ACTIVE EVERY TWO HOURS NEEDED FOR DRY MOUTH AND THROAT ATORVASTATIN CALCIUM 40MG TAB TAKE ONE-HALF TABLET BY ACTIVE MOUTH EVERY EVENING FOR HIGH CHOLESTEROL MIRTAZAPINE 7.5MG TAB TAKE TWO TABLETS BY MOUTH AT ACTIVE BEDTIME FOR DEPRESSION NUTR SUPL GLUCERNA THER NUTR SHAKE JIMBO TAKE 1 CANFUL ACTIVE BY MOUTH DIRECTED FOR NUTRITION/DIETARY SUPPLEMENTATION (SHAKE WELL) OMEPRAZOLE 20MG EC CAP TAKE ONE CAPSULE BY MOUTH ACTIVE EVERY MORNING BEFORE A MEAL FOR GASTROESOPHAGEAL REFLUX DISEASE. TAKE 30 MINUTES PRIOR TO FOOD. PROPYLENE GLYCOL 0.6% OPH SOLN INSTILL 1 DROP IN BOTH ACTIVE EYES THREE TIMES A DAY NEEDED SIMPLYTHICK GEL ORAL MILDLY THICK 6GM TAKE 1 PACKET ACTIVE OF SIMPLYTHICK ORAL GEL NECTAR 6GM BY MOUTH FOUR TIMES A DAY NEEDED OR DIRECTED TO THICKEN LIQUIDS. USE 1 PACKET PER 4 OZ OF LIQUID. VALPROIC ACID 250MG/5ML ORAL SOLN TAKE 5 ML BY MOUTH ACTIVE EVERY MORNING AND TAKE 10 ML AT BEDTIME FOR MOOD KNOWLEDGE BELIEFS AND ATTITUDES/BEHAVIOR Marianna with prior re-gain of wt through purposeful [...] food in mouth, as sometimes gets stuck. --states cream cheese helps his dry mouth tremendously, and if adds/eats when drinking coffee helps to make mouth less dry also. has stopped consuming cream cheese r/t increased cholesterol level per recent draw. drinks a lot of fluid daily r/t needs to assist swallowing, with and without food. 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 --followed by ENT A few days ago had 2 teeth pulled r/t crowns fell off, can't chew things currently r/t roots very sensitive. Reports increased intake of Glucerna, at 1/day (which is what prescribed). Thinks going to increase intake to 2/day until his gums are less tender. --Marianna still able to eat potatoes, and hungarian toast, soft foods (which is what mostly eating prior to teeth being pulled r/t dysphagia) PHYSICAL ACTIVITY AND FUNCTION Works 5 day/week, moving while working. ANTHROPOMETRIC MEASUREMENTS Ht: 64 in [162.6 cm] (01/15/2023 14:21) Wt: 142.3 lb [64.55 kg] (11/13/2023 09:14) Home wt: 143-146 lbs. Weight History/Significant changes: reports gaining a little wt since last visit per home scale, few lbs. Patient Weight History - Last Four 1. 142.3 lbs. / 64.6 kg. on NOV 13, 2023@09:14:48 2. 143.0 lbs. / 64.9 kg. on OCT 16, 2023@15:50:48 3. 140.2 lbs. / 63.6 kg. on JAN 15, 2023@14:21:36 4. 146.6 lbs. / 66.5 kg. on MARCH 05, 2022@15:11:17 BMI: 24.5 BIOCHEMICAL DATA/MEDICAL TESTS AND PROCEDURES HGA1C 6.3 H % 11/13/2023 10:02 HGA1C 5.9 % 01/15/2023 15:16 HGA1C 6.1 H % 03/05/2022 15:55 HGA1C 6.5 H % 02/06/2021 11:23 HGA1C 7.7 H % 05/10/2020 13:26 doesn't take BS lowering-medication. States changed lifestyle/went back to work (moving more), regarding decreasing trend. --recent increase likely r/t high carbohydrate diet (per recall) TRIGLYCERIDE 166 H mg/dL 11/13/2023 10:02 CHOLESTEROL 213 H mg/dL 11/13/2023 10:02 HDL(New) 37 L mg/dL 11/13/2023 10:02 CALCULATED LDL 143 mg/dL 11/13/2023 10:02 Prior draw: TRIGLYCERIDE 114 mg/dL 01/15/2023 15:16 CHOLESTEROL 186 mg/dL 01/15/2023 15:16 HDL(New) 40 mg/dL 01/15/2023 15:16 CALCULATED LDL 123 mg/dL 01/15/2023 15:16 NUTRITION FOCUSED PHYSICAL FINDINGS Per 06/18/23 MUSIC ORCHESTRATOR note (swallow evaluation): IMPRESSION: Patient presented with [...] consuming cold foods/beverages. No difficulty swallowing currently. --not following pureed diet, but states eats foods/chicken chopped up very well. Per NFPE, with mild buccal and orbital fat loss, mild temporalis muscle wasting. *NO CHANGE* denies N/V or bowel issues since last colonoscopy. Appetite comes and goes. NUTRITION PRESCRIPTION Recommended increased energy and protein diet Estimated energy needs: 1950 Calories/day (30 kcal/kg) Estimated protein needs: 65-78 g/day (1-1.2 g/kg) NUTRITION DIAGNOSIS *Active* (improving) Unintended weight loss related to (prior) inadequate energy and protein intake (behavior etiology) as evidenced by unintentional weight loss of 9% in less than 3 months, mild fat and muscle loss. NUTRITION INTERVENTIONS FOOD AND NUTRIENT DELIVERY --encouraged eating at least 6 times daily, in addition to ONS. Eat morning snack daily, and lunch. Medical Nutrition Supplement Therapy: renewing ONS for 1 Glucerna/day NUTRITION EDUCATION/COUNSELING --discussed healthier, high Calorie (and protein) sources to consume in place of cream cheese. Marianna loves PB--to increase intake of at snacks (also benefits cholesterol). --Recommended pack PB and Glucerna to take with him to work daily, to consume in addition to a lunch meal. If misses lunch on accident, at least with items brought from home to consume. --Encouraged protein sources with breakfast as well. More protein at meals will allow for smaller portion of carbohydrates as well, needed to decrease Hgb A1C. --Encouraged continue to eat r/t needed nutrition, on days appetite is off. Education material: verbal Barriers to learning: none Comprehension: good NUTRITION MONITORING AND EVALUATION (ONGOING) --Food and Beverage Intake-- Number of meals estimated in 24 hours: at least 6 small *Goal not achieved* Nutritionally complete liquid supplement estimated oral intake in 24 hours: 1 Glucerna *Goal not achieved* *Some progress toward goal* --Body composition/growth/weight history-- Measured weight: at or above 145 lb at follow-up Return to clinic: 2.5 months (03/04 at 1500, vvc) /willie/ Eun Hull MS, RD, LD Clinical Dietitian Signed: 12/25/2023 16:19 EUN HULL [facility]
--- OUTSIDE RECORDS SUMMARY | 2024-11-26 13:18 | XMS_ITS | Encounter Summary ---
Author Name [place] Address [address] [place] [address] Care Team Providers Care Medical Manager Name Role Phone QUYEN MIJARES Primary [...] POINT OF SERVICE MHBP Nov 04, 2023 [id number] VIKKI PEREZ SPOUSE AETNA-MHBP POINT OF SERVICE [facility] Nov 04, 2018 [id number] VIKKI PEREZ SPOUSE CAREBALAJI ([id number]) RX PRESCRIPT ION RX PLAN Nov 04, 2017 [id number] [phone] ANAOCTAVIANO DOSHI SPOUSE CAREBALAJI ([id number])RX PRESCRIPT ION MHBP Nov 04, 2018 [id number] [phone] ANA JACIOCTAVIANO SPOUSE CAREBALAJI ([id number])RX PRESCRIPT ION MHBP Nov 04, 2018 [id number] [phone] OCTAVIANO PEREZ SPOUSE CAREBALAJI ([id number])RX PRESCRIPT ION MHBP Nov 04, 2018 [id number] [phone] OCTAVIANO PEREZ SPOUSE CAREMARK ([id number])RX PRESCRIPT ION MHBP Nov 04, 2018 [id number] [phone] OCTAVIANO PEREZ SPOUSE HUMANA MCR (WNR) MEDICARE ADVANTAGE [facility] (WNR) Nov 04, 2018 [id number] OCTAVIANO PEREZ PATIENT MEDICARE (WNR) MEDICARE (M) PART A May 04, 2009 PART A [id number] [phone] OCTAVIANO PEREZ PATIENT MEDICARE (WNR) MEDICARE (M) PART B May 04, 2009 PART B [id number] [phone] OCTAVIANO PEREZ PATIENT MEDICARE (WNR) MEDICARE (M) PART B May 04, 2009 PART B [id number] [phone] OCTAVIANO PEREZ PATIENT MEDICARE (WNR) MEDICARE (M) PART A May 04, 2009 PART A [id number] [phone] OCTAVIANO PEREZ PATIENT -FO R-LIFE [facility]ICA RE FOR LIFE WNR Nov 04, 2017 FOR LIFE [id number] [phone] OCTAVIANO PEREZ PATIENT Selected Encounter This section includes the information on record at [place] for the Encounter. Date/Time Encounter Type Encounter Description Reason Provider Source Apr 16, 2024 01:30 PM OFFICE O/P EST LOW 20 MIN PSYCHOGERIATRIC - INDIVIDUAL ICD-10-CM F39 Unspecified mood [affective] disorder SHERON AMANDA Smith Encounter Template Text not used by [place] Assessments - Encounter Diagnoses This section includes the primary and secondary diagnoses documented for the Encounter. Date/Time Primary/Secondary Diagnosis Diagnosis Name Provider Source Apr 16, 2024 02:13 PM PRIMARY Unspecified mood [affective] disorder Barber AMANDA [facility] Plan of Treatment: Future Appointments (+ 6 months) and Future Tests (+/- 45 days) The Plan of Treatment section includes future care activities for the patient from all [place] treatmentfacilities. This section includes future appointments and future orders which are active, pending or scheduled. Future Appointments This section includes appointments that were scheduled to occur 6 months from the date of the Encounter, up to a maximum of 20 appointments. The data comes from all [place] treatment facilities. Appointment Date/Time Appointment Type Appointme nt Facility Name May 14, 2024 01:00 PM AMBULATORY - MEDICINE [facility] Jun 03, 2024 09:45 AM AMBULATORY - REHAB MEDICIN E [facility] Jun 03, 2024 10:00 AM AMBULATORY - NONE [facility] Jun 11, 2024 09:30 AM AMBULATORY - MEDICINE [facility] Jul 09, 2024 02:30 PM AMBULATORY - NONE [facility] Jul 15, 2024 12:30 PM AMBULATORY - PSYCHIATRY [facility] Jul 16, 2024 11:00 AM AMBULATORY - SURGERY [facility] Aug 03, 2024 02:15 PM AMBULATORY - NONE [facility] Oct 06, 2024 02:30 PM AMBULATORY - NONE [facility] Oct 15, 2024 08:30 AM AMBULATORY - PSYCHIATRY [facility] Vital Signs: All taken on the encounter date This section contains inpatient and outpatient Vital Signs collected on the date of the Encounter. Date/Time Temperature Pulse Blood Pressure Respiratory Rate SP02 Pain Height Weight Body Mass Index Source Apr 16, 2024 02:22 PM 135.6 23 [facility] Social History: Smoking Status (Most current) and Tobacco Use (All prior to encounter date) This section includes the most current, and the historical, smoking and tobacco- related health factors from the [place] facility where the Encounter took place. Current Smoking Status This section includes the most current smoking, or tobacco-related health factor, from the [place] facility where the Encounter took place. Date/Time Current Smoking Status Comment Facil ity March 10, 2024 03:30 PM VA-TOBACCO QUIT 15 YRS OR MORE [facility] Tobacco Use History This section includes a history of the smoking, or tobacco-related health factors, that were collected on or before the date of the Encounter. The data comes from the [place] facility where the Encounter took place. Date/Time Smoking Status/Tobacco Use Comment F acility March 10, 2024 03:30 PM VA-TOBACCO QUIT 15 YRS OR MORE [facility] Feb 19, 2023 08:00 AM VA-TOBACCO FORMER USER [facility] Feb 19, 2023 08:00 AM VA-TOBACCO QUIT 15 YRS OR MORE [facility] March 05, 2022 03:00 PM VA-TOBACCO FORMER USER [facility] March 05, 2022 03:00 PM VA-TOBACCO QUIT 5 TO < 15 YRS [facility] Feb 06, 2021 11:00 AM VA-TOBACCO FORMER USER [facility] Feb 06, 2021 11:00 AM VA-TOBACCO QUIT 15 YRS OR MORE [facility] Nov 19, 2019 04:05 PM VA-TOBACCO FORMER USER [facility] Nov 19, 2019 04:05 PM VA-TOBACCO QUIT 5 TO < 15 YRS [facility] Oct 30, 2018 02:11 PM VA-TOBACCO FORMER USER [facility] Oct 30, 2018 02:11 PM VA-TOBACCO QUIT 5 TO < 15 YRS [facility] Advance Directives: All historical and current Section Date Range: From patient's date of to the date document was created. This section includes ALL of a patient's completed or amended [place] Advance and Rescinded Directives. The entries below indicate that a directive exists for the patient, but an actual copy is not included with this document. The data comes from all [place] facilities. Date Advance Directives Provider Source Apr 24, 2019 ADVANCE DIRECTIVE DANY RHODES [facility] Encounter Notes: All associated encounter notes This section contains the clinical notes associated to the Encounter. Date/Time Encounter Note(s) Provider Source Apr 16, 2024 01:46 PM PSYCHIATRY OUTPATIENT NOTE: LOCAL TITLE: MENTAL HEALTH AGING RESOURCES TEAM ST STANDARD TITLE: PSYCHIATRY OUTPATIENT NOTE DATE OF NOTE: APR 16, 2024@13:46 ENTRY DATE: APR 16, 2024@13:46:52 AUTHOR: ARELI AMANDA COSIGNER: URGENCY: STATUS: COMPLETED [facility] - MEDICATION MANAGEMENT Name..................OCTAVIANO PEREZ Age...................76 Sex...................MALE SSN...................[id number] Today's Date..........APR 16, 2024 Service Connection....Service Connected: No ALLERGIES: ERYTHROMYCIN [...] Peripheral neuropathy 7) Diabetes Mellitus Type 2 ([facility] [id number]) 8) Chronic constipation 9) HTN - Hypertension ([facility] [id number]) 10) GERD - Gastro-Esophageal Reflux Disease ([facility] [id number]) VITAL SIGNS: Pulse.................85 (03/29/2021 08:06) Temperature...........98.5 F [...] THIS VISIT: mood disorder unspecified ANY COMPLAINTS/PROBLEMS.......No [place] seen today for f/u with and he reports that he had been sick and amitted at outside hospital from 04/07- 04/11 for treatment of Cystitis. reports that last month he had fever, ear pain, sore throat and abdomnal discomfort for few days and he could not get out of bed as he was very tired and sick. on April 07 he started having fever with chills, when called [place] hotline and they directed her to take him to the ER nearby. brought the labs done there, which showed raised WBC with increase neutrophils. He also had abdominal CT that showed thickened meredith of bladder and smal renal cysts. was discharged last week after treatment with antibiotics. His appetite is still low and he is is only taking pureed food after talking to the engineering manager electronics. His mood has been however okay, he is compliant with depakote and mirtazapine and denies any mood swings , or agitation. He is little tired still and is trying to help him with meds nd melatimes. They are getting meals on wheels twice a week. [place] is sleeping 10hrs and feels rested. denies feeling worthless or having suicidal thoughts. he is alert and oriented x3. [place] wants to increase the dose of his meds as he feels it would help his appetite and mood. ANY MEDICATION SIDE EFFECT....No APPETITE......................Go od SLEEP.........................Go od MENTAL STATUS: MOOD/AFFECT.................Norm al mood- alright now Affect-appropriate DELUSIONS/HALLUCINATIONS....Abse nt denies SUICIDAL/AGGRESSIVE.........Abse nt denies ALERT & ORIENTED X3 WITH GOOD CONCENTRATION........Yes oriented x3 COMMENTS: None MEDICATION CHANGE.............No SUPPORTIVE PSYCHOTHERAPY......Yes GAF:No previous GAF entered. Current Gaf: na TREATMENT PLAN: COMMENTS: mood disorder- To increase mirtazapine 30mg po hs and continue depakote [...] SHERON AMANDA MD Staff Physician, Psychiatry Signed: 04/16/2024 14:24 ZECHARIAH AMANDA [facility] Apr 15, 2024 04:20 PM MENTAL HEALTH TELEPHONE ENCOUNTER NOTE: LOCAL TITLE: [facility] TELEPHONE ST[facility] STANDARD TITLE: MENTAL HEALTH TELEPHONE ENCOUNTER NOTE DATE OF NOTE: APR 15, 2024@16:20 ENTRY DATE: APR 15, 2024@16:22:24 AUTHOR: TIEN CASTRO EXP COSIGNER: URGENCY: STATUS: COMPLETED Called vet. and l/m on voice mailbox reminding them of f2f appt. with Dr. Motley on 04/16/2024 @ [phone]. They should report to [facility] [address] MHC. /willie/ TIEN CASTRO RN Registered Nurse Signed: 04/15/2024 16:28 TIEN CASTRO [facility]
--- OUTSIDE RECORDS SUMMARY | 2024-11-26 13:18 | XMS_ITS ---
Author Name [facility] [place] Address [address] [place] [address] Care Team Providers Care Facilities Specialist Name Role Phone QUYEN MIJARES Primary Care [...] POINT OF SERVICE MHBP Nov 04, 2023 [id number] [phone] VIKKI PEREZ SPOUSE AETNA-[facility] POINT OF SERVICE [facility] Nov 04, 2018 [id number] [phone] VIKKI PEREZ SPOUSE CAREBALAJI ([id number]) RX PRESCRIPT ION RX PLAN Nov 04, 2017 [id number] [phone] ANAOCTAVIANO DOSHI SPOUSE CAREBALAJI ([id number])RX PRESCRIPT ION MHBP Nov 04, 2018 [id number] [phone] ANA JACIOCTAVIANO SPOUSE CAREBALAJI ([id number])RX PRESCRIPT ION MHBP Nov 04, 2018 [id number] [phone] OCTAVIANO PEREZ SPOUSE CAREBALAJI ([id number])RX PRESCRIPT ION [facility] Nov 04, 2018 [id number] [phone] OCTAVIANO PEREZ SPOUSE CAREMARK ([id number])RX PRESCRIPT ION [facility] Nov 04, 2018 [id number] [phone] OCTAVIANO PEREZ SPOUSE HUMANA MCR (WNR) MEDICARE ADVANTAGE MCR (WNR) Nov 04, 2018 [id number] OCTAVIANO PEREZ PATIENT MEDICARE (WNR) MEDICARE (M) PART A May 04, 2009 PART A [id number] [phone] OCTAVIANO PEREZ PATIENT MEDICARE (WNR) MEDICARE (M) PART B May 04, 2009 PART B [id number] [phone] OCTAVIANO PEREZ PATIENT MEDICARE (WNR) MEDICARE (M) PART B May 04, 2009 PART B [id number] OCTAVIANO PEREZ PATIENT MEDICARE (WNR) MEDICARE (M) PART A May 04, 2009 PART A [id number] OCTAVIANO PEREZ PATIENT -FO R-LIFE TRICA RE FOR LIFE WNR Nov 04, 2017 FOR LIFE [id number] [phone] OCTAVIANO PEREZ PATIENT Selected Encounter This section includes the information on [place] at [place] for the Encounter. Date/Time Encounter Type Encounter Description Reason Provider Source Nov 13, 2024 01:21 PM HEARING AID SUP/ACCESS/DEV AUDIOLOGY ICD-10-CM H90.3 Sensorineural hearing loss, bilateral CINDI TORRES N IHE Encounter Template Text not used by [place] Assessments - Encounter Diagnoses This section includes the primary and secondary diagnoses documented for the Encounter. Date/Time Primary/Secondary Diagnosis Diagnosis Name Provider Source Nov 13, 2024 01:40 PM PRIMARY Sensorineural hearing loss, bilateral RAJIV TORRES CA N [facility] Plan of [...] 20 appointments. The data comes from all [place] treatment facilities. Appointment Date/Time Appointment Type Appointme nt Facility Name Nov 25, 2024 04:30 PM AMBULATORY - NONE [facility] Dec 04, 2024 01:00 PM AMBULATORY - MEDICINE [facility] Dec 24, 2024 02:00 PM AMBULATORY - PSYCHIATRY [facility] Dec 29, 2024 02:30 PM [facility] - NONE [facility] Feb 12, 2025 11:00 AM AMBULATORY - SURGERY [facility] Lab Results: +/- 30 days of the encounter This section includes the Chemistry and Hematology Lab Results on record with [place] for the patient. Radiology Reports and Pathology Reports are provided separately, in subsequent sections. Lab Results This section contains the Chemistry/Hematology Results that were resulted 30 days before or 30 daysafter the date of the Encounter. Date/Time Source Result Type Result - Unit Interpretation Reference Range Comment Nov 13, 2024 11:16 AM [facility] URINALYSIS W/ CX REFLEX (STL-PB) Specimen Type: URINE No comment entered. Ordering Provider: SAWYER MIJARES Report Released Date/Time: Nov 13, 2024 10:48 AM Reporting Lab: [facility] [facility] [address] Performing Lab: [facility] [address] URINE COLOR Yellow Yellow U.BILIRUBIN Negative mg/dL [...] GRAVITY 1.018 Nov 13, 2024 11:11 AM [facility] HGA1C Specimen Type: BLOOD No comment entered. Ordering Provider: SAWYER MIJARES Report Released Date/Time: Nov 13, 2024 10:48 AM Reporting Lab: [facility]1 [place] [address] Performing Lab: [facility]1 [facility] [address] HGA1C 7.1 H 4.0-6.0 Nov 13, 2024 11:11 AM [facility] TSH (MA-PB) Specimen Type: SERUM No comment entered. Ordering Provider: SAWYER MIJARES Report Released Date/Time: Nov 13, 2024 10:48 AM Reporting Lab: [facility] [place] [address] Performing Lab: [facility] [place] [address] TSH 1.716 u[IU]/mL 0.470-5.000 Nov 13, 2024 11:11 AM [facility] VITAMIN D, 25-HYDROXY Specimen Type: SERUM No comment entered. Ordering Provider: SAWYER MIJARES Report Released Date/Time: Nov 13, 2024 10:48 AM Reporting Lab: [facility] [place] [address] Performing Lab: [facility] [address] VITAMIN D, 25-HYDROXY 43.9 ng/mL 30-96 Nov 13, 2024 11:11 AM [facility] LIPID PANEL (STL) Specimen Type: PLASMA Comment: No hemolysis noted. Ordering Provider: SAWYER MIJARES Report Released Date/Time: Nov 13, 2024 10:48 AM Reporting Lab: [facility] [place] [address] Performing Lab: [facility] [address] CHOLESTEROL 137 mg/dL 0-200 TRIGLYCERIDE 114 mg/dL 0-150 CALCULATED LDL 85 mg/dL See Interp HDL(New) 29 mg/dL L > 40 Nov 13, 2024 11:11 AM [facility] B12 Specimen Type: SERUM No comment entered. Ordering Provider: SAWYER MIJARES Report Released Date/Time: Nov 13, 2024 10:48 AM Reporting Lab: [facility] [address] Performing Lab: [facility]1 [place] [id number] B12 771 pg/mL 213-816 Nov 13, 2024 11:11 AM [facility] COMPREHENSIVE METABOLIC PANEL Specimen Type: PLASMA Comment: No hemolysis noted. Ordering Provider: SAWYER MIJARES Report Released Date/Time: Nov 13, 2024 10:48 AM Reporting Lab: [facility] [address] Performing Lab: [facility] [address] CREATININE 1.04 mg/dL 0.70-1.30 UREA NITROGEN 16.8 [...] 73.50 >60 Nov 13, 2024 11:11 AM [facility] CBC Specimen Type: BLOOD No comment entered. Ordering Provider: SAWYER MIJARES Report Released Date/Time: Nov 13, 2024 10:48 AM Reporting Lab: [facility] [address] Performing Lab: [facility] [address] WBC 9.5 10*3/uL 3.6-11.2 RBC 4.53 10*6/uL [...] 122/80 14 99 0 64 152 26 [facility] Social History: Smoking Status (Most current) and Tobacco Use (All prior to encounter date) This section includes the most current, and the historical, smoking and tobacco- related health factors from the [place] facility where the Encounter took place. Current Smoking Status This section includes the most current smoking, or tobacco-related health factor, from the [place] facility where the Encounter took place. Date/Time Current Smoking Status Comment Facil ity March 10, 2024 03:30 PM VA-TOBACCO QUIT 15 YRS OR MORE [facility] Tobacco Use History This section includes a history of the smoking, or tobacco-related health factors, that were collected on or before the date of the Encounter. The data comes from the [place] facility where the Encounter took place. Date/Time Smoking Status/Tobacco Use Comment F acility March 10, 2024 03:30 PM VA-TOBACCO QUIT 15 YRS OR MORE [facility] Feb 19, 2023 08:00 AM VA-TOBACCO FORMER USER [facility] Feb 19, 2023 08:00 AM VA-TOBACCO QUIT 15 YRS OR MORE [facility] March 05, 2022 03:00 PM VA-TOBACCO FORMER USER [facility] March 05, 2022 03:00 PM VA-TOBACCO QUIT 5 TO < 15 YRS [facility] Feb 06, 2021 11:00 AM VA-TOBACCO FORMER USER [facility] Feb 06, 2021 11:00 AM VA-TOBACCO QUIT 15 YRS OR MORE [facility] Nov 19, 2019 04:05 PM VA-TOBACCO FORMER USER [facility] Nov 19, 2019 04:05 PM VA-TOBACCO QUIT 5 TO < 15 YRS [facility] Oct 30, 2018 02:11 PM VA-TOBACCO FORMER USER [facility] Oct 30, 2018 02:11 PM VA-TOBACCO QUIT 5 TO < 15 YRS [facility] Advance Directives: All historical and current Section Date Range: From patient's date of to the date document was created. This section includes ALL of a patient's completed or amended [place] Advance and Rescinded Directives. The entries below indicate that a directive exists for the patient, but an actual copy is not included with this document. The data comes from all [place] facilities. Date Advance Directives Provider Source Apr 24, 2019 ADVANCE DIRECTIVE DANY RHODES [facility] Radiology Reports: +/- 30 days [...] the Encounter. The data comes from all [place] treatment facilities. Date/Time Radiology Report Provider Source Nov 25, 2024 03:[address] HEAD W/O CONT: OCTAVIANO PEREZ [id number] -[id number] M Exm Date: NOV 25, 2024@15:52 Req Phys: QUYEN MIJARES Loc: [facility]-PACT E7 PCP (Req'g Loc) Img Loc: [facility]-CT IMAGING [facility] Service: Unknown [facility], [facility] [address] [place] [address] (Case [id number] COMPLETE) CT HEAD W/O CONT (CT Detailed) CPT:93735 Reason for Study: Episodes of mental status change Clinical History: Responsible Attending: Carlos Attending Contact Number: [phone] Resident Contact Number: Allergies listed in CPRS chart: ERYTHROMYCIN Creatinine: CREATININE 0.99 mg/dL 11/13/2023 10:02 /eGFR: STL EGFR (within one year). *No Lab Data Found* Wt: 152 lb [68.95 kg] (11/13/2024 10:24) History of: Renal failure, chronic or acute renal disease: NO Report Status: Verified Date Reported: NOV 25, 2024 Date Verified: NOV 25, 2024 Front Desk Representative E-Sig:/ES/MERNA BEYER Report: CT HEAD W/O CONT [id number] DATE: 11/25/2024 8:32 PM HISTORY: Episodes of [...] Primary Interpreting Staff: MERNA BEYER, Diagnostic Radiologist (Front Desk Representative) /MERNA BOSWELL [facility] Pathology Reports: +/- 30 days of [...] the Encounter. The data comes from all [place] treatment facilities. Date/Time Pathology Report Provider Source Nov 13, 2024 11:16 AM LR MICROBIOLOGY RE PORT: Accession [UID]: [id number] [[id number]] Received: Nov 13, 2024@11:59 Collection sample: URINE,CLEAN CATCH Collection date: Nov 13, 2024 11:16 Site/Specimen: URINE Provider: QUYEN MIJARES Test(s) ordered: C&S URINE..................... completed: Nov 15, 2024 10:03 * BACTERIOLOGY FINAL REPORT => Nov 15, 2024 10:27 TECH CODE: [id number] CULTURE RESULTS: STREP. VIRIDANS - Quantity: >100,000 CFU/ML Comment: Clinically insignificant growth based on current clinical standards. There will be no work up. Bacteriology Remark(s): 11/15/24 SKYLA CULTURE COMPLETE. =--=--=--=--=--=--=--=--=--=-- =--=--=--=--=--=--=--=--=--=-- =--=--=--=--=--=-- Performing Laboratory: Bacteriology Report Performed By: [facility], [facility] [address] [facility] CLIA# [id number] [address] [facility] [address] [place] [address] [facility] Encounter Notes: All associated encounter notes This section contains the clinical notes associated to the Encounter. Date/Time Encounter Note(s) Provider Source Nov 13, 2024 01:21 PM AUDIOLOGY BIT SANDER NOTE: LOCAL TITLE: HEARING AIDS ST STANDARD TITLE: AUDIOLOGY BIT SANDER NOTE DATE OF NOTE: NOV 13, 2024@13:21 ENTRY DATE: NOV 13, 2024@13:22:01 AUTHOR: JUAN ALBERTO TORRES EXP COSIGNER: URGENCY: STATUS: COMPLETED SUBJECT: Audio HEARING AID DROP OFF dropped off/mailed the following [place] issued aid(s): 10/07/20 SONOVA PHONAK AUDEO [id number] CARMENZA L [id number] Worn with [employer]. PHONE: [phone] REPORTED PROBLEM: Left hearing aid will not charge. Also need cleaning kit and more gaskets (white). 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 Attempted to reset hearing aid in clinic several times; issue persisted. Fabric Cutter repair indicated. Will also place order for more Cerustop filters. Ordered vent cleaning brush and cleaning brush for pt. PLAN Macy was notified of repair actions: [x] Device(s) sent in for repair; hearing aid will be mailed to Macy following repair direct from [facility]; ETA approximately 2-3 weeks. [ ] Macy will flower buncher or picker devices at front facer [ ] Hearing device(s) mail to per request. 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
--- OUTSIDE RECORDS SUMMARY | 2024-11-26 13:18 | XMS_ITS | Encounter Summary ---
Author Name [facility] [place] [facility] [place] [facility] [facility] [place] Address [address] [place] [address] Care Team Providers Care Tooler Name Role Phone AMADA GONZALEZ Primary Care Provider Unavailabl e Insurance Providers: [...] POINT OF SERVICE [facility] Nov 04, 2023 [id number] VIKKI PEREZ SPOUSE AETNA-[facility]BP POINT OF SERVICE [facility] Nov 04, 2018 [id number] VIKKI PEREZ SPOUSE CAREBALAJI ([id number]) RX PRESCRIPT ION RX PLAN Nov 04, 2017 [id number] [phone] ANAOCTAVIANO DOSHI SPOUSE CAREBALAJI ([id number])RX PRESCRIPT ION [facility]BP Nov 04, 2018 [id number] ANA JACIOCTAVIANO SPOUSE CAREBALAJI ([id number])RX PRESCRIPT ION [facility] Nov 04, 2018 [id number] [phone] OCTAVIANO PEREZ SPOUSE CAREBALAJI ([id number])RX PRESCRIPT ION [facility] Nov 04, 2018 [id number] [phone] OCTAVIANO PEREZ SPOUSE [employer] ([id number])RX PRESCRIPT ION [facility] Nov 04, 2018 [id number] [phone] OCTAVIANO PEREZ SPOUSE [employer] MCR (WNR) MEDICARE ADVANTAGE MCR (WNR) Nov 04, 2018 [id number] OCTAVIANO PEREZ PATIENT MEDICARE (WNR) MEDICARE (M) PART A May 04, 2009 PART A [id number] OCTAVIANO PEREZ PATIENT MEDICARE (WNR) MEDICARE (M) PART B May 04, 2009 PART B [id number] OCTAVIANO PEREZ PATIENT MEDICARE (WNR) MEDICARE (M) PART B May 04, 2009 PART B [id number] [phone] OCTAVIANO PEREZ PATIENT MEDICARE (WNR) MEDICARE (M) PART A May 04, 2009 PART A [id number] OCTAVIANO PEREZ PATIENT -FO R-LIFE TRICA RE FOR LIFE WNR Nov 04, 2017 FOR LIFE [id number] [phone] OCTAVIANO PEREZ PATIENT Selected Encounter This section includes the information on record at [place] for the Encounter. Date/Time Encounter Type Encounter Description Reason Provider Source March 10, 2024 03:30 PM OFFICE O/P EST MOD 30 MIN PRIMARY CARE/MEDICINE ICD-10-CM K59.00 Constipation, unspecified DYLLAN,AMADA IHE Encounter Template Text not used by [place] Assessments - Encounter Diagnoses This section includes the primary and secondary diagnoses documented for the Encounter. Date/Time Primary/Secondary Diagnosis Diagnosis Name Provider Source March 10, 2024 08:13 PM PRIMARY Constipation, unspecified AMADA GONZALEZ [facility] March 10, 2024 08:13 PM SECONDARY Encounter for immunization FELIPE CANTU [facility] March 10, 2024 08:13 PM SECONDARY Unspecified abdominal pain AMADA GONZALEZ [facility] Plan of Treatment: Future Appointments (+ 6 months) and Future Tests (+/- 45 days) The Plan of Treatment section includes future care activities for the patient from all [place] [facility] This section includes future appointments and future orders which are active, pending or scheduled. Future Appointments This section includes appointments that were scheduled to occur 6 months from the date of the Encounter, up to a maximum of 20 appointments. The data comes from all [facility]. Appointment Date/Time Appointment Type Appointme nt Facility Name Apr 14, 2024 03:00 PM AMBULATORY - NONE [facility] Apr 16, 2024 01:30 PM [facility] May 14, 2024 01:00 PM AMBULATORY - MEDICINE [facility] Jun 03, 2024 09:45 AM AMBULATORY - REHAB MEDICIN [facility] Jun 03, 2024 10:00 AM [facility]ORY - NONE [facility] Jun 11, 2024 09:30 AM AMBULATORY - MEDICINE [facility] Jul 09, 2024 02:30 PM AMBULATORY - NONE [facility] Jul 15, 2024 12:30 PM [facility] Jul 16, 2024 11:00 AM AMBULATORY - SURGERY [facility] Aug 03, 2024 02:15 PM AMBULATORY - NONE [facility] Vital Signs: All taken on the encounter date This section contains inpatient and outpatient Vital Signs collected on the date of the Encounter. Date/Time Temperature Pulse Blood Pressure Respiratory Rate SP02 Pain Height Weight Body Mass Index Source March 10, 2024 03:01 PM 112/65 [facility] March 10, 2024 02:57 PM 97.5 81 162/83 16 97 2 64 162 28 [facility] Immunizations: All administered on the encounter date This section contains immunizations associated to the Encounter. Immunization Series Date Issued Reaction Comments RSV, BIVALENT, PROTEIN SUBUN IT RSVPREF, DILUENT RECONSTITUTED, 0.5 ML, PF March 10, 2024 Social History: Smoking Status (Most current) and Tobacco Use (All prior to encounter date) This section includes the most current, and the historical, smoking and tobacco- related health factors from the [place] facility where the Encounter took place. Current Smoking Status This section includes the most current smoking, or tobacco-related health factor, from the [place] facility where the Encounter took place. Date/Time Current Smoking Status Comment Tony loaizay March 10, 2024 03:30 PM VA-TOBACCO QUIT 15 YRS OR MORE [facility] Tobacco Use History This section includes a history of the smoking, or tobacco-related health factors, that were collected on or before the date of the Encounter. The data comes from the [place] facility where the Encounter took place. Date/Time Smoking Status/Tobacco Use Comment Darcy acaminah March 10, 2024 03:30 PM VA-TOBACCO QUIT 15 YRS OR MORE [facility] Feb 19, 2023 08:00 AM VA-TOBACCO FORMER USER [facility] Feb 19, 2023 08:00 AM VA-TOBACCO QUIT 15 YRS OR MORE [facility] March 05, 2022 03:00 PM VA-TOBACCO FORMER USER [facility] March 05, 2022 03:00 PM VA-TOBACCO QUIT 5 TO < 15 YRS [facility] Feb 06, 2021 11:00 AM VA-TOBACCO FORMER USER [facility] Feb 06, 2021 11:00 AM VA-TOBACCO QUIT 15 YRS OR MORE [facility] Nov 19, 2019 04:05 PM VA-TOBACCO FORMER USER [facility] Nov 19, 2019 04:05 PM VA-TOBACCO QUIT 5 TO < 15 YRS [facility] Oct 30, 2018 02:11 PM VA-TOBACCO FORMER USER [facility] Oct 30, 2018 02:11 PM VA-TOBACCO QUIT 5 TO < 15 YRS [facility] Advance Directives: All historical and current Section Date Range: From patient's date of to the date document was created. This section includes ALL of a patient's completed or amended [place] Advance and Rescinded Directives. The entries below indicate that a directive exists for the patient, but an actual copy is not included with this document. The data comes from all [place] facilities. Date Advance Directives Provider Source Apr 24, [address] [facility] Encounter Notes: All associated encounter notes This section contains the clinical notes associated to the Encounter. Date/Time Encounter Note(s) Provider Source March 10, 2024 04:16 PM NURSING IMMUNIZATI ON NOTE: LOCAL TITLE: CLINIC ADMINISTERED IMMUNIZATION/MEDICATION(S) STANDARD TITLE: NURSING IMMUNIZATION NOTE DATE OF NOTE: MARCH 10, 2024@16:16:12 ENTRY DATE: MARCH 10, 2024@16:16:12 AUTHOR: FELIPE CANTU EXP COSIGNER: URGENCY: STATUS: COMPLETED Administered: RSV, BIVALENT, PROTEIN SUBUNIT RSVPREF, DILUENT RECONSTITUTED, 0.5 ML, PF Date Administered: March 10, 2024 15:30 Series: Complete Roll Tension Tester: [employer] Lot: [id number] Exp Date: Feb 01, 2025 Admin Route/Site: INTRAMUSCULAR/LEFT DELTOID Dosage: 0.5mL Vaccine Information Statement(s): RSV (RESPIRATORY SYNCYTIAL VIRUS) VACCINE VIS Aug 22, 2023 ([place]) Order By: Amada Gonzalez Administered By: Felipe Cantu /willie/ FELIPE CANTU Licensed Practical Nurse Signed: 03/10/2024 16:16 [facility] March 10, 2024 02:58 PM NURSING NOTE: LOCAL TITLE: V15 PACT FACE TO FACE NOTE STL STANDARD TITLE: NURSING NOTE DATE OF NOTE: MARCH 10, 2024@14:58 ENTRY DATE: MARCH 10, 2024@14:58:30 AUTHOR: FELIPE CANTU EXP COSIGNER: URGENCY: STATUS: COMPLETED Provider Visit: Patient Identifiers : Full Name Date of Reason for visit: Established Follow-Up Mode of Arrival: Ambulatory Allergy Review: ERYTHROMYCIN Allergy list reviewed and remains current. Recent Vital Signs: Temperature: 97.5 F [36.4 C] (03/10/2024 14:57) Pulse: 81 (03/10/2024 14:57) Respiration: 16 (03/10/2024 14:57) B/P: 162/83 (03/10/2024 14:57) Pain: 2 (03/10/2024 14:57) Wt: 162 lb [73.48 kg] (03/10/2024 14:57) Ht: 64 in [162.6 cm] (03/10/2024 14:57) BMI: 27.9 POX: 97% (03/10/2024 14:57) Would you like to discuss any personal problem, family problem, alcohol use, drug use, or a mental or emotional illness? No Contact provided Primary Care phone number and encouraged to call if any questions or concerns. Review that after hours nurse line [phone] and emergency room are available 27/05 for patient use. Contact verbalized good understanding. Suicide Screen: C-SSRS Screening [place]-Suicide Severity Rating Scale (C-SSRS Screener) 1. Over the past month, have you wished you were or wished you could go to sleep and not wake up? No 2. Over the past month, have you had any actual thoughts of killing yourself? No 3. Over the past month, have you been thinking about how you might do this? Response not required due to responses to other questions. 4. Over the past month, have you had these thoughts and had some intention of acting on them? Response not required due to responses to other questions. 5. Over the past month, have you started to work out or worked out the details of how to kill yourself? Response not required due to responses to other questions. 6. If yes, at any time in the past month did you intend to carry out this plan? Response not required due to responses to other questions. 7. In your lifetime, have you ever done anything, started to do anything, or prepared to do anything to end your life (for example, collected pills, obtained a gun, gave away valuables, went to the roof but didn't jump)? No 8. If YES, was this within the past 3 months? Response not required due to responses to other questions. Alcohol Use Screen (AUDIT-C): Alcohol Screen: SCREEN FOR ALCOHOL (AUDIT-C) An alcohol screening test (AUDIT-C) was negative (score=2). 1. How often did you have a drink containing alcohol in the past year? Consider a drink to be a 12 ounce can or bottle of regular beer, 8 ounces of malt liquor, a 5 ounce glass of table wine, or a 1.5 ounce shot of liquor (like scotch, gin, or vodka). Two to four times a month 2. How many drinks containing alcohol did you have on a typical day when you were drinking in the past year? One or two drinks 3. How often did you have six or more drinks on one occasion in the past year? Never Tobacco Use Screening: The patient is a former tobacco user. The patient quit fifteen or more years ago. /willie/ FELIPE CANTU Licensed Practical Nurse Signed: 03/10/2024 15:[address] [facility] March 10, 2024 07:32 AM PRIMARY CARE NOTE: LOCAL TITLE: PRIMARY CARE PROVIDER ESTABLISHED VISIT ST STANDARD TITLE: PRIMARY CARE NOTE DATE OF NOTE: MARCH 10, 2024@07:32 ENTRY DATE: MARCH 10, 2024@07:32:46 AUTHOR: AMADA GONZALEZ COSIGNER: URGENCY: STATUS: COMPLETED Please note that this dictation was completed with computer voice recognition software, often unanticipated grammatical, syntax and other interpretive errors are inadvertently transcribed by the computer software. Please disregard these errors. Reason for visit: Urgent appointment History of present illness:The had a abdominal ultrasound completed and did not show iliac arteries and follow-up CT abdomen in 1 year was recommended by vascular surgery and has been ordered. 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 Last seen in November and he returns for follow-up today with complaint of constipation. He reports that he has had constipation for a while and takes MiraLAX as needed which helps with the symptoms temporarily. Went on to report that he has some discomfort on the left mid abdomen which gets better on laying flat and worse if he is bending over, reported that these symptoms have been there for 2 years now. Denies nausea, vomiting, blood in stool and continues to have constipation. No weight loss noted and actually he reports good appetite and is gaining weight. Reports has had 2 episodes where he needed to be admitted to [facility] with severe constipation Problem list:1) Autonomic neuropathy 2) Anxiety 3) Depression 4) Chronic sinusitis 5) Squamous cell carcinoma 6) Peripheral neuropathy 7) Diabetes Mellitus Type 2 ([facility] [id number]) 8) Chronic constipation 9) HTN - Hypertension ([facility] [id number]) 10) GERD - Gastro-Esophageal Reflux Disease ([facility] [id number]) 11) Disorder of left Eustachian tube 12) Sensorineural hearing loss of bilateral ears Allergies: ERYTHROMYCIN Review of systems: No fever, chills, unintentional weight loss or gain, no visual changes, Chest pain, cough, SOB, MEDINA,VILLATORO, N/V/ diarrhea or other bowel changes, No abdominal pain, increased flatulence, nocturia, dysuria, hematuria, urgency/hesitancy, skin lesions positive for: See HPI, constipation, left-sided abdominal discomfort chronic Active Medications: Active Outpatient Medications (including Supplies): [...] MOUTH EVERY EVENING FOR HIGH CHOLESTEROL 4) CICLOPIROX 8% TOP SOLN APPLY SPARINGLY TO AFFECTED ACTIVE AREA(S) AT BEDTIME (THIN COAT TO THICK NAILS - FILE DOWN AFTER 1 WEEK) (EXTERNAL USE ONLY) CLEANED WITH ALCOHOL ONCE A WEEK 5) CYCLOBENZAPRINE HCL 5MG TAB TAKE ONE TABLET BY MOUTH ACTIVE TWICE DAILY NEEDED FOR MUSCLE SPASM. MAY CAUSE DROWSINESS. DO NOT DRINK ALCOHOL WHILE TAKING THIS MEDICATION. 6) FLUTICASONE PROP 50MCG 120D NASAL INHL INSTILL 2 ACTIVE SPRAYS IN EACH NOSTRIL ONCE A DAY FOR ALLERGIES (MUST BE USED DIRECTED FOR MINIMUM OF 21 DAYS TO PROVIDE ADEQUATE BENEFITS) 7) GABAPENTIN 300MG CAP TAKE ONE CAPSULE [...] REMOVE PATCH FOR 12 HOURS. 10) MIRTAZAPINE 7.5MG TAB TAKE TWO TABLETS BY MOUTH AT ACTIVE BEDTIME FOR DEPRESSION 11) NUTR SUPL GLUCERNA THER NUTR SHAKE JIMBO TAKE 1 CANFUL ACTIVE BY MOUTH DIRECTED FOR NUTRITION/DIETARY SUPPLEMENTATION (SHAKE WELL) 12) OMEPRAZOLE 20MG EC CAP TAKE ONE CAPSULE BY MOUTH ACTIVE EVERY MORNING BEFORE A MEAL FOR GASTROESOPHAGEAL REFLUX DISEASE. TAKE 30 MINUTES PRIOR TO FOOD. 13) PROPYLENE GLYCOL 0.6% OPH SOLN INSTILL 1 DROP IN BOTH ACTIVE EYES THREE TIMES A DAY NEEDED 14) SIMPLYTHICK GEL ORAL MILDLY THICK 6GM TAKE 1 PACKET ACTIVE OF SIMPLYTHICK ORAL GEL NECTAR 6GM BY MOUTH FOUR TIMES A DAY NEEDED OR DIRECTED TO THICKEN LIQUIDS. USE 1 PACKET PER 4 OZ OF LIQUID. 15) VALPROIC ACID 250MG/5ML ORAL SOLN TAKE 5 ML BY MOUTH ACTIVE EVERY MORNING AND TAKE 10 ML AT BEDTIME FOR MOOD Colonoscopy: Prog Note DT Title Author Last Julien DT 05/10/2023 COLONOSCOPY CONSULT REPORT WILDER VÁZQUEZ Physical Exam: Date Vital Measurement Qualifiers 03/10/2024 15:01 BP 112/65 03/10/2024 14:57 Temp F (C) 97.5 (36.4) Pulse 81 Respir 16 Ht in (cm) 64 (162.56) Wt lbs (kg)[BMI] 162 (73.48)[28*] Pain 2 POx (L/Min)(%) 97 General: Sitting comfortbly,no acute distress, ambulatory without assistance HEENT: NC/AT, PERRL Neck: Supple, no lymphadenopathy appreciated Cardiovascular: S1 S2, RRR Resp: Effort normal, clear to auscultation GI: Abdomen is soft, nontender, Bowel sounds present, examined in supine position and no tenderness on deep palpation, no rebound or guarding and no masses felt Musculoskeletal: WNL, no acute swelling Neuro: Grossly nonfocal Skin: warm and moist Extremities: No edema Psych: Alert and oriented, normal mood and affect Impression/plan: Constipation/left-sided abdominal pain present for 2 years and reports that he has needed hospitalization due to severe constipation. Discussed with to start regular MiraLAX and fiber supplement, he is requesting tablets for fiber. I have advised him if he has loose stools to cut back on MiraLAX to every other day however I would like for him to continue to take it regularly. ER precautions discussed that if he has worsening of symptoms at any time he needs to go to ER and follow-up [facility] appointment to be scheduled in 1 month for reevaluation. Advised him to use MiraLAX with the thickner Has been discharged from care of ENT and reports that his sinuses are doing really good and no concerns reported today RTC in 1 month [facility] appointment and the is aware to contact us sooner if needed Medication Reconciliation Opt STL: I have reviewed the patient's medication list (including active outpatient prescriptions [facility]ensed from this [facility] (local) and dispensed from another [place] or [facility] facility (remote) as well as inpatient orders (local pending and active), local clinic medications, locally documented non-VA medications, and local prescriptions that have or been discontinued in the past 90 days.) with the patient and/or his/her care-lead caregiver. Handwritten corrections, additions and/or deletions were made to the list, as appropriate. Corrected Outpatient Medication List was provided to the patient/caregiver. /willie/ AMADA GONZALEZ Staff Physician Signed: 03/10/2024 20:13 AMADA GONZALEZ [facility]
== END 2024-11-23 12:43 | disposition home or self-care (01) ==
LOC: ANHSURGERY 12:49
PROVIDERS: Anesthesiology; PCP Family Medicine Adolescent Medicine; Visit Provider Urology
DX: E11.9 Type 2 diabetes mellitus without complications (principal); R56.9 Unspecified convulsions; N35.919 Unspecified urethral stricture, male, unspecified site
CPT/HCPCS: 36415; 80048; 80164; 87086

== ENCOUNTER 2024-12-01 00:44 | Day surgery (SDC) | payer MEDICARE, OTHER, SELFPAY ==
[2024-11-16 13:20] VITALS: BMI 26.2
--- NOTE | 2024-11-16 13:40 | PC.NURSE ---
Report to the Outpatient Waiting Room, entrance under the green pavilion located off [facility], at time __0600am on date __12/01/24 . Planned Procedure Time: _0730 am .? Time changes happen often and if your time is changed the preop area will call you the afternoon before. - You and your visitor will be asked to self-screen and do not enter if you have any COVID symptoms. Please call surgeon if you need to reschedule. - A mask is optional within the hospital at this time. Patients may have clear liquids (water, carbonated beverages, clear teas, apple juice) until 3 hours prior to surgery with a maximum of 20 ounces. - No food from midnight until time of surgery and no smoking. This includes no chewing gum, candy or mints. (0430am) Take only the following medications with a SIP of water on the morning of surgery: __Valproic acid, Antibiotics if still on, DO NOT STOP ANY OF YOUR OTHER PRESCRIPTION MEDICATIONS PRIOR TO SURGERY EXCEPT THE FOLLOWING Medications to discontinue per physician ____Hold all NSAIDS/Anything that contains Aspirin for one week prior per Dr Sheets office Date to take last dose____11/23/24 Please no make-up, nail yoruba, hairspray, perfume, deodorant, or body powder the day of surgery.? No jewelry (including any body piercings) or valuables the day of surgery, leave them at home.? Please take a shower or bath the night before, or the morning of, surgery with an antibacterial soap.? Wear comfortable, loose fitting clothing.? - Jewelry must be removed prior to entering the operating room.? Rings and piercings that are not removed may be cut off. - The hospital will not accept responsibility for valuables.? - Please leave all valuables, including medications, at home the day of surgery. If you are going home after surgery, a licensed dray truck driver must drive you home.? - NO public transportation without another adult if you receive anesthesia. - We recommend that an adult stay with you for 24 hours following discharge. - We also recommend that you do not drive, make important decision, drink alcoholic beverages, or take any drugs that were not prescribed by your health care provider for at least 24 hours after your discharge time. Follow any additional instructions given to you from your surgeon. Telephone instructions given to __Patient& and asked if any additional questions and then verbalized understanding. Patient advised to call surgeon office or pre surgery nurse liaison [phone] if any additional questions.
[2024-12-01] VITALS (9 sets, daily range): BP systolic 110–156; BP diastolic 65–98; PULSE 62–82; RESP 15–17; TEMP 36.1–36.3; O2SAT 98–100
--- NOTE | ~2024-12-01 | XR_ITS ---
INTRAOPERATIVE FLUOROSCOPY: CLINICAL HISTORY: 79 years old Male; STONES PROCEDURE COMMENTS: Limited intraoperative fluoroscopy of the pelvis was performed. CUMULATIVE DOSE: 3.18 mGy FLUOROSCOPY TIME: 15.3 seconds FINDINGS/IMPRESSION: Please refer to operative note for further details. Reviewed, dictated and finalized at location A. OFFICER
--- OUTSIDE RECORDS SUMMARY | 2024-12-01 00:48 | XMS_ITS | Referral Summary ---
Author Organization [facility] Address [address] [place] [id number] Care Team Providers Care Cutting Inspector Name Role Phone Amos Gibbons MD Primary Care Prov ider Allergies Active Allergy Reactions Criticality Noted Date Comments Erythromycin Nausea & Vomiting Low 07/09/2023 Medications valproate 50 mg/mL syrup Take 10 mL (500 mg total) by mouth 2 (two) times a day 3 Active mirtazapine (REMERON) 7.5 mg tablet Take 2 tablets (15 mg total) by mouth nightly 3 Active fluticasone propionate (FLONASE) 50 mcg/actuation nasal spray Administer 1 spray into each nostril daily before breakfast 3 Active gabapentin (NEURONTIN) 300 mg capsule Take 1 capsule (300 mg total) by mouth daily as needed (stomach pains) Active ibuprofen 200 mg tab/cap Take 2 tablet/capsule (400 mg total) by mouth every 6 (six) hours as needed for pain Active oxyCODONE (ROXICODONE) 5 mg immediate release tabletIndicatio ns:Pain Take 1 tablet (5 mg total) by mouth every 4 (four) hours as needed for pain 5 tablet 3 Active prednisoLONE sodium phosphate (INFLAMASE FORTE) 1 % ophthalmic solution Two drops to the right nostril in the head back position twice a day for 1 month 10 mL 3 Active Active Problems Problem Noted Date Diagnosed Date Chronic frontal sinusitis 07/10/2023 Chronic ethmoidal sinusitis 07/10/2023 Chronic maxillary sinusitis 07/10/2023 Social History Tobacco Use Types Packs/Day Years Used Date Smoking Tobacco: Former Cigarettes Q uit: 2000 Smokeless Tobacco: Never AUDIT-C Answer Date Recorded Q1: How often do you have a drink containing alc ohol? 2-4 times a month 08/22/2023 Q2: How many drinks containi ng alcohol do you have on a typical day when you are drinking? 1 or 2 08/22/2023 Q3: How often do you have si x or more drinks on one occasion? Never 08/22/2023 Personal Safety Answer Date Recorded Have you ever been in or are you currently in a harmful physical or emotional relationship or is someone making you feel afraid or unsafe? Denies 08/22/2023 Sex and Gender Information Value Date Recorded Sex Assigned at Not on file Legal Sex Male 8:19 AM CDT Gender Identity Not on file Sexual Orientation Not on file Last Filed Vital Signs Vital Sign Reading Time Taken Comments Blood Pressure 175/94 08/22/2023 10:50 AM CDT Pulse 80 08/22/2023 10:50 AM CDT Temperature 36.3 ??C (97.3 ??F) 08/22/2023 10:00 AM C DT Respiratory Rate 10 08/22/2023 10:50 AM CDT Oxygen Saturation 93% 08/22/2023 10:50 AM CDT Inhaled Oxygen Concentration - - Weight 62.1 kg (137 lb) 08/06/2023 2:35 PM CDT Height 162.6 cm (5' 4 ) 08/06/2023 2:35 PM CDT Body Mass Index 23.52 08/06/2023 2:35 PM CDT Plan of Treatment Not on file Medical Devices Implanted Type Area Business Systems Consultant Device Identifier Shelf Expiration Date Model / Serial / Lot [employer] Propel Contour Implant Nasal Sterile Latex Free [id number] - [id number] Implanted:Qty: 1 on 08/22/2023 by Bharati Ortiz MD at [facility] Stent Left: Nose [employer] 01/10/2025 [id number] / / [employer] Propel Contour Implant Nasal Sterile Latex Free [id number] - [id number] Implanted:Qty: 1 on 08/22/2023 by Bharati Ortiz MD at [facility] Stent Right: Nose [employer] 01/10/2025 [id number] / / Insurance [facility] Care Teams Cutting Inspector Relationship Specialty Start Date End Date Amos Gibbons MD [address] [place] [address] PCP - General Family Medicine 06/11/23
--- OUTSIDE RECORDS SUMMARY | 2024-12-01 00:48 | XMS_ITS | Continuity of Care Document ---
Author Name [facility] Organization [facility] Care Team Providers Care Hot Packer Name Role Phone [facility] Unavailable Unavailable Problems Combined list of problems from Department of Defense and Veterans Affairs facilities. It does not include entries that were removed or entered in error. Problem Status Onset Date Problem Type Date of Resolution Comments Source visit for: issue repeat prescription Inactive Condition DoD Anxiety Active Condition [facility] Autonomic neuropathy Active Condition [facility] Chronic constipation Active Condition [facility] Chronic sinusitis Active Condition [facility] Depression Active Condition [facility] Diabetes Mellitus Type 2 ([facility] [id number]) Active Condition [facility] Disorder of left Eustachian tube Active Condition [facility] GERD - Gastro-Esophageal Reflux Disease ([facility] [id number]) Active Condition [facility] HTN - Hypertension ([facility] [id number]) Active Condition [facility] Moderate protein-calorie malnutrition (weight for age 60-74 percent of standard) Active Condition [facility] Peripheral neuropathy Active Condition [facility] Sensorineural hearing loss of bilateral ears Active Condition [facility] Squamous cell carcinoma Active Condition Dec 10, 2019 Entered By: QUYEN MIJARES Comment: was treated by Dr. Paulo Shaikh and has been discharged as there was no recurrence after several years of surveillance [facility] Diagnosis: ICD-10-CM H90.3 Sensorineural hearing loss, bilateral Active Diagnosis [facility] Diagnosis: ICD-10-CM R41.82 Altered mental status, unspecified Active Diagnosis [facility] Diagnosis: ICD-10-CM E11.9 Type 2 diabetes mellitus without complications Active Diagnosis [facility] Diagnosis: ICD-10-CM F39 Unspecified mood [affective] disorder Active Diagnosis [facility] Diagnosis: ICD-10-CM R13.10 Dysphagia, unspecified Active Diagnosis [facility] Diagnosis: ICD-10-CM Z23 Encounter for immunization Active Diagnosis [facility] Diagnosis: ICD-10-CM H04.123 Dry eye syndrome of bilateral lacrimal glands Active Diagnosis [facility] Diagnosis: ICD-10-CM R13.12 Dysphagia, oropharyngeal phase Active Diagnosis [facility] Diagnosis: ICD-10-CM N40.0 Benign prostatic hyperplasia without lower urinry tract symp Active Diagnosis [facility] Diagnosis: ICD-10-CM R63.4 Abnormal weight loss Active Diagnosis [facility] Diagnosis: ICD-10-CM K59.00 Constipation, unspecified Active Diagnosis [facility] Diagnosis: ICD-10-CM R93.89 Abnormal findings on dx imaging of oth body structures Active Diagnosis [facility] Diagnosis: ICD-10-CM Z85.818 Prsnl hx of malig neoplm of site of lip, oral cav, & pharynx Active Diagnosis [facility] Diagnosis: ICD-10-CM R54 Age-related physical debility Active Diagnosis [facility] Diagnosis: ICD-10-CM R50.9 Fever, unspecified Active Diagnosis [facility] Diagnosis: ICD-10-CM H25.12 Age-related nuclear cataract, left eye Active Diagnosis [facility] Diagnosis: ICD-10-CM H69.92 Unspecified Eustachian tube disorder, left ear Active Diagnosis [facility] Diagnosis: ICD-10-CM 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 Medication Details Route Status Patient Instructions Prescription Expires Prescription Number Last Dispense Date Ordering Provider Order Date Order Qty Source AMOXICILLIN (AMOXICILLI N), 875MG, TABLET, ORAL, [facility], 100 ea. BOTTLE Active [id number] 2023 20 Pharmac y Data Transac tion Service Facilit y atorvastati n (U/D) 40 MG ORAL TAB TAKE ONE-HALF TABLET BY MOUTH EVERY EVENING FOR HIGH CHOLESTE ROL Active 03/11/2025 [id number] 45 [facility] atorvastati n (U/D) 40 MG ORAL TAB TAKE ONE-HALF TABLET BY MOUTH EVERY EVENING FOR HIGH CHOLESTE ROL Discont inued 11/28/2024 [id number] QAYYOAVUQYEN B 2023 45 [facility] n atorvastati n (U/D) 40 MG ORAL TAB TAKE ONE-HALF TABLET BY MOUTH EVERY EVENING FOR HIGH CHOLESTE ROL 11/28/2024 [id number] 4 [facility] 2023 45 [facility] n ATORVASTATI N CA 40MG TAB TAKE ONE-HALF TABLET BY MOUTH EVERY EVENING FOR HIGH CHOLESTE ROL ORAL ACTIVE 08/17/2025 [id number] 4 DYLLAN,AN EELA 2023 45 [facility] N ATORVASTATI N CA 40MG TAB TAKE ONE-HALF TABLET BY MOUTH EVERY EVENING FOR HIGH CHOLESTE ROL ORAL DISCONT INUED 03/11/2025 [id number] 4 DYLLAN,AN EELA 2023 45 [facility] ATORVASTATI N CA 40MG TAB TAKE ONE-HALF TABLET BY MOUTH EVERY EVENING FOR HIGH CHOLESTE ROL ORAL DISCONT INUED 11/28/2024 [id number] 4 DYLLAN,AN EELA 2023 45 [facility] Calcium Polycarboph il (FBR) Tablet 625mg Oral TAKE ONE TABLET BY MOUTH ONCE A DAY Active 03/11/2025 [id number] 4 QUYEN CONWAY 2023 90 [facility] [place] CALCIUM POLYCARBOPH [place] 625MG TAB TAKE ONE TABLET BY MOUTH ONCE A DAY ORAL ACTIVE 03/11/2025 [id number] 4 LYNN MIJARES EELA 2023 90 [facility] [place] CARBOXYMETH YLCELLULOSE NA 1% GEL,OPH INSTILL 1 DROP INTO BOTH EYES FOUR TIMES A DAY NEEDED FOR DRY EYE(S) OPHTHA LMIC SUSPEND ED 07/17/2025 [id number] KATERINA ALND 2023 45 [facility] [place] CICLOPIROX 8 % TOP SOLN [6.6 ML] APPLY SPARINGL Y TO AFFECTED AREA(S) AT BEDTIME (THIN COAT TO THICK NAILS - FILE DOWN AFTER 1 WEEK) (EXTERNA L USE ONLY) CLEANED WITH ALCOHOL ONCE A WEEK 11/13/2024 [id number] 4 QUYEN CONWAY 2023 0 [facility] [place] CICLOPIROX 8% SOLN,TOP APPLY SPARINGL Y TO AFFECTED AREA(S) AT BEDTIME (THIN COAT TO THICK NAILS - FILE DOWN AFTER 1 WEEK) (EXTERNA L USE ONLY) CLEANED WITH ALCOHOL ONCE A WEEK TOPICA L 11/13/2024 [id number] 4 LYNN MIJARES EELA 2023 6.6 [facility] N Compounded Prilosec Capsule Conventiona l 20 mg Oral TAKE ONE CAPSULE BY MOUTH EVERY MORNING BEFORE A MEAL FOR GASTROES OPHAGEAL REFLUX DISEASE. TAKE 30 MINUTES PRIOR TO FOOD. 11/13/2024 [id number] 4 QUYEN CONWAY 2023 90 [facility] [place] cyclobenzap rine (U/D) 5 MG ORAL TAB TAKE ONE TABLET BY MOUTH TWICE DAILY NEEDED FOR MUSCLE SPASM. MAY CAUSE DROWSINE SS. DO NOT DRINK ALCOHOL WHILE TAKING THIS MEDICATI ON. Active 03/11/2025 [id number] 4 QAYQUYEN SAMPSON 2023 60 [facility] n cyclobenzap rine (U/D) 5 MG ORAL TAB TAKE ONE TABLET BY MOUTH TWICE DAILY NEEDED FOR MUSCLE SPASM. MAY CAUSE DROWSINE SS. DO NOT DRINK ALCOHOL WHILE TAKING THIS MEDICATI ON. Discont inued 11/18/2024 [id number] 4 QASuzieQUYEN 2023 60 [facility] n cyclobenzap rine (U/D) 5 MG ORAL TAB TAKE ONE TABLET BY MOUTH TWICE DAILY NEEDED FOR MUSCLE SPASM. MAY CAUSE DROWSINE SS. DO NOT DRINK ALCOHOL WHILE TAKING THIS MEDICATI ON. 11/18/2024 [id number] 4 QAQUYEN WILSON 2023 60 [facility] n cyclobenzap rine (U/D) 5 MG ORAL TAB TAKE ONE TABLET BY MOUTH TWICE DAILY NEEDED FOR MUSCLE SPASM. MAY CAUSE DROWSINE SS. DO NOT DRINK ALCOHOL WHILE TAKING THIS MEDICATI ON. Discont inued 08/09/2024 [id number] 4 [facility] 2023 60 [facility] n CYCLOBENZAP RINE HCL 5MG TAB TAKE ONE TABLET BY MOUTH TWICE DAILY NEEDED FOR MUSCLE SPASM. MAY CAUSE DROWSINE SS. DO NOT DRINK ALCOHOL WHILE TAKING THIS MEDICATI ON. ORAL PROVIDE R HOLD 03/11/2025 [id number] 4 DYLLAN,LYNN EELA 2023 60 [facility] CYCLOBENZAP RINE HCL 5MG TAB TAKE ONE TABLET BY MOUTH TWICE DAILY NEEDED FOR MUSCLE SPASM. MAY CAUSE DROWSINE SS. DO NOT DRINK ALCOHOL WHILE TAKING THIS MEDICATI ON. ORAL DISCONT INUED 11/18/2024 [id number] 4 DYLLAN,AN EELA 2023 60 [facility] CYCLOBENZAP RINE HCL 5MG TAB TAKE ONE TABLET BY MOUTH TWICE DAILY NEEDED FOR MUSCLE SPASM. MAY CAUSE DROWSINE SS. DO NOT DRINK ALCOHOL WHILE TAKING THIS MEDICATI ON. ORAL DISCONT INUED 08/09/2024 [id number] 4 LYNN MIJARES EELA 2022 60 [facility] S-RO DEPAKENE (BRAND) 250 MG/5 ML ORAL SOLN TAKE 5 ML BY MOUTH EVERY MORNING AND TAKE 10 ML AT BEDTIME FOR MOOD Active 04/17/2025 [id number] 4 GURUSIDDA SHANDA SHERON N 2023 480 [facility] n DEPAKENE (BRAND) 250 MG/5 ML ORAL SOLN TAKE 5 ML BY MOUTH EVERY MORNING AND TAKE 10 ML AT BEDTIME FOR MOOD Discont inued 12/26/2024 [id number] 4 TWANRUSIDIMAA SHANDA SHERON N 2023 480 [facility] n DEPAKENE (BRAND) 250 MG/5 ML ORAL SOLN TAKE 5 ML BY MOUTH EVERY MORNING AND TAKE 10 ML AT BEDTIME FOR MOOD Active 12/26/2024 [id number] 4 GURUSIDDA SHANDA, SHERON N 2023 480 [facility] n DEPAKENE (BRAND) 250 MG/5 ML ORAL SOLN TAKE 5 ML BY MOUTH EVERY MORNING AND TAKE 10 ML AT BEDTIME FOR MOOD Discont inued 08/13/2024 [id number] 4 SIDIMAA SHANDA SHERON N 2023 480 [facility] n ENSURE PLUS LIQUID CHOCOLATE TAKE 1 CANFUL BY MOUTH ONCE A DAY ORAL DISCONT INUED 10/17/2024 [id number] 3 LYNN MIJARES EELA 2022 24 [facility] FLONASE-OTC (BRAND) 50 MCG BOBBY SPSN [9.9] INSTILL 2 SPRAYS IN EACH NOSTRIL ONCE A DAY FOR ALLERGIE S (MUST BE USED DIRECTED FOR MINIMUM OF 21 DAYS TO PROVIDE ADEQUATE BENEFITS ) 04/04/2024 [id number] 4 ALBAROSONAM H 2023 1 [facility] n FLUTICASONE PROPIONATE 50MCG/SPRAY SOLN,NASAL, 16GM INSTILL 2 SPRAYS IN EACH NOSTRIL ONCE A DAY FOR ALLERGIE S (MUST BE USED DIRECTED FOR MINIMUM OF 21 DAYS TO PROVIDE ADEQUATE BENEFITS ) NASAL ACTIVE 06/12/2025 [id number] 5 LYNN MIJARES EELA 2023 3 [facility] FLUTICASONE PROPIONATE 50MCG/SPRAY SOLN,NASAL, 16GM INSTILL 2 SPRAYS IN EACH NOSTRIL ONCE A DAY FOR ALLERGIE S (MUST BE USED DIRECTED FOR MINIMUM OF 21 DAYS TO PROVIDE ADEQUATE BENEFITS ) NASAL DISCONT INUED 04/04/2024 [id number] 4 Venessa IRVIN H 2022 1 [facility] GABAPENTIN (U/D) 300 MG ORAL CAP TAKE ONE CAPSULE BY MOUTH AT BEDTIME FOR NERVE PAIN Active 03/11/2025 [id number] QUYEN CONWAY 2023 90 [facility] n GABAPENTIN 300MG CAP TAKE ONE CAPSULE BY MOUTH AT BEDTIME FOR NERVE PAIN ORAL ACTIVE 03/11/2025 [id number] 4 LYNN MIJARES EELA 2023 90 [facility] GLUCERNA SHAKE LIQUID VANILLA TAKE 1 CANFUL BY MOUTH ONCE A DAY FOR NUTRITIO N/DIETAR Y SUPPLEME NTATION (SHAKE WELL) ORAL ACTIVE 10/09/2025 [id number] MI GORMAN N 2023 24 [facility] GLUCERNA THERAPEUTIC NUTRITION SHAKE LIQUID CHOCOLATE TAKE 2 CANFULS BY MOUTH ONCE A DAY (SHAKE WELL) ORAL DISCONT INUED BY PROVIDE R 04/17/2025 [id number] 4 MI GORMAN 2023 72 [facility] N GLUCERNA THERAPEUTIC NUTRITION SHAKE LIQUID CHOCOLATE TAKE 1 CANFUL BY MOUTH DIRECTED FOR NUTRITIO N/DIETAR Y SUPPLEME NTATION (SHAKE WELL) ORAL DISCONT INUED BY PROVIDE R 12/24/2024 [id number] 4 LYNN MIJARES EELA 2023 24 [facility] GLUCERNA THERAPEUTIC NUTRITION SHAKE LIQUID CHOCOLATE TAKE 1 CANFUL BY MOUTH DIRECTED FOR NUTRITIO N/DIETAR Y SUPPLEME NTATION (SHAKE WELL) ORAL DISCONT INUED BY PROVIDE R 11/09/2024 [id number] 4 LYNN MIJARES EELA 2023 24 [facility] LATANOPROST 0.005% SOLN,OPH INSTILL 1 DROP IN LEFT EYE EVERY EVENING KEEP REFRIGER ATED UNTIL READY TO USE, THEN STORE AT ROOM TEMPERAT URE FOR MAXIMUM OF 42 DAYS. OPHTHA LMIC SUSPEND ED 11/14/2025 [id number] 5 CIARRA GARDNER 2024 10 [facility] LEVOFLOXACI N (LEVOFLOXAC IN), 750 MG, TABLET, ORAL, [facility], 20 ea. BOTTLE Active [id number] 2023 1 Pharmac y Data Transac tion Service Facilit y Lidocaine (Lidoderm Eq.) Transdermal System 5% Topical APPLY 1 PATCH TO SKIN SITE ONCE A DAY APPLY PATCH AND PRESS FIRMLY FOR 10-15 SECONDS. KEEP ON FOR 12 HOURS THEN REMOVE PATCH FOR 12 HOURS. 07/18/2024 [id number] 4 QUYEN CONWAY 2023 30 [facility] n Lidocaine (Lidoderm Eq.) Transdermal System 5% Topical APPLY 1 PATCH TO SKIN SITE ONCE A DAY APPLY PATCH AND PRESS FIRMLY FOR 10-15 SECONDS. KEEP ON FOR 12 HOURS THEN REMOVE PATCH FOR 12 HOURS. 07/18/2024 [id number] 4 QUYEN CONWAY 2023 30 [facility] n LIDOCAINE 5% PATCH APPLY 1 PATCH TO SKIN SITE ONCE A DAY APPLY PATCH AND PRESS FIRMLY FOR 10-15 SECONDS. KEEP ON FOR 12 HOURS THEN REMOVE PATCH FOR 12 HOURS. TRANSD ERMAL 07/18/2024 [id number] 4 LYNN MIJARES EELAURA 2022 30 [facility] N Mirtazapine (Remeron Soltab) Tablet 30mg Oral TAKE ONE TABLET BY MOUTH AT BEDTIME Active 04/17/2025 [id number] SIDIMAA SHANDA SHERON N 2023 90 [facility] n MIRTAZAPINE 30MG TAB TAKE ONE TABLET BY MOUTH AT BEDTIME ORAL SUSPEND ED 10/16/2025 [id number] 5 SIDIMAA SHANDAPRATI BHA N 2024 90 [facility] N MIRTAZAPINE 30MG TAB TAKE ONE TABLET BY MOUTH AT BEDTIME ORAL DISCONT INUED 07/16/2025 [id number] 4 GURUSIDIMAA SHANDAPRATI BHA N 2023 90 [facility] MIRTAZAPINE 30MG TAB TAKE ONE TABLET BY MOUTH AT BEDTIME ORAL DISCONT INUED 04/17/2025 [id number] 4 GURUSIDIMAA SHANDAPRATI BHA N 2023 90 [facility] MIRTAZAPINE 7.5 MG ORAL TAB TAKE TWO TABLETS BY MOUTH AT BEDTIME FOR DEPRESSI ON Discont inued 12/26/2024 [id number] 4 SIDIMAA SHANDA SHERON N 2023 60 [facility] n MIRTAZAPINE 7.5 MG ORAL TAB TAKE TWO TABLETS BY MOUTH AT BEDTIME FOR DEPRESSI ON Active 12/26/2024 [id number] 4 GURUSIDDA SHANDA SHERON N 2023 60 [facility] n MIRTAZAPINE 7.5 MG ORAL TAB TAKE TWO TABLETS BY MOUTH AT BEDTIME FOR DEPRESSI ON Discont inued 08/13/2024 [id number] 4 ALVAREZDIMAA SHANDA SHERON N 2023 60 [facility] n MIRTAZAPINE 7.5MG TAB TAKE TWO TABLETS BY MOUTH AT BEDTIME FOR DEPRESSI ON ORAL DISCONT INUED (EDIT) 12/26/2024 [id number] 4 SIDDA SHANDA,PRATI BHA N 2023 60 [facility] MIRTAZAPINE 7.5MG TAB TAKE TWO TABLETS BY MOUTH AT BEDTIME FOR DEPRESSI ON ORAL DISCONT INUED 08/13/2024 [id number] 4 IRVINGA SHANDA,PRATI BHA N 2022 60 [facility] OMEPRAZOLE 20MG CAP,EC TAKE ONE CAPSULE BY MOUTH EVERY MORNING BEFORE A MEAL FOR GASTROES OPHAGEAL REFLUX DISEASE. TAKE 30 MINUTES PRIOR TO FOOD. ORAL 11/13/2024 [id number] 4 DYLLAN,AN EELA 2023 90 [facility] N POLYETHYLEN E GLYCOL 3350 PWDR,ORAL MIX AND DRINK 1 CAPFUL BY MOUTH ONCE A DAY (MEASURE WITH CAP AND MIX IN 8 OZ OF WATER) ORAL ACTIVE 03/11/2025 [id number] 4 DYLLAN,AN EELA 2023 510 [facility] Propylene Glycol (Systane Balance Eq.) Solution 0.6% Optical INSTILL 1 DROP IN BOTH EYES THREE TIMES A DAY NEEDED 10/22/2024 [id number] 3 ADENIKE SHERWOOD 2022 20 [facility] n PROPYLENE GLYCOL 0.6% SOLN,OPH INSTILL 1 DROP IN BOTH EYES THREE TIMES A DAY NEEDED OPHTHA LMIC DISCONT INUED BY PROVIDE R 10/22/2024 [id number] ELVIS KINGSTON J 2022 20 [facility] SALIVA,RICHARD FICIAL SPRAY,ORAL USE 3-5 SPRAYS BY MOUTH EVERY TWO HOURS NEEDED FOR DRY MOUTH AND THROAT ORAL ACTIVE 06/12/2025 [id number] 4 DYLLAN,AN EELA 2023 236 [facility] SALIVA,RICHARD FICIAL SPRAY,ORAL USE 3-5 SPRAYS BY MOUTH EVERY TWO HOURS NEEDED FOR DRY MOUTH AND THROAT ORAL DISCONT INUED 05/20/2024 [id number] AILYN PALENCIA 2022 236 [facility] N SIMPLYTHICK GEL,ORAL,TN LDLY THICK,6GM TAKE 1 PACKET BY MOUTH ONCE A DAY OR DIRECTED TO THICKEN LIQUIDS. USE 1 PACKET PER 4 OZ OF LIQUID. ORAL ACTIVE 06/04/2025 [id number] 4 DYLLAN,AN EELA 2023 600 [facility] N SINUS RINSE NEILMED PKT USE 1 PACKET NOSTRIL( S) TWICE A DAY FOR NASAL CONGESTI ON NASAL 01/07/2024 [id number] 4 DYLLAN,AN EELA 2023 100 [facility] SINUS RINSE NEILMED REGULAR KIT USE 1 KIT NOSTRIL( S) ONCE A DAY FOR NASAL CONGESTI ON NASAL 02/16/2024 [id number] 4 DYLLAN,AN EELA 2023 1 [facility] SO-PEG 3350-BOWEL 2,TWO PART PREP--PO SO MIX AND DRINK 1 CAPFUL BY MOUTH ONCE A DAY (MEASURE WITH CAP AND MIX IN 8 OZ OF WATER) Active 03/11/2025 [id number] 4 QUYEN CONWAY 2023 510 [facility] n SULFAMETHOX AZOLE 800MG/TRIME THOPRIM 160MG TAB TAKE ONE TABLET BY MOUTH EVERY 12 HOURS ORAL ACTIVE LYNN MIJARES EELA 2024 [facility] TAMSULOSIN HCL (TAMSULOSIN HCL), 0.4 MG, CAP ER 24H, ORAL, MopappON PHARMA L, 100 ea. BOTTLE Active [id number] 2023 90 Pharmac y Data Transac tion Service Facilit y TAMSULOSIN HCL 0.4MG CAP TAKE ONE CAPSULE BY MOUTH EVERY EVENING APPROXIM ATELY 30 MINUTES AFTER THE SAME MEAL EACH DAY ORAL ACTIVE 05/15/2025 [id number] 4 LYNN MIJARES EELA 2023 90 [facility] VALPROIC ACID 250MG/5ML SOLN,ORAL TAKE 5 ML BY MOUTH EVERY MORNING AND TAKE 10 ML AT BEDTIME FOR MOOD ORAL ACTIVE 10/16/2025 [id number] 4 ENRIQUE MARQUEZ BHA N 2023 480 [facility] N VALPROIC ACID 250MG/5ML SOLN,ORAL TAKE 5 ML BY MOUTH EVERY MORNING AND TAKE 10 ML AT BEDTIME FOR MOOD ORAL DISCONT INUED 07/16/2025 [id number] 4 SICARI LANDPRATI BHA N 2023 480 [facility] VALPROIC ACID 250MG/5ML SOLN,ORAL TAKE 5 ML BY MOUTH EVERY MORNING AND TAKE 10 ML AT BEDTIME FOR MOOD ORAL DISCONT INUED 04/17/2025 [id number] 4 GURUSICARI LANDPRATI BHA N 2023 480 [facility] VALPROIC ACID 250MG/5ML SOLN,ORAL TAKE 5 ML BY MOUTH EVERY MORNING AND TAKE 10 ML AT BEDTIME FOR MOOD ORAL DISCONT INUED 12/26/2024 [id number] 4 SICARI LANDPRATI BHA N 2023 480 [facility] VALPROIC ACID 250MG/5ML SOLN,ORAL TAKE 5 ML BY MOUTH EVERY MORNING AND TAKE 10 ML AT BEDTIME FOR MOOD ORAL DISCONT INUED 08/13/2024 [id number] 4 CHEYENNE LANDENRIQUE SPENCER N 2022 480 [facility] Allergies, Adverse Reactions, Alerts Combined list of allergies from Department of [facility] and [facility] facilities. It does not include entries that were removed or entered in error. Substance Category Reaction Severity Reaction type Status Date Reported Comments Source ERYTHROMYCIN Drug allergy (disorder) Nausea and Vomiting, Diarrhea active 9 [facility] ERYTHROMYCIN Drug allergy (disorder) Diarrhea, Nausea and Vomiting active 9 [facility] erythromycin Propensity to adverse reactions to drug Nausea and Vomiting, Diarrhea Active 9 [facility] ERYTHROMYCIN Propensity to adverse reactions to drug (finding) Diarrhea, Nausea and vomiting active 9 [facility] Immunizations Combined list of available immunizations from the Department of Defense and Veterans [facility] facilities. Immunization Series Date Given Administered By Site Reaction Lot Number CVX Code Drug Intern Brand Status Comments Source INFLUENZA, HIGH-DOSE, TRIVALENT, PF 2023 Анна SMITH ONICA L RIGHT DELTO ID [id number] 135 complet [facility] COVID-19 (PFIZER), MRNA, LNP-S, PF, MATTHEW-SUCROSE, 30 MCG/0.3 ML (AGES 12+ YEARS) 2023 Анна SMITH ONICA L LEFT DELTO ID [id number] 309 complet [facility] RSV, BIVALENT, PROTEIN SUBUNIT RSVPREF, DILUENT RECONSTITUTED , 0.5 ML, PF 2023 FELIPE LEUNG LEFT DELTO ID [id number] 305 complet [facility] COVID-19 (MODERNA), MRNA, LNP-S, PF, 50 MCG/0.5 ML (AGES 12+ YEARS) 2022 SEAN MEYERS RIGHT DELTO ID [id number] 312 complet [facility] DIVISIO N INFLUENZA, HIGH-DOSE, QUADRIVALENT 2022 ANANTH PEREA LEFT DELTO ID [id number] A 197 complet ed [facility] INFLUENZA VACCINE, QUADRIVALENT, ADJUVANTED 2022 ELIZABETH CASTRO A LEFT DELTO ID [id number] 205 complet ed [facility] COVID-19 (MODERNA), MRNA, LNP-S, BIVALENT BOOSTER, PF, 50 MCG/0.5 ML OR 25MCG/0.25 ML DOSE 2021 229 complet ed [facility] COVID-19 (PFIZER), MRNA, LNP-S, PF, 30 MCG/0.3 ML DOSE, MATTEHW-SUCROSE (AGES 12+ YEARS) 4 2021 217 complet ed PFR; [id number]; 2 [facility] COVID-19 (PFIZER), MRNA, LNP-S, PF, 30 MCG/0.3 ML DOSE 3 2020 208 complet ed PFR; [id number]; 2 [facility] INFLUENZA VACCINE, QUADRIVALENT, ADJUVANTED 2020 205 complet ed [facility] INFLUENZA VACCINE, QUADRIVALENT, ADJUVANTED 2020 205 complet ed [facility] COVID-19 (MODERNA), MRNA, LNP-S, PF, 100 MCG/0.5 ML DOSE 2 2020 207 complet ed MOD; [id number]; 1 [facility] COVID-19 (MODERNA), MRNA, LNP-S, PF, 100 MCG/0.5 ML DOSE 1 2020 207 complet ed MOD; [id number]; 1 [facility] INFLUENZA, HIGH-DOSE, QUADRIVALENT 2019 197 complet ed [facility] INFLUENZA, INJECTABLE, QUADRIVALENT, PRESERVATIVE FREE 2019 150 complet ed [facility] N PNEUMOCOCCAL POLYSACCHARID E PPV23 2019 33 complet ed [facility] ZOSTER RECOMBINANT 2 2018 187 complet ed [facility] ZOSTER RECOMBINANT 1 2018 187 complet ed [facility] DIVISIO N PNEUMOCOCCAL CONJUGATE PCV 13 2018 133 complet ed [facility] TDAP 2018 115 complet ed Left Deltoid [facility] influenza, injectable, quadrivalent- pf 2017 zzRig ht Arm [id number] 150 [employer] ne complet ed influenza , injectabl e, quadrival ent-pf 09/02/18 Given Ambulat ory Pharmac y Influenza, injectable, quadrivalent, preservative free 1 2017 Unknown, Provider [id number] 150 [employer] (SKB) complet ed Influenza , injectabl e, quadrival ent, preservat barry free DoD INFLUENZA, UNSPECIFIED FORMULATION 2017 88 complet ed [facility] hepatitis A adult vaccine 1998 [...] Pharmac y influenza virus vaccine, whole virus [id number] PFIZER complet ed influenza virus vaccine, whole virus 08/06/98 Given Ambulat ory Pharmac y influenza virus vaccine, whole virus 0 [id number] 16 Morales (Inactive) ([place]) complet ed influenza virus vaccine, whole virus DoD hepatitis A vaccine, adult dosage 1 1997 [id number] Merck (MSD) complet ed hepatitis A vaccine, adult dosage DoD influenza virus vaccine, whole virus 19962039 [id number] 16 PFIZER complet ed influenza virus vaccine, whole virus 09/22/97 Given Ambulat ory Pharmac y influenza virus vaccine, whole virus 0 [id number] [id number] 16 [place]-Ayerst (Inactive) ([place]) complet ed influenza virus vaccine, whole virus DoD yellow fever vaccine [id number] PFIZER complet ed yellow fever vaccine 02/16/96 Given Ambulat ory Pharmac y yellow fever vaccine 0 [id number] 37 Wy[place]-Ayerst (Inactive) ([place]) complet ed yellow fever vaccine DoD measles/mumps [...] and 2 Lf of diphtheri a toxoid) DoD poliovirus vaccine, live, oral 1969 02 complet ed polioviru s vaccine, live, oral 03/04/70 Given Ambulat ory Pharmac y trivalent poliovirus vaccine, live, oral 0 1969 02 () complet ed trivalent polioviru s vaccine, live, oral [facility] Results Combined list of recent chemistry, hematology [...] Nov 13, 2024 10:48 AM Reporting Lab: [facility] [place] [address] Performing Lab: [facility] DIVISION URINALYSI S W/ CX REFLEX (STL-PB) BILIRUBIN.T OTAL [PRESENCE] IN URINE BY TEST STRIP Negativ emg/dL 11/13 Specimen Type: URINE No comment entered. Ordering Provider: YOAV MIJARES Report Released Date/Time: Nov 13, 2024 10:48 AM Reporting Lab: [facility] [place] [address] Performing Lab: [facility] DIVISION URINALYSI S W/ CX REFLEX (STL-PB) PH OF URINE BY TEST STRIP 6.5 5.0 - 8.0 11/13 Specimen Type: URINE No comment entered. Ordering Provider: YOAV MIJARES Report Released Date/Time: Nov 13, 2024 10:48 AM Reporting Lab: [facility] [place] [address] Performing Lab: [facility] DIVISION URINALYSI S W/ CX REFLEX (STL-PB) LEUKOCYTES [#/AREA] IN URINE SEDIMENT BY MICROSCOPY HIGH POWER FIELD >182/[H PF] 0 - 5 11/13 H Specimen Type: URINE No comment entered. Ordering Provider: YOAV MIJARES Report Released Date/Time: Nov 13, 2024 10:48 AM Reporting Lab: [facility] [place] [address] Performing Lab: [facility] DIVISION URINALYSI S W/ CX REFLEX (STL-PB) ERYTHROCYTE S [#/VOLUME] IN URINE SEDIMENT BY MICROSCOPY HIGH POWER FIELD 26 /[HPF] 0 - 5 11/13 H Specimen Type: URINE No comment entered. Ordering Provider: YOAV MIJARES Report Released Date/Time: Nov 13, 2024 10:48 AM Reporting Lab: [facility] [place] [address] Performing Lab: [facility] DIVISION URINALYSI S W/ CX REFLEX (STL-PB) APPEARANCE OF URINE Ex.Turb id 11/13 Specimen Type: URINE No comment entered. Ordering Provider: YOAV MIJARES Report Released Date/Time: Nov 13, 2024 10:48 AM Reporting Lab: [facility] [place] [address] Performing Lab: [facility] DIVISION URINALYSI S W/ CX REFLEX (STL-PB) NITRITE [PRESENCE] IN URINE BY TEST STRIP Negativ emg/dL 11/13 Specimen Type: URINE No comment entered. Ordering Provider: YOAV MIJARES Report Released Date/Time: Nov 13, 2024 10:48 AM Reporting Lab: [facility] [place] [address] Performing Lab: [facility] DIVISION URINALYSI S W/ CX REFLEX (STL-PB) LEUKOCYTE CLUMPS [#/VOLUME] IN URINE BY AUTOMATED COUNT FEW/[HP F] 11/13 Specimen Type: URINE No comment entered. Ordering Provider: YOAV MIJARES Report Released Date/Time: Nov 13, 2024 10:48 AM Reporting Lab: [facility] [place] [address] Performing Lab: [facility] DIVISION URINALYSI S W/ CX REFLEX (STL-PB) BACTERIA [PRESENCE] IN URINE SEDIMENT BY LIGHT MICROSCOPY RARE/[H PF] 11/13 Specimen Type: URINE No comment entered. Ordering Provider: YOAV MIJARES Report Released Date/Time: Nov 13, 2024 10:48 AM Reporting Lab: [facility] [place] [address] Performing Lab: [facility] DIVISION URINALYSI S W/ CX REFLEX (STL-PB) GLUCOSE [MASS/VOLUM E] IN URINE BY TEST STRIP Normalm g/dL 11/13 Specimen Type: URINE No comment entered. Ordering Provider: YOAV MIJARES Report Released Date/Time: Nov 13, 2024 10:48 AM Reporting Lab: [facility] [place] [address] Performing Lab: [facility] DIVISION URINALYSI S W/ CX REFLEX (STL-PB) PROTEIN [MASS/VOLUM E] IN URINE BY TEST STRIP 30 mg/dL 11/13 H Specimen Type: URINE No comment entered. Ordering Provider: YOAV MIJARES Report Released Date/Time: Nov 13, 2024 10:48 AM Reporting Lab: [facility] [place] [address] Performing Lab: [facility] DIVISION URINALYSI S W/ CX REFLEX (STL-PB) URN.UROBILI NOGEN Normalm g/dL 11/13 Specimen Type: URINE No comment entered. Ordering Provider: YOAV MIJARES Report Released Date/Time: Nov 13, 2024 10:48 AM Reporting Lab: [facility] [place] [address] Performing Lab: [facility] DIVISION URINALYSI S W/ CX REFLEX (STL-PB) HEMOGLOBIN [MASS/VOLUM E] IN URINE BY TEST STRIP 1+mg/dL 11/13 H Specimen Type: URINE No comment entered. Ordering Provider: YOAV MIJARES Report Released Date/Time: Nov 13, 2024 10:48 AM Reporting Lab: [facility] [place] [address] Performing Lab: [facility] DIVISION URINALYSI S W/ CX REFLEX (STL-PB) KETONES [MASS/VOLUM E] IN URINE BY TEST STRIP Negativ emg/dL 11/13 Specimen Type: URINE No comment entered. Ordering Provider: YOAV MIJARES Report Released Date/Time: Nov 13, 2024 10:48 AM Reporting Lab: [facility] [place] [address] Performing Lab: [facility] DIVISION URINALYSI S W/ CX REFLEX (STL-PB) URN.LEUK.ES T. 500 mg/dL 11/13 H Specimen Type: URINE No comment entered. Ordering Provider: YOAV MIJARES Report Released Date/Time: Nov 13, 2024 10:48 AM Reporting Lab: [facility] [place] [address] Performing Lab: [facility] DIVISION URINALYSI S W/ CX REFLEX (STL-PB) SPECIFIC GRAVITY OF URINE 1.018 11/13 Specimen Type: URINE No comment entered. Ordering Provider: YOAV MIJARES Report Released Date/Time: Nov 13, 2024 10:48 AM Reporting Lab: [facility] [place] [address] Performing Lab: [facility] HGA1C HEMOGLOBIN A1C/HEMOGLO BIN.TOTAL IN BLOOD 7.1 4.0 - 6.0 11/13 H Specimen Type: BLOOD No comment entered. Ordering Provider: YOAV MIJARES Report Released Date/Time: Nov 13, 2024 10:48 AM Reporting Lab: [facility] [place] [address] Performing Lab: [facility] DIVISION LIPID PANEL (STL) CHOLESTEROL [MASS/VOLUM E] IN SERUM OR PLASMA 137 mg/dL 0 - 200 11/13 Specimen Type: PLASMA Comment: No hemolysis noted. Ordering Provider: YOAV MIJARES Report Released Date/Time: Nov 13, 2024 10:48 AM Reporting Lab: [facility] [place] [address] Performing Lab: [facility] LIPID PANEL (STL) TRIGLYCERID E [MASS/VOLUM E] IN SERUM OR PLASMA 114 mg/dL 0 - 150 11/13 Specimen Type: PLASMA Comment: No hemolysis noted. Ordering Provider: YOAV MIJARES Report Released Date/Time: Nov 13, 2024 10:48 AM Reporting Lab: [facility] [place] [address] Performing Lab: [facility] [id number] DIVISION LIPID PANEL (STL) CHOLESTEROL IN LDL [MASS/VOLUM E] IN SERUM OR PLASMA BY CALCULATION 85 mg/dL 11/13 Specimen Type: PLASMA Comment: No hemolysis noted. Ordering Provider: YOAV MIJARES Report Released Date/Time: Nov 13, 2024 10:48 AM Reporting Lab: [facility] [place] [address] Performing Lab: [facility] LIPID PANEL (STL) CHOLESTEROL IN HDL [MASS/VOLUM E] IN SERUM OR PLASMA 29 mg/dL 40 11/13 L Specimen Type: PLASMA Comment: No hemolysis noted. Ordering Provider: YOAV MIJARES Report Released Date/Time: Nov 13, 2024 10:48 AM Reporting Lab: [facility] [place] [address] Performing Lab: [facility] DIVISION COMPREHEN SIVE METABOLIC PANEL CREATININE [MASS/VOLUM E] IN SERUM OR PLASMA 1.04 mg/dL 0.70 - 1.30 11/13 Specimen Type: PLASMA Comment: No hemolysis noted. Ordering Provider: YOAV MIJARES Report Released Date/Time: Nov 13, 2024 10:48 AM Reporting Lab: [facility] [place] [address] Performing Lab: [facility] DIVISION COMPREHEN SIVE METABOLIC PANEL UREA NITROGEN [MASS/VOLUM E] IN SERUM OR PLASMA 16.8 mg/dL 9.0 - 25.0 11/13 Specimen Type: PLASMA Comment: No hemolysis noted. Ordering Provider: YOAV MIJARES Report Released Date/Time: Nov 13, 2024 10:48 AM Reporting Lab: [facility] [place] [address] Performing Lab: [facility] DIVISION COMPREHEN SIVE METABOLIC PANEL GLUCOSE [MASS/VOLUM E] IN SERUM OR PLASMA 141 mg/dL 72 - 99 11/13 H Specimen Type: PLASMA Comment: No hemolysis noted. Ordering Provider: YOAV MIJARES Report Released Date/Time: Nov 13, 2024 10:48 AM Reporting Lab: [facility] [place] [address] Performing Lab: [facility] DIVISION COMPREHEN SIVE METABOLIC PANEL SODIUM [MOLES/VOLU ME] IN SERUM OR PLASMA 140 meq/L 136 - 145 11/13 Specimen Type: PLASMA Comment: No hemolysis noted. Ordering Provider: YOAV MIJARES Report Released Date/Time: Nov 13, 2024 10:48 AM Reporting Lab: [facility] [place] [address] Performing Lab: [facility] DIVISION COMPREHEN SIVE METABOLIC PANEL POTASSIUM [MOLES/VOLU ME] IN SERUM OR PLASMA 4.3 meq/L 3.5 - 5.0 11/13 Specimen Type: PLASMA Comment: No hemolysis noted. Ordering Provider: YOAV MIJARES Report Released Date/Time: Nov 13, 2024 10:48 AM Reporting Lab: [facility] [place] [address] Performing Lab: [facility] DIVISION COMPREHEN SIVE METABOLIC PANEL CHLORIDE [MOLES/VOLU ME] IN SERUM OR PLASMA 104 meq/L 98 - 107 11/13 Specimen Type: PLASMA Comment: No hemolysis noted. Ordering Provider: YOAV MIJARES Report Released Date/Time: Nov 13, 2024 10:48 AM Reporting Lab: [facility] [place] [address] Performing Lab: [facility] DIVISION COMPREHEN SIVE METABOLIC PANEL CARBON DIOXIDE, TOTAL [MOLES/VOLU ME] IN SERUM OR PLASMA 28 meq/L 22 - 31 11/13 Specimen Type: PLASMA Comment: No hemolysis noted. Ordering Provider: YOAV MIJARES Report Released Date/Time: Nov 13, 2024 10:48 AM Reporting Lab: [facility] [place] [address] Performing Lab: [facility] DIVISION COMPREHEN SIVE METABOLIC PANEL CALCIUM [MASS/VOLUM E] IN SERUM OR PLASMA 9.7 mg/dL 8.4 - 10.4 11/13 Specimen Type: PLASMA Comment: No hemolysis noted. Ordering Provider: YOAV MIJARES Report Released Date/Time: Nov 13, 2024 10:48 AM Reporting Lab: [facility] [place] [address] Performing Lab: [facility] DIVISION COMPREHEN SIVE METABOLIC PANEL PROTEIN [MASS/VOLUM E] IN SERUM OR PLASMA 7.2 g/dL 6.0 - 8.6 11/13 Specimen Type: PLASMA Comment: No hemolysis noted. Ordering Provider: YOAV MIJARES Report Released Date/Time: Nov 13, 2024 10:48 AM Reporting Lab: [facility] [place] [address] Performing Lab: [facility] DIVISION COMPREHEN SIVE METABOLIC PANEL ALBUMIN [MASS/VOLUM E] IN SERUM OR PLASMA 4.2 g/dL 3.4 - 5.0 11/13 Specimen Type: PLASMA Comment: No hemolysis noted. Ordering Provider: YOAV MIJARES Report Released Date/Time: Nov 13, 2024 10:48 AM Reporting Lab: [facility] [place] [address] Performing Lab: [facility] DIVISION COMPREHEN SIVE METABOLIC PANEL BILIRUBIN.T OTAL [MASS/VOLUM E] IN SERUM OR PLASMA 0.5 mg/dL 0.2 - 1.2 11/13 Specimen Type: PLASMA Comment: No hemolysis noted. Ordering Provider: YOAV MIJARES Report Released Date/Time: Nov 13, 2024 10:48 AM Reporting Lab: [facility] [place] [address] Performing Lab: [facility] DIVISION COMPREHEN SIVE METABOLIC PANEL ALKALINE PHOSPHATASE [ENZYMATIC ACTIVITY/VO LUME] IN SERUM OR PLASMA 58 U/L 40 - 150 11/13 Specimen Type: PLASMA Comment: No hemolysis noted. Ordering Provider: YOAV MIJARES Report Released Date/Time: Nov 13, 2024 10:48 AM Reporting Lab: [facility] [place] [address] Performing Lab: [facility] DIVISION COMPREHEN SIVE METABOLIC PANEL ASPARTATE AMINOTRANSF ERASE [ENZYMATIC ACTIVITY/VO LUME] IN SERUM OR PLASMA 16 U/L 5 - 34 11/13 Specimen Type: PLASMA Comment: No hemolysis noted. Ordering Provider: YOAV MIJARES Report Released Date/Time: Nov 13, 2024 10:48 AM Reporting Lab: [facility] [place] [address] Performing Lab: [facility] DIVISION COMPREHEN SIVE METABOLIC PANEL ALANINE AMINOTRANSF ERASE [ENZYMATIC ACTIVITY/VO LUME] IN SERUM OR PLASMA 16 U/L 8 - 40 11/13 Specimen Type: PLASMA Comment: No hemolysis noted. Ordering Provider: YOAV MIJARES Report Released Date/Time: Nov 13, 2024 10:48 AM Reporting Lab: [facility] [place] [address] Performing Lab: [facility] DIVISION COMPREHEN SIVE METABOLIC PANEL GLOMERULAR FILTRATION RATE/1.73 SQ M.PREDICTED [VOLUME RATE/AREA] IN SERUM, PLASMA OR BLOOD BY CREATININE- BASED FORMULA (CKD-EPI 2020) 73.50 60 11/13 Specimen Type: PLASMA Comment: No hemolysis noted. Ordering Provider: YOAV MIJARSE Report Released Date/Time: Nov 13, 2024 10:48 AM Reporting Lab: [facility] [place] [address] Performing Lab: [facility] DIVISION TSH (MA-PB) THYROTROPIN [UNITS/VOLU ME] IN SERUM OR PLASMA 1.716 u[IU]/m L 0.470 - 5.000 11/13 Specimen Type: SERUM No comment entered. Ordering Provider: YOAV MIJARES Report Released Date/Time: Nov 13, 2024 10:48 AM Reporting Lab: [facility] [place] [address] Performing Lab: [facility] DIVISION CBC LEUKOCYTES [#/VOLUME] IN BLOOD BY AUTOMATED COUNT 9.5 10*3/uL 3.6 - 11.2 11/13 Specimen Type: BLOOD No comment entered. Ordering Provider: YOAV MIJARES Report Released Date/Time: Nov 13, 2024 10:48 AM Reporting Lab: [facility] [place] [address] Performing Lab: [facility] CBC ERYTHROCYTE S [#/VOLUME] IN BLOOD BY AUTOMATED COUNT 4.53 10*6/uL 4.10 - 5.70 11/13 Specimen Type: BLOOD No comment entered. Ordering Provider: YOAV MIJARES Report Released Date/Time: Nov 13, 2024 10:48 AM Reporting Lab: [facility] [place] [address] Performing Lab: [facility] CBC HEMOGLOBIN [MASS/VOLUM E] IN BLOOD 13.7 g/dL 13.1 - 16.8 11/13 Specimen Type: BLOOD No comment entered. Ordering Provider: YOAV MIJARES Report Released Date/Time: Nov 13, 2024 10:48 AM Reporting Lab: [facility] [place] [address] Performing Lab: [facility] CBC HEMATOCRIT [VOLUME FRACTION] OF BLOOD 41.5 38.2 - 48.4 11/13 Specimen Type: BLOOD No comment entered. Ordering Provider: YOAV MIJARES Report Released Date/Time: Nov 13, 2024 10:48 AM Reporting Lab: [facility] [place] [address] Performing Lab: [facility] CBC MCV [ENTITIC VOLUME] BY AUTOMATED COUNT 91.6 fL 80.0 - 100.0 11/13 Specimen Type: BLOOD No comment entered. Ordering Provider: YOAV MIJARES Report Released Date/Time: Nov 13, 2024 10:48 AM Reporting Lab: [facility] [place] [address] Performing Lab: [facility] CBC MCH [ENTITIC MASS] BY AUTOMATED COUNT 30.2 pg 27.0 - 34.0 11/13 Specimen Type: BLOOD No comment entered. Ordering Provider: YOAV MIJARES Report Released Date/Time: Nov 13, 2024 10:48 AM Reporting Lab: [facility] [place] [address] Performing Lab: [facility] CBC MCHC [MASS/VOLUM E] BY AUTOMATED COUNT 33.0 g/dL 33.0 - 36.0 11/13 Specimen Type: BLOOD No comment entered. Ordering Provider: YOAV MIJARES Report Released Date/Time: Nov 13, 2024 10:48 AM Reporting Lab: [facility] [place] [address] Performing Lab: [facility] CBC PLATELETS [#/VOLUME] IN BLOOD BY AUTOMATED COUNT 243 10*3/uL 150 - 400 11/13 Specimen Type: BLOOD No comment entered. Ordering Provider: YOAV MIJARES Report Released Date/Time: Nov 13, 2024 10:48 AM Reporting Lab: [facility] [place] [address] Performing Lab: [facility] [place] [id number] [facility] CBC PLATELET MEAN VOLUME [ENTITIC VOLUME] IN BLOOD BY AUTOMATED COUNT 8.6 fL 7.5 - 11.2 11/13 Specimen Type: BLOOD No comment entered. Ordering Provider: YOAV MIJARES Report Released Date/Time: Nov 13, 2024 10:48 AM Reporting Lab: [facility] [place] [address] Performing Lab: [facility] DIVISION CBC ERYTHROCYTE DISTRIBUTIO N WIDTH [RATIO] BY AUTOMATED COUNT 13.1 11.8 - 15.1 11/13 Specimen Type: BLOOD No comment entered. Ordering Provider: YOAV MIJARES Report Released Date/Time: Nov 13, 2024 10:48 AM Reporting Lab: [facility] [place] [address] Performing Lab: [facility] DIVISION CBC LYMPHOCYTES /100 LEUKOCYTES IN BLOOD BY AUTOMATED COUNT 16 11/13 Specimen Type: BLOOD No comment entered. Ordering Provider: YOAV MIJARES Report Released Date/Time: Nov 13, 2024 10:48 AM Reporting Lab: [facility] [place] [address] Performing Lab: [facility] DIVISION CBC MONOCYTES/1 00 LEUKOCYTES IN BLOOD BY AUTOMATED COUNT 11 11/13 Specimen Type: BLOOD No comment entered. Ordering Provider: YOAV MIJARES Report Released Date/Time: Nov 13, 2024 10:48 AM Reporting Lab: [facility] [place] [address] Performing Lab: [facility] DIVISION CBC NEUTROPHILS /100 LEUKOCYTES IN BLOOD BY AUTOMATED COUNT 69 11/13 Specimen Type: BLOOD No comment entered. Ordering Provider: YOAV MIJARES Report Released Date/Time: Nov 13, 2024 10:48 AM Reporting Lab: [facility] [place] [address] Performing Lab: [facility] DIVISION CBC EOSINOPHILS /100 LEUKOCYTES IN BLOOD BY AUTOMATED COUNT 4 11/13 Specimen Type: BLOOD No comment entered. Ordering Provider: YOAV MIJARES Report Released Date/Time: Nov 13, 2024 10:48 AM Reporting Lab: [facility] [place] [address] Performing Lab: [facility] DIVISION CBC BASOPHILS/1 00 LEUKOCYTES IN BLOOD BY AUTOMATED COUNT 1 11/13 Specimen Type: BLOOD No comment entered. Ordering Provider: YOAV MIJARES Report Released Date/Time: Nov 13, 2024 10:48 AM Reporting Lab: [facility] [place] [address] Performing Lab: [facility] DIVISION CBC LYMPHOCYTES [#/VOLUME] IN BLOOD BY AUTOMATED COUNT 1.49 10*3/uL 0.77 - 4.50 11/13 Specimen Type: BLOOD No comment entered. Ordering Provider: YOAV MIJARES Report Released Date/Time: Nov 13, 2024 10:48 AM Reporting Lab: [facility] [place] [address] Performing Lab: [facility] DIVISION CBC MONOCYTES [#/VOLUME] IN BLOOD BY AUTOMATED COUNT 0.99 10*3/uL 0.19 - 0.80 11/13 H Specimen Type: BLOOD No comment entered. Ordering Provider: YOAV MIJARES Report Released Date/Time: Nov 13, 2024 10:48 AM Reporting Lab: [facility] [place] [address] Performing Lab: [facility] DIVISION CBC NEUTROPHILS [#/VOLUME] IN BLOOD BY AUTOMATED COUNT 6.48 10*3/uL 2.10 - 8.00 11/13 Specimen Type: BLOOD No comment entered. Ordering Provider: YOAV MIJARES Report Released Date/Time: Nov 13, 2024 10:48 AM Reporting Lab: [facility] [place] [address] Performing Lab: [facility] DIVISION CBC EOSINOPHILS [#/VOLUME] IN BLOOD BY AUTOMATED COUNT 0.39 10*3/uL 0.00 - 0.60 11/13 Specimen Type: BLOOD No comment entered. Ordering Provider: YOAV MIJARES Report Released Date/Time: Nov 13, 2024 10:48 AM Reporting Lab: [facility] [place] [address] Performing Lab: [facility] DIVISION CBC BASOPHILS [#/VOLUME] IN BLOOD BY AUTOMATED COUNT 0.06 10*3/uL 0.00 - 0.20 11/13 Specimen Type: BLOOD No comment entered. Ordering Provider: YOAV MIJARES Report Released Date/Time: Nov 13, 2024 10:48 AM Reporting Lab: [facility] [place] [address] Performing Lab: [facility] DIVISION B12 COBALAMIN (VITAMIN B12) [MASS/VOLUM E] IN SERUM OR PLASMA 771 pg/mL 213 - 816 11/13 Specimen Type: SERUM No comment entered. Ordering Provider: YOAV MIJARES Report Released Date/Time: Nov 13, 2024 10:48 AM Reporting Lab: [facility] [place] [address] Performing Lab: [facility] VITAMIN D, 25-HYDROX Y 25-HYDROXYV ITAMIN D3 [MASS/VOLUM E] IN SERUM OR PLASMA 43.9 ng/mL 30 - 96 11/13 Specimen Type: SERUM No comment entered. Ordering Provider: YOAV MIJARES Report Released Date/Time: Nov 13, 2024 10:48 AM Reporting Lab: [facility] [place] [address] Performing Lab: [facility] HEPATIC FUNTION PANEL (STL) PROTEIN [MASS/VOLUM E] IN SERUM OR PLASMA 7.7 g/dL 6.0 - 8.6 11/13 Specimen Type: PLASMA Comment: No hemolysis noted. Ordering Provider: YOAV MIJARES Report Released Date/Time: Nov 13, 2023 09:41 AM Reporting Lab: [facility] [place] [address] Performing Lab: [facility] HEPATIC FUNTION PANEL (STL) ALBUMIN [MASS/VOLUM E] IN SERUM OR PLASMA 4.3 g/dL 3.4 - 5.0 11/13 Specimen Type: PLASMA Comment: No hemolysis noted. Ordering Provider: YOAV MIJARES Report Released Date/Time: Nov 13, 2023 09:41 AM Reporting Lab: [facility] [place] [address] Performing Lab: [facility] [address] [place] [address] HEPATIC FUNTION PANEL (STL) BILIRUBIN.T OTAL [MASS/VOLUM E] IN SERUM OR PLASMA 0.4 mg/dL 0.2 - 1.2 11/13 Specimen Type: PLASMA Comment: No hemolysis noted. Ordering Provider: YOAV MIJARES Report Released Date/Time: Nov 13, 2023 09:41 AM Reporting Lab: [facility] [place] [address] Performing Lab: [facility] HEPATIC FUNTION PANEL (STL) ALKALINE PHOSPHATASE [ENZYMATIC ACTIVITY/VO LUME] IN SERUM OR PLASMA 50 U/L 40 - 150 11/13 Specimen Type: PLASMA Comment: No hemolysis noted. Ordering Provider: YOAV MIJARES Report Released Date/Time: Nov 13, 2023 09:41 AM Reporting Lab: [facility] [place] [address] Performing Lab: [facility] HEPATIC FUNTION PANEL (STL) ASPARTATE AMINOTRANSF ERASE [ENZYMATIC ACTIVITY/VO LUME] IN SERUM OR PLASMA 16 U/L 5 - 34 11/13 Specimen Type: PLASMA Comment: No hemolysis noted. Ordering Provider: YOAV MIJARES Report Released Date/Time: Nov 13, 2023 09:41 AM Reporting Lab: [facility] [place] [address] Performing Lab: [facility] HEPATIC FUNTION PANEL (STL) ALANINE AMINOTRANSF ERASE [ENZYMATIC ACTIVITY/VO LUME] IN SERUM OR PLASMA 13 U/L 8 - 40 11/13 Specimen Type: PLASMA Comment: No hemolysis noted. Ordering Provider: YOAV MIJARES Report Released Date/Time: Nov 13, 2023 09:41 AM Reporting Lab: [facility] [place] [address] Performing Lab: [facility] HEPATIC FUNTION PANEL (STL) BILIRUBIN.C ONJUGATED [MASS/VOLUM E] IN SERUM OR PLASMA 0.1 mg/dL 0.0 - 0.5 11/13 Specimen Type: PLASMA Comment: No hemolysis noted. Ordering Provider: YOAV MIJARES Report Released Date/Time: Nov 13, 2023 09:41 AM Reporting Lab: [facility] [place] [address] Performing Lab: [facility] LIPID PANEL (STL) CHOLESTEROL [MASS/VOLUM E] IN SERUM OR PLASMA 213 mg/dL 0 - 200 11/13 H Specimen Type: PLASMA Comment: No hemolysis noted. Ordering Provider: YOAV MIJARES Report Released Date/Time: Nov 13, 2023 09:41 AM Reporting Lab: [facility] [place] [address] Performing Lab: [facility] LIPID PANEL (STL) TRIGLYCERID E [MASS/VOLUM E] IN SERUM OR PLASMA 166 mg/dL 0 - 150 11/13 H Specimen Type: PLASMA Comment: No hemolysis noted. Ordering Provider: YOAV MIJARES Report Released Date/Time: Nov 13, 2023 09:41 AM Reporting Lab: [facility] [place] [address] Performing Lab: [facility] LIPID PANEL (STL) CHOLESTEROL IN LDL [MASS/VOLUM E] IN SERUM OR PLASMA BY CALCULATION 143 mg/dL 11/13 Specimen Type: PLASMA Comment: No hemolysis noted. Ordering Provider: YOAV MIJARES Report Released Date/Time: Nov 13, 2023 09:41 AM Reporting Lab: [facility]1 [facility] [address] Performing Lab: [facility] [id number] LIPID PANEL (STL) CHOLESTEROL IN HDL [MASS/VOLUM E] IN SERUM OR PLASMA 37 mg/dL 40 11/13 L Specimen Type: PLASMA Comment: No hemolysis noted. Ordering Provider: YOAV MIJARES Report Released Date/Time: Nov 13, 2023 09:41 AM Reporting Lab: [facility] [address] Performing Lab: [facility] [id number] Vital Signs Combined list of inpatient and outpatient Vital Signs from Department of Defense and Veterans Affairs, ranging from 12 months to all on record, depending upon the facility. Vital Sign Value Date Comments Source No data available for this section Ambulatory Pharm acy SYSTOLIC BLOOD PRESSURE 122 11/13/19 25 10:24:06 [facility] DIASTOLIC BLOOD PRESSURE 80 025 10:24:06 [facility] PULSE OXIMETRY 99 11/13/2024 10:24:06 [facility] WEIGHT 152 11/13/2024 10:24:06 [facility] BMI 26kg/m2 11/13/2024 10:24:06 [facility] PAIN 0 11/13/2024 10:24:06 [facility] HEIGHT 64 11/13/2024 10:24:06 [facility] TEMPERATURE 97 11/13/2024 10:24:06 [facility] PULSE 79 11/13/2024 10:24:06 [facility] RESPIRATION 14 11/13/2024 10:24:06 [facility] SYSTOLIC BLOOD PRESSURE 107 10/15/20 24 08:32:36 [facility] DIASTOLIC BLOOD PRESSURE 75 024 08:32:36 [facility] PULSE OXIMETRY 98 10/15/2024 08:32:36 [facility] PAIN 0 10/15/2024 08:32:36 [facility] TEMPERATURE 97.3 10/15/2024 08:32:36 [facility] PULSE 78 10/15/2024 08:32:36 [facility] RESPIRATION 20 10/15/2024 08:32:36 [facility] SYSTOLIC BLOOD PRESSURE 144 07/16/20 24 09:51:07 [facility] DIASTOLIC BLOOD PRESSURE 80 024 09:51:07 [facility] SYSTOLIC BLOOD PRESSURE 150 07/15/20 24 12:22:07 [facility] DIASTOLIC BLOOD PRESSURE 96 024 12:22:07 [facility] PAIN 1 07/15/2024 12:22:07 [facility] TEMPERATURE 96.7 07/15/2024 12:22:07 [facility] PULSE 98 07/15/2024 12:22:07 [facility] RESPIRATION 18 07/15/2024 12:22:07 [facility] WEIGHT 150.8 07/09/2024 15:54:02 [facility] BMI 26kg/m2 07/09/2024 15:54:02 [facility] Encounters Combined list of: 1) Encounters from Department of [facility] Affairs facilities going back up to thelast 18 months. 2) Encounters from the Department of Defense facilities going back up to 280 months. Location Location Details Encounter Type Encounter Number Reason For Visit Attending Provider ADM Date DC Date Status Disposition Source KRAIG Lakhani [facility] Team 1) OUTPATIENT [id number] new pt request medicat ion PEDRITO PARRA P 04/07 Released w/o Limitations [place] Felicia ([facility] Team 1) [facility] Outpatient Encounter [id number] 05/31 [facility] Outpatient Encounter [id number] 06/07 [facility] Outpatient Encounter [id number] CHEL PALOMARES 06/10 [facility] HC PRO PHONE CALL 5-10 MIN [id number] Diagnos is: ICD-10- CM E11.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
ZAK AMARO A 07/15 [facility] OFFICE O/P EST MOD 30-39 MIN [id number] Diagnos is: ICD-10- CM R63.4 Abnorma l weight loss
YOAV MIJARES 07/18 [facility] Outpatient Encounter [id number] 07/25 [facility] Outpatient Encounter [id number] EDNA EDWARDS A 08/09 [facility] IMMUNIZATI ON ADMIN [id number] Diagnos is: ICD-10- CM Z23 Encount er for immuniz ation<b r/> MATHEUS PEREA 08/13 [facility] OFFICE O/P EST LOW 20-29 MIN [id number] Diagnos is: ICD-10- CM F39 Unspeci fied mood [affect barry] disorde r
GURUSIDDRAY ZAMBRANO A N 08/13 [facility] Outpatient Encounter [id number] 08/15 [facility] Outpatient Encounter [id number] 09/22 [facility] Outpatient Encounter [id number] ANDRY ESCOTO 10/14 [facility] Outpatient Encounter [id number] 10/14 [facility] OFFICE O/P EST MOD 30-39 MIN [id number] Diagnos is: ICD-10- CM H69.92 Unspeci fied Eustach maribell tube disorde r, left ear<br/ > ZAK AMARO UL A 10/14 [facility] [place] [id number]. [id number] Diagnos is: ICD-10- CM R13.12 Dysphag ia, orophar yngeal phase<b r/> Stu GORMAN N 10[facility] En[facility] [id number] ERICKA GALLEGOS A 10/21 [facility] Outpatient Encounter [id number] 10/21 [facility] Outpatient Encounter [id number] ADARSH TRAVIS 10/21 [facility] Outpatient Encounter [id number] [employer]ER 10/21 [facility] Outpatient Encounter [id number] Henrry CASTLE 10/21 [facility] ADMN SARSCOV2 VACC 1 DOSE [id number]. 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
REE RAE 10/31 [facility] Outpatient Encounter [id number] 11/05 [facility] HC PRO PHONE CALL 11-20 MIN [id number] Diagnos is: ICD-10- CM R50.9 Fever, unspeci fied
Henrry CASTLE 11/06 [facility] Outpatient Encounter [id number] [id number] 11/08 [facility] Outpatient Encounter [id number] TAWNY NAVA 11/12 [facility] OFFICE O/P EST MOD 30 MIN [id number] Diagnos is: ICD-10- CM E11.9 Type 2 diabete s mellitu s without complic ations< br/> YOAV MIJARES 11/13 [facility] Outpatient Encounter [id number] ROSALBA CARTY J 11/15 [facility] N [facility] Outpatient Encounter [id number] 11/28 [facility] Outpatient Encounter [id number] 11/28 [facility] Outpatient Encounter [id number] Henrry CASTLE M 11/29 [facility] Outpatient Encounter [id number] 12/01 [facility] Outpatient Encounter [id number] [id number] 12/02 [facility] HC PRO PHONE CALL 5-10 MIN [id number] Diagnos is: ICD-10- CM R54 Age-rel ated physica l debilit y
Henrry CASTLE M 12/02 [facility] MED NUTRITION INDIV SUBSEQ [id number] Diagnos is: ICD-10- CM R13.12 Dysphag ia, orophar yngeal phase<b r/> LITTEKEN,B RITTANY N 12/24 [facility] OFFICE O/P EST MOD 30 MIN [id number] Diagnos is: ICD-10- CM F39 Unspeci fied mood [affect barry] disorde r
GURUSIDDAI YA,PRATIBH A N 12/26 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
FEI WOODARD 01/13 [facility] TYMPANOMET RY & REFLEX THRESH [id number] Diagnos is: ICD-10- CM H90.3 Sensori neural hearing loss, bilater al
FEI WOODARD 01/13 [facility] Outpatient Encounter [id number] 01/16 [facility] Outpatient Encounter [id number] YOAV MIJARES FOREIGN 02/03 [facility] Outpatient Encounter [id number] Diagnos is: ICD-10- CM R93.89 Abnorma l finding s on dx imaging of oth body structu res<br/ > Barrett DAVILA A 02/10 [facility] Outpatient Encounter [id number] YOAV MIJARES FOREIGN 03/03 [facility] OFFICE O/P EST MOD 30 MIN [id number] [id number] Diagnos is: ICD-10- CM K59.00 Constip ation, unspeci fied
YOAV MIJARES 03/10 [facility] Outpatient Encounter [id number] FELIPE LEUNG R 04/02 [facility] Outpatient Encounter [id number] 04/07 [facility] Outpatient Encounter [id number] 04/08 [facility] Outpatient Encounter [id number] 04/09 [facility] MED NUTRITION INDIV SUBSEQ [id number] Diagnos is: ICD-10- CM R63.4 Abnorma l weight loss
Stu GORMAN N 04/14 [facility] OFFICE O/P EST LOW 20 MIN [id number] Diagnos is: ICD-10- CM F39 Unspeci fied mood [affect barry] disorde r
GURUSIDDAI YA,PRATIBH A N 04/16 [facility] Outpatient Encounter [id number] [id number] FELIPE LEUNG 05/06 [facility] OFFICE O/P EST MOD 30 MIN [id number] Diagnos is: ICD-10- CM N40.0 Benign prostat ic hyperpl henry without lower urinry tract symp
DYLLAN,ANE FOREIGN 05/14 [facility] Outpatient Encounter [id number] DYLLAN,ANE FOREIGN 05/20 [facility] N [facility] Outpatient Encounter [id number] [id number] 06/01 [facility] N [facility] Outpatient Encounter [id number] Henrry CASTLE M 06/02 [facility] MOTION FLUOROSCOP Y/SWALLOW [id number] Diagnos is: ICD-10- CM R13.12 Dysphag ia, orophar yngeal phase<b r/> Sergio BADILLO M 06/03 [facility] OFFICE O/P EST LOW 20 MIN [id number] Diagnos is: ICD-10- CM N40.0 Benign prostat ic hyperpl henry without lower urinry tract symp
DYLLAN,ANE FOREIGN 06/11 [facility] Outpatient Encounter [id number] 07/07 [facility] Outpatient Encounter [id number] 07/08 [facility] MED NUTRITION INDIV SUBSEQ [id number] Diagnos is: ICD-10- CM R13.12 Dysphag ia, orophar yngeal phase<b r/> Stu GORMAN 07/09 [facility] N [facility] OFFICE O/P EST LOW 20 MIN [id number] Diagnos is: ICD-10- CM F39 Unspeci fied mood [affect barry] disorde r
GURUSIDDAI YA,PRATIBH A N 07/15 [facility] OFFICE O/P EST LOW 20 MIN [id number] [id number] Diagnos is: ICD-10- CM H04.123 Dry eye syndrom e of bilater al lacrima l glands< br/> Filippo LAND LLISON E 07/16 [facility] Outpatient Encounter [id number] 07/20 [facility] IMMUNIZATI ON ADMIN [id number] Diagnos is: ICD-10- CM Z23 Encount er for immuniz ation<b r/> GORDO RONQUILLO L 08/03 [facility] MED NUTRITION INDIV SUBSEQ [id number] Diagnos is: ICD-10- CM R13.10 Dysphag ia, unspeci fied
LITTEKEN,B RITTANY N 10/06 [facility] OFFICE O/P EST LOW 20 MIN [id number] [id number] Diagnos is: ICD-10- CM F39 Unspeci fied mood [affect barry] disorde r
GURUSIDDAI YA,PRATIBH A N 10/15 [facility] N [facility] OFFICE O/P EST LOW 20 MIN [id number] [id number] Diagnos is: ICD-10- CM E11.9 Type 2 diabete s mellitu s without complic ations< br/> Jarocho GARDNER 11/13 [facility] OFFICE O/P EST MOD 30 MIN [id number] Diagnos is: ICD-10- CM R41.82 Altered mental status, unspeci fied
DYLLANYOAV FOREIGN 11/13 [facility] HEARING AID SUP/ACCESS /DEV [id number] [id number] Diagnos is: ICD-10- CM H90.3 Sensori neural hearing loss, bilater al
Henrry TORRES 11/13 [facility] Procedures Combined list of: 1) Procedures from Department of Veterans Affairs facilities going back up to thelast 18 months, not all [place] non-surgical procedures are included; 2) All procedures from the Department of Defense facilities. Procedure Procedure Type Code Date Perfomer Comments Sourc e No data available for this section Ambulatory Pharmacy OPHTHALMOLOGICAL SERVICES: MEDICAL EXAMINATION AND EVALUATION WITH INITIATION OF DIAGNOSTIC AND TREATMENT PROGRAM; INTERMEDIATE, NEW PATIENT 04/23/2006 [facility] OPHTHALMOLOGICAL SERVICES: MEDICAL EXAMINATION AND EVALUATION WITH INITIATION OF DIAGNOSTIC AND TREATMENT PROGRAM; COMPREHENSIVE, NEW PATIENT, 1 OR MORE VISITS 12/29/2004 [facility] Social History Combined list of available smoking, tobacco, and other social history from Department of Defense and Veterans Affairs facilities. Social History Type Response Date Comment Sourc e Tobacco smoking status NHIS VA-TOBACCO FORMER USER 03/10/2024 [facility] History of tobacco use VA-TOBACCO QUIT 1 5 YRS OR MORE 03/10/2024 [facility] History of tobacco use VA-TOBACCO FORMER USER 02/19/2023 [facility] History of tobacco use VA-TOBACCO FORMER USER 03/05/2022 [facility] History of tobacco use VA-TOBACCO FORMER USER 02/06/2021 [facility] History of tobacco use IN-TOBACCO QUIT 5 TO < 15 YRS 11/19/2019 [facility] History of tobacco use IN-TOBACCO FORMER USER 10/30/2018 [facility] This section is an empty social history section. [facility] Assessment and Plan Combined list of future care activities from Department of Defense and Veterans [facility] facilities (e.g., assessment and plan notes, appointments, orders, and referrals). Additional future care activities may be listed in the Plan of Care section. Result Assessment and Plan Date Source Assessment and Plan No data available for this section 12/01/2024 Ambulatory Pharmacy Plan of Care List of future care activities from Department [facility] facilities. Additional future care activities may be listed in the Assessment and Plan section. Date/Time Care Activity Care Activity Detail Facili ty 12/04/2024 AMBULATORY - MEDICINE AMBULATORY - MEDICI NE [facility] 12/24/2024 AMBULATORY - PSYCHIATRY AMBULATORY - PSYC HIATRY [facility] 12/29/2024 AMBULATORY - NONE AMBULATORY - NONE [facility] 02/12/2025 AMBULATORY - SURGERY AMBULATORY - SURGERY [facility] Advance Directives List of completed, amended, or rescinded Advance Directives on record at Department [facility] facilities. An actual copy of the Directive is not included. Date Advance Directive Provider Source 04/24/2019 ADVANCE DIRECTIVE DANY RHODES [facility] Functional Status Combined list of recent functional and cognitive assessments recorded at Department of Defense and Veterans Affairs (VA).VA Functional [place] Measurement (FIM) Scale: 1 = Total Assistance (Subject = 0% +), 2 = Maximal Assistance (Subject = 25% +), 3 = Moderate Assistance (Subject = 50% +), 4 = Minimal Assistance (Subject = 75% +), 5 = Supervision, 6 = Modified [place] (Device), 7 = Complete [place] (Timely, Safely). Assessment Date/Time Source Assessment Type Assessment Skill Assessment Score Assessment Details No data available for this section
--- OUTSIDE RECORDS SUMMARY | 2024-12-01 00:48 | XMS_ITS | Clinical Summary ---
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 Family History Medical History Relation Name Comments Heart attack Father Anesthesia problems Neg Hx Relation Name Status Comments Father Social History Tobacco Use Types Packs/Day Years [...] on file Sexual Orientation Not on file Obstetrics History Last Filed Vital Signs Vital Sign Reading [...] 08/06/2023 2:35 PM CDT Plan of Treatment Health Maintenance Due Date Last Done Comments Depression Screening 1945 Hepatitis C Screening 1945 Hepatitis B Screening 1964 Well Visit 65+ 2011 Covid-19 Vaccine (5 2023-2 5 season) 2024 08/20/2022, 10/11/2021, 01/16/2021, Additional history exists Influenza Vaccine (#1) 2024 , 08/22/2022, 12/07/2019, Additional history exists Fall Risk Assessment 08/22/2024 08/22/2023 DTaP/Tdap/Td Vaccine (2 - Td or Tdap) 12/08/2028 12/08/2018, 05/31/1993 Zoster Vaccine Completed 10/16/2019, 06/19/2019 Pneumococcal vaccine 65+ Completed 12/07/2019, 02/2019 Medical Devices Implanted Type Area Curriculum Assistant Device Identifier Shelf Expiration Date Model / Serial / Lot [employer] Propel Contour Implant Nasal Sterile Latex Free [id number] - [id number] Implanted:Qty: 1 on 08/22/2023 by Bharati Ortiz MD at [facility] Stent Left: Nose [employer] 01/10/2025 [id number] / / [employer] Propel Contour Implant Nasal Sterile Latex Free 99119 - [id number] Implanted:Qty: 1 on 08/22/2023 by Bharati Ortiz MD at [facility] Medicine Stent Right: Nose [employer] 01/10/2025 [id number] / / Insurance [facility] [place] [address] [facility] CARE Care Teams Home Economist Relationship Specialty Start Date End Date Amos Gibbons MD [address] [place] [address] PCP - General Family Medicine 06/11/23
[2024-12-01] MEDS: LACTATED RINGERS 1,000 ML 30 ML IV CONT (06:30)
[2024-12-01 06:35] LABS: Glucose Point of Care 137 mg/dl (65-105)
--- NOTE | 2024-12-01 07:12 | P.PNAN_ITS ---
Anes - Initial Pre Proc Eval Procedure: Operation Date: 12/01/24 07:30 Proposed Procedures p Cystoscopy, Retrograde Pyelogram, Urethral Dilation - Bello Sheets MD Date/Time: 12/01/24 07:12 Surgeon: Bello Sheets MD Pre Op Diagnosis: urethral stricture Patient Data Age: 79 Gender: M Height: 1.6 m Weight: 66.4 kg Last Vital Signs Temp 36.3 C L 12/01/24 07:00 Pulse 74 12/01/24 07:00 Resp 16 12/01/24 07:00 BP 110/72 12/01/24 07:00 Pulse Ox 98 12/01/24 07:00 O2 Del Method Room Air 12/01/24 07:00 Allergies Allergy/AdvReac Type Severity Reaction Status Date / Time erythromycin base AdvReac Mild Nausea and Verified 12/01/24 06:56 Vomiting Home Medications ?Medication ?Instructions ?Recorded ?Confirmed ?Type fluticasone propionate 50 2 spray intranasal DAILY #11.1 mL 05/13/20 11/16/24 Rx mcg/actuation nasal spray,suspension (Flonase Allergy Relief) ibuprofen 200 mg capsule 400 mg PO Q6H PRN Pain 07/27/22 11/16/24 History atorvastatin 40 mg tablet 40 mg PO HS 04/07/24 11/16/24 History calcium polycarbophil 625 mg 625 mg PO DAILY 04/07/24 11/16/24 History tablet (Fiber-Lax) cyclobenzaprine 5 mg tablet 5 mg PO HS 04/07/24 11/16/24 History gabapentin 300 mg capsule 300 mg PO HS 04/07/24 11/16/24 History lidocaine 5 % topical patch 1 patch topical DAILY PRN pain 04/07/24 11/16/24 History mirtazapine 7.5 mg tablet 15 mg PO HS 04/07/24 11/16/24 History omeprazole 20 mg capsule,delayed 20 mg PO DAILY 04/07/24 11/16/24 History release polyethylene glycol 3350 17 17 g PO DAILY 04/07/24 11/16/24 History gram/dose oral powder valproic acid (as sodium salt) 250 250 mg PO DAILY 04/07/24 12/01/24 History mg/5 mL oral solution valproic acid (as sodium salt) 250 500 mg PO HS 04/07/24 12/01/24 History mg/5 mL oral solution tamsulosin 0.4 mg capsule (Flomax) 0.4 mg PO DAILY #90 caps 04/11/24 11/16/24 Rx Laboratory Tests 12/01/24 06:31 POC Capillary Glucose 137 H mg/dl (65-105) Patient hx anesthesia problems: none Family hx anesthesia problems: none Results Review: All pre-operative results and documents have been reviewed as part of the pre- operative evaluation. [facility] Past Medical History Medical History Seizure Type 2 diabetes mellitus without complications Mixed hyperlipidemia Gastro-esophageal reflux disease without esophagitis Syncope and collapse Port-A-Cath in place Head and neck cancer Depression Anxiety Peripheral neuropathy GERD (gastroesophageal reflux disease) Surgical History Surgical History History of tonsillectomy H/O neck surgery (~2006) squamous cell cancer of tonsil Family History Family History Father Heart failure Mother Diabetes mellitus Social History Social History Smoking status: Former smoker Tobacco type: cigars Smokeless tobacco user: chewing tobacco Smoking end date: 11/04/06 Additional smoking assessment comments: Quit smoking when Cancer diagnosis Alcohol intake: former Drinks per week: 2 Substance use: never Do You Feel Safe in your Home?: Yes Lack of Transportation: No Lack of Food: Never True Current Housing: I Have Housing Concerned About Future Housing: Decline to Answer Difficulty Paying Gas/Electric Bills: Decline to Answer Difficulty Paying for Meds: Decline to Answer Currently Unemployed: Decline to Answer Education: Associate Degree Difficulty w/ Childcare or Family Care: Decline to Answer Living arrangements: with family Additional living arrangements comments: Occupation/Education: retired Gender identity (if verbalized by the patient): Male Sexual Orientation (if Verbalized by the Patient): Straight or Heterosexual Spiritual care concerns: No Anes - Eval Final PreProcedure Day of Procedure 12/01/24 07:12 Patient weight: normal Heart: regular rate and rhythm Lungs: clear to auscultation Airway: Mallampati scale class III Neurological: alert and oriented Last oral intake: >/= 8 hours ASA classification: III Emergent: no Anesthetic plan: proceed Anesthesia type and monitoring: general LMA and standard monitoring Results Review: All pre-operative results and documents have been reviewed as part of the pre-op erative evaluation. Informed Consent: The patient's anesthetic plan and its attendant risks and benefits were discussed with the patient/family/POA. Questions were solicited and answers provided to the satisfaction of the patient/family/POA.
--- NOTE | 2024-12-01 07:28 | WPDHPUPDATE1 ---
History and Physical Update Update Date/Time: 12/01/24 07:28 History and Physical has been reviewed, including an updated exam of the patient. There are NO changes in the patient's condition. Risks, benefits, and alternatives have been discussed and questions answered. Patient agrees to proceed with procedure.
[2024-12-01] MEDS: ceFAZolin 2 GM/D5W 50 ML 2 GM/50 ML BAG IVPB (07:30)
[2024-12-01] MEDS: LIDOCAINE 2% GEL UROJET 10 ML PKG MUCOUS MEM (07:48)
--- NOTE | 2024-12-01 07:54 | W.PM.PROC2 ---
Procedure Note - Detailed Date of Procedure 12/01/24 Pre-op Diagnosis urethral stricture Post-op Diagnosis Same Procedure Performed Retrograde urethrogram, urethral dilation with Amplantz dilators, cystoscopy, complex Gonzalez catheter placement-18 Grenadian [place] tip Surgeon Bello Sheets MD Anesthesia General Findings Bulbar urethral stricture Description of Procedure Patient was taken the operative suite correctly identified. Once anesthesia was obtained in dorsal lithotomy position and prepped draped usual sterile fashion. Nineteen Grenadian scope was inserted in the meatus. He has a bulbar stricture that does not allow passage of the scope. Retrograde urethrogram was then performed using the 16 Grenadian red rubber catheter. Stricture appears to be about a cm long. It allowed passage of the contrast bladder. Superstiff wire was then placed under fluoroscopic guidance into the bladder. The urethra was dilated up to 24 Grenadian using the dilators. Cystoscopy then revealed mild lateral lobe hypertrophy. Upon entering the bladder there is 1 to 2+ trabeculation present. No tumors are noted. 2% viscous lidocaine was then inserted into the urethra. Eighteen Grenadian [place] tip catheter was passed over the superstiff wire into the bladder. 10 cc were placed in the balloon. Patient was taken recovery stable condition. Plan is to leave the Gonzalez in until Saturday for voiding trial. He will then follow-up in the office in 3-4 weeks this completes dictation. Please send a copy of op note to my office Estimated Blood Loss 0 Drains Yes Packing No Pathology None sent Complications No immediate complications Condition Stable Disposition PACU
[2024-12-01 08:44] LABS: Glucose Point of Care 131 mg/dl (65-105)
[2024-12-01] MEDS: oxyCODONE HCL (*CRX) 5 MG TAB IR PO (09:16)
== END 2024-12-01 09:57 | disposition home or self-care (01) ==
PROVIDERS: PCP Family Medicine Adolescent Medicine; Visit Provider Urology
PROC: (CPT 52352; principal; 2024-12-01 07:30)
DX: N35.912 Unspecified bulbous urethral stricture, male (principal); E11.9 Type 2 diabetes mellitus without complications; Z87.891 Personal history of nicotine dependence
CPT/HCPCS: 52281; 51610; 74450; 82948; A9270; C1769; J0690; J1100; J2405; J2704; J7120; Q9966

== ENCOUNTER 2025-03-18 01:12 | Emergency (ER) | payer MEDICARE, OTHER, SELFPAY ==
[2025-03-18] VITALS (8 sets, daily range): BP systolic 113–132; BP diastolic 71–87; PULSE 68–72; RESP 17–24; TEMP 36.7; O2SAT 98–100
--- NOTE | ~2025-03-18 | CT_ITS ---
Non-contrast Head CT History: Altered mental status Technique: Axial non-contrast imaging of the brain was performed. Dose reduction technique was used on this scan by utilizing automated exposure control and iterative reconstruction technique. The dose -length product (DLP) was 681.00 mGy-cm. Findings: There is no evidence of intracranial hemorrhage, mass lesion, or acute infarct. Brain par enchyma appears normal. The ventricles and subarachnoid spaces are normal in size. The calvarium ap pears normal. The visualized paranasal sinuses and mastoid air cells are clear. Impression: No significant abnormality seen. Reviewed, dictated and finalized at location . Impression: No significant abnormality seen.
--- NOTE | 2025-03-18 01:19 | ECG_ITS ---
Test Date: 2025-03-18 01:16:28 Measurements Intervals [place] Rate: 70 P: -1 OR: 180 QRS: 32 QRSD: 96 T: 42 QT: 391 QTc: 424 Interpretive Statements SINUS RHYTHM Compared to ECG 04/07/2024 05:34:38 Sinus tachycardia no longer present Electronically Signed On 03-18-2025 15:59:06 CDT by Salomón Webb M.D.
--- OUTSIDE RECORDS SUMMARY | 2025-03-18 01:49 | XMS_ITS | Encounter Summary ---
Author Name [facility] [place] [facility] [place] Address [address] [place] [address] Care Team Providers Care Branch Chief Name Role Phone QUYEN MIJARES Primary Care [...] POINT OF SERVICE [facility] Nov 04, 2018 [id number] ANA ERASTON SPOUSE [place] ([id number]) RX PRESCRIPT ION RX PLAN Nov 04, 2017 [id number] [phone] OCTAVIANO PEREZ SPOUSE [place] ([id number])RX PRESCRIPT ION [facility]BP Nov 04, 2018 [id number] [phone] ANAOCTAVIANO DOSHI SPOUSE [place] ([id number])RX PRESCRIPT ION [facility]BP Nov 04, 2018 [id number] [phone] ANAOCTAVIANO DOSHI SPOUSE [facility]ARE[facility] ([id number])RX PRESCRIPT ION [facility]BP Nov 04, 2018 [id number] [phone] OCTAVIANO PEREZ SPOUSE [employer] MCR (WNR) MEDICARE ADVANTAGE MCR (WNR) Nov 04, 2024 [id number] OCTAVIANO PEREZ PATIENT MEDICARE (WNR) MEDICARE (M) PART B May 04, 2009 PART B [id number] OCTAVIANO PEREZ PATIENT MEDICARE (WNR) MEDICARE (M) PART A May 04, 2009 PART A [id number] OCTAVIANO PEREZ PATIENT Selected Encounter This section includes the information on record at [place] for the Encounter. Date/Time Encounter Type Encounter Description Reason Provider Source March 11, 2025 02:57 PM EXTENDED VISUAL FIELD XM OPHTHALMOLOGY ICD-10-CM H40.023 Open angle with borderline findings, high risk, bilateral DI,BRIAN SSA M IHE Encounter Template Text not used by [facility] Assessments - Encounter Diagnoses This section includes the primary and secondary diagnoses documented for the Encounter. Date/Time Primary/Secondary Diagnosis Diagnosis Name Provider Source March 11, 2025 03:22 PM PRIMARY Open angle with borderline findings, high risk, bilateral DI,ALONDRA SA M [facility] Plan of Treatment: Future Appointments (+ 6 months) and Future Tests (+/- 45 days) The Plan of Treatment section includes future care activities for the patient from all [place] treatmentfacilities. This section includes future appointments and future orders which are active, pending or scheduled. Future Appointments This section includes appointments that were scheduled to occur 6 months from the date of the Encounter, up to a maximum of 20 appointments. The data comes from all [place] treatment facilities. Appointment Date/Time Appointment Type Appointme nt Facility Name March 30, 2025 03:00 PM AMBULATORY - NONE [facility] April 02, 2025 03:00 PM AMBULATORY - MEDICINE [facility] May 18, 2025 02:30 PM AMBULATORY - NONE [facility] Jul 15, 2025 01:30 PM AMBULATORY - SURGERY [facility] Lab Results: +/- 30 days of the encounter This section includes the Chemistry and Hematology Lab Results on record with [place] for the patient. Radiology Reports and Pathology Reports are provided separately, in subsequent sections. Lab Results This section contains the Chemistry/Hematology Results that were resulted 30 days before or 30 daysafter the date of the Encounter. Date/Time Source Result Type Result - Unit Interpretation Reference Range Specimen Type Comment Feb 19, 2025 02:45 PM [facility] I-STAT, CREAT (STL-MA) BLOOD Specimen Type: BLOOD Comment: Test Performed by: [id number] Meter #: [id number] Ordering Provider: QUYEN MIJARES Report Released Date/Time: Feb 19, 2025 02:46 PM Reporting Lab: [facility] [address] [facility] [place] [address] Performing Lab: [address] [address] I-STAT, CREAT (STL-MA) 1.0 mg/dL 0.7-1.3 Advance Directives: All historical and current Section Date Range: From patient's date of to the date document was created. This section includes ALL of a patient's completed or amended [place] Advance and Rescinded Directives. The entries below indicate that a directive exists for the patient, but an actual copy is not included with this document. The data comes from all [facility]. Date Advance Directives Provider Source Apr 24, [address] [facility] Radiology Reports: +/- 30 days of [...] the Encounter. The data comes from all [place] treatment facilities. Date/Time Radiology Report Provider Source Feb 19, 2025 02:[address] RENAL MASS W/3D : ANAOCTAVIANO JOSE [id number] -[id number] M Exm Date: FEB 19, 2025@14:36 Req Phys: QUYEN MIJARES Pat Loc: [facility] FLASH PM (Req'g Loc) Img Loc: [facility] IMAGING [facility] Service: Unknown [facility], [address] [place] [address] (Case [id number] COMPLETE) CT RENAL MASS PROTOCOL (CT Detailed) CPT:00969 Contrast Media : unspecified contrast media Reason for Study: Evaluate bilateral renal lesions/masses Clinical History: Responsible Attending: Carlos Attending Contact Number: [phone] Resident Contact Number: Allergies listed in CPRS chart: ERYTHROMYCIN Creatinine: CREATININE 1.04 mg/dL 11/13/2024 11:11 /eGFR: STL EGFR (within one year). CREATININE 1.04 mg/dL (11/13/24 11:11) Wt: 151 lb [68.49 kg] (12/04/2024 12:47) History of: Renal failure, chronic or acute renal disease: NO Report Status: Verified Date Reported: FEB 22, 2025 Date Verified: FEB 22, 2025 Network Operations Technician E-Sig:/ES/PEDRITO WHITEHEAD Report: Case [id number]. CT RENAL MASS PROTOCOL. Gastrointestinal contrast: None. IV contrast: Yes History: Evaluate bilateral renal lesions/masses Comparison: 02/05/2025 Inferior chest: The visible lung bases are clear. Liver: The liver is homogeneous in attenuation without focal lesion. The main portal vein and branches are patent. Gallbladder: Within normal limits. Biliary: Within normal limits. Spleen: Within normal limits. Pancreas: Calcifications within the pancreatic head are unchanged. No pancreatic ductal dilation. Adrenals: Within normal limits. Kidneys: There is no evidence of renal calculus or hydronephrosis. Hyperattenuating foci within the right and left renal collecting system likely represents early contrast excretion. There is a hypoattenuating lesion arising from the posterior aspect of the right mid kidney measuring 1.5 cm (series 12 image 52). This does not demonstrate appreciable enhancement and likely represents a hemorrhagic cyst. An additional exophytic hyperattenuating focus arising from the lateral aspect of the right mid kidney measures 1 cm and does not demonstrate enhancement, compatible with a hemorrhagic cyst. A stable exophytic hemorrhagic cyst arises from the left mid kidney measuring 1.6 cm (series 2 image 49) there is scarring within the left mid kidney. No solid enhancing renal lesions are identified. Retroperitoneum/mesentery: No enlarged retroperitoneal or mesenteric lymph nodes. No ascites is present. Gastrointestinal: Within normal limits. Vascular: Within normal limits. Musculoskeletal: Within normal limits. Impression: Bilateral simple and hemorrhagic renal cysts do not require imaging follow-up. No solid enhancing renal masses are detected. Primary Interpreting Staff: PEDRITO WHITEHEAD MD (Network Operations Technician) /PEDRITO RUVALCABA [facility] Encounter Notes: All associated encounter notes This section contains the clinical notes associated to the Encounter. Date/Time Encounter Note(s) Provider Source March 11, 2025 02:57 PM OPHTHALMOLOGY NOTE : LOCAL TITLE: OPHTHALMOLOGY NOTE ST STANDARD TITLE: OPHTHALMOLOGY NOTE DATE OF NOTE: MARCH 11, 2025@14:57 ENTRY DATE: MARCH 11, 2025@14:57:20 AUTHOR: YUSRA SEVILLA EXP COSIGNER: URGENCY: STATUS: COMPLETED TESTING OBTAINED: HVF 24-2 FAST complete OU Results located in Forum for provider review INITIAL EYE SCREEN LAST VISIT: 03/02/2025 CHIEF COMPLAINT: Pt state left eye is fuzzy. Here for HVF and glaucoma evaluation. OCULAR REVIEW OF SYSTEMS: VISUAL ACUITY With Correction, Glasses OD: 20/20-2 OS: 20/200 AUTO REFRACTION SUBJ: OD: -0.25 +0.25 x173 OS: -1.25 +2.25 x162 VISUAL ACUITY WITH AUTO REFRACTION: OD: 20/30 OS: 20/50 LENSOMETER: OD: -1.00 +0.75 x133 OS: -2.00 +2.50 x155 ADD +2.50 OU /es/ YUSRA SEVILLA Oxyacetylene Burner Signed: 03/11/2025 15:22 YUSRA SEVILLA [facility]
--- OUTSIDE RECORDS SUMMARY | 2025-03-18 01:49 | XMS_ITS | Continuity of Care Document ---
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 It does not include entries that were removed or entered in error. Problem Status Onset Date Problem Type Date of Resolution Comments Source visit for: issue repeat prescription Inactive Condition DoD Anxiety Active Condition [facility] Autonomic neuropathy Active Condition [facility] Chronic constipation Active Condition [facility] Chronic sinusitis Active Condition [facility] Depression Active Condition [facility] Diabetes Mellitus Type 2 ([facility] [id number]) Active Condition [facility] Disorder of left Eustachian tube Active Condition [facility] GERD - Gastro-Esophageal Reflux Disease ([facility] [id number]) Active Condition [facility] HTN - Hypertension ([facility] [id number]) Active Condition [facility] Moderate protein-calorie malnutrition (weight for age 60-74 percent of standard) Active Condition [facility] Peripheral neuropathy Active Condition [facility] Sensorineural hearing loss of bilateral ears Active Condition [facility] Squamous cell carcinoma Active Condition Dec 10, 2019 Entered By: QUYEN MIJARES Comment: was treated by Dr. 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, high risk, bilateral Active Diagnosis [facility] Diagnosis: ICD-10-CM R63.4 Abnormal weight loss Active Diagnosis [facility] Diagnosis: ICD-10-CM F39 Unspecified mood [affective] disorder Active Diagnosis [facility] Diagnosis: ICD-10-CM R41.82 Altered mental status, unspecified Active Diagnosis [facility] Diagnosis: ICD-10-CM H90.3 Sensorineural hearing loss, bilateral Active Diagnosis [facility] Diagnosis: ICD-10-CM E11.9 Type 2 diabetes mellitus without complications Active Diagnosis [facility] Diagnosis: ICD-10-CM R13.10 Dysphagia, unspecified Active Diagnosis [facility] Diagnosis: ICD-10-CM Z23 Encounter for immunization Active Diagnosis [facility] Diagnosis: ICD-10-CM H04.123 Dry eye syndrome of bilateral lacrimal glands Active Diagnosis [facility] Diagnosis: ICD-10-CM R13.12 Dysphagia, oropharyngeal phase Active Diagnosis [facility] Diagnosis: ICD-10-CM N40.0 Benign prostatic hyperplasia without lower urinry tract symp Active Diagnosis [facility] Diagnosis: ICD-10-CM K59.00 Constipation, unspecified Active Diagnosis [facility] Diagnosis: ICD-10-CM R93.89 Abnormal findings on dx imaging of oth body structures Active Diagnosis [facility] Diagnosis: ICD-10-CM Z85.818 Prsnl hx of malig neoplm of site of lip, oral cav, & pharynx Active Diagnosis [facility] Diagnosis: ICD-10-CM R54 Age-related physical debility Active Diagnosis [facility] Diagnosis: ICD-10-CM R50.9 Fever, unspecified Active Diagnosis [facility] Diagnosis: ICD-10-CM H25.12 Age-related nuclear cataract, left eye Active Diagnosis [facility] Diagnosis: ICD-10-CM H69.92 Unspecified Eustachian tube disorder, left ear Active Diagnosis [facility] Medications Combined list of outpatient medications from Department of Defense and [facility] Affairs facilities.Medications provided include 1) outpatient medications from the last 15 months, and 2) patient-reported medications. Medication Details Route Status Patient Instructions Prescription Expires Prescription Number Last Dispense Date Ordering Provider Order Date Order Qty Source atorvastati n (U/D) 40 MG ORAL TAB TAKE ONE-HALF TABLET BY MOUTH EVERY EVENING FOR HIGH CHOLESTE ROL 03/11/2025 [id number] QUYEN CONWAY 2023 45 [facility] ATORVASTATI N CA 40MG TAB TAKE ONE-HALF TABLET BY MOUTH EVERY EVENING FOR HIGH CHOLESTE ROL ORAL ACTIVE 08/17/2025 [id number] 5 LYNN MIJARES EELA 2023 45 [facility] ATORVASTATI N CA 40MG TAB TAKE ONE-HALF TABLET BY MOUTH EVERY EVENING FOR HIGH CHOLESTE ROL ORAL DISCONT INUED 03/11/2025 [id number] 4 LYNN MIJARES EELAURA 2023 45 [facility] Calcium Polycarboph il (FBR) Tablet 625mg Oral TAKE ONE TABLET BY MOUTH ONCE A DAY 03/11/2025 [id number] 4 QUYEN CONWAY 2023 90 [facility] CALCIUM POLYCARBOPH [place] 625MG TAB TAKE ONE TABLET BY MOUTH ONCE A DAY ORAL 03/11/2025 [id number] 5 LYNN MIJARES EELA 2023 90 [facility] CARBOXYMETH YLCELLULOSE NA 1% GEL,OPH INSTILL 1 DROP INTO BOTH EYES FOUR TIMES A DAY NEEDED FOR DRY EYE(S) OPHTHA LMIC ACTIVE 07/17/2025 [id number] KATERINA LAND 2023 45 [facility] CICLOPIROX 8% SOLN,TOP APPLY SPARINGL Y TO AFFECTED AREA(S) AT BEDTIME (THIN COAT TO THICK NAILS - FILE DOWN AFTER 1 WEEK) (EXTERNA L USE ONLY) CLEANED WITH ALCOHOL ONCE A WEEK TOPICA L 11/13/2024 [id number] 4 DYLLAN,AN EELA 2023 6.6 [facility] Compounded Prilosec Capsule Conventiona l 20 mg Oral TAKE ONE CAPSULE BY MOUTH EVERY MORNING BEFORE A MEAL FOR GASTROES OPHAGEAL REFLUX DISEASE. TAKE 30 MINUTES PRIOR TO FOOD. 11/13/2024 [id number] 4 CRISTINAQUYEN WILSON B 2023 90 [facility] cyclobenzap rine (U/D) 5 MG ORAL TAB TAKE ONE TABLET BY MOUTH TWICE DAILY NEEDED FOR MUSCLE SPASM. MAY CAUSE DROWSINE SS. DO NOT DRINK ALCOHOL WHILE TAKING THIS MEDICATI ON. 03/11/2025 [id number] 4 QUYEN CONWAY 2023 60 [facility] CYCLOBENZAP RINE HCL 5MG TAB TAKE ONE TABLET BY MOUTH TWICE DAILY NEEDED FOR MUSCLE SPASM. MAY CAUSE DROWSINE SS. DO NOT DRINK ALCOHOL WHILE TAKING THIS MEDICATI ON. ORAL ACTIVE 01/16/2026 [id number] 5 DYLLAN,AN EELA 2024 60 [facility] CYCLOBENZAP RINE HCL 5MG TAB TAKE ONE TABLET BY MOUTH TWICE DAILY NEEDED FOR MUSCLE SPASM. MAY CAUSE DROWSINE SS. DO NOT DRINK ALCOHOL WHILE TAKING THIS MEDICATI ON. ORAL DISCONT INUED 03/11/2025 [id number] 4 DYLLAN,AN EELA 2023 60 [facility] DEPAKENE (BRAND) 250 MG/5 ML ORAL SOLN TAKE 5 ML BY MOUTH EVERY MORNING AND TAKE 10 ML AT BEDTIME FOR MOOD Active 04/17/2025 [id number] 4 GURUSIDDA SHANDA, SHERON N 2023 480 [facility] DEPAKENE (BRAND) 250 MG/5 ML ORAL SOLN TAKE 5 ML BY MOUTH EVERY MORNING AND TAKE 10 ML AT BEDTIME FOR MOOD Discont inued 12/26/2024 [id number] 4 JANI MARQUEZTIBHA N 2023 480 [facility] DEPAKENE (BRAND) 250 MG/5 ML ORAL SOLN TAKE 5 ML BY MOUTH EVERY MORNING AND TAKE 10 ML AT BEDTIME FOR MOOD 12/26/2024 [id number] 4 CHEYENNE LAND SHERON N 2023 480 [facility] FLONASE-OTC (BRAND) 50 MCG BOBBY SPSN [9.9] INSTILL 2 SPRAYS IN EACH NOSTRIL ONCE A DAY FOR ALLERGIE S (MUST BE USED DIRECTED FOR MINIMUM OF 21 DAYS TO PROVIDE ADEQUATE BENEFITS ) 04/04/2024 [id number] 4 SONAM IRVIN H 2023 1 [facility] FLUTICASONE PROPIONATE 50MCG/SPRAY SOLN,NASAL, 16GM INSTILL 2 SPRAYS IN EACH NOSTRIL ONCE A DAY FOR ALLERGIE S (MUST BE USED DIRECTED FOR MINIMUM OF 21 DAYS TO PROVIDE ADEQUATE BENEFITS ) NASAL ACTIVE 02/23/2026 [id number] 5 LYNN MIJARES EELA 2024 3 [facility] FLUTICASONE PROPIONATE 50MCG/SPRAY SOLN,NASAL, 16GM INSTILL 2 SPRAYS IN EACH NOSTRIL ONCE A DAY FOR ALLERGIE S (MUST BE USED DIRECTED FOR MINIMUM OF 21 DAYS TO PROVIDE ADEQUATE BENEFITS ) NASAL DISCONT INUED 06/12/2025 [id number] 5 DYLLAN,LYNN EELA 2023 3 [facility] FLUTICASONE PROPIONATE 50MCG/SPRAY SOLN,NASAL, 16GM INSTILL 2 SPRAYS IN EACH NOSTRIL ONCE A DAY FOR ALLERGIE S (MUST BE USED DIRECTED FOR MINIMUM OF 21 DAYS TO PROVIDE ADEQUATE BENEFITS ) NASAL DISCONT INUED 04/04/2024 [id number] 4 Venessa IRVIN H 2022 1 [facility] GABAPENTIN (U/D) 300 MG ORAL CAP TAKE ONE CAPSULE BY MOUTH AT BEDTIME FOR NERVE PAIN 03/11/2025 [id number] QUYEN CONWAY 2023 90 [facility] GABAPENTIN 300MG CAP TAKE ONE CAPSULE BY MOUTH AT BEDTIME FOR NERVE PAIN ORAL SUSPEND ED 02/24/2026 [id number] 5 LYNN MIJARES EELA 2024 90 [facility] GABAPENTIN 300MG CAP TAKE ONE CAPSULE BY MOUTH AT BEDTIME FOR NERVE PAIN ORAL DISCONT INUED 03/11/2025 [id number] 4 LYNN MIJARES EELA 2023 90 [facility] GLUCERNA SHAKE LIQUID VANILLA TAKE 1 CANFUL BY MOUTH ONCE A DAY FOR NUTRITIO N/DIETAR Y SUPPLEME NTATION (SHAKE WELL) ORAL ACTIVE 02/11/2026 [id number] 5 MI GORMAN N 2024 48 [facility] GLUCERNA SHAKE LIQUID VANILLA TAKE 1 CANFUL BY MOUTH ONCE A DAY FOR NUTRITIO N/DIETAR Y SUPPLEME NTATION (SHAKE WELL) ORAL DISCONT INUED BY PROVIDE R 10/09/2025 [id number] 5 MI GORMAN N 2023 24 [facility] GLUCERNA THERAPEUTIC NUTRITION SHAKE LIQUID CHOCOLATE TAKE 2 CANFULS BY MOUTH ONCE A DAY (SHAKE WELL) ORAL DISCONT INUED BY PROVIDE R 04/17/2025 [id number] 4 MI GORMAN N 2023 72 [facility] GLUCERNA THERAPEUTIC NUTRITION SHAKE LIQUID CHOCOLATE TAKE 1 CANFUL BY MOUTH DIRECTED FOR NUTRITIO N/DIETAR Y SUPPLEME NTATION (SHAKE WELL) ORAL DISCONT INUED BY PROVIDE R 12/24/2024 [id number] 4 LYNN MIJARES EELA 2023 24 [facility] GLUCOSTIX (GLUCOSE) TEST STRIP USE 1 STRIP FOR BLOOD TEST ONCE A DAY NEEDED FOR URINARY GLUCOSE TESTING USE DIRECTED SUBCUT YVON DISCONT INUED 12/19/2025 [id number] 5 LYNN MIJARES EELA 2024 50 [facility] LATANOPROST 0.005% SOLN,OPH INSTILL 1 DROP IN LEFT EYE EVERY EVENING FOR ELEVATED INTRAOCU LAR PRESSURE KEEP REFRIGER ATED UNTIL READY TO USE, THEN STORE AT ROOM TEMPERAT URE FOR MAXIMUM OF 42 DAYS. OPHTHA LMIC ACTIVE 03/12/2026 [id number] NA LU 2024 5 [facility] LATANOPROST 0.005% SOLN,OPH INSTILL 1 DROP IN LEFT EYE EVERY EVENING KEEP REFRIGER ATED UNTIL READY TO USE, THEN STORE AT ROOM TEMPERAT URE FOR MAXIMUM OF 42 DAYS. OPHTHA LMIC DISCDIAN INUED 11/14/2025 [id number] 5 CIARRA GARDNER 2024 10 [facility] LEVOFLOXACI N (LEVOFLOXAC IN), 750 MG, TABLET, ORAL, [employer], 20 ea. BOTTLE Active [id number] 2023 1 Pharmac y Data Transac tion Service Facilit y Lidocaine (Lidoderm Eq.) Transdermal System 5% Topical APPLY 1 PATCH TO SKIN SITE ONCE A DAY APPLY PATCH AND PRESS FIRMLY FOR 10-15 SECONDS. KEEP ON FOR 12 HOURS THEN REMOVE PATCH FOR 12 HOURS. 07/18/2024 [id number] QUYEN CONWAY B 2023 30 [facility] LIDOCAINE 5% PATCH APPLY 1 PATCH TO SKIN SITE ONCE A DAY APPLY PATCH AND PRESS FIRMLY FOR 10-15 SECONDS. KEEP ON FOR 12 HOURS THEN REMOVE PATCH FOR 12 HOURS. TRANSD ERMAL ACTIVE 12/14/2025 [id number] 5 LYNN MIJARES EELA 2024 30 [facility] LIDOCAINE 5% PATCH APPLY 1 PATCH TO SKIN SITE ONCE A DAY APPLY PATCH AND PRESS FIRMLY FOR 10-15 SECONDS. KEEP ON FOR 12 HOURS THEN REMOVE PATCH FOR 12 HOURS. TRANSD ERMAL 07/18/2024 [id number] 4 LYNN MIJARES EELA 2022 30 [facility] MELATONIN 3MG CAP/TAB TAKE ONE CAP/TAB BY MOUTH AT BEDTIME NEEDED ORAL ACTIVE 04/12/2025 [id number] 5 CHEYENNE LANDPRATI BHA N 2024 60 [facility] N METFORMIN HCL 1000MG TAB TAKE ONE-HALF TABLET BY MOUTH TWICE A DAY WITH MEALS TAKE WITH FOOD. AVOID ALCOHOL. DISCONTI NUE BEFORE GETTING XRAY DYE. ORAL ACTIVE 12/05/2025 [id number] 5 LYNN MIJARES EELA 2024 90 [facility] Mirtazapine (Remeron Soltab) Tablet 30mg Oral TAKE ONE TABLET BY MOUTH AT BEDTIME Active 04/17/2025 [id number] JANI MARQUEZTIBHA N 2023 90 [facility] MIRTAZAPINE 30MG TAB TAKE ONE TABLET BY MOUTH AT BEDTIME ORAL ACTIVE 12/30/2025 [id number] 5 SICARI LANDPRATI BHA N 2024 90 [facility] MIRTAZAPINE 30MG TAB TAKE ONE TABLET BY MOUTH AT BEDTIME ORAL DISCONT INUED 10/16/2025 [id number] 5 CHEYENNE LANDPRATI BHA N 2024 90 [facility] MIRTAZAPINE 30MG TAB TAKE ONE TABLET BY MOUTH AT BEDTIME ORAL DISCONT INUED 07/16/2025 [id number] 4 SICARI LANDPRATI BHA N 2023 90 [facility] MIRTAZAPINE 30MG TAB TAKE ONE TABLET BY MOUTH AT BEDTIME ORAL DISCONT INUED 04/17/2025 [id number] 4 SIJANI NIETOTI BHA N 2023 90 [facility] MIRTAZAPINE 7.5 MG ORAL TAB TAKE TWO TABLETS BY MOUTH AT BEDTIME FOR DEPRESSI ON Discont inued 12/26/2024 [id number] GURUSIDDA SHANDA, SHERON N 2023 60 [facility] MIRTAZAPINE 7.5 MG ORAL TAB TAKE TWO TABLETS BY MOUTH AT BEDTIME FOR DEPRESSI ON 12/26/2024 [id number] TWANRUSIDDA SHANDA, SHERON N 2023 60 [facility] MIRTAZAPINE 7.5MG TAB TAKE TWO TABLETS BY MOUTH AT BEDTIME FOR DEPRESSI ON ORAL DISCONT INUED (EDIT) 12/26/2024 [id number] 4 SICARI LANDPRATI BHA N 2023 60 [facility] MIRTAZAPINE 7.5MG TAB TAKE TWO TABLETS BY MOUTH AT BEDTIME FOR DEPRESSI ON ORAL DISCONT INUED 08/13/2024 [id number] 4 CHEYENNE LANDPRATI BHA N 2022 60 [facility] OMEPRAZOLE 20MG CAP,EC TAKE ONE CAPSULE BY MOUTH EVERY MORNING BEFORE A MEAL FOR GASTROES OPHAGEAL REFLUX DISEASE. TAKE 30 MINUTES PRIOR TO FOOD. ORAL ACTIVE 02/03/2026 [id number] 5 LYNN MIJARES 2024 90 [facility] OMEPRAZOLE 20MG CAP,EC TAKE ONE CAPSULE BY MOUTH EVERY MORNING BEFORE A MEAL FOR GASTROES OPHAGEAL REFLUX DISEASE. TAKE 30 MINUTES PRIOR TO FOOD. ORAL DISCONT INUED 11/13/2024 [id number] 4 DYLLAN,AN EELA 2023 90 [facility] POLYETHYLEN E GLYCOL 3350 PWDR,ORAL MIX AND DRINK 1 CAPFUL BY MOUTH ONCE A DAY (MEASURE WITH CAP AND MIX IN 8 OZ OF WATER) ORAL 03/11/2025 [id number] 5 DYLLAN,AN EELA 2023 510 [facility] SALIVA,RICHARD FICIAL SPRAY,ORAL USE 3-5 SPRAYS BY MOUTH EVERY TWO HOURS NEEDED FOR DRY MOUTH AND THROAT ORAL SUSPEND ED 06/12/2025 [id number] 5 DYLLAN,AN EELA 2023 236 [facility] SIMPLYTHICK GEL,ORAL,KY LDLY THICK,6GM TAKE 1 PACKET BY MOUTH ONCE A DAY OR DIRECTED TO THICKEN LIQUIDS. USE 1 PACKET PER 4 OZ OF LIQUID. ORAL ACTIVE 06/04/2025 [id number] 4 DYLLAN,AN EELA 2023 600 [facility] SO-PEG 3350-BOWEL 2,TWO PART PREP--PO SO MIX AND DRINK 1 CAPFUL BY MOUTH ONCE A DAY (MEASURE WITH CAP AND MIX IN 8 OZ OF WATER) 03/11/2025 [id number] 4 QASuzieUM QUYEN B 2023 510 [facility] SULFAMETHOX AZOLE 800MG/TRIME THOPRIM 160MG TAB TAKE ONE TABLET BY MOUTH EVERY 12 HOURS ORAL ACTIVE DYLLAN,AN EELA 2024 [facility] TAMSULOSIN HCL (TAMSULOSIN HCL), 0.4 MG, CAP ER 24H, ORAL, [employer] PHARMA L, 100 ea. BOTTLE Active [id number] 2023 90 Pharmac y Data Transac tion Service Facilit y TAMSULOSIN HCL 0.4MG CAP TAKE ONE CAPSULE BY MOUTH EVERY EVENING APPROXIM ATELY 30 MINUTES AFTER THE SAME MEAL EACH DAY ORAL SUSPEND ED 05/15/2025 [id number] LYNN MIJARES EELAURA 2023 90 [facility] TIMOLOL MALEATE 0.25% GEL,OPH INSTILL 1 DROP INTO LEFT EYE TWICE A DAY FOR ELEVATED INTRAOCU LAR PRESSURE OPHTHA LMIC ACTIVE 03/12/2026 [id number] 5 NA LU 2024 10 [facility] TIMOLOL MALEATE 0.25% GEL,OPH INSTILL 1 DROP INTO BOTH EYES EVERY MORNING OPHTHA LMIC DISCONT INUED (EDIT) 03/03/2026 [id number] 5 CIARRA GARDNER 2024 10 [facility] VALPROIC ACID 250MG/5ML SOLN,ORAL TAKE 10 ML BY MOUTH AT BEDTIME FOR MOOD ORAL ACTIVE 12/30/2025 [id number] 5 SIDIMAA SHANDAPRATI BHA N 2024 480 [facility] VALPROIC ACID 250MG/5ML SOLN,ORAL TAKE 5 ML BY MOUTH EVERY MORNING AND TAKE 10 ML AT BEDTIME FOR MOOD ORAL DISCONT INUED (EDIT) 10/16/2025 [id number] 5 SIDIMAA SHANDAPRATI BHA N 2023 480 [facility] VALPROIC ACID 250MG/5ML SOLN,ORAL TAKE 5 ML BY MOUTH EVERY MORNING AND TAKE 10 ML AT BEDTIME FOR MOOD ORAL DISCONT INUED 07/16/2025 [id number] 4 GURUSIDDA SHANDA,PRATI BHA N 2023 480 [facility] VALPROIC ACID 250MG/5ML SOLN,ORAL TAKE 5 ML BY MOUTH EVERY MORNING AND TAKE 10 ML AT BEDTIME FOR MOOD ORAL DISCONT INUED 04/17/2025 [id number] 4 GURUSIDDA SHANDA,PRATI BHA N 2023 480 [facility] VALPROIC ACID 250MG/5ML SOLN,ORAL TAKE 5 ML BY MOUTH EVERY MORNING AND TAKE 10 ML AT BEDTIME FOR MOOD ORAL DISCONT INUED 12/26/2024 [id number] 4 ENRIQUE MARQUEZ AYANNAFilippo N 2023 480 [facility] Allergies, Adverse Reactions, Alerts Combined list of allergies from [facility] and [facility] facilities. It does not include entries that were removed or entered in error. Substance Category Reaction Severity Reaction type Status Date Reported Comments Source ERYTHROMYCIN Drug allergy (disorder) Nausea and Vomiting, Diarrhea active 9 [facility] ERYTHROMYCIN Drug allergy (disorder) Diarrhea, Nausea and Vomiting active 9 [facility] erythromycin Propensity to adverse reactions to drug Nausea and Vomiting, Diarrhea Active 9 Unknown Organizat ion ERYTHROMYCIN Propensity to adverse reactions to drug (finding) Diarrhea, Nausea and vomiting active 9 [facility] Immunizations Combined list of available immunizations from the Department of [facility] and [facility] facilities. Immunization Series Date Given Administered By Site Reaction Lot Number CVX Code Drug Urban Designer Status Comments Source INFLUENZA, HIGH-DOSE, TRIVALENT, PF 2023 Анна SMITH ONICA L RIGHT DELTO ID [id number] 135 complet ed Completed Series, [facility] AT [facility] COVID-19 (PFIZER), MRNA, LNP-S, PF, MATTHEW-SUCROSE, 30 MCG/0.3 ML (AGES 12+ YEARS) 2023 Анна SMITH ONICA L LEFT DELTO ID [id number] 309 complet ed Completed Series, ADMINISTE [facility] AT [facility] RSV, BIVALENT, PROTEIN SUBUNIT RSVPREF, DILUENT RECONSTITUTED , 0.5 ML, PF 2023 FELIPE LEUNG LEFT DELTO ID [id number] 305 complet ed Completed Series, ADMINISTE [facility] AT [facility] COVID-19 (MODERNA), MRNA, LNP-S, PF, 50 MCG/0.5 ML (AGES 12+ YEARS) 2022 SEAN MEYERS RIGHT DELTO ID [id number] 312 complet ed Booster for Series, ADMINISTE [facility] AT [facility] INFLUENZA, HIGH-DOSE, QUADRIVALENT 2022 ANANTH PEREA LEFT DELTO ID [id number] 197 complet ed Completed Series, ADMINISTE [facility] AT [facility] INFLUENZA VACCINE, QUADRIVALENT, ADJUVANTED 2022 ELIZABETH CASTRO A LEFT DELTO ID [id number] 205 complet ed ADMINISTE [facility] AT [facility] COVID-19 (MODERNA), MRNA, LNP-S, BIVALENT BOOSTER, PF, 50 MCG/0.5 ML OR 25MCG/0.25 ML DOSE 2021 229 complet ed HISTORICA L INFORMATI ON - FROM OTHER PROVIDER, [facility] COVID-19 (PFIZER), MRNA, LNP-S, PF, 30 MCG/0.3 ML DOSE, MATTHEW-SUCROSE (AGES 12+ YEARS) 4 2021 217 complet ed PFR; [id number]; 2 [facility] COVID-19 (PFIZER), MRNA, LNP-S, PF, 30 MCG/0.3 ML DOSE 3 2020 208 complet ed PFR; [id number]; 2 [facility] INFLUENZA VACCINE, QUADRIVALENT, ADJUVANTED 2020 205 complet ed [facility] INFLUENZA VACCINE, QUADRIVALENT, ADJUVANTED 2020 205 complet ed [facility] COVID-19 (MODERNA), MRNA, LNP-S, PF, 100 MCG/0.5 ML DOSE 2 2020 207 complet ed MOD; [id number]; 1 [facility] COVID-19 (MODERNA), MRNA, LNP-S, PF, 100 MCG/0.5 ML DOSE 1 2020 207 complet ed MOD; [id number]; 1 [facility] INFLUENZA, HIGH-DOSE, QUADRIVALENT 2019 197 complet ed HISTORICA L INFORMATI ON - FROM OTHER PROVIDER, [facility] INFLUENZA, INJECTABLE, QUADRIVALENT, PRESERVATIVE FREE 2019 150 complet ed [facility] PNEUMOCOCCAL POLYSACCHARID E PPV23 2019 33 complet ed [facility] ZOSTER RECOMBINANT 2 [address] [facility] ZOSTER RECOMBINANT 1 2018 187 complet ed [facility] PNEUMOCOCCAL CONJUGATE PCV 13 2018 133 complet ed [facility] TDAP 2018 115 complet ed Left Deltoid [facility] influenza, injectable, quadrivalent- pf 2017 zzJud ht Arm [id number] 150 [employer] ne complet ed influenza , injectabl e, quadrival ent-pf 09/02/18 Given Ambulat ory Pharmac y Influenza, injectable, quadrivalent, preservative free 1 2017 Unknown, Provider [id number] 150 [employer] (SKB) complet ed Influenza , injectabl e, quadrival ent, preservat barry free DoD INFLUENZA, UNSPECIFIED FORMULATION 2017 88 complet ed [facility] hepatitis A adult vaccine 1998 [...] Ambulat ory Pharmac y typhoid vaccine, parenteral, acetone-sasha d, dried ([place] ) 4 1997 53 () complet ed typhoid vaccine, parentera l, acetone-k rauld, dried ([place] ) DoD hepatitis A adult vaccine 1997 [id number] 52 [employer] complet ed hepatitis A adult vaccine 08/06/98 Given Ambulat ory Pharmac y influenza virus vaccine, whole virus [id number] 16 PFIZER complet ed influenza virus vaccine, whole virus 08/06/98 Given Ambulat ory Pharmac y influenza virus vaccine, whole virus 0 [id number] [id number] 16 Wyeth-Ayerst (Inactive) ([place]) complet ed influenza virus vaccine, whole virus DoD hepatitis A vaccine, adult dosage 1 1997 [id number] 52 Merck (MSD) complet ed hepatitis A vaccine, adult dosage DoD influenza virus vaccine, whole virus [id number] [id number] 16 PFIZER complet ed influenza virus vaccine, whole virus 09/22/97 Given Ambulat ory Pharmac y influenza virus vaccine, whole virus 0 [id number] 5338981 16 Wyeth-Ayerst (Inactive) ([place]) complet ed influenza virus vaccine, whole virus DoD yellow fever vaccine [id number] [id number] 37 PFIZER complet ed yellow fever vaccine 02/16/96 Given Ambulat ory Pharmac y yellow fever vaccine 0 19951502 [id number] 37 Wyeth-Ayerst (Inactive) ([place]) complet ed yellow fever vaccine DoD measles/mumps [...] ed trivalent polioviru s vaccine, live, oral [facility] Results Combined list of recent chemistry, hematology and other laboratory results from Department of Defense and Veterans Affairs, ranging from 15 months to all on record, depending upon the facility. Order Name Results Value Reference Range Date Interpretation Specimen Comments Source I-STAT, CREAT (STL-MA) CREATININE [MASS/VOLUM E] IN BLOOD 1.0 mg/dL 0.7 - 1.3 02/19 Specimen Type: BLOOD Comment: Test Performed by: [id number] Meter #: [id number] Ordering Provider: YOAV MIJARES Report Released Date/Time: Feb 19, 2025 02:46 PM Reporting Lab: [facility] [address] [id number] Performing Lab: [facility] [address] [address] [facility] URINALYSI S W/ CX REFLEX (L-PB) COLOR OF URINE Yellow 11/13 Specimen Type: URINE No comment entered. Ordering Provider: YOAV MIJARES Report Released Date/Time: Nov 13, 2024 10:48 AM Reporting Lab: [facility] [id number]|2025-03-18 02:58:11|2025-03-18 02:58:11|ED.GENADULT||||"HPI - General Adult General Chief complaint: Recheck/Abnormal Lab/Rx Stated complaint: AMS, LETHARGIC Time Seen by Provider: 03/18/25 01:32 History of Present Illness HPI narrative: This is a 71-year-old male presenting for altered mental status. Patient had a dental procedures today that he was very nervous about. He was prescribed 2 mg of Ativan. He took 1 prior to the procedure and then took another 1 during the procedure. Since then he has been lethargic and his has had different occult arousing him. On my interview the patient is left somnolent but arousable and can answer questions appropriately. He has no complaints this time. Related Data Home Medications Medication Instructions Recorded Confirmed Last Taken Type ibuprofen 200 mg capsule 400 mg PO Q6H PRN Pain 07/27/22 03/01/25 07/27/22 History atorvastatin 40 mg tablet 40 mg PO HS 04/07/24 03/01/25 04/05/24 21:00 History calcium polycarbophil 625 mg 625 mg PO DAILY 04/07/24 03/01/25 04/05/24 08:00 History tablet (Fiber-Lax) cyclobenzaprine 5 mg tablet 5 mg PO HS 04/07/24 03/01/25 04/05/24 21:00 History gabapentin 300 mg capsule 300 mg PO HS 04/07/24 03/01/25 04/05/24 21:00 History lidocaine 5 % topical patch 1 patch topical DAILY PRN pain 04/07/24 03/01/25 04/05/24 08:00 History mirtazapine 7.5 mg tablet 15 mg PO HS 04/07/24 03/01/25 04/05/24 21:00 History omeprazole 20 mg capsule,delayed 20 mg PO DAILY 04/07/24 03/01/25 04/05/24 08:00 History release polyethylene glycol 3350 17 17 g PO DAILY 04/07/24 03/01/25 04/05/24 08:00 History gram/dose oral powder valproic acid (as sodium salt) 250 250 mg PO DAILY 04/07/24 03/01/25 11/29/24 09:00 History mg/5 mL oral solution valproic acid (as sodium salt) 250 500 mg PO HS 04/07/24 03/01/25 11/29/24 21:00 History mg/5 mL oral solution Allergies Allergy/AdvReac Type Severity Reaction Status Date / Time erythromycin base AdvReac Mild Nausea and Verified 03/18/25 01:17 Vomiting [facility] Past Medical History Medical History Sepsis BMI 25.0-25.9,adult Seizure Type 2 diabetes mellitus without complications Mixed hyperlipidemia Gastro-esophageal reflux disease without esophagitis Syncope and collapse Port-A-Cath in place Head and neck cancer Depression Anxiety Peripheral neuropathy GERD (gastroesophageal reflux disease) Surgical History Surgical History History of tonsillectomy H/O neck surgery (~2006) squamous cell cancer of tonsil Family History Family History Father Heart failure Acute myocardial infarction Mother Diabetes mellitus Sibling Diabetes mellitus Social History Social History Smoking status: Former smoker Tobacco type: cigars Smokeless tobacco user: chewing tobacco Second hand tobacco smoke exposure: No Smoking end date: 11/04/06 Additional smoking assessment comments: Quit smoking when Cancer diagnosis Alcohol intake: current Drinks per week: 2 Substance use: never Substance use type: does not use Do You Feel Safe in your Home?: Yes Lack of Transportation: No Lack of Food: Never True Current Housing: I Have Housing Concerned About Future Housing: Decline to Answer Difficulty Paying Gas/Electric Bills: Decline to Answer Difficulty Paying for Meds: Decline to Answer Currently Unemployed: Decline to Answer Education: Associate Degree Difficulty w/ Childcare or Family Care: No Living arrangements: with family Additional living arrangements comments: Occupation/Education: retired 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 EYES: EOMI, NOSE: Atraumatic NECK: Trachea midline RESPIRATORY: No increased rate of breathing CTAB CARDIOVASCULAR: RRR, no peripheral edema ABDOMINAL: Non-distended nontender MUSCULOSKELETAl: No obvious deformities NEURO: Alert. Cranial nerves 2-12 grossly intact. Moving for 4 extremities to command SKIN:: Warm, dry. Normal color PSYCHIATRIC: Normal affect Course Vital Signs Vital signs: Vital Signs Temperature 98.1 F 03/18/25 01:10 Pulse Rate 71 03/18/25 01:10 Respiratory Rate 03/18/25 01:10 Blood Pressure 115/79 03/18/25 01:10 Pulse Oximetry 100 03/18/25 01:10 Oxygen Delivery Room Air 03/18/25 01:10 Temperature 98.1 F 03/18/25 01:10 Pulse Rate 71 03/18/25 01:10 Respiratory Rate 20 03/18/25 01:10 Blood Pressure 115/79 03/18/25 01:10 Pulse Oximetry 100 03/18/25 01:20 Oxygen Delivery Room Air 03/18/25 01:20 Medical Decision Making [facility] Narrative Medical decision making narrative: -Course: 71-year-old male presenting with altered mental status after taking 2 mg Ativan x2 earlier today. CT brain obtained which was unremarkable. Screening lab work unremarkable. Patient was monitored and his mental status continued to improve. The patient's wanted to take him home although he was not quite back to baseline. I offered to let them stay longer and they have declined. Patient discharged with return precautions. Instructed to be careful with use of benzodiazepines in the future. Given return precautions. -DDX includes but is not limited to: Benzodiazepine overdose, alcohol intoxication, sepsis, hemorrhage Vital Signs Vital Signs: Vital Signs Temperature 98.1 F 03/18/25 01:10 Pulse Rate 71 03/18/25 01:10 Respiratory Rate 03/18/25 01:10 Blood Pressure 115/79 03/18/25 01:10 Pulse Oximetry 100 03/18/25 01:10 Oxygen Delivery Room Air 03/18/25 01:10 Temperature 98.1 F 03/18/25 01:10 Pulse Rate 71 03/18/25 01:10 Respiratory Rate 03/18/25 01:10 Blood Pressure 115/79 03/18/25 01:10 Pulse Oximetry 100 03/18/25 01:20 Oxygen Delivery Room Air 03/18/25 01:20 Lab Data 03/18/25 02:27 03/18/25 02:27 Labs: Lab Results 03/18/25 Range/Units 02:27 WBC 9.3 (4.5-10.0) K/mm3 RBC 4.29 L (4.6-6.20) M/mm3 Hgb 13.2 L (14.0-18.0) g/dL Hct 40.8 L (42.0-52.0) % MCV 95.1 (80-100) fl MCH 30.8 (26-34) pg MCHC 32.4 (32-36) g/dl RDW 12.8 (11.5-14.5) % Plt Count 174 (150-375) k/mm3 MPV 9.1 (7.4-10.4) fl Immature Gran % (Auto) 0.3 (0-0.5) % Neut % (Auto) 74.7 H (45.5-73.1) % Lymph % (Auto) 8.8 L (18.3-44.2) % Citrus % (Auto) 11.9 H (2.6-8.5) % Eos % (Auto) 3.9 (0-4.4) % Baso % (Auto) 0.4 (0.2-1.2) % Lymph # (Auto) 0.82 L (0.9-3.2) K/mm3 Citrus # (Auto) 1.1 H (0.1-0.6) K/mm3 Eos # (Auto) 0.4 H (0-0.3) K/mm3 Baso # (Auto) 0.0 (0.0-0.1) K/mm3 Abs Immat Gran (auto) 0.03 (0.00-0.031) K/mm3 Absolute Neuts (auto) 7.0 H (1.3-6.7) K/mm3 Absolute Nucleated RBC 0.000 (0.0-0.012) K/mm3 Nucleated RBC % 0.0 (0.0-0.2) % Sodium 141 (137-145) mmol/L Potassium 4.3 (3.4-5.0) mmol/L Chloride 105 (98-107) mmol/L Carbon Dioxide 29 (22-30) mmol/L Anion Gap 7 (4-12) mmol/L BUN 16 (9-20) mg/dL Creatinine 0.86 (0.7-1.3) mg/dL Estim Creat Clear Calc 56 ml/min Estimated GFR > 60 (59 - ) Glucose 95 (65-110) mg/dL Calcium 8.8 (8.4-10.2) mg/dL Total Bilirubin 0.5 (0.2-1.3) mg/dL AST 27 (17-59) U/L ALT 20 (6-50) U/L Alkaline Phosphatase 58 (38-126) U/L Total Protein 7.0 (6.3-8.2) g/dL Albumin 4.3 (3.5-5.1) g/dL Discharge Plan Discharge Clinical Impression: Benzodiazepine overdose Patient Disposition: Home Condition: Stable Instructions: Antibiotic Form, Benzodiazepine Overdose (ED) Additional Instructions: Please be careful when taking benzodiazepines as they can be very sedating. Please follow-up your primary care physician for further management. If he develops any new or worsening symptoms return to the ED for re-evaluation. Patient Language: Beninese Prescriptions: No Action fluticasone propionate [Flonase Allergy Relief] 50 mcg/actuation spray,suspension 2 spray NASAL DAILY Qty: 11.1 0RF Rx Instructions: administer into each nostril ibuprofen 200 mg Capsule 400 mg PO Q6H PRN (Reason: Pain) atorvastatin 40 mg tablet 40 mg PO HS valproic acid (as sodium salt) 250 mg/5 mL solution 500 mg PO HS valproic acid (as sodium salt) 250 mg/5 mL solution 250 mg PO DAILY lidocaine 5 % adhesive patch,medicated 1 patch topical DAILY PRN (Reason: pain) calcium polycarbophil [Fiber-Lax] 625 mg tablet 625 mg PO DAILY gabapentin 300 mg capsule 300 mg PO HS omeprazole 20 mg capsule,delayed release(DR/EC) 20 mg PO DAILY polyethylene glycol 3350 17 gram/dose powder 17 g PO DAILY cyclobenzaprine 5 mg tablet 5 mg PO HS mirtazapine 7.5 mg tablet 15 mg PO HS tamsulosin [Flomax] 0.4 mg capsule 0.4 mg PO DAILY Qty: 90 0RF Follow-up/Referrals: Amos Gibbons MD [Primary Care Provider] - "
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
--- OUTSIDE RECORDS SUMMARY | 2025-03-18 01:50 | XMS_ITS | Encounter Summary ---
Author Name [facility] [facility] [place] [facility] [place] Address [address] [place] [address] Care Team Providers Care Senior Oracle Pl Sql Developer Name Role Phone QUYEN MIJARES Primary Care [...] POINT OF SERVICE [facility] Nov 04, 2018 [id number] ANAVIKKI SPOUSE CONSTANCEBALAJI ([id number]) RX PRESCRIPT ION RX PLAN Nov 04, 2017 [id number] [phone] OCTAVIANO PEREZ SPOUSE CAREBALAJI ([id number])RX PRESCRIPT ION [facility] Nov 04, 2018 [id number] [phone] OCTAVIANO PEREZ SPOUSE CAREBALAJI ([id number])RX PRESCRIPT ION [facility] Nov 04, 2018 [id number] [phone] ANAOCTAVIANO DOSHI SPOUSE CAREBALAJI ([id number])RX PRESCRIPT ION [facility] Nov 04, 2018 [id number] [phone] OCTAVIANO PEREZ SPOUSE [employer] [facility] (WNR) MEDICARE ADVANTAGE [facility] (WNR) Nov 04, 2024 [id number] OCTAVIANO PEREZ PATIENT MEDICARE (WNR) MEDICARE (M) PART B May 04, 2009 PART B [id number] OCTAVIANO PEREZ PATIENT MEDICARE (WNR) MEDICARE (M) PART A May 04, 2009 PART A [id number] OCTAVIANO PEREZ PATIENT Selected Encounter This section includes the information on record at [place] for the Encounter. 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 Encounter Template Text not used by [place] Assessments - Encounter Diagnoses This section includes the primary and secondary diagnoses documented for the Encounter. Date/Time Primary/Secondary Diagnosis Diagnosis Name Provider Source Mar 02, 2025 03:55 PM PRIMARY Other optic atrophy, left eye [facility] Mar 02, 2025 03:55 PM SECONDARY Age-related nuclear cataract, bilateral [facility] Mar 02, 2025 03:55 PM SECONDARY Open angle with borderline findings, high risk, bilateral [facility] Mar 02, 2025 03:55 PM SECONDARY Presbyopia [facility] Mar 02, 2025 03:55 PM SECONDARY Unspecified astigmatism, bilateral [facility] Plan of Treatment: Future Appointments (+ 6 months) and Future Tests (+/- 45 days) The Plan of Treatment section includes future care activities for the patient from all [place] treatmentfacilities. This section includes future appointments and future orders which are active, pending or scheduled. Future Appointments This section includes appointments that were scheduled to occur 6 months from the date of the Encounter, up to a maximum of 20 appointments. The data comes from all [place] treatment facilities. Appointment Date/Time Appointment Type Appointme nt Facility Name March 11, 2025 03:00 PM AMBULATORY - SURGERY [facility] March 30, 2025 03:00 PM AMBULATORY - NONE [facility] April 02, 2025 03:00 PM AMBULATORY - MEDICINE [facility] May 18, 2025 02:30 PM AMBULATORY - NONE [facility] Jul 15, 2025 01:30 PM AMBULATORY - SURGERY [facility] Lab Results: +/- 30 days of the encounter This section includes the Chemistry and Hematology Lab Results on record with [place] for the patient. Radiology Reports and Pathology Reports are provided separately, in subsequent sections. Lab Results This section contains the Chemistry/Hematology Results that were resulted 30 days before or 30 daysafter the date of the Encounter. Date/Time Source Result Type Result - Unit Interpretation Reference Range Specimen Type Comment Feb 19, 2025 02:45 PM [facility] I-STAT, CREAT (STL-MA) BLOOD Specimen Type: BLOOD Comment: Test Performed by: [id number] Meter #: [id number] Ordering Provider: QUYEN MIJARES Report Released Date/Time: Feb 19, 2025 02:46 PM Reporting Lab: [place] [id number] [facility] [id number] Performing Lab: [address] [id number] I-STAT, CREAT (STL-MA) 1.0 mg/dL 0.7-1.3 Social History: Smoking Status (Most current) and Tobacco Use (All prior to encounter date) This section includes the most current, and the historical, smoking and tobacco- related health factors from the [place] facility where the Encounter took place. Current Smoking Status This section includes the most current smoking, or tobacco-related health factor, from the [place] facility where the Encounter took place. Date/Time Current Smoking Status Comment Tony rodarte March 10, 2024 03:30 PM [place]-TOBACCO QUIT 15 YRS OR MORE [facility] Tobacco Use History This section includes a history of the smoking, or tobacco-related health factors, that were collected on or before the date of the Encounter. The data comes from the [place] facility where the Encounter took place. Date/Time Smoking Status/Tobacco Use Comment F acility March 10, 2024 03:30 PM [place]-TOBACCO QUIT 15 YRS OR MORE [facility] Feb 19, 2023 08:00 AM VA-TOBACCO FORMER USER [facility] Feb 19, 2023 08:00 AM VA-TOBACCO QUIT 15 YRS OR MORE [facility] March 05, 2022 03:00 PM VA-TOBACCO FORMER USER [facility] March 05, 2022 03:00 PM VA-TOBACCO QUIT 5 TO < 15 YRS [facility] Feb 06, 2021 11:00 AM VA-TOBACCO FORMER USER [facility] Feb 06, 2021 11:00 AM VA-TOBACCO QUIT 15 YRS OR MORE [facility] Nov 19, 2019 04:05 PM VA-TOBACCO FORMER USER [facility] Nov 19, 2019 04:05 PM VA-TOBACCO QUIT 5 TO < 15 YRS [facility] Oct 30, 2018 02:11 PM VA-TOBACCO FORMER USER [facility] Oct 30, 2018 02:11 PM VA-TOBACCO QUIT 5 TO < 15 YRS [facility] Advance Directives: All historical and current [...] Source Apr 24, 2019 [facility] Radiology Reports: +/- 30 days of [...] the Encounter. The data comes from all [place] treatment facilities. Date/Time Radiology Report Provider Source Feb 19, 2025 02:[address] RENAL MASS W/3D: OCTAVIANO PEREZ [id number] -1945 M Exm Date: FEB 19, 2025@14:36 Req Phys: QUYEN MIJARES Loc: [facility] FLASH PM (Req'g Loc) Img Loc: [facility] Service: Unknown [facility] [address] [place] [address] (Case [id number] COMPLETE) CT RENAL MASS PROTOCOL (CT Detailed) CPT:98268 Contrast Media : unspecified contrast media Reason for Study: Evaluate bilateral renal lesions/masses Clinical History: Responsible Attending: Carlos Attending Contact Number: [phone] Resident Contact Number: Allergies listed in CPRS chart: ERYTHROMYCIN Creatinine: CREATININE 1.04 mg/dL 11/13/2024 11:11 /eGFR: STL EGFR (within one year). CREATININE 1.04 mg/dL (11/13/24 11:11) Wt: 151 lb [68.49 kg] (12/04/2024 12:47) History of: Renal failure, chronic or acute renal disease: NO Report Status: Verified Date Reported: FEB 22, 2025 Date Verified: FEB 22, 2025 Chief Operating Officer E-Sig:/ES/PEDRITO WHITEHEAD Report: Case [id number]. CT RENAL MASS PROTOCOL. Gastrointestinal contrast: None. [...] detected. Primary Interpreting Staff: PEDRITO WHITEHEAD MD (Chief Operating Officer) /PEDRITO RUVALCABA [facility] Feb 05, 2025 04:[address] ABDOMEN PELVIS W/O CONTRAST-P: OCTAVIANO PEREZ JOSE [id number] -1945 M Exm Date: FEB 05, 2025@16:12 Req Phys: QUYEN MIJARES Loc: [facility]-VASC SURG E-CONSULT (Req'g Img Loc: [facility] Service: [address] [address] (Case [id number] COMPLETE) CT ABDOMEN AND PELVIS W/CONTRAST (CT Detailed) CPT:19279 Contrast Media : Non-ionic Iodinated Reason for Study: Follow-up iliac artery aneurysm as recommended by vascular surge Clinical History: Responsible Attending: Carlos Attending Contact Number: [phone] Resident Contact Number: Allergies listed in CPRS chart: ERYTHROMYCIN Creatinine:CREATININE 0.99 mg/dL 11/13/2023 10:02 /eGFR: STL EGFR (within one year). CREATININE 0.99 mg/dL (11/13/23 10:02) Wt: 138.6 lb [62.87 kg] (01/13/2024 14:19) History of: Renal failure, chronic or acute renal disease: NO Report Status: Verified Date Reported: FEB 08, 2025 Date Verified: FEB 08, 2025 Chief Operating Officer E-Sig:/ES/KARON JOHNSON MD Report: Spiral axial imaging through the abdomen and pelvis was performed with IV contrast Comparison: 01/30/2023 Liver: normal The spleen: normal Pancreas: Pancreatic head calcifications, similar to prior examination, likely chronic pancreatitis Adrenal glands: No significant abnormality Kidneys: Multiple bilateral small round hyperdense renal lesions, likely hyperdense cysts. Abdomen CT with and without contrast recommended to exclude enhancing renal masses. Additional simple renal cysts Aorta and retroperitoneum: Calcified plaque, caliber does not exceed 3 cm. Mildly dilated right common iliac artery up to 1.5 cm, No retroperitoneal adenopathy. Peritoneal cavity: No ascites. Skeleton: Osteopenia/osteoporosis with L1 density of 106 Hounsfield units. Spondylotic changes Pelvis: The pelvic organs are unremarkable. Impression: 1. Indeterminate hyperdense renal lesions, abdomen CT with and without contrast recommended. 2. Mildly dilated right common iliac artery up to 1.5 cm Primary Interpreting Staff: KARON JOHNSON MD, Radiologist (Chief Operating Officer) /KARON [facility] Encounter Notes: All associated encounter notes This section contains the clinical notes associated to the Encounter. Date/Time Encounter Note(s) Provider Source Mar 02, 2025 03:55 PM OPTOMETRY CONSULT: LOCAL TITLE: OPTOMETRY CONSULT [facility] STANDARD TITLE: OPTOMETRY CONSULT DATE OF NOTE: MAR 02, 2025@15:55 ENTRY DATE: MAR 02, 2025@15:55:34 AUTHOR: CIARRA GARDNER COSIGNER: URGENCY: STATUS: COMPLETED Optic Nerve Head and RNFL Analysis 03/02/25 Reason: Oc HTN OS, c/o dimming/blur OS x 3 months OD: SS 8/10; Ave Thickness 87 um Interpretation: no thinning noted in any quadrant OS: SS 7/10; Ave Thickness 55 um Interpretation: thinning sup, inf, temp Assessment: Baseline Zeiss GCC analysis 03/02/25 OD: SS 9/10; Interpretation: no thinning noted in any quadrant OS: SS 8/10; Interpretation: thinning noted in all quadrants Assessment: Baseline Zeiss Macular Cube 03/02/25 OD: SS 9/10 Interpretation: foveal contour intact; (-) CNVM/SRF/IRF OS: SS 8/10 Interpretation: foveal contour intact; diffuse mild retinal thinning; (-) CNVM/SRF/IRF Assessment: Baseline Zeiss /willie/ CIARRA GARDNER O.D. Staff Plastic Sheets Finishing Supervisor, Optometry Signed: 03/02/2025 16:01 CI[facility]RA GARDNER [facility] Mar 02, 2025 02:55 PM OPTOMETRY NOTE: LOCAL TITLE: OPTOMETRY NOTE STANDARD TITLE: OPTOMETRY NOTE DATE OF NOTE: MAR 02, 2025@14:55 ENTRY DATE: MAR 01, 2025@14:07 AUTHOR: CIARRA GARDNER EXP COSIGNER: URGENCY: STATUS: COMPLETED Last seen 11/13/24 Reason for visit: Problem focused CC: 1. Blurry vision OS - Onset: 3 months ago (does not know specific date) - Pt states that 3 months ago he went to the hospital due to sepsis issues. 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 (+) Cataracts OU (+) Dry Eyes OU (+) Refractive error/Presbyopia Family OcHX: (-) blindness (-) glaucoma (-) AMD (-) RD Cardiovascular ROS: no change from problem & medication lists CPRS Problem list, medications and allergies reviewed: [facility] Serology for Diabetes GLUCOSE 141 H [...] (-) diplopia, (-) pain Externals/adnexa: Unremarkable OU Heating Mechanic desaturation (03/02/25) OD: 100% OS: 80% Color [...] 20 20 1511 Lat qhs OS ONLY RETINAL EVALUATION Patient deferred dilation, last dilation 11/13/24 UNDilated retinal exam Optic Nerve OD: 0.3 CDR Flat, pink, distinct (-)NVD OS: 0.6 CDR Flat, pale, distinct (-)NVD Vessels: 2/3 OU; no tortuosity noted Posterior Pole: OD: (-) Hemorrhages (-) exudates (-) cotton wool spots OS: (-) Hemorrhages (-) exudates (-) cotton wool spots Assessment/Plan 03/02/25 1. Unspecified Optic Atrophy OS - Dimming/blur OS noted 3 months ago - Gr 2+ APD OS; EOMs full, CVF FTFC OD,OS - mine captain desaturation: OD 100%, OS 80% - [...] - (-) family hx of Glaucoma - Due to new finding of dimming/blurring of vision OS, will refer to glaucoma clinic for further evaluation. Will defer decision for referral for MRI or any other clinical decisions to glaucoma clinic - Changed pt from Latanoprost qhs OS to Timolol qAM OS, to see if the bottle change will help with pt's complaint of instillation trouble Ordered timolol to be picked up at pharmacy window Ordered Auto Eye Drop Bottle Squeezer to be mailed to patient - Educated patient on today's findings and the importance of monitoring closely as well as coming to follow-ups as indicated Gave patient [facility] business card with Fax number, recommending pt go to hospital to have [facility] to [facility] - Refer to glaucoma clinic for further evaluation OS 2. Cataracts OU - not visually significant - [...] given the opportunity to have questions answered Refer to glaucoma clinic for further evaluation OS; sooner PRN /willie/ CIARRA GARDNER O.D. Staff Plastic Sheets Finishing Supervisor, Optometry Signed: 03/03/2025 15:55 Receipt Acknowledged By: * AWAITING SIGNATURE * NITA RODRIGUEZ KATHARINE MARY [facility]
--- OUTSIDE RECORDS SUMMARY | 2025-03-18 01:50 | XMS_ITS | Referral Summary ---
Author Organization [facility] Address [address] [place] [id number] Care Team Providers Care Industrial Real Estate Agent Name Role Phone Amos Gibbons MD Primary [...] 80 08/22/2023 10:50 AM CDT Temperature 36.3 C (97.3 F) 08/22/2023 10:00 AM CDT Respiratory Rate 10 08/22/2023 10:50 AM CDT Oxygen Saturation 93% 08/22/2023 10:50 AM CDT Inhaled Oxygen Concentration - - Weight 62.1 kg (137 lb) 08/06/2023 2:35 PM CDT Height 162.6 cm (5' 4 ) 08/06/2023 2:35 PM CDT Body Mass Index 23.52 08/06/2023 2:35 PM CDT Plan of Treatment Not on file Medical Devices Implanted Type Area Sales Representative Consultant Device Identifier Shelf Expiration Date Model / Serial / Lot [employer] Propel Contour Implant Nasal Sterile Latex Free [id number] - [id number] Implanted:Qty: 1 on 08/22/2023 by Bharati Ortiz MD at [facility] Stent Left: Nose Med[employer]onic Inc 01/10/2025 [id number] / / [employer] Propel Contour Implant Nasal Sterile Latex Free [id number] - [id number] Implanted:Qty: 1 on 08/22/2023 by Bharati Ortiz MD at [facility] Stent Right: Nose [employer]onic Inc 01/10/2025 [id number] / / Insurance [facility] C[facility] C[facility] Care Teams Industrial Real Estate Agent Relationship Specialty Start Date End Date Amos Gibbons MD [address] [place] [address] PCP - General Family Medicine 06/11/23
--- OUTSIDE RECORDS SUMMARY | 2025-03-18 01:50 | XMS_ITS | Clinical Summary ---
Author Organization [facility] Address [address] [place] [phone] Care Team Providers Care Precision Machine Operator Name Role Phone Amos Gibbons MD Primary [...] 1963 Well Visit 65+ 2011 Covid-19 Vaccine (2023-2 5 season) 2024 08/20/2022, 10/11/2021, 01/16/2021, Additional history exists Influenza Vaccine (#1) 2024 , 08/22/2022, 12/07/2019, Additional history exists Fall Risk Assessment 08/22/2024 08/22/2023 DTaP/Tdap/Td Vaccine (2 - Td or Tdap) 12/08/2028 12/08/2018, 05/31/1993 Zoster Vaccine Completed 10/16/2019, 06/19/2019 Pneumococcal vaccine 65+ Completed 12/07/2019, 02/2019 Medical Devices Implanted Type Area Drain Cleaner Plumber Device Identifier Shelf Expiration Date Model / Serial / Lot Medtronic [employer] Propel Contour Implant Nasal Sterile Latex Free [id number] - [id number] Implanted:Qty: 1 on 08/22/2023 by Bharati Ortiz MD at [facility] Stent Left: Nose [employer] 01/10/2025 [id number] / / [employer] Propel Contour Implant Nasal Sterile Latex Free [id number] - [id number] Implanted:Qty: 1 on 08/22/2023 by Bharati Ortiz MD at [facility] Stent Right: Nose [employer] 01/10/2025 [id number] / / Insurance [place] [facility] Care Teams Precision Machine Operator Relationship Specialty Start Date End Date Amos Gibbons MD [address] [place] [address] PCP - General Family Medicine 06/11/23
--- NOTE | 2025-03-18 02:08 | PC.NURSE ---
at bedside with pill bottle, patient was prescribed Xanax 2 mg, took one prior to the appointment and one during the appointment.
[2025-03-18 02:33] LABS: Basophils Percent Auto 0.4 % (0.2-1.2); Eosinophils Absolute Auto 0.4 K/mm3 (0-0.3); Eosinophils Percent Auto 3.9 % (0-4.4); Hematocrit 40.8 % (42.0-52.0); Hemoglobin 13.2 g/dL (14.0-18.0); Immature Granulocyte Absolute 0.03 K/mm3 (0.00-0.031); Immature Granulocyte Percent A 0.3 % (0-0.5); Lymphocytes Absolute Auto 0.82 K/mm3 (0.9-3.2); Lymphocytes Percent Auto 8.8 % (18.3-44.2); Mean Corpuscular HGB Conc 32.4 g/dl (32-36); Mean Corpuscular Hemoglobin 30.8 pg (26-34); Mean Corpuscular Volume 95.1 fl (80-100); Mean Platelet Volume 9.1 fl (7.4-10.4); Monocytes Absolute Auto 1.1 K/mm3 (0.1-0.6); Monocytes Percent Auto 11.9 % (2.6-8.5); Neutrophils Percent Auto 74.7 % (45.5-73.1); Platelet Count Result 174 k/mm3 (150-375); Red Blood Count 4.29 M/mm3 (4.6-6.20); Red Cell Distribution Width 12.8 % (11.5-14.5); White Blood Count 9.3 K/mm3 (4.5-10.0)
[2025-03-18 02:44] LABS: Alanine Aminotransferase 20 U/L (6-50); Albumin Level 4.3 g/dL (3.5-5.1); Alkaline Phosphatase 58 U/L (38-126); Anion Gap 7 mmol/L (4-12); Aspartate Amino Transferase 27 U/L (17-59); Bilirubin,Total 0.5 mg/dL (0.2-1.3); Blood Urea Nitrogen 16 mg/dL (9-20); Calcium 8.8 mg/dL (8.4-10.2); Carbon Dioxide 29 mmol/L (22-30); Chloride 105 mmol/L (98-107); Estimated CRCL calculation 56 ml/min; Estimated Glomerular Filt Rate > 60; Glucose 95 mg/dL (65-110); Potassium 4.3 mmol/L (3.4-5.0); Sodium 141 mmol/L (137-145)
--- NOTE | 2025-03-18 02:58 | ED_ITS ---
HPI - General Adult General Chief complaint: Recheck/Abnormal Lab/Rx Stated complaint: AMS, LETHARGIC Time Seen by Provider: 03/18/25 01:32 History of Present Illness HPI narrative: This is a 71-year-old male presenting for altered mental status. Patient had a dental procedures today that he was very nervous about. He was prescribed 2 mg of Ativan. He took 1 prior to the procedure and then took another 1 during the procedure. Since then he has been lethargic and his has had different occult arousing him. On my interview the patient is left somnolent but arousable and can answer questions appropriately. He has no complaints this time. Related Data Home Medications Medication Instructions Recorded Confirmed Last Taken Type ibuprofen 200 mg capsule 400 mg PO Q6H PRN Pain 07/27/22 03/01/25 07/27/22 History atorvastatin 40 mg tablet 40 mg PO HS 04/07/24 03/01/25 04/05/24 21:00 History calcium polycarbophil 625 mg 625 mg PO DAILY 04/07/24 03/01/25 04/05/24 08:00 History tablet (Fiber-Lax) cyclobenzaprine 5 mg tablet 5 mg PO HS 04/07/24 03/01/25 04/05/24 21:00 History gabapentin 300 mg capsule 300 mg PO HS 04/07/24 03/01/25 04/05/24 21:00 History lidocaine 5 % topical patch 1 patch topical DAILY PRN pain 04/07/24 03/01/25 04/05/24 08:00 History mirtazapine 7.5 mg tablet 15 mg PO HS 04/07/24 03/01/25 04/05/24 21:00 History omeprazole 20 mg capsule,delayed 20 mg PO DAILY 04/07/24 03/01/25 04/05/24 08:00 History release polyethylene glycol 3350 17 17 g PO DAILY 04/07/24 03/01/25 04/05/24 08:00 History gram/dose oral powder valproic acid (as sodium salt) 250 250 mg PO DAILY 04/07/24 03/01/25 11/29/24 09:00 History mg/5 mL oral solution valproic acid (as sodium salt) 250 500 mg PO HS 04/07/24 03/01/25 11/29/24 21:00 History mg/5 mL oral solution Allergies Allergy/AdvReac Type Severity Reaction Status Date / Time erythromycin base AdvReac Mild Nausea and Verified 03/18/25 01:17 Vomiting PMF Past Medical History Medical History Sepsis BMI 25.0-25.9,adult Seizure Type 2 diabetes mellitus without complications Mixed hyperlipidemia Gastro-esophageal reflux disease without esophagitis Syncope and collapse Port-A-Cath in place Head and neck cancer Depression Anxiety Peripheral neuropathy GERD (gastroesophageal reflux disease) Surgical History Surgical History History of tonsillectomy H/O neck surgery (~2006) squamous cell cancer of tonsil Family History Family History Father Heart failure Acute myocardial infarction Mother Diabetes mellitus Sibling Diabetes mellitus Social History Social History Smoking status: Former smoker Tobacco type: cigars Smokeless tobacco user: chewing tobacco Second hand tobacco smoke exposure: No Smoking end date: 11/04/06 Additional smoking assessment comments: Quit smoking when Cancer diagnosis Alcohol intake: current Drinks per week: 2 Substance use: never Substance use type: does not use Do You Feel Safe in your Home?: Yes Lack of Transportation: No Lack of Food: Never True Current Housing: I Have Housing Concerned About Future Housing: Decline to Answer Difficulty Paying Gas/Electric Bills: Decline to Answer Difficulty Paying for Meds: Decline to Answer Currently Unemployed: Decline to Answer Education: Associate Degree Difficulty w/ Childcare or Family Care: No Living arrangements: with family Additional living arrangements comments: Occupation/Education: retired 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 EYES: EOMI, NOSE: Atraumatic NECK: Trachea midline RESPIRATORY: No increased rate of breathing CTAB CARDIOVASCULAR: RRR, no peripheral edema ABDOMINAL: Non-distended nontender MUSCULOSKELETAl: No obvious deformities NEURO: Alert. Cranial nerves 2-12 grossly intact. Moving for 4 extremities to command SKIN:: Warm, dry. Normal color PSYCHIATRIC: Normal affect Course Vital Signs Vital signs: Vital Signs Temperature 98.1 F 03/18/25 01:10 Pulse Rate 03/18/25 01:10 Respiratory Rate 03/18/25 01:10 Blood Pressure 115/79 03/18/25 01:10 Pulse Oximetry 03/18/25 01:10 Oxygen Delivery Room Air 03/18/25 01:10 Temperature 98.1 F 03/18/25 01:10 Pulse Rate 03/18/25 01:10 Respiratory Rate 03/18/25 01:10 Blood Pressure 115/79 03/18/25 01:10 Pulse Oximetry 03/18/25 01:20 Oxygen Delivery Room Air 03/18/25 01:20 Medical Decision Making MDM Narrative Medical decision making narrative: -Course: 71-year-old male presenting with altered mental status after taking 2 mg Ativan x2 earlier today. CT brain obtained which was unremarkable. Screening lab work unremarkable. Patient was monitored and his mental status continued to improve. The patient's wanted to take him home although he was not quite back to baseline. I offered to let them stay longer and they have declined. Patient discharged with return precautions. Instructed to be careful with use of benzodiazepines in the future. Given return precautions. -DDX includes but is not limited to: Benzodiazepine overdose, alcohol intoxication, sepsis, hemorrhage Vital Signs Vital Signs: Vital Signs Temperature 98.1 F 03/18/25 01:10 Pulse Rate 03/18/25 01:10 Respiratory Rate 03/18/25 01:10 Blood Pressure 115/79 03/18/25 01:10 Pulse Oximetry 03/18/25 01:10 Oxygen Delivery Room Air 03/18/25 01:10 Temperature 98.1 F 03/18/25 01:10 Pulse Rate 03/18/25 01:10 Respiratory Rate 03/18/25 01:10 Blood Pressure 115/79 03/18/25 01:10 Pulse Oximetry 03/18/25 01:20 Oxygen Delivery Room Air 03/18/25 01:20 Lab Data 03/18/25 02:27 03/18/25 02:27 Labs: Lab Results 03/18/25 Range/Units 02:27 WBC 9.3 (4.5-10.0) K/mm3 RBC 4.29 L (4.6-6.20) M/mm3 Hgb 13.2 L (14.0-18.0) g/dL Hct 40.8 L (42.0-52.0) % MCV 95.1 (80-100) fl MCH 30.8 (26-34) pg MCHC 32.4 (32-36) g/dl RDW 12.8 (11.5-14.5) % Plt Count 174 (150-375) k/mm3 MPV 9.1 (7.4-10.4) fl Immature Gran % (Auto) 0.3 (0-0.5) % Neut % (Auto) 74.7 H (45.5-73.1) % Lymph % (Auto) 8.8 L (18.3-44.2) % [place] % (Auto) 11.9 H (2.6-8.5) % Eos % (Auto) 3.9 (0-4.4) % Baso % (Auto) 0.4 (0.2-1.2) % Lymph # (Auto) 0.82 L (0.9-3.2) K/mm3 [place]ee # (Auto) 1.1 H (0.1-0.6) K/mm3 Eos # (Auto) 0.4 H (0-0.3) K/mm3 Baso # (Auto) 0.0 (0.0-0.1) K/mm3 Abs Immat Gran (auto) 0.03 (0.00-0.031) K/mm3 Absolute Neuts (auto) 7.0 H (1.3-6.7) K/mm3 Absolute Nucleated RBC 0.000 (0.0-0.012) K/mm3 Nucleated RBC % 0.0 (0.0-0.2) % Sodium 141 (137-145) mmol/L Potassium 4.3 (3.4-5.0) mmol/L Chloride 105 (98-107) mmol/L Carbon Dioxide 29 (22-30) mmol/L Anion Gap 7 (4-12) mmol/L BUN 16 (9-20) mg/dL Creatinine 0.86 (0.7-1.3) mg/dL Estim Creat Clear Calc 56 ml/min Estimated GFR > 60 (59 - ) Glucose 95 (65-110) mg/dL Calcium 8.8 (8.4-10.2) mg/dL Total Bilirubin 0.5 (0.2-1.3) mg/dL AST 27 (17-59) U/L ALT 20 (6-50) U/L Alkaline Phosphatase 58 (38-126) U/L Total Protein 7.0 (6.3-8.2) g/dL Albumin 4.3 (3.5-5.1) g/dL Discharge Plan Discharge Clinical Impression: Benzodiazepine overdose Patient Disposition: Home Condition: Stable Instructions: Antibiotic Form, Benzodiazepine Overdose (ED) Additional Instructions: Please be careful when taking benzodiazepines as they can be very sedating. Please follow-up your primary care physician for further management. If he develops any new or worsening symptoms return to the ED for re-evaluation. Patient Language: Greek Prescriptions: No Action fluticasone propionate [Flonase Allergy Relief] 50 mcg/actuation spray,suspension 2 spray NASAL DAILY Qty: 11.1 0RF Rx Instructions: administer into each nostril ibuprofen 200 mg Capsule 400 mg PO Q6H PRN (Reason: Pain) atorvastatin 40 mg tablet 40 mg PO HS valproic acid (as sodium salt) 250 mg/5 mL solution 500 mg PO HS valproic acid (as sodium salt) 250 mg/5 mL solution 250 mg PO DAILY lidocaine 5 % adhesive patch,medicated 1 patch topical DAILY PRN (Reason: pain) calcium polycarbophil [Fiber-Lax] 625 mg tablet 625 mg PO DAILY gabapentin 300 mg capsule 300 mg PO HS omeprazole 20 mg capsule,delayed release(DR/EC) 20 mg PO DAILY polyethylene glycol 3350 17 gram/dose powder 17 g PO DAILY cyclobenzaprine 5 mg tablet 5 mg PO HS mirtazapine 7.5 mg tablet 15 mg PO HS tamsulosin [Flomax] 0.4 mg capsule 0.4 mg PO DAILY Qty: 90 0RF Follow-up/Referrals: Amos Gibbons MD [Primary Care Provider] -
--- NOTE | 2025-03-18 03:20 | PC.NURSE ---
Pt has tried multiple times to provide a urine sample but is unable to do so. ED physician notified.
== END 2025-03-18 03:54 | disposition home or self-care (01) ==
PROVIDERS: Emergency Provider Emergency Medicine; PCP Family Medicine Adolescent Medicine
DX: T42.4X1A Poisoning by benzodiazepines, accidental (unintentional), initial encounter (principal); E11.9 Type 2 diabetes mellitus without complications; E78.2 Mixed hyperlipidemia; K21.9 Gastro-esophageal reflux disease without esophagitis; F41.8 Other specified anxiety disorders; Z87.891 Personal history of nicotine dependence
CPT/HCPCS: 36415; 70450; 80053; 85025; 93005; 99284